=== PATIENT | female | born 1945 | race Caucasian/White ===

== ENCOUNTER 2017-03-10 01:34 | Inpatient (IN) | payer MEDICARE, OTHER ==
[~2017-03-10] VITALS: Ht 157.5 cm; Wt 101.3 kg
[2017-03-10] VITALS (43 sets, daily range): BP systolic 78–143; BP diastolic 55–80; PULSE 65–108; RESP 0–24; Ht 157.5 cm; Wt 101.3 kg
[2017-03-10] MEDS ORDERED: SOD CHLORIDE 0.9% 1,000 ML IV STA (01:39)
[2017-03-10] MEDS ORDERED: VECURONIUM 100 MG in DEXTROSE 5% 100 ML IV ONE (01:39)
[2017-03-10] MEDS ORDERED: SODIUM CHLORIDE 0.9% 500 ML BAG IV* STA (01:39)
[2017-03-10] MEDS ORDERED: PROPOFOL 100 ML IV STA (01:39)
[2017-03-10 01:48] LABS: ABNORMAL IP MESSAGE 1; BASOPHIL # 0.1 10^3/ul (0.0-0.1); BASOPHILS % 0.5 % (0.0-2.0); EOSINOPHILS # 0.1 10^3/ul (0.0-0.5); EOSINOPHILS % 1.1 % (0.0-7.0); HEMATOCRIT 38.6 % (37.0-47.0); LYMPHOCYTES # 3.4 10^3/ul (0.8-2.9); LYMPHOCYTES % 35.6 % (15.0-51.0); MEAN CORPUSCULAR HEMOGLOBIN 25.4 pg (29.0-33.0); MEAN CORPUSCULAR HGB CONC 28.5 g/dl (32.0-37.0); MEAN CORPUSCULAR VOLUME 89.1 fl (82.0-101.0); MEAN PLATELET VOLUME 11.5 fl (7.4-10.4); MONOCYTE # 0.6 10^3/ul (0.3-0.9); MONOCYTES % 6.2 % (0.0-11.0); NEUTROPHIL # 5.2 10^3/ul (1.6-7.5); NUCLEATED RED BLOOD CELLS% 0.4 /100WBC (0.0-0.0); PLATELET COUNT 303 10^3/UL (140-415); RED BLOOD COUNT 4.33 10^6/ul (4.20-5.40); RED CELL DISTRIBUTION WIDTH 16.6 % (11.5-14.5); WHITE BLOOD COUNT 9.6 10^3/ul (4.8-10.8)
[2017-03-10 01:55] LABS: POSITIVE DIFF @See below
[2017-03-10 01:59] LABS: INR 1.23; PROTIME 15.6 Sec (12.2-14.2); PT RATIO 1.2
[2017-03-10 02:00] LABS: PARTIAL THROMBOPLASTIN TIME 42.1 Sec (25.0-35.0)
[2017-03-10 02:03] LABS: ALBUMIN 3.7 g/dl (3.3-4.9); ALBUMIN/GLOBULIN RATIO 1.37; BILIRUBIN,INDIRECT 0.1 mg/dl (0-1.1); BILIRUBIN,TOTAL 0.1 mg/dl (0.2-1.3); CALCIUM 9.1 mg/dl (8.4-10.2); CREATININE 1.08 mg/dl (0.44-1.00); MAGNESIUM 2.1 mg/dl (1.7-2.5); PHOSPHORUS 8.7 mg/dl (2.5-4.9); TOTAL PROTEIN 6.4 g/dl (6.1-8.1)
[2017-03-10] MEDS ORDERED: LIDOCAINE 1% (MDV) 20 ML INJ ONE (02:04)
[2017-03-10] MEDS ORDERED: MIDAZOLAM 1 MG/ML 2 ML INJ ONE ×2 (02:07→03:12)
[2017-03-10] MEDS ORDERED: FENTAnyl 50 MCG/ML VIAL ONE (02:07)
--- NOTE | 2017-03-10 02:10 | ERD ---
ER Documentation Chief Complaint Chief Complaint unwitnessed CA followed by ROSC and STEMI EKG HPI 8-year-old female with unwitnessed cardiac arrest followed by Emblem in the field. EKG rate STEMI. EMS intubated in the field. Last known well time was 1255. Brought into the ER 130. Patient unable to relate any history. Family currently not at bedside. ROS All systems reviewed and are negative except as per history of present illness. Physical Exam Vitals Vital Signs Date Time Temp Pulse Resp B/P Pulse Ox O2 Delivery O2 Flow Rate FiO2 03/10/17 01:42 43 12 105/90 100 Physical Exam Const: [] Head: Atraumatic Eyes: Normal Conjunctiva ENT: Normal External Ears, Nose and Mouth. Neck: Full range of motion..~ No meningismus. Resp: Clear to auscultation bilaterally Cardio: Regular rate and rhythm, no murmurs Abd: Soft, non tender, non distended. Normal bowel sounds Skin: No petechiae or rashes Back: No midline or flank tenderness Ext: No cyanosis, or edema Neur: Awake and alert Psych: Normal Mood and Affect Result Diagram: 03/10/17 0136 Results 24 hrs Laboratory Tests Test 03/10/17 01:36 03/10/17 01:58 White Blood Count 9.610^3/ul Red Blood Count 4.3310^6/ul Hemoglobin 11.0g/dl Hematocrit 38.6% Mean Corpuscular Volume 89.1fl Mean Corpuscular Hemoglobin 25.4pg Mean Corpuscular Hemoglobin Concent 28.5g/dl Red Cell Distribution Width 16.6% Platelet Count 39325^3/UL Mean Platelet Volume 11.5fl Neutrophils % 54.0% Lymphocytes % 35.6% Monocytes % 6.2% Eosinophils % 1.1% Basophils % 0.5% Nucleated Red Blood Cells % 0.4/100WBC Neutrophils # 5.210^3/ul Lymphocytes # 3.410^3/ul Monocytes # 0.610^3/ul Eosinophils # 0.110^3/ul Basophils # 0.110^3/ul Nucleated Red Blood Cells # 0.010^3/ul Prothrombin Time 15.6Sec Prothrombin Time Ratio 1.2 INR International Normalized Ratio 1.23 Activated Partial Thromboplast Time 42.1Sec Bedside Glucose 275mg/dL Current Medications Medications (Trade) Dose Ordered Sig/Bailey Route PRN Reason Start Time Stop Time Status Last Admin Dose Admin Sodium Chloride (NS) 1,000 ml @ 1,000 mls/hr Q1H STAT IV 03/10/17 01:39 03/10/17 02:38 03/10/17 01:55 Sodium Chloride 500 ml 500 ml ONCE STAT IV* 03/10/17 01:39 03/10/17 01:43 DC 03/10/17 01:55 Propofol 100 ml @ 3 mls/hr ONCE STAT IV 03/10/17 01:39 03/11/17 10:58 Vecuronium [place]/Dextrose (Norcuron/D5W) 100 ml @ 6 mls/hr [id number] ONCE IV 03/10/17 01:39 03/10/17 18:18 Procedures/MDM Central Line Placement by me: Patient consented, sterilely draped, full prep, gown, glove, mask, time out performed. Anesthesia: 1% lidocaine locally Location: Right femoral Device: Multiple lumen Technique: Seldinger technique. Secured with suture. Results: Venous return from all ports with easy saline flush. No complications. Chest X-ray 1V Interpreted by me: Soft Tissue: No acute abnormalities Bones: No acute abnormalities Mediastinum/Cardiac Silhouette/Lungs: [No acute abnormalities] EKG: Rate/Rhythm: [Normal Sinus Rhythm] QRS, ST, T-waves: ST segment elevations V345 Impression: [No evidence of ischemia or arrhythmia] Medical decision-makin-year-old female ROSC and STEMI. Patient will be transferred to the [facility]. Dr. Diaz made aware for hospitalist. Critical Care: Time: 35 minutes Treatments/Evaluations: Close monitoring and treatment of unstable vital signs, cardiorespiratory, and neurologic status, while maintaining tight balance of fluid, respiratory, and cardiac interventions. Departure Diagnosis: Primary Impression: ST elevation myocardial infarction (STEMI) Involved coronary artery: unspecified coronary artery Qualified Code: I21.3 - ST elevation myocardial infarction (STEMI), unspecified artery Additional Impression: Cardiac arrest Condition: Critical RAMÓN DAWKINSKath Mar 10, 2017 02:10
[2017-03-10 02:15] LABS: TROPONIN-I 0.104 ng/ml (0.00-0.12)
--- NOTE | 2017-03-10 02:24 | CONS ---
Date/Time of Note Date/Time of Note DATE: 03/10/17 TIME: 02: Assessment/Plan Assessment/Plan Chief Complaint/Hosp Course Cardiac arrest: EKG is concerning for anterior [place] especially as pt reportedly had chest pain prior to arrest. ROSC was achieved in the field. Unclear how long pt was down. Cardiac cath for immediate evaluation Anterior STEMI: ST elevation V2-V4 in setting of cardiac arrest. 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 She was resuscitated and ROSC was achieved in the field. She was brought in by paramedics with concern for STEMI. The pt is unresponsive. Unclear if bystander CPR was initiated. In the ED there is concern for anterior ST elevation by EKG. unable to obtain Past Medical History per HPI Exam/Review of Systems Vital Signs Vitals Vital Signs Date Time Temp Pulse Resp B/P Pulse Ox O2 Delivery O2 Flow Rate FiO2 03/10/17 01:42 43 12 105/90 100 Exam Constitutional: No alert, No distress, No oriented Head: atraumatic, normocephalic ENMT: intubated Neck: No jvd Respiratory: diminished breath sounds, No clear to auscultation, No crackles/rales Cardiovascular: regular rate and rhythm, systolic murmur (2/6 [place]) Gastrointestinal: non-tender, soft Neurological: No nl mental status, No nl speech Results EKG in field: hyperacute TW V3-V5 EKG in ED: sinus, 1st degree AVB, borderline ST V2 and V4, 2 mm HILARIO in V3. No reciprocal ST changes elsewhere Result Diagram: 03/10/17 0136 Results 24 hrs Laboratory Tests Test 03/10/17 01:36 03/10/17 01:58 White Blood Count 9.6 Red Blood Count 4.33 Hemoglobin 11.0 L Hematocrit 38.6 Mean Corpuscular Volume 89.1 Mean Corpuscular Hemoglobin 25.4 L Mean Corpuscular Hemoglobin Concent 28.5 L Red Cell Distribution Width 16.6 H Platelet Count 303 Mean Platelet Volume 11.5 H Neutrophils % 54.0 Lymphocytes % 35.6 Monocytes % 6.2 Eosinophils % 1.1 Basophils % 0.5 Nucleated Red Blood Cells % 0.4 H Neutrophils # 5.2 Lymphocytes # 3.4 H Monocytes # 0.6 Eosinophils # 0.1 Basophils # 0.1 Nucleated Red Blood Cells # 0.0 Prothrombin Time 15.6 H Prothrombin Time Ratio 1.2 INR International Normalized Ratio 1.23 Activated Partial Thromboplast Time 42.1 H Bedside Glucose 275 H Medications Medications Current Medications Vecuronium [place]/Dextrose (Norcuron/D5W) 100 ml @ 6 mls/hr [id number] ONCE IV ; Start 03/10/17 at 01:39; Stop 03/10/17 at 18:18 ZACK ROSENTHAL Mar 10, 2017 02:24
--- NOTE | 2017-03-10 02:30 | RADRPT ---
PROCEDURE: XR Chest. CLINICAL INDICATION: Chest pain. TECHNIQUE: Single frontal chest x-ray. COMPARISON: None. FINDINGS: Half endotracheal tube tip is in the right mainstem bronchus. Heart is enlarged.. There is diffuse interstitial prominence compatible with CHF/pulmonary edema.. There is a right-sided pleural effusio n. There is no pneumothorax. The osseous structures are unremarkable. IMPRESSION: Endotracheal tube right mainstem bronchus. Cardiomegaly. Pulmonary edema. Right pleural effusion. Critical findings reported to Dr. Covarrubias on 03/10/2017 2:28:42 AM. RPTAT: HMVK .Willam Merritt MD, MD Date Time Electronically viewed and signed by .Willam Merritt MD, on 03/10/2017 02:30 .K/
[2017-03-10] MEDS ORDERED: CANGRELOR TETRASODIUM/ NS 250 50 MG ONE ×2 (02:39→02:40)
[2017-03-10] MEDS ORDERED: BIVALIRUDIN 250MG /NS 50 ML 50 ML IVPB ONE (02:39)
[2017-03-10] MEDS ORDERED: LORAZEPAM 2 MG INJ ONE (03:25)
[2017-03-10] MEDS ORDERED: LORAZEPAM 2 MG INJ IV ONE (03:30)
[2017-03-10] MEDS ORDERED: TICAGRELOR 90 MG TABLET PO ONE (03:30)
[2017-03-10] MEDS ORDERED: ASPIRIN 325 MG TAB PO ONE (03:30)
[2017-03-10] MEDS ORDERED: MIDAZOLAM (DRIP) 50 mg/50 mL 50 ML IV ONE (03:41)
--- NOTE | 2017-03-10 03:47 | HP ---
Date/Time of Note Date/Time of Note DATE: 03/10/17 TIME: 03:47 Assessment/Plan VTE Prophylaxis VTE Prophylaxis Intervention: SCD's Lines/Catheters IV [facility] Central Line Central line still needed: Yes Assessment/Plan Chief Complaint/Hosp Course This is a 71-year-old female being admitted to the ICU floor for: #1 ventilatory dependent respiratory failure: Secondary to cardiac arrest. Continue vent management as per pulmonary. Serial ABGs. #2 cardiac arrest: Secondary to anterior STEMI. ROSC achieved in the field. Please see ACLS report for full EMS details. Patient found to have anterior STEMI and taken to [facility] emergently. Seizure-like activity during catheterization patient started on Versed drip and taken to get a stat CT of the head. CT of the head did not show any acute findings. Patient initiated on hypothermia protocol. Since prognosis appears very guarded concern for possible anoxic injury. #3 anterior STEMI: EKG shows ST elevation V2-V4. s/p PCI of mid LAD. Establish NG access and give ticagrelor 180mg and ASA 325mg load after which can stop cangrelor drip. continue angiomax for 4 hours post PCI. ASA 81mg lifelong. ticagrelor 90mg BID at least one year. Cardiology on consult appreciate their recommendations. 2D echocardiogram in the a.m. #4 CAD: Patient is a history of prior PCI. Continue management as per #3. Appreciate further cardiology recommendations. #5 DM: Check hemoglobin A1c, insulin drip as per hypothermia protocol. #6 HTN: Continue to monitor will initiate medications as indicated. #7 DVT GI prophylaxis: SCDs, Protonix Further treatment strategy will be implemented as per the clinical course Greater than 50 minutes of critical care time was spent on the care management of this patient. Problems: HPI/ROS Admit Date/Time Admit Date/Time Hx of Present Illness cc: cardiac arrest This is a 71-year-old female brought in by ambulance status post cardiac arrest with ROSC. History was obtained from the patient's family at the bedside this patient was unable to provide history secondary to her clinical condition. Patient son states that the mother called him at approximately 12:55 AM stating that she did not feel well and had chest pain. The patient was told her to the hospital which took him about 5 minutes and when he got there he saw his mother was nonresponsive. He quickly called 911. Within approximately 5 minutes the EMS arrived and started CPR. Please see ACLS report for further details. It is unclear how long the patient was down however it appears to be at least between 7-10 minutes. Patient was brought to the emergency department where an EKG was concerning for STEMI. she was taken emergently to the [facility] she had cardiac stenting. Of note during the catheterization the patient was displaying myoclonic jerks. Patient was given Versed and Ativan however at her apparent seizure activity did not seize. Patient was started on Versed drip and taken for a stat CAT scan. A central line was also placed in the ED prior to the cardiac catheterization. Allergies: None Medications: See MAR ROS Subjective hx not possible: pt critical, pt critical status PMH/Family/Social Past Medical History NM status post 2 stents, diabetes mitis, hypertension, hyperlipidemia Past Surgical History Cardiac stents 2 Family History Significant Family History: hypertension Social History Alcohol Use: none Smoking Status: Never smoker Drug Use: none Exam/Review of Systems Vital Signs Vitals Vital Signs Date Time Temp Pulse Resp B/P Pulse Ox O2 Delivery O2 Flow Rate FiO2 03/10/17 02:15 82 22 165/88 98 Mechanical Ventilator Exam Exam General: Patient is obtunded currently intubated HEENT: Pinpoint pupils bilaterally, sluggish, ET tube in place connected to vent Neck: Supple Lungs: Clear to auscultation bilaterally no crackles rales or wheezing Heart: Normal S1-S2, Regular rhythm and rate. No overt murmur appreciated on auscultation Abdomen: Soft , nondistended , bowel sounds are present. No guarding no rebound tenderness , No masses or organomegaly. No costovertebral temporal angle mass Extremities: Normal to inspection, no edema no cyanosis Neurologic: Obtunded, intubated, unable to assess full neurological status secondary to clinical status Additional Comments PROCEDURE: XR Chest. CLINICAL INDICATION: Chest pain. TECHNIQUE: Single frontal chest x-ray. COMPARISON: None. FINDINGS: Half endotracheal tube tip is in the right mainstem bronchus. Heart is enlarged.. There is diffuse interstitial prominence compatible with CHF/ pulmonary edema.. There is a right-sided pleural effusion. There is no pneumothorax. The osseous structures are unremarkable. IMPRESSION: Endotracheal tube right mainstem bronchus. Cardiomegaly. Pulmonary edema. Right pleural effusion. Critical findings reported to Dr. Dawkins on 03/10/2017 2:28:42 AM. RPTAT: HMVK .Willam Merritt MD, MD Date Time Electronically viewed and signed by .Willam Merritt MD, MD on 03/10/2017 02:30 .K/ CC: RAMÓN DAWKINS EKG in field: hyperacute TW V3-V5 EKG in ED: sinus, 1st degree AVB, borderline ST V2 and V4, 2 mm HILARIO in V3. No reciprocal ST changes elsewhere Labs Result Diagram: 03/10/1713503/10/17135 Medications Medications Current Medications Vecuronium [place]/Dextrose (Norcuron/D5W) 100 ml @ 6 mls/hr [id number] ONCE IV ; Start 03/10/17 at 01:39; Stop 03/10/17 at 18:18 Lorazepam (Ativan) 4 mg ONCE ONCE IV ; Start 03/10/17 at 03:30; Stop at 03:31; Status UNV Miscellaneous Information (* Miscellaneous Pharmacy Order) HOLD all METFORMIN ... ONCE ONCE XX ; Start 03/10/17 at 03:30; Stop 03/10/17 at 03:31; Status UNV Ticagrelor (Brilinta) 180 mg ONCE ONCE PO ; Start 03/10/17 at 03:30; Stop at 03:31; Status UNV Ticagrelor 90 mg 90 mg BID PO ; Start 03/10/17 at 09:00; Status UNV Midazolam HCl (Versed) 50 ml @ 1 mls/hr TITRATE IV ; Start 03/10/17 at 03:30; Status UNV Aspirin (Aspirin) 325 mg ONCE ONCE PO ; Start 03/10/17 at 03:30; Stop at 03:31; Status UNV Aspirin 81 mg 81 mg DAILY PO ; Start 03/10/17 at 09:00; Status UNV Sodium Chloride (NS) 1,000 ml @ 60 mls/hr [id number] IV ; Start 03/10/17 at 03:39 ; Status UNV Acetaminophen (Tylenol Supp) 650 mg Q4H PRN NV PAIN LEVEL 1-3 OR FEVER; Start 03/10/17 at 04:00; Status UNV Pantoprazole (Protonix Iv) 40 mg DAILY@06 IV ; Start 03/10/17 at 06:00; Status UNV JESSICA DIAZ Mar 10, 2017 03:47
--- NOTE | 2017-03-10 03:50 | OPR ---
Date/Time of Note Date/Time of Note DATE: 03/10/17 TIME: 03:36 Operative Report Preoperative Diagnosis cardiac arrest, anterior STEMI Postoperative Diagnosis same s/p PCI of mid LAD Surgeon see signature line Corner Former none Anesthesia Type: moderate sedation Estimated Blood Loss: minimal Transfusion none Specimen none Grafts/Implants none Complications none Procedure Description Procedure Date:03/10/2017 Customer Services Manager/surgeon: Tang Martinez MD. Procedures Performed: 1)Left heart catheterization with selective left and right coronary angiography. 2)Balloon angioplasty and stenting of the mid LAD with a Synergy 2.25 x 16 stent. Pre-operative Diagnosis:STEMI, cardiac arrest Post-operative Diagnosis:same, s/p PCI of mid LAD Indications: Description of Procedure: The patient was brought to the cardiac catheterization lab. The procedure site was prepped and draped in usual manner. 5 mL lidocaine was injected into the right groin. Next using micropuncture access and the Seldinger technique, the 6 nepali sheath was inserted into the right femoral artery. Next using the JL3.5 guide and JR4, selective angiography of the left and right coronary arteries were obtained. The pigtail was then advanced into the ventricle and hemodynamics obtained. Left ventricle angiography was not obtained due to elevated LVEDP The decision was made to proceed with PCI of the LAD as this was the likely culprit for her STEMI and cardiac arrest. The pt did not have PO access so IV cangrelor as well as angiomax was given. Through the 6 nepali JL 3.5 guide, the BMW angioplasty wire was advanced past the lesion. Next the 2.0 X 12 balloon was used to dilate the lesion times 2 at a maximum of 8 barbara. Subsequently, the Synergy 2.25 x 16 stent was advanced to the lesion and deployed at 12 barbara. Next the stent was post dilated with the 2.25 X 8 noncompliant balloon times 2 at a maximum of 12 barbara. Final angiography revealed SACHI 3 flow, no edge dissection, and appropriate stent expansion. Next all equipment was removed. Femoral angiography revealed a high bifurcation so closure device was not done. The sheath is to be removed in the ICU. Findings: Anatomy/Hemodynamics: Left main: normal LAD: ostial 30%, mid ulcerated 99% lesion Diagonal:luminal irregularities Circumflex:mid stent patent Obtuse marginal 1: prox focal 70%. Other obtuse marginals: small vessels some with diffuse disease RCA: 20-30% plaquing PDA:luminal irregularities PLV: small vessel with diffuse 50% prox disease LV angiography:not done due to elevated LVEDP LV-Ao: no gradient LVEDP:27 mmHg Medications used: Versed 4mg (pt noted to have possible seizure like activity) Fentanyl 50mcg Angiomax cangrelor Equipment used: 6 nepali JL 3.5 guide BMW angioplasty wire 2 x 12 balloon Synergy 2.25 x 16 drug eluting stent 2.25 x 8 noncompliant balloon Estimated blood loss<10 mL. Specimen: none Grafts/implants: none Complications: none Assessment: Anterior STEMI/CAD: s/p PCI of ulcerated 99% mid LAD lesion Cardiac arrest: likely due to arrhythmia related to above Acute respiratory failure: on vent due to above Likely anoxic brain injury: per family, pt may have been pulseless for 10 mins prior to cheese cook arrival Seizures vs myoclonic jerks Plan: -admit to ICU -establish NG access and give ticagrelor 180mg and ASA 325mg load after which can stop cangrelor drip -continue angiomax for 4 hours post PCI -would start hypothermia (discussed with hospitalist) -management of seizures per primary -ASA 81mg lifelong -ticagrelor 90mg BID at least one year -prognosis and neurologic recovery remains guarded TANG MARTINEZ Mar 10, 2017 03:50
[2017-03-10 04:00] LABS: BASOPHIL # 0.1 10^3/ul (0.0-0.1); BASOPHILS % 0.3 % (0.0-2.0); EOSINOPHILS # 0.1 10^3/ul (0.0-0.5); EOSINOPHILS % 0.4 % (0.0-7.0); HEMATOCRIT 34.5 % (37.0-47.0); HEMOGLOBIN 10.1 g/dl (12.0-16.0); LYMPHOCYTES # 1.4 10^3/ul (0.8-2.9); LYMPHOCYTES % 6.8 % (15.0-51.0); MEAN CORPUSCULAR HEMOGLOBIN 25.6 pg (29.0-33.0); MEAN CORPUSCULAR HGB CONC 29.3 g/dl (32.0-37.0); MEAN CORPUSCULAR VOLUME 87.6 fl (82.0-101.0); MEAN PLATELET VOLUME 11.1 fl (7.4-10.4); MONOCYTE # 0.4 10^3/ul (0.3-0.9); MONOCYTES % 2.1 % (0.0-11.0); NEUTROPHIL # 17.7 10^3/ul (1.6-7.5); NUCLEATED RED BLOOD CELLS% 0.1 /100WBC (0.0-0.0); PLATELET COUNT 291 10^3/UL (140-415); RED BLOOD COUNT 3.94 10^6/ul (4.20-5.40); RED CELL DISTRIBUTION WIDTH 16.4 % (11.5-14.5); WHITE BLOOD COUNT 20.2 10^3/ul (4.8-10.8)
[2017-03-10] MEDS ORDERED: NORepinephrine 8MG/250 ML (PMX 250 ML ONE (04:00)
[2017-03-10] MEDS ORDERED: ACETAMINOPHEN 650 MG SUPP PR PRN ×2 (04:00→04:30)
[2017-03-10] MEDS ORDERED: ASPIRIN 325 MG TAB ONE (04:04)
[2017-03-10] MEDS ORDERED: TICAGRELOR 90 MG TABLET ONE (04:04)
[2017-03-10] MEDS: ACCU-CHEK XX SCH ×19 (04:30→23:30)
[2017-03-10] MEDS ORDERED: DEXTROSE 50% 50 ML SYRINGE IV PRN ×2 (04:30)
--- NOTE | 2017-03-10 04:30 | RADRPT ---
PROCEDURE: Noncontrast CT Head. CLINICAL INDICATION: Cardiac arrest TECHNIQUE: Noncontrast CT of the head was obtained. The administered radiation dose was CTDI vol = 45 mGy, DLP = 1414 mGy-cm. One or more of the following dose reduction techniques were used: automat ed exposure control, adjustment of the mA and/or kV according to patient size and/or use of iterativ e reconstruction technique. DICOM images are available. COMPARISON: No pertinent prior examinations were submitted for comparison. FINDINGS: The ventricles and cortical sulci are mild to moderately enlarged. There is mild to moderate decrea sed attenuation within the periventricular and subcortical white matter compatible with chronic micr ovascular changes. Some contrast is noted within the vascular structures, presumably due to recent cardiac catheteriza tion. There is no acute intracranial hemorrhage or extra-axial fluid collection. There is no mass ef fect. No midline shift is identified. There is no loss of oneill-white differentiation to suggest acut e infarction. The orbits are within normal limits. Some mild mucosal thickening is noted throughout the paranasal sinuses. No destructive osseous lesion is identified. IMPRESSION: No acute findings. Mild to moderate diffuse parenchymal volume loss and chronic microvascular strickland es. RPTAT: HIKT .Guillermo Alberto MD, MD Date Time Electronically viewed and signed by .Guillermo Alberto MD, on 03/10/2017 04:30 .T/
[2017-03-10 04:32] LABS: CK-MB 2.85 ng/ml (0.0-2.4)
[2017-03-10 04:42] LABS: TROPONIN-I 0.128 ng/ml (0.00-0.12)
[2017-03-10 05:12] LABS: AADO2 Arterial 579.1 mmHg (7.0-24.0); Allen Test ACCEPTAB; Arterial Base Excess -7.8 mmol/L (-3.0-3); Arterial COHb 0.3 % (0.0-3.0); Arterial Fraction of Oxyhgb 93.9 % (93.0-99.0); Arterial HCO3 21.9 mmol/L (22.0-26.0); Arterial MetHb 0.2 % (0.0-1.5); Arterial Total Hemglobin 10.4 g/dl (12.0-18.0); MODE VENT - AC
[2017-03-10] MEDS ORDERED: DEXTROSE 5%-0.9% NACL 1,000 ML IV SCH (05:30)
[2017-03-10] MEDS: MIDAZOLAM (DRIP) 50 mg/50 mL 50 ML IV SCH ×2 (05:41→07:10)
[2017-03-10] MEDS ORDERED: PANTOPRAZOLE 40 MG INJ IV SCH (06:00)
[2017-03-10] MEDS: ARTIFICIAL TEARS 15 ML OPH BOTH EYES SCH ×3 (06:01→17:09)
[2017-03-10] MEDS: INSULIN HUMAN REGULAR 100 UNIT in SOD CHLORIDE 0.9% 99 ML IV SCH (06:01)
[2017-03-10] MEDS: OCULAR LUBRICANT 3.5 GM OPH OINT BOTH EYES SCH ×3 (06:02→17:09)
[2017-03-10] MEDS: SOD CHLORIDE 0.9% 1,000 ML IV SCH ×2 (06:04→23:30)
[2017-03-10 07:00] LABS: ALBUMIN 3.2 g/dl (3.3-4.9); ALBUMIN/GLOBULIN RATIO 1.23; CALCIUM 7.8 mg/dl (8.4-10.2); CREATININE 1.11 mg/dl (0.44-1.00); MAGNESIUM 1.7 mg/dl (1.7-2.5); TOTAL PROTEIN 5.8 g/dl (6.1-8.1)
[2017-03-10] MEDS ORDERED: NORepinephrine 8MG/250 ML (PMX 250 ML IV SCH (07:00)
[2017-03-10] MEDS ORDERED: LEVETIRACETAM 1000 MG (PMX) 100 ML IVPB ONE (07:30)
[2017-03-10] MEDS: PROPOFOL 100 ML IV SCH ×3 (07:30→18:43)
[2017-03-10] MEDS: VECURONIUM 100 MG in DEXTROSE 5% 100 ML IV SCH (08:00)
[2017-03-10] MEDS: ASPIRIN 81 MG TAB PO SCH (08:52)
[2017-03-10] MEDS: TICAGRELOR 90 MG TABLET PO SCH ×2 (09:02→21:12)
[2017-03-10 09:18] LABS: ADD UMIC YES; UR ASCORBIC ACID 20 mg/dL (NEGATIVE); UR BILIRUBIN (Dip) NEGATIVE (NEGATIVE); UR BLOOD (Dip) 1+ mg/dL (NEGATIVE); UR CLARITY CLEAR (CLEAR); UR COLOR YELLOW (YELLOW); UR GLUCOSE (Dip) NEGATIVE (NEGATIVE); UR KETONES (Dip) NEGATIVE (NEGATIVE); UR LEUKOCYTE ESTERASE (Dip) NEGATIVE Leu/ul (NEGATIVE); UR MUCUS FEW /HPF (NONE SEEN); UR NITRITE (Dip) NEGATIVE (NEGATIVE); UR RBC 9 /HPF (0-5); UR SPECIFIC GRAVITY (Dip) 1.036 (1.003-1.030); UR TOTAL PROTEIN (Dip) NEGATIVE (NEGATIVE); UR UROBILINOGEN (Dip) NEGATIVE (NEGATIVE)
--- NOTE | 2017-03-10 09:35 | PN ---
Date/Time of Note Date/Time of Note DATE: 03/10/17 TIME: 09:27 Assessment/Plan VTE Prophylaxis VTE Prophylaxis Intervention: SCD's Lines/Catheters IV Catheter Type (from Nrsg): Central Line Central line still needed: Yes Urinary Cath still in place: Yes Reason Cath still needed: other (indicate) (criticallu ill) Assessment/Plan Assessment/Plan 71 yo F presented following cardiac arrest 2/2 STEMI. Pt taken to [facility] and underwent PCI. Pt currently undergoing hypothermia protocol. Paper chart reviewed. No EMS paperwork available. Pt appears to have been in SR at time of arrival to the ER, though might have been in PEA/asystole in the field? -continue hypothermia as per protocol #STEMI sp PCI: DAPT, BP meds, statin as per cardiology a1c 6.1 pt currently on insulin drip discussed with family we will not be able to assess for neurological recovery until rewarming has been completed critical care time: 30 minutes Subjective 24 Hr Interval Summary Free Text/Dictation Pt currently undergoing hypothermia protocol Exam/Review of Systems Vital Signs Vitals Vital Signs Date Time Temp Pulse Resp B/P Pulse Ox O2 Delivery O2 Flow Rate FiO2 03/10/17 08:00 76 03/10/17 07:55 24 100 100 03/10/17 07:30 93/62 03/10/17 07:00 Mechanical Ventilator 03/10/17 07:00 91.0 Intake and Output 03/09/17 03/09/17 03/10/17 15:00 23:00 07:00 Intake Total 1083 ml Output Total 460 ml Balance 623 ml Exam intubated and sedated no mrg lungs clear abd soft oviedo in place Results Result Diagram: 03/10/17 0345 03/10/17 0345 Results 24 hrs Laboratory Tests Test 03/10/17 01:36 03/10/17 01:58 03/10/17 03:45 03/10/17 04:08 White Blood Count 9.6 20.2 #H Red Blood Count 4.33 3.94 L Hemoglobin 11.0 L 10.1 L Hematocrit 38.6 34.5 L Mean Corpuscular Volume 89.1 87.6 Mean Corpuscular Hemoglobin 25.4 L 25.6 L Mean Corpuscular Hemoglobin Concent 28.5 L 29.3 L Red Cell Distribution Width 16.6 H 16.4 H Platelet Count 303 291 Mean Platelet Volume 11.5 H 11.1 H Neutrophils % 54.0 88.0 H Lymphocytes % 35.6 6.8 L Monocytes % 6.2 2.1 Eosinophils % 1.1 0.4 Basophils % 0.5 0.3 Nucleated Red Blood Cells % 0.4 H 0.1 H Neutrophils # 5.2 17.7 H Lymphocytes # 3.4 H 1.4 Monocytes # 0.6 0.4 Eosinophils # 0.1 0.1 Basophils # 0.1 0.1 Nucleated Red Blood Cells # 0.0 0.0 Prothrombin Time 15.6 H Prothrombin Time Ratio 1.2 INR International Normalized Ratio 1.23 Activated Partial Thromboplast Time 42.1 H Sodium Level 142 141 Potassium Level 5.0 5.0 Chloride Level 103 105 Carbon Dioxide Level 19 L 19 L Anion Gap 25 H 22 H Blood Urea Nitrogen 16 17 Creatinine 1.08 H 1.11 H Glucose Level 264 H 273 H Calcium Level 9.1 7.8 L Phosphorus Level 8.7 H Magnesium Level 2.1 1.7 Total Bilirubin 0.1 L 0.0 L Direct Bilirubin 0.00 0.00 Indirect Bilirubin 0.1 0.0 Aspartate Amino Transf (AST/SGOT) 34 60 H Alanine Aminotransferase (ALT/SGPT) 37 46 Alkaline Phosphatase 56 54 Troponin I 0.104 0.128 *H B-Type Natriuretic Peptide 3310 H Total Protein 6.4 5.8 L Albumin 3.7 3.2 L Globulin 2.70 2.60 Albumin/Globulin Ratio 1.37 1.23 Bedside Glucose 275 H Hemoglobin A1c 6.1 H Lactic Acid Level 4.1 *H Creatine Kinase 131 Creatine Kinase Index 2.2 Creatinine Kinase MB (Mass) 2.85 H Thyroid Stimulating Hormone (TSH) < 0.015 L Blood Gas Specimen Source Blood arterial Arterial Blood Date Drawn 03/10/2017 4:57:46 AM Arterial Blood pH (Temp corrected) 7.158 *L Arterial Blood pCO2 (Temp correct) 61.0 H Arterial Blood pO2 (Temp corrected) 79.2 L Arterial Blood HCO3 21.9 L Arterial Blood Base Excess -7.8 L Arterial Blood Oxygen Saturation 94.4 L Scott Test ACCEPTAB Arterial Blood Gas Puncture Site Right Radial Arterial Blood Carboxyhemoglobin 0.3 Arterial Blood Methemoglobin 0.2 Blood Gas A-a O2 Differential 579.1 H Oxyhemoglobin Percent 93.9 Total Hemoglobin 10.4 L Blood Gas Temperature 34.4 Blood Gas Respiration Rate 18.0 Blood Gas Actual Respiration Rate 18 Blood Gas Modality VENT - AC FiO2 100.0 Blood Gas Tidal Volume 500.0 Blood Gas Low PEEP Setting 5.0 Blood Gas Inspiratory Pressure 36.0 Blood Gas Critical Value Read Back JUSTICE ARECHIGA Blood Gas Notified Whom AA Blood Gas Notified Time 03/10/2017 5:10:59 AM Test 03/10/17 05:46 03/10/17 06:00 03/10/17 06:21 03/10/17 07:27 Bedside Glucose 229 H 243 H 190 Urine Color YELLOW Urine Clarity CLEAR Urine pH 5.0 Urine Specific [place] 1.036 H Urine Ketones NEGATIVE Urine Nitrite NEGATIVE Urine Bilirubin NEGATIVE Urine Urobilinogen NEGATIVE Urine Leukocyte Esterase NEGATIVE Urine Microscopic RBC 9 H Urine Microscopic WBC 8 H Urine Mucus FEW A Urine Hemoglobin 1+ H Urine Glucose NEGATIVE Urine Total Protein NEGATIVE Test 03/10/17 08:33 03/10/17 09:15 Bedside Glucose 159 142 Medications Medications Current Medications Ticagrelor 90 mg 90 mg BID PO Last administered on 03/10/17 09:02; Admin Dose 90 MG; Start 03/10/17 at 09:00 Midazolam HCl (Versed) 50 ml @ 1 mls/hr TITRATE IV Last administered on 07:10; Admin Dose 10 MLS/HR; Start 03/10/17 at 03:30 Aspirin 81 mg 81 mg DAILY PO Last administered on 03/10/17 08:52; Admin Dose 81 MG; Start 03/10/17 at 09:00 Sodium Chloride (NS) 1,000 ml @ 60 mls/hr [id number] IV Last administered on 06:04; Admin Dose 60 MLS/HR; Start 03/10/17 at 03:39 Acetaminophen (Tylenol Supp) 650 mg Q4H PRN [place] PAIN LEVEL 1-3 OR FEVER; Start 03/10/17 at 04:00 Pantoprazole (Protonix Iv) 40 mg DAILY@06 IV Last administered on 03/10/17 06 :28; Admin Dose 40 MG; Start 03/10/17 at 06:00 Acetaminophen (Tylenol Supp) 650 mg Q4H PRN [place] TEMP > 37C; Start 03/10/17 at 04:30 Acetaminophen (Tylenol Supp) 500 mg Q6H [place] ; Start 03/11/17 at 04:30 Eye Lubricant (Akwa Oint) 1 applic Q6 BOTH EYES Last administered on 06:02; Admin Dose 1 APPLIC; Start 03/10/17 at 06:00 Eye Lubricant (Artificial Tears Oph) 2 drop Q6 BOTH EYES Last administered on 03/10/17 06:01; Admin Dose 2 DROP; Start 03/10/17 at 06:00 Diagnostic Test (Pha) (Accu-Chek) 1 ea Q1H XX Last administered on 03/10/17 08:40; Admin Dose 1 EA; Start 03/10/17 at 04:30 Dextrose (D50w Syringe) 25 ml Q15M PRN IV Till BS 80 mg/dL or above x2; Start 03/10/17 at 04:30 Dextrose 50 ml 50 ml Q15M PRN IV Till BS 80 mg/dL or above x2; Start 03/10/17 at 04:30 Norepinephrine 250 ml @ 1.875 mls/ hr TITRATE IV Last administered on 06:59; Admin Dose 3.75 MLS/HR; Start 03/10/17 at 07:00 Vecuronium Bee 100 mg/ Dextrose 100 ml @ 5 mls/hr TITRATE IV ; Start at 07:30 Propofol (Diprivan) 100 ml @ 3 mls/hr Q12H IV ; Start 03/10/17 at 07:30 ARCELIA MCGRATH MD Mar 10, 2017 09:35
--- NOTE | 2017-03-10 10:05 | RADRPT ---
PROCEDURE: XR Chest. CLINICAL INDICATION: Short of breath TECHNIQUE: Single portable view of the chest was obtained COMPARISON: No priors for comparison FINDINGS: There is an ET tube with distal tip below thoracic inlet. NG tube is noted with distal tip coursing below the hemidiaphragms.. The cardiac silhouette and pulmonary lady prominent. There are diffuse bi lateral infiltrates , right greater left and bilateral pleural effusions. IMPRESSION: 1. ET tube and NG tube in satisfactory position. 2. Cardiomegaly and pulmonary vascular congestion. Diffuse bilateral infiltrates, right greater than left and pleural effusions. Cannot exclude pneumonia in the appropriate clinical setting. RPTAT: AAPP Physician Prem Date Time Electronically viewed and signed by Physician Prem on 03/10/2017 10:04 JL/
--- NOTE | 2017-03-10 10:07 | RADRPT ---
PROCEDURE: XR Abdomen. CLINICAL INDICATION: Check nasogastric tube position. TECHNIQUE: AP supine abdomen x-ray. COMPARISON: Chest x-ray done earlier the same day. FINDINGS: There is a nasogastric tube with the tip distally in the stomach. A Salazar catheter is present in the bladder. Contrast is present in the bladder. There are 2 right femoral catheters. The bowel gas pattern is normal with no evidence of obstruction. There are no abnormal calcifications overlying the urinary tracts. There are degenerative changes of the spine. IMPRESSION: 1. Nasogastric tube distally in the stomach. 2. Salazar catheter in the bladder. 3. Contrast in the bladder. 4. Two right femoral catheters. 5. Degenerative changes of the spine. RPTAT: QQ .Wilfred Christian MD, MD Date Time Electronically viewed and signed by .Wilfred Christian MD, on 03/10/2017 10:06 .R/
[2017-03-10 10:15] LABS: CHOL/HDL RATIO 2.4 RATIO
[2017-03-10 10:22] LABS: CK-MB 3.76 ng/ml (0.0-2.4)
[2017-03-10 10:36] LABS: AADO2 Arterial 621.9 mmHg (7.0-24.0); Arterial Base Excess -6.6 mmol/L (-3.0-3); Arterial COHb 0.3 % (0.0-3.0); Arterial Fraction of Oxyhgb 92.7 % (93.0-99.0); Arterial HCO3 20.4 mmol/L (22.0-26.0); Arterial MetHb 0.2 % (0.0-1.5); Arterial Total Hemglobin 10.5 g/dl (12.0-18.0); MODE VENT - AC
[2017-03-10 10:47] LABS: TROPONIN-I 0.16 ng/ml (0.00-0.12)
--- NOTE | 2017-03-10 11:06 | CONS ---
DATE OF ADMISSION: 03/10/2017 DATE OF CONSULTATION: REASON FOR CONSULTATION: Shortness of breath. Thank you, Dr. Diaz, for this consultation. HISTORY OF PRESENT ILLNESS: This is a 71-year-old lady who yesterday reported to her son that she w as feeling unwell with central chest pain and discomfort. Upon arrival of her son, she was unrespon nayana, 911 was called and CPR was commenced via ACLS protocol. It appears the patient was down for a t least 10 minutes. She had return of circulation, so she presented to the Emergency Room, taken to the geophysical laboratory director and had stent of LAD placed. Following this, she had initiation of hypothermia protoc ol and currently is in hypothermia cooling process. PAST MEDICAL HISTORY: History of myocardial infarction with stents x2, diabetes mellitus, hypertens ion, hyperlipidemia. SOCIAL HISTORY: She is a nonsmoker, no alcohol, no history of drug use. FAMILY HISTORY: Noncontributory. SYSTEMS REVIEW: A 12-point review of systems, unable to perform. PHYSICAL EXAMINATION: GENERAL: Elderly-appearing lady, appears comfortable at rest, intubated and sedated on mechanical v entilation. VITAL SIGNS: Temperature is 92, pulse is 78, blood pressure 108/63 currently on vecuronium and prop ofol, orally intubated. HEENT: Pupils are sluggish. CARDIAC: S1, S2, no added sounds or murmurs. CHEST: Diminished air entry bilaterally. ABDOMEN: Soft, nontender. No guarding or rebound. EXTREMITIES: No cyanosis, clubbing or edema. NEUROLOGIC: Unable to assess. LABORATORY DATA: White count 20.2, hemoglobin 10.1, platelets of 291. BUN 17, creatinine 1.11. Tr oponin 0.125. ABG: pH 7.15, pCO2 of 61, pO2 of 79, bicarbonate was 22. DIAGNOSTIC DATA: Chest x-ray was reviewed, shows extensive right-sided infiltrate, possible underly ing pleural effusion. CT brain showed no acute ischemic findings. IMPRESSION AND PLAN: 1. Acute myocardial infarction. 2. Cardiopulmonary arrest. 3. Possible aspiration pneumonia with hypoxemic respiratory failure. 4. Possible anoxic brain injury. 5. History of coronary artery disease with stent placements in the past. The patient will require: 1. Continue hypothermia protocol. 2. Antibiotics for possible aspiration pneumonia. 3. Insulin drip. 4. Cardiac recommendations with Brilinta and aspirin post-stent placement. 5. DVT and GI prophylaxis. I had an extensive discussion with family members at bedside, explained that the patient would requi re at least 48 to 72 hours off sedation to assess neurological status. Dictated By: MARTA REMY MD SV/IDANIA Conf#: [id number] DID#: [id number] CC: JESSICA DIAZ MD;*EndCC*
--- NOTE | 2017-03-10 12:28 | CONS ---
Date/Time of Note Date/Time of Note DATE: 03/10/17 TIME: 12:24 Assessment/Plan Assessment/Plan Chief Complaint/Hosp Course 71 yo female admitted with cardiac arrest s/p LAD stent, on hypothermia protocol suspected seizure activity. CTH no acute process. Recommendations: start Keppra 1500 mg BID Routine EEG after hypothermia completed MRI Brain to assess for hypoxic injury when stable Problems: Consultation Date/Type/Reason Admit Date/Time 03/10/17 Date of Consultation: Mar 10, 2017 Type of Consultation: Neurology Reason for Consultation cardiac arrest seizure Referring Provider: JESSICA DIAZ Hx of Present Illness 71 yo female DM, HTN, HLD CAD admitted with chest pain became unresponsive down for atleast 10 mins, received CPR with ROSC on admission to the ER underwent emergent cath and LAD stent was placed. Hypothermia protocol was initiated currently undergoing. Seizure activity was witnessed she had twitching of the right lip and tongue. Versed, Propofol initiated, 1 load of Keppra was given. She remains unresponsive, sedated. Subjective hx not possible: pt non-verbal, pt critical Social History Alcohol Use: none Smoking Status: Never smoker Drug Use: none Exam/Review of Systems Vital Signs Vitals Vital Signs Date Time Temp Pulse Resp B/P Pulse Ox O2 Delivery O2 Flow Rate FiO2 03/10/17 12:00 72 03/10/17 09:43 24 100 100 03/10/17 09:00 91.9 108/63 03/10/17 07:00 Mechanical Ventilator Intake and Output 03/09/17 03/09/17 03/10/17 15:00 23:00 07:00 Intake Total 1083 ml Output Total 460 ml Balance 623 ml Exam sedated unable to assess well CN: pin point absent corneals and gag Motor absent w/d twitching noted of right upper lip rhythmic intermittent Results Result Diagram: 03/10/17 0345 03/10/17 0345 Results 24 hrs Laboratory Tests Test 03/10/17 01:36 03/10/17 01:58 03/10/17 03:45 03/10/17 04:08 White Blood Count 9.6 20.2 #H Red Blood Count 4.33 3.94 L Hemoglobin 11.0 L 10.1 L Hematocrit 38.6 34.5 L Mean Corpuscular Volume 89.1 87.6 Mean Corpuscular Hemoglobin 25.4 L 25.6 L Mean Corpuscular Hemoglobin Concent 28.5 L 29.3 L Red Cell Distribution Width 16.6 H 16.4 H Platelet Count 303 291 Mean Platelet Volume 11.5 H 11.1 H Neutrophils % 54.0 88.0 H Lymphocytes % 35.6 6.8 L Monocytes % 6.2 2.1 Eosinophils % 1.1 0.4 Basophils % 0.5 0.3 Nucleated Red Blood Cells % 0.4 H 0.1 H Neutrophils # 5.2 17.7 H Lymphocytes # 3.4 H 1.4 Monocytes # 0.6 0.4 Eosinophils # 0.1 0.1 Basophils # 0.1 0.1 Nucleated Red Blood Cells # 0.0 0.0 Prothrombin Time 15.6 H Prothrombin Time Ratio 1.2 INR International Normalized Ratio 1.23 Activated Partial Thromboplast Time 42.1 H Sodium Level 142 141 Potassium Level 5.0 5.0 Chloride Level 103 105 Carbon Dioxide Level 19 L 19 L Anion Gap 25 H 22 H Blood Urea Nitrogen 16 17 Creatinine 1.08 H 1.11 H Glucose Level 264 H 273 H Calcium Level 9.1 7.8 L Phosphorus Level 8.7 H Magnesium Level 2.1 1.7 Total Bilirubin 0.1 L 0.0 L Direct Bilirubin 0.00 0.00 Indirect Bilirubin 0.1 0.0 Aspartate Amino Transf (AST/SGOT) 34 60 H Alanine Aminotransferase (ALT/SGPT) 37 46 Alkaline Phosphatase 56 54 Troponin I 0.104 0.128 *H B-Type Natriuretic Peptide 3310 H Total Protein 6.4 5.8 L Albumin 3.7 3.2 L Globulin 2.70 2.60 Albumin/Globulin Ratio 1.37 1.23 Bedside Glucose 275 H Hemoglobin A1c 6.1 H Lactic Acid Level 4.1 *H Creatine Kinase 131 Creatine Kinase Index 2.2 Creatinine Kinase MB (Mass) 2.85 H Thyroid Stimulating Hormone (TSH) < 0.015 L Free Thyroxine 2.39 Blood Gas Specimen Source Blood arterial Arterial Blood Date Drawn 03/10/2017 4:57:46 AM Arterial Blood pH (Temp corrected) 7.158 *L Arterial Blood pCO2 (Temp correct) 61.0 H Arterial Blood pO2 (Temp corrected) 79.2 L Arterial Blood HCO3 21.9 L Arterial Blood Base Excess -7.8 L Arterial Blood Oxygen Saturation 94.4 L Scott Test ACCEPTAB Arterial Blood Gas Puncture Site Right Radial Arterial Blood Carboxyhemoglobin 0.3 Arterial Blood Methemoglobin 0.2 Blood Gas A-a O2 Differential 579.1 H Oxyhemoglobin Percent 93.9 Total Hemoglobin 10.4 L Blood Gas Temperature 34.4 Blood Gas Respiration Rate 18.0 Blood Gas Actual Respiration Rate 18 Blood Gas Modality VENT - AC FiO2 100.0 Blood Gas Tidal Volume 500.0 Blood Gas Low PEEP Setting 5.0 Blood Gas Inspiratory Pressure 36.0 Blood Gas Critical Value Read Back JUSTICE ARECHIGA Blood Gas Notified Whom AA Blood Gas Notified Time 03/10/2017 5:10:59 AM Test 03/10/17 05:46 03/10/17 06:00 03/10/17 06:21 03/10/17 07:27 Bedside Glucose 229 H 243 H 190 Urine Color YELLOW Urine Clarity CLEAR Urine pH 5.0 Urine Specific [place] 1.036 H Urine Ketones NEGATIVE Urine Nitrite NEGATIVE Urine Bilirubin NEGATIVE Urine Urobilinogen NEGATIVE Urine Leukocyte Esterase NEGATIVE Urine Microscopic RBC 9 H Urine Microscopic WBC 8 H Urine Mucus FEW A Urine Hemoglobin 1+ H Urine Glucose NEGATIVE Urine Total Protein NEGATIVE Test 03/10/17 08:33 03/10/17 09:15 03/10/17 09:38 03/10/17 10:03 Bedside Glucose 159 142 129 Lactic Acid Level 2.6 *H Creatine Kinase 127 Creatine Kinase Index 3.0 Creatinine Kinase MB (Mass) 3.76 H Troponin I 0.160 *H Triglycerides Level 69 Cholesterol Level 63 L LDL Cholesterol, Calculated 23 HDL Cholesterol 26 L Cholesterol/HDL Ratio 2.4 Test 03/10/17 10:08 03/10/17 10:58 03/10/17 12:01 Blood Gas Specimen Source Blood arterial Arterial Blood Date Drawn 03/10/2017 10:25:19 AM Arterial Blood pH (Temp corrected) 7.304 L Arterial Blood pCO2 (Temp correct) 40.2 Arterial Blood pO2 (Temp corrected) 59.2 L Arterial Blood HCO3 20.4 L Arterial Blood Base Excess -6.6 L Arterial Blood Oxygen Saturation 93.2 L Scott Test N/A Arterial Blood Gas Puncture Site A-Line Arterial Blood Carboxyhemoglobin 0.3 Arterial Blood Methemoglobin 0.2 Blood Gas A-a O2 Differential 621.9 H Oxyhemoglobin Percent 92.7 L Total Hemoglobin 10.5 L Blood Gas Temperature 33.5 Blood Gas Respiration Rate 24.0 Blood Gas Actual Respiration Rate 24 Blood Gas Modality VENT - AC FiO2 100.0 Blood Gas Tidal Volume 500.0 Blood Gas Low PEEP Setting 5.0 Blood Gas Critical Value Read Back Aracelis LEONARDO RN Blood Gas Notified Whom LINDYD Blood Gas Notified Time 03/10/2017 10:36:22 AM Bedside Glucose 118 125 Medications Medications Current Medications Ticagrelor 90 mg 90 mg BID PO Last administered on 03/10/17 09:02; Admin Dose 90 MG; Start 03/10/17 at 09:00 Midazolam HCl (Versed) 50 ml @ 1 mls/hr TITRATE IV Last administered on 07:10; Admin Dose 10 MLS/HR; Start 03/10/17 at 03:30 Aspirin 81 mg 81 mg DAILY PO Last administered on 03/10/17 08:52; Admin Dose 81 MG; Start 03/10/17 at 09:00 Sodium Chloride (NS) 1,000 ml @ 60 mls/hr [id number] IV Last administered on 06:04; Admin Dose 60 MLS/HR; Start 03/10/17 at 03:39 Acetaminophen (Tylenol Supp) 650 mg Q4H PRN [place] PAIN LEVEL 1-3 OR FEVER; Start 03/10/17 at 04:00 Acetaminophen (Tylenol Supp) 650 mg Q4H PRN [place] TEMP > 37C; Start 03/10/17 at 04:30 Acetaminophen (Tylenol Supp) 500 mg Q6H [place] ; Start 03/11/17 at 04:30 Eye Lubricant (Akwa Oint) 1 applic Q6 BOTH EYES Last administered on 11:02; Admin Dose 1 APPLIC; Start 03/10/17 at 06:00 Eye Lubricant (Artificial Tears Oph) 2 drop Q6 BOTH EYES Last administered on 03/10/17 11:02; Admin Dose 2 DROP; Start 03/10/17 at 06:00 Diagnostic Test (Pha) (Accu-Chek) 1 ea Q1H XX Last administered on 03/10/17 11:59; Admin Dose 1 EA; Start 03/10/17 at 04:30 Dextrose (D50w Syringe) 25 ml Q15M PRN IV Till BS 80 mg/dL or above x2; Start 03/10/17 at 04:30 Dextrose 50 ml 50 ml Q15M PRN IV Till BS 80 mg/dL or above x2; Start 03/10/17 at 04:30 Norepinephrine 250 ml @ 1.875 mls/ hr TITRATE IV Last administered on 06:59; Admin Dose 3.75 MLS/HR; Start 03/10/17 at 07:00 Vecuronium [place] 100 mg/ Dextrose 100 ml @ 5 mls/hr TITRATE IV Last administered on 03/10/17 08:00; Admin Dose 6 MLS/HR; Start 03/10/17 at 07:30 Propofol (Diprivan) 100 ml @ 3 mls/hr Q12H IV ; Start 03/10/17 at 07:30 Famotidine (Pepcid) 20 mg DAILY PO ; Start 03/11/17 at 09:00 ELOINA NAGY MD Mar 10, 2017 12:28
[2017-03-10] MEDS ORDERED: MEPERIDINE 25 MG INJ IV PRN ×2 (12:30)
[2017-03-10] MEDS ORDERED: MEPERIDINE 25 MG INJ ONE (12:30)
[2017-03-10 13:15] LABS: ABNORMAL IP MESSAGE 1; BASOPHILS % 0.1 % (0.0-2.0); HEMATOCRIT 31.6 % (37.0-47.0); HEMOGLOBIN 9.4 g/dl (12.0-16.0); LYMPHOCYTES # 0.3 10^3/ul (0.8-2.9); LYMPHOCYTES % 2.1 % (15.0-51.0); MEAN CORPUSCULAR HEMOGLOBIN 25.3 pg (29.0-33.0); MEAN CORPUSCULAR HGB CONC 29.7 g/dl (32.0-37.0); MEAN CORPUSCULAR VOLUME 85.2 fl (82.0-101.0); MEAN PLATELET VOLUME 10.8 fl (7.4-10.4); MONOCYTE # 0.5 10^3/ul (0.3-0.9); MONOCYTES % 3.9 % (0.0-11.0); NEUTROPHIL # 12.2 10^3/ul (1.6-7.5); NEUTROPHILS % 93.4 % (39.0-77.0); PLATELET COUNT 188 10^3/UL (140-415); RED BLOOD COUNT 3.71 10^6/ul (4.20-5.40); RED CELL DISTRIBUTION WIDTH 16.7 % (11.5-14.5); WHITE BLOOD COUNT 13.1 10^3/ul (4.8-10.8)
[2017-03-10 13:25] LABS: POSITIVE DIFF @See below
[2017-03-10 13:35] LABS: CALCIUM 7.6 mg/dl (8.4-10.2); CREATININE 0.88 mg/dl (0.44-1.00); MAGNESIUM 1.7 mg/dl (1.7-2.5); PHOSPHORUS 4.2 mg/dl (2.5-4.9); POTASSIUM 3.5 mmol/L (3.5-5.1)
[2017-03-10 14:11] LABS: PARTIAL THROMBOPLASTIN TIME 37.1 Sec (25.0-35.0)
[2017-03-10 14:17] LABS: INR 1.36; PROTIME 16.8 Sec (12.2-14.2); PT RATIO 1.3
--- NOTE | 2017-03-10 14:36 | RADRPT ---
Echocardiogram Report Patient Name: MARC CRAMER Gender: Female Date: 1945 Study Date: 10-Mar-2017 Learning Design Specialist: Oh Cheema RDCS Location: [facility] Ref. Physician: JESSICA DIAZ Quality: Adequate Procedures: Transthoracic echocardiogram with complete 2D, M-Mode, and doppler examination. Indications: STEMI. 2D/M Mode Doppler Measurement Value Normal Ranges Measurement Value Normal Ranges LVIDd 2D 4.3 3.5 - 5.6 cm AV Peak Remy 1.8 m/sec LVIDs 2D 3.7 2.1 - 4.1 cm AV Peak PG 13.3 mmHg LVPWd 2D 0.8 0.6 - 1.1 cm LVOT Peak Remy 1.2 m/sec IVSd 2D 1.2 0.6 - 1.1 cm LVOT Peak PG 5.5 mmHg AoR Diam 2D 2.7 2.0 - 3.7 cm MV E Peak Remy 0.7 m/sec EDV 2D 83.2 cm3 MV A Peak Remy 0.4 m/sec ESV 2D 50.0 cm3 MV E/A 1.8 TV Diam 3.8 cm MV Decel Time 194 msec MV Decel [place] 3 MV E/A 1.8 TR Peak Remy 2.6 m/sec TR Peak PG 26.7 mmHg RVSP 35.0 mmHg Findings Left Ventricle: Normal left ventricular systolic function. Normal left ventricular cavity size. Mild concentric left ventricular hypertrophy. Ejection fraction is visually estimated at 60 %. Tissue Doppler/Mitral Doppler indices are consistent with impaired relaxation (Stage I diastolic dysfunction). Right Ventricle: Normal right ventricular size. Normal right ventricular systolic function. Left Atrium: There is moderate enlargement of left atrium. Right Atrium: The right atrium is normal in size. Mitral Valve: Mitral valve leaflets appear mildly thickened. Mild mitral annular calcification. Mild mitral valve regurgitation. Aortic Valve: Normal appearance of the aortic valve. No significant aortic stenosis or insufficiency. Tricuspid Valve: Normal appearance of the tricuspid valve. Estimated peak PA systolic pressure 38 mmHg. There is mild tricuspid regurgitation. Pulmonic Valve: Normal pulmonic valve appearance. Pericardium: Normal pericardium with no significant pericardial effusion. Aorta: Normal aortic root. IVC: Inferior vena cava without respiratory collapse, however, patient on ventilator. Conclusions Normal left ventricular systolic function. Normal left ventricular cavity size. Mild concentric left ventricular hypertrophy. Ejection fraction is visually estimated at 60 %. Tissue Doppler/Mitral Doppler indices are consistent with impaired relaxation (Stage I diastolic dysfunction). Mild mitral valve regurgitation. Estimated peak PA systolic pressure 38 mmHg. Inferior vena cava without respiratory collapse, however, patient on ventilator. Electronically Signed By: Tang Martinez 10-Mar-2017 14:35:42 -0800 Patient Name: MARC CRAMER Study Date: 10-Mar-2017 [id number]
--- NOTE | 2017-03-10 15:10 | CONS ---
Date/Time of Note Date/Time of Note DATE: 03/10/17 TIME: 15:05 Assessment/Plan Assessment/Plan Chief Complaint/Hosp Course Anterior STEMI/CAD: s/p PCI of ulcerated 99% mid LAD lesion. EF by echo is preserved Cardiac arrest: likely due to arrhythmia related to above but unclear rhythm when paramedics arrived. Also with significant pulm edema so respiratory arrest/ PEA also possible Acute diastolic heart failure: Significant pulm edema by CXR. LVEDP 27 by cath Acute respiratory failure: on vent due to above Likely anoxic brain injury: per family, pt may have been pulseless for 10 mins prior to medical photographer arrival. Unclear rhythm Seizures vs myoclonic jerks -continue ASA, ticagrelor -rewarming tomorrow am -d/c arterial sheath once rewarmed -lasix 40mg IV x 1 and reassess response -prognosis and neurologic recovery remains guarded Critical care time >40mins Problems: Consultation Date/Type/Reason Admit Date/Time Mar 10, 2017 at 03:25 Initial Consult Date 03/10/17 Type of Consultation: Cardiology Referring Provider: JESSICA DIAZ 24 HR Interval Summary Free Text/Dictation Now on hypothermia protocol. CT head was unremarkable but was likely having seizures. Required levophed this am but now off. Exam/Review of Systems Vital Signs Vitals Vital Signs Date Time Temp Pulse Resp B/P Pulse Ox O2 Delivery O2 Flow Rate FiO2 03/10/17 13:45 76 24 98 100 03/10/17 13:00 91.4 103/64 03/10/17 07:00 Mechanical Ventilator Intake and Output 03/09/17 03/09/17 03/10/17 15:00 23:00 07:00 Intake Total 1083 ml Output Total 460 ml Balance 623 ml Exam Constitutional: other (sedated, hypothermia) Head: atraumatic, normocephalic ENMT: intubated Neck: No jvd (unable to examine) Respiratory: diminished breath sounds, No clear to auscultation Cardiovascular: regular rate and rhythm, No edema, No systolic murmur Gastrointestinal: non-tender, soft Neurological: No nl mental status, No nl speech Skin: No rash or lesions Results Result Diagram: 03/10/17 1301 03/10/17 1301 Results 24 hrs Laboratory Tests Test 03/10/17 01:36 03/10/17 01:58 03/10/17 03:45 03/10/17 04:08 White Blood Count 9.6 20.2 #H Red Blood Count 4.33 3.94 L Hemoglobin 11.0 L 10.1 L Hematocrit 38.6 34.5 L Mean Corpuscular Volume 89.1 87.6 Mean Corpuscular Hemoglobin 25.4 L 25.6 L Mean Corpuscular Hemoglobin Concent 28.5 L 29.3 L Red Cell Distribution Width 16.6 H 16.4 H Platelet Count 303 291 Mean Platelet Volume 11.5 H 11.1 H Neutrophils % 54.0 88.0 H Lymphocytes % 35.6 6.8 L Monocytes % 6.2 2.1 Eosinophils % 1.1 0.4 Basophils % 0.5 0.3 Nucleated Red Blood Cells % 0.4 H 0.1 H Neutrophils # 5.2 17.7 H Lymphocytes # 3.4 H 1.4 Monocytes # 0.6 0.4 Eosinophils # 0.1 0.1 Basophils # 0.1 0.1 Nucleated Red Blood Cells # 0.0 0.0 Prothrombin Time 15.6 H Prothrombin Time Ratio 1.2 INR International Normalized Ratio 1.23 Activated Partial Thromboplast Time 42.1 H Sodium Level 142 141 Potassium Level 5.0 5.0 Chloride Level 103 105 Carbon Dioxide Level 19 L 19 L Anion Gap 25 H 22 H Blood Urea Nitrogen 16 17 Creatinine 1.08 H 1.11 H Glucose Level 264 H 273 H Calcium Level 9.1 7.8 L Phosphorus Level 8.7 H Magnesium Level 2.1 1.7 Total Bilirubin 0.1 L 0.0 L Direct Bilirubin 0.00 0.00 Indirect Bilirubin 0.1 0.0 Aspartate Amino Transf (AST/SGOT) 34 60 H Alanine Aminotransferase (ALT/SGPT) 37 46 Alkaline Phosphatase 56 54 Troponin I 0.104 0.128 *H B-Type Natriuretic Peptide 3310 H Total Protein 6.4 5.8 L Albumin 3.7 3.2 L Globulin 2.70 2.60 Albumin/Globulin Ratio 1.37 1.23 Bedside Glucose 275 H Hemoglobin A1c 6.1 H Lactic Acid Level 4.1 *H Creatine Kinase 131 Creatine Kinase Index 2.2 Creatinine Kinase MB (Mass) 2.85 H Thyroid Stimulating Hormone (TSH) < 0.015 L Free Thyroxine 2.39 Blood Gas Specimen Source Blood arterial Arterial Blood Date Drawn 03/10/2017 4:57:46 AM Arterial Blood pH (Temp corrected) 7.158 *L Arterial Blood pCO2 (Temp correct) 61.0 H Arterial Blood pO2 (Temp corrected) 79.2 L Arterial Blood HCO3 21.9 L Arterial Blood Base Excess -7.8 L Arterial Blood Oxygen Saturation 94.4 L Scott Test ACCEPTAB Arterial Blood Gas Puncture Site Right Radial Arterial Blood Carboxyhemoglobin 0.3 Arterial Blood Methemoglobin 0.2 Blood Gas A-a O2 Differential 579.1 H Oxyhemoglobin Percent 93.9 Total Hemoglobin 10.4 L Blood Gas Temperature 34.4 Blood Gas Respiration Rate 18.0 Blood Gas Actual Respiration Rate 18 Blood Gas Modality VENT - AC FiO2 100.0 Blood Gas Tidal Volume 500.0 Blood Gas Low PEEP Setting 5.0 Blood Gas Inspiratory Pressure 36.0 Blood Gas Critical Value Read Back JUSTICE RN Blood Gas Notified Whom AA Blood Gas Notified Time 03/10/2017 5:10:59 AM Test 03/10/17 05:46 03/10/17 06:00 03/10/17 06:21 03/10/17 07:27 Bedside Glucose 229 H 243 H 190 Urine Color YELLOW Urine Clarity CLEAR Urine pH 5.0 Urine Specific [place] 1.036 H Urine Ketones NEGATIVE Urine Nitrite NEGATIVE Urine Bilirubin NEGATIVE Urine Urobilinogen NEGATIVE Urine Leukocyte Esterase NEGATIVE Urine Microscopic RBC 9 H Urine Microscopic WBC 8 H Urine Mucus FEW A Urine Hemoglobin 1+ H Urine Glucose NEGATIVE Urine Total Protein NEGATIVE Test 03/10/17 08:33 03/10/17 09:15 03/10/17 09:38 03/10/17 10:03 Bedside Glucose 159 142 129 Lactic Acid Level 2.6 *H Creatine Kinase 127 Creatine Kinase Index 3.0 Creatinine Kinase MB (Mass) 3.76 H Troponin I 0.160 *H Triglycerides Level 69 Cholesterol Level 63 L LDL Cholesterol, Calculated 23 HDL Cholesterol 26 L Cholesterol/HDL Ratio 2.4 Test 03/10/17 10:08 03/10/17 10:58 03/10/17 12:01 03/10/17 13:01 Blood Gas Specimen Source Blood arterial Arterial Blood Date Drawn 03/10/2017 10:25:19 AM Arterial Blood pH (Temp corrected) 7.304 L Arterial Blood pCO2 (Temp correct) 40.2 Arterial Blood pO2 (Temp corrected) 59.2 L Arterial Blood HCO3 20.4 L Arterial Blood Base Excess -6.6 L Arterial Blood Oxygen Saturation 93.2 L Scott Test N/A Arterial Blood Gas Puncture Site A-Line Arterial Blood Carboxyhemoglobin 0.3 Arterial Blood Methemoglobin 0.2 Blood Gas A-a O2 Differential 621.9 H Oxyhemoglobin Percent 92.7 L Total Hemoglobin 10.5 L Blood Gas Temperature 33.5 Blood Gas Respiration Rate 24.0 Blood Gas Actual Respiration Rate 24 Blood Gas Modality VENT - AC FiO2 100.0 Blood Gas Tidal Volume 500.0 Blood Gas Low PEEP Setting 5.0 Blood Gas Critical Value Read Back Aracelis LEONARDO RN Blood Gas Notified Whom JLD Blood Gas Notified Time 03/10/2017 10:36:22 AM Bedside Glucose 118 125 White Blood Count 13.1 #H Red Blood Count 3.71 L Hemoglobin 9.4 L Hematocrit 31.6 L Mean Corpuscular Volume 85.2 Mean Corpuscular Hemoglobin 25.3 L Mean Corpuscular Hemoglobin Concent 29.7 L Red Cell Distribution Width 16.7 H Platelet Count 188 # Mean Platelet Volume 10.8 H Neutrophils % 93.4 H Lymphocytes % 2.1 L Monocytes % 3.9 Eosinophils % 0.0 Basophils % 0.1 Nucleated Red Blood Cells % 0.0 Neutrophils # 12.2 H Lymphocytes # 0.3 L Monocytes # 0.5 Eosinophils # 0.0 Basophils # 0.0 Nucleated Red Blood Cells # 0.0 Prothrombin Time 16.8 H Prothrombin Time Ratio 1.3 INR International Normalized Ratio 1.36 Activated Partial Thromboplast Time 37.1 H Fibrinogen 375.0 Sodium Level 144 Potassium Level 3.5 Chloride Level 110 Carbon Dioxide Level 22 Anion Gap 16 Blood Urea Nitrogen 22 H Creatinine 0.88 Glucose Level 140 # Calcium Level 7.6 L Phosphorus Level 4.2 # Magnesium Level 1.7 Amylase Level 92 Lipase 100 Test 03/10/17 13:21 03/10/17 14:04 Bedside Glucose 131 146 Medications Medications Current Medications Ticagrelor 90 mg 90 mg BID PO Last administered on 03/10/17 09:02; Admin Dose 90 MG; Start 03/10/17 at 09:00 Midazolam HCl (Versed) 50 ml @ 1 mls/hr TITRATE IV Last administered on 07:10; Admin Dose 10 MLS/HR; Start 03/10/17 at 03:30 Aspirin 81 mg 81 mg DAILY PO Last administered on 03/10/17 08:52; Admin Dose 81 MG; Start 03/10/17 at 09:00 Sodium Chloride (NS) 1,000 ml @ 60 mls/hr [id number] IV Last administered on 06:04; Admin Dose 60 MLS/HR; Start 03/10/17 at 03:39 Acetaminophen (Tylenol Supp) 650 mg Q4H PRN [place] PAIN LEVEL 1-3 OR FEVER; Start 03/10/17 at 04:00 Acetaminophen (Tylenol Supp) 650 mg Q4H PRN [place] TEMP > 37C; Start 03/10/17 at 04:30 Acetaminophen (Tylenol Supp) 500 mg Q6H [place] ; Start 03/11/17 at 04:30 Eye Lubricant (Akwa Oint) 1 applic Q6 BOTH EYES Last administered on 11:02; Admin Dose 1 APPLIC; Start 03/10/17 at 06:00 Eye Lubricant (Artificial Tears Oph) 2 drop Q6 BOTH EYES Last administered on 03/10/17 11:02; Admin Dose 2 DROP; Start 03/10/17 at 06:00 Diagnostic Test (Pha) (Accu-Chek) 1 ea Q1H XX Last administered on 03/10/17 14:20; Admin Dose 1 EA; Start 03/10/17 at 04:30 Dextrose (D50w Syringe) 25 ml Q15M PRN IV Till BS 80 mg/dL or above x2; Start 03/10/17 at 04:30 Dextrose 50 ml 50 ml Q15M PRN IV Till BS 80 mg/dL or above x2; Start 03/10/17 at 04:30 Norepinephrine 250 ml @ 1.875 mls/ hr TITRATE IV Last administered on 06:59; Admin Dose 3.75 MLS/HR; Start 03/10/17 at 07:00 Vecuronium [place] 100 mg/ Dextrose 100 ml @ 5 mls/hr TITRATE IV Last administered on 03/10/17 08:00; Admin Dose 6 MLS/HR; Start 03/10/17 at 07:30 Propofol (Diprivan) 100 ml @ 3 mls/hr Q12H IV Last administered on 11/14/17at 14:22; Admin Dose 6 MLS/HR; Start 03/10/17 at 07:30 Famotidine (Pepcid) 20 mg DAILY PO ; Start 03/11/17 at 09:00 Meperidine HCl (Demerol) 12.5 mg Q4H PRN IV POST OPERATIVE SHIVERING; Start at 12:30 Meperidine HCl 25 mg 25 mg Q4H PRN IV POST OPERATIVE SHIVERING Last administered on 03/10/17t 12:34; Admin Dose 25 MG; Start 03/10/17 at 12:30 Levetiracetam (Keppra 1,000mg/ 100ml (Pmx)) 100 ml @ 400 mls/hr Q12 IVPB ; Start 03/10/17 at 21:00 ZACK ROSENTHAL Mar 10, 2017 15:10
[2017-03-10 15:45] LABS: CK-MB 4.75 ng/ml (0.0-2.4)
[2017-03-10 15:46] LABS: TROPONIN-I 0.134 ng/ml (0.00-0.12)
[2017-03-10 16:18] LABS: AADO2 Arterial 600.3 mmHg (7.0-24.0); Arterial Base Excess -6.7 mmol/L (-3.0-3); Arterial COHb 0.3 % (0.0-3.0); Arterial Fraction of Oxyhgb 97.2 % (93.0-99.0); Arterial HCO3 18.2 mmol/L (22.0-26.0); Arterial MetHb 0.3 % (0.0-1.5); MODE VENT - AC
[2017-03-10] MEDS ORDERED: FUROSEMIDE 40 MG INJ ONE (17:25)
[2017-03-10] MEDS ORDERED: FUROSEMIDE 40 MG INJ IV ONE (17:30)
[2017-03-10 18:40] LABS: ABNORMAL IP MESSAGE 1; BASOPHILS % 0.1 % (0.0-2.0); HEMATOCRIT 31.6 % (37.0-47.0); HEMOGLOBIN 9.6 g/dl (12.0-16.0); LYMPHOCYTES # 0.3 10^3/ul (0.8-2.9); LYMPHOCYTES % 3.3 % (15.0-51.0); MEAN CORPUSCULAR HEMOGLOBIN 25.5 pg (29.0-33.0); MEAN CORPUSCULAR HGB CONC 30.4 g/dl (32.0-37.0); MEAN CORPUSCULAR VOLUME 83.8 fl (82.0-101.0); MEAN PLATELET VOLUME 10.8 fl (7.4-10.4); MONOCYTE # 0.5 10^3/ul (0.3-0.9); MONOCYTES % 5.1 % (0.0-11.0); NEUTROPHIL # 8.5 10^3/ul (1.6-7.5); NEUTROPHILS % 91.1 % (39.0-77.0); PLATELET COUNT 186 10^3/UL (140-415); RED BLOOD COUNT 3.77 10^6/ul (4.20-5.40); RED CELL DISTRIBUTION WIDTH 16.3 % (11.5-14.5); WHITE BLOOD COUNT 9.3 10^3/ul (4.8-10.8)
[2017-03-10 18:44] LABS: POSITIVE DIFF @See below
[2017-03-10 18:55] LABS: PT RATIO 1.2
[2017-03-10 18:58] LABS: CALCIUM 7.8 mg/dl (8.4-10.2); CREATININE 0.84 mg/dl (0.44-1.00); MAGNESIUM 1.6 mg/dl (1.7-2.5); POTASSIUM 3.2 mmol/L (3.5-5.1)
[2017-03-10 20:15] LABS: INR 1.23; PROTIME 15.6 Sec (12.2-14.2)
[2017-03-10] MEDS ORDERED: MAGNESIUM SULFATE 2 GM/50 ML 50 ML IVPB ONE (20:30)
[2017-03-10] MEDS: POTASSIUM CHLORIDE 250 ML IVPB SCH (20:54)
[2017-03-10] MEDS: LEVETIRACETAM 1000 MG (PMX) 100 ML IVPB SCH (20:59)
--- NOTE | 2017-03-10 21:49 | RADRPT ---
Vent Rate: 66 bpm RR Interval: 0 msec TX Interval: 212 msec QRS Duration: 122 msec QT Interval: 546 msec QTC Interval: 572 msec P-R-T [place]: 75 - 25 - 62 degrees Sinus rhythm with 1st degree AV block Nonspecific intraventricular conduction delay Borderline ECG Electronically Signed By: Willam Henderson [id number]
--- NOTE | 2017-03-10 21:50 | RADRPT ---
Vent Rate: 71 bpm RR Interval: 0 msec AR Interval: 196 msec QRS Duration: 108 msec QT Interval: 512 msec QTC Interval: 556 msec P-R-T [place]: 37 - 53 - 63 degrees Normal sinus rhythm Nonspecific T wave abnormality Prolonged QT Abnormal ECG Electronically Signed By: Willam Henderson [id number]
[2017-03-11] VITALS (43 sets, daily range): BP systolic 98–161; BP diastolic 54–84; PULSE 77–115; RESP 24–25
[2017-03-11] MEDS: POTASSIUM CHLORIDE 250 ML IVPB SCH (00:30)
[2017-03-11] MEDS: ACCU-CHEK XX SCH ×24 (00:30→23:25)
[2017-03-11] MEDS: ARTIFICIAL TEARS 15 ML OPH BOTH EYES SCH ×4 (00:37→17:30)
[2017-03-11] MEDS: OCULAR LUBRICANT 3.5 GM OPH OINT BOTH EYES SCH ×4 (00:37→17:30)
[2017-03-11 00:50] LABS: ABNORMAL IP MESSAGE 1; HEMATOCRIT 30.8 % (37.0-47.0); HEMOGLOBIN 9.5 g/dl (12.0-16.0); LYMPHOCYTES # 0.4 10^3/ul (0.8-2.9); LYMPHOCYTES % 4.8 % (15.0-51.0); MEAN CORPUSCULAR HEMOGLOBIN 25.1 pg (29.0-33.0); MEAN CORPUSCULAR HGB CONC 30.8 g/dl (32.0-37.0); MEAN CORPUSCULAR VOLUME 81.5 fl (82.0-101.0); MEAN PLATELET VOLUME 10.4 fl (7.4-10.4); MONOCYTE # 0.4 10^3/ul (0.3-0.9); MONOCYTES % 5.3 % (0.0-11.0); NEUTROPHIL # 6.9 10^3/ul (1.6-7.5); NEUTROPHILS % 89.5 % (39.0-77.0); PLATELET COUNT 175 10^3/UL (140-415); RED BLOOD COUNT 3.78 10^6/ul (4.20-5.40); RED CELL DISTRIBUTION WIDTH 16.3 % (11.5-14.5); WHITE BLOOD COUNT 7.7 10^3/ul (4.8-10.8)
[2017-03-11 00:52] LABS: POSITIVE DIFF @See below
[2017-03-11 01:07] LABS: INR 1.2; PROTIME 15.3 Sec (12.2-14.2); PT RATIO 1.2
[2017-03-11 01:08] LABS: PARTIAL THROMBOPLASTIN TIME 35.3 Sec (25.0-35.0)
[2017-03-11 01:11] LABS: CALCIUM 7.9 mg/dl (8.4-10.2); CREATININE 0.74 mg/dl (0.44-1.00); MAGNESIUM 1.8 mg/dl (1.7-2.5); POTASSIUM 3.2 mmol/L (3.5-5.1)
[2017-03-11] MEDS: ACETAMINOPHEN 650 MG SUPP PR SCH ×4 (04:30→22:30)
[2017-03-11] MEDS: VECURONIUM 100 MG in DEXTROSE 5% 100 ML IV SCH ×3 (05:00)
[2017-03-11] MEDS: INSULIN HUMAN REGULAR 100 UNIT in SOD CHLORIDE 0.9% 99 ML IV SCH ×2 (05:04→08:00)
[2017-03-11 05:16] LABS: ABNORMAL IP MESSAGE 1; BASOPHILS % 0.2 % (0.0-2.0); EOSINOPHILS % 0.2 % (0.0-7.0); HEMATOCRIT 29.9 % (37.0-47.0); HEMOGLOBIN 9.4 g/dl (12.0-16.0); LYMPHOCYTES # 0.3 10^3/ul (0.8-2.9); LYMPHOCYTES % 4.9 % (15.0-51.0); MEAN CORPUSCULAR HEMOGLOBIN 25.5 pg (29.0-33.0); MEAN CORPUSCULAR HGB CONC 31.4 g/dl (32.0-37.0); MEAN CORPUSCULAR VOLUME 81.3 fl (82.0-101.0); MEAN PLATELET VOLUME 11.6 fl (7.4-10.4); MONOCYTE # 0.3 10^3/ul (0.3-0.9); MONOCYTES % 3.9 % (0.0-11.0); NEUTROPHIL # 5.7 10^3/ul (1.6-7.5); NEUTROPHILS % 90.5 % (39.0-77.0); PLATELET COUNT 172 10^3/UL (140-415); RED BLOOD COUNT 3.68 10^6/ul (4.20-5.40); RED CELL DISTRIBUTION WIDTH 16.3 % (11.5-14.5); WHITE BLOOD COUNT 6.3 10^3/ul (4.8-10.8)
[2017-03-11 05:25] LABS: POSITIVE DIFF @See below
[2017-03-11 05:44] LABS: ALBUMIN 2.8 g/dl (3.3-4.9); BILIRUBIN,INDIRECT 0.1 mg/dl (0-1.1); BILIRUBIN,TOTAL 0.1 mg/dl (0.2-1.3); CALCIUM 8.1 mg/dl (8.4-10.2); CREATININE 0.71 mg/dl (0.44-1.00); MAGNESIUM 1.7 mg/dl (1.7-2.5); TOTAL PROTEIN 5.6 g/dl (6.1-8.1)
[2017-03-11 05:47] LABS: POTASSIUM 2.9 mmol/L (3.5-5.1)
[2017-03-11 05:50] LABS: INR 1.2; PROTIME 15.3 Sec (12.2-14.2); PT RATIO 1.2
[2017-03-11 05:51] LABS: PARTIAL THROMBOPLASTIN TIME 36.7 Sec (25.0-35.0)
[2017-03-11] MEDS: ACETAMINOPHEN 650MG/20.3ML CUP NGT SCH (06:00)
[2017-03-11] MEDS: MIDAZOLAM (DRIP) 50 mg/50 mL 50 ML IV SCH (07:22)
[2017-03-11] MEDS: PROPOFOL 100 ML IV SCH ×3 (07:22→23:04)
[2017-03-11 07:23] LABS: CALCIUM 7.9 mg/dl (8.4-10.2); PHOSPHORUS 4.3 mg/dl (2.5-4.9)
[2017-03-11 08:07] LABS: AADO2 Arterial 546.1 mmHg (7.0-24.0); Arterial Base Excess -3.8 mmol/L (-3.0-3); Arterial COHb 0.3 % (0.0-3.0); Arterial Fraction of Oxyhgb 96.3 % (93.0-99.0); Arterial HCO3 19.8 mmol/L (22.0-26.0); Arterial MetHb 0.3 % (0.0-1.5); Arterial Total Hemglobin 10.3 g/dl (12.0-18.0); MODE VENT - AC
[2017-03-11 08:42] LABS: CREATININE 0.77 mg/dl (0.44-1.00); POTASSIUM 3.3 mmol/L (3.5-5.1)
--- NOTE | 2017-03-11 08:43 | RADRPT ---
PROCEDURE: XR Chest. CLINICAL INDICATION: Shortness of breath. TECHNIQUE: Single frontal view. COMPARISON: 03/10/2017. FINDINGS: The endotracheal tube and nasogastric tube remain in satisfactory position. There is bilateral pulmo nary air space disease with right worse than left. The appearance is slightly improved on the right. The heart is enlarged. There are small bilateral pleural effusions. There is no pneumothorax. IMPRESSION: 1. Slightly improved appearance of the right lung. 2. No other change from the 03/10/2017 chest radiograph. RPTAT: QQ .Wilfred Christian MD, MD Date Time Electronically viewed and signed by .Wilfred Christian MD, MD on 03/11/2017 08:43 .R/
[2017-03-11] MEDS ORDERED: MAGNESIUM SULFATE 3 GM in DEXTROSE 5% 100 ML IVPB SCH (09:00)
[2017-03-11] MEDS ORDERED: POTASSIUM CHLORIDE 50 ML IVPB SCH (09:00)
[2017-03-11] MEDS ORDERED: AMIODARONE 150MG/D5W BOLUS 100 ML IV ONE (09:00)
[2017-03-11] MEDS ORDERED: POTASSIUM CHLORIDE 20 MEQ POWDER FOR ORAL SOLN NGT ONE (09:00)
--- NOTE | 2017-03-11 09:27 | CONS ---
Date/Time of Note Date/Time of Note DATE: 03/11/17 TIME: 09:22 Assessment/Plan Assessment/Plan Chief Complaint/Hosp Course Paroxysmal afib: new onset. Though rates are tolerable, will try rhythm control as likely will start becoming tachycardic with rewarming. BP marginal so no rate control yet. Anterior STEMI/CAD: s/p PCI of ulcerated 99% mid LAD lesion. EF by echo is preserved Cardiac arrest: likely due to arrhythmia related to above but unclear rhythm when paramedics arrived. Also with significant pulm edema so respiratory arrest/ PEA also possible Acute diastolic heart failure: Significant pulm edema by CXR. LVEDP 27 by cath. Improving with diuresis Acute respiratory failure: on vent due to above Likely anoxic brain injury: per family, pt may have been pulseless for 10 mins prior to plastering supervisor arrival. Unclear rhythm Seizures vs myoclonic jerks -amio bolus and drip -if BP improves, start coreg -continue ASA, ticagrelor -d/c arterial sheath once rewarmed -lasix 20mg IV BID -replete lytes -prognosis and neurologic recovery remains guarded Critical care time >40mins Problems: Consultation Date/Type/Reason Admit Date/Time Mar 10, 2017 at 03:25 Initial Consult Date 03/10/17 Type of Consultation: Cardiology Referring Provider: JESSICA DIAZ 24 HR Interval Summary Free Text/Dictation Diuresed well last night. Now rewarming stage but converted to afib (rates ~110s ). Remains sedated and paralyzed Exam/Review of Systems Vital Signs Vitals Vital Signs Date Time Temp Pulse Resp B/P Pulse Ox O2 Delivery O2 Flow Rate FiO2 03/11/17 09:00 93.5 106 24 120/82 100 03/11/17 07:36 90 03/10/17 07:00 Mechanical Ventilator Intake and Output 03/10/17 03/10/17 03/11/17 15:00 23:00 07:00 Intake Total 734.546 ml 857.0 ml 722.5 ml Output Total 357 ml 2932 ml 687 ml Balance 377.546 ml -2075.0 ml 35.5 ml Exam Constitutional: other (sedated), No alert ENMT: intubated Neck: No jvd (difficult to examine ) Respiratory: crackles/rales, diminished breath sounds, No clear to auscultation Cardiovascular: No edema, No regular rate and rhythm (IRIR), No systolic murmur Gastrointestinal: bowel sounds, soft, No distended Musculoskeletal: nl extremities to inspection Neurological: No nl mental status, No nl speech Skin: No rash or lesions Results Result Diagram: 03/11/17 0400 03/11/17 0754 Results 24 hrs Laboratory Tests Test 03/10/17 09:38 03/10/17 10:03 03/10/17 10:08 03/10/17 10:58 Lactic Acid Level 2.6 *H Creatine Kinase 127 Creatine Kinase Index 3.0 Creatinine Kinase MB (Mass) 3.76 H Troponin I 0.160 *H Triglycerides Level 69 Cholesterol Level 63 L LDL Cholesterol, Calculated 23 HDL Cholesterol 26 L Cholesterol/HDL Ratio 2.4 Bedside Glucose 129 118 Blood Gas Specimen Source Blood arterial Arterial Blood Date Drawn 03/10/2017 10:25:19 AM Arterial Blood pH (Temp corrected) 7.304 L Arterial Blood pCO2 (Temp correct) 40.2 Arterial Blood pO2 (Temp corrected) 59.2 L Arterial Blood HCO3 20.4 L Arterial Blood Base Excess -6.6 L Arterial Blood Oxygen Saturation 93.2 L Scott Test N/A Arterial Blood Gas Puncture Site A-Line Arterial Blood Carboxyhemoglobin 0.3 Arterial Blood Methemoglobin 0.2 Blood Gas A-a O2 Differential 621.9 H Oxyhemoglobin Percent 92.7 L Total Hemoglobin 10.5 L Blood Gas Temperature 33.5 Blood Gas Respiration Rate 24.0 Blood Gas Actual Respiration Rate 24 Blood Gas Modality VENT - AC FiO2 100.0 Blood Gas Tidal Volume 500.0 Blood Gas Low PEEP Setting 5.0 Blood Gas Critical Value Read Back T MALISSA ARECHIGA Blood Gas Notified Whom LINDYD Blood Gas Notified Time 03/10/2017 10:36:22 AM Test 03/10/17 12:01 03/10/17 13:01 03/10/17 13:21 03/10/17 14:04 Bedside Glucose 125 131 146 White Blood Count 13.1 #H Red Blood Count 3.71 L Hemoglobin 9.4 L Hematocrit 31.6 L Mean Corpuscular Volume 85.2 Mean Corpuscular Hemoglobin 25.3 L Mean Corpuscular Hemoglobin Concent 29.7 L Red Cell Distribution Width 16.7 H Platelet Count 188 # Mean Platelet Volume 10.8 H Neutrophils % 93.4 H Lymphocytes % 2.1 L Monocytes % 3.9 Eosinophils % 0.0 Basophils % 0.1 Nucleated Red Blood Cells % 0.0 Neutrophils # 12.2 H Lymphocytes # 0.3 L Monocytes # 0.5 Eosinophils # 0.0 Basophils # 0.0 Nucleated Red Blood Cells # 0.0 Prothrombin Time 16.8 H Prothrombin Time Ratio 1.3 INR International Normalized Ratio 1.36 Activated Partial Thromboplast Time 37.1 H Fibrinogen 375.0 Sodium Level 144 Potassium Level 3.5 Chloride Level 110 Carbon Dioxide Level 22 Anion Gap 16 Blood Urea Nitrogen 22 H Creatinine 0.88 Glucose Level 140 # Calcium Level 7.6 L Phosphorus Level 4.2 # Magnesium Level 1.7 Amylase Level 92 Lipase 100 Test 03/10/17 14:54 03/10/17 14:55 03/10/17 15:47 03/10/17 16:08 Bedside Glucose 123 115 Creatine Kinase 114 Creatine Kinase Index 4.2 Creatinine Kinase MB (Mass) 4.75 H Troponin I 0.134 *H Blood Gas Specimen Source Blood arterial Arterial Blood Date Drawn 03/10/2017 4:04:15 PM Arterial Blood pH (Temp corrected) 7.408 Arterial Blood pCO2 (Temp correct) 28.1 L Arterial Blood pO2 (Temp corrected) 94.4 Arterial Blood HCO3 18.2 L Arterial Blood Base Excess -6.7 L Arterial Blood Oxygen Saturation 97.8 Scott Test N/A Arterial Blood Gas Puncture Site A-Line Arterial Blood Carboxyhemoglobin 0.3 Arterial Blood Methemoglobin 0.3 Blood Gas A-a O2 Differential 600.3 H Oxyhemoglobin Percent 97.2 Total Hemoglobin 10.0 L Blood Gas Temperature 32.8 Blood Gas Respiration Rate 24.0 Blood Gas Actual Respiration Rate 24 Blood Gas Modality VENT - AC FiO2 100.0 Blood Gas Tidal Volume 500.0 Blood Gas Low PEEP Setting 8.0 Blood Gas Notified Whom LS Blood Gas Notified Time 03/10/2017 4:18:01 PM Test 03/10/17 16:44 03/10/17 17:44 03/10/17 17:49 03/10/17 18:45 Bedside Glucose 125 133 100 White Blood Count 9.3 # Red Blood Count 3.77 L Hemoglobin 9.6 L Hematocrit 31.6 L Mean Corpuscular Volume 83.8 Mean Corpuscular Hemoglobin 25.5 L Mean Corpuscular Hemoglobin Concent 30.4 L Red Cell Distribution Width 16.3 H Platelet Count 186 Mean Platelet Volume 10.8 H Neutrophils % 91.1 H Lymphocytes % 3.3 L Monocytes % 5.1 Eosinophils % 0.0 Basophils % 0.1 Nucleated Red Blood Cells % 0.0 Neutrophils # 8.5 H Lymphocytes # 0.3 L Monocytes # 0.5 Eosinophils # 0.0 Basophils # 0.0 Nucleated Red Blood Cells # 0.0 Sodium Level 144 Potassium Level 3.2 L Chloride Level 109 Carbon Dioxide Level 23 Anion Gap 15 Blood Urea Nitrogen 22 H Creatinine 0.84 Glucose Level 114 Calcium Level 7.8 L Phosphorus Level 4.0 Magnesium Level 1.6 L Amylase Level 72 Lipase 63 Test 03/10/17 19:47 03/10/17 20:02 03/10/17 21:03 03/10/17 21:10 Prothrombin Time 15.6 H Prothrombin Time Ratio 1.2 INR International Normalized Ratio 1.23 Activated Partial Thromboplast Time 36.0 H Fibrinogen 378.0 Bedside Glucose 141 126 Troponin I 0.148 *H Test 03/10/17 22:02 03/10/17 22:59 03/10/17 23:58 03/11/17 00:34 Bedside Glucose 138 149 130 White Blood Count 7.7 Red Blood Count 3.78 L Hemoglobin 9.5 L Hematocrit 30.8 L Mean Corpuscular Volume 81.5 L Mean Corpuscular Hemoglobin 25.1 L Mean Corpuscular Hemoglobin Concent 30.8 L Red Cell Distribution Width 16.3 H Platelet Count 175 Mean Platelet Volume 10.4 Neutrophils % 89.5 H Lymphocytes % 4.8 L Monocytes % 5.3 Eosinophils % 0.0 Basophils % 0.0 Nucleated Red Blood Cells % 0.0 Neutrophils # 6.9 Lymphocytes # 0.4 L Monocytes # 0.4 Eosinophils # 0.0 Basophils # 0.0 Nucleated Red Blood Cells # 0.0 Prothrombin Time 15.3 H Prothrombin Time Ratio 1.2 INR International Normalized Ratio 1.20 Activated Partial Thromboplast Time 35.3 H Fibrinogen 457.0 # Sodium Level 142 Potassium Level 3.2 L Chloride Level 111 H Carbon Dioxide Level 22 Anion Gap 12 Blood Urea Nitrogen 21 H Creatinine 0.74 Glucose Level 137 Calcium Level 7.9 L Phosphorus Level 4.0 Magnesium Level 1.8 Amylase Level 47 Lipase 35 Test 03/11/17 00:58 03/11/17 01:55 03/11/17 03:08 03/11/17 03:58 Bedside Glucose 147 144 161 155 Test 03/11/17 04:00 03/11/17 04:57 03/11/17 06:03 03/11/17 07:00 White Blood Count 6.3 Red Blood Count 3.68 L Hemoglobin 9.4 L Hematocrit 29.9 L Mean Corpuscular Volume 81.3 L Mean Corpuscular Hemoglobin 25.5 L Mean Corpuscular Hemoglobin Concent 31.4 L Red Cell Distribution Width 16.3 H Platelet Count 172 Mean Platelet Volume 11.6 H Neutrophils % 90.5 H Lymphocytes % 4.9 L Monocytes % 3.9 Eosinophils % 0.2 Basophils % 0.2 Nucleated Red Blood Cells % 0.0 Neutrophils # 5.7 Lymphocytes # 0.3 L Monocytes # 0.3 Eosinophils # 0.0 Basophils # 0.0 Nucleated Red Blood Cells # 0.0 Prothrombin Time 15.3 H Prothrombin Time Ratio 1.2 INR International Normalized Ratio 1.20 Activated Partial Thromboplast Time 36.7 H Fibrinogen 487.0 #H Sodium Level 144 Potassium Level 2.9 *L Chloride Level 112 H Carbon Dioxide Level 22 Anion Gap 13 Blood Urea Nitrogen 20 Creatinine 0.71 Glucose Level 138 Calcium Level 7.9 L Phosphorus Level 4.3 Magnesium Level 1.7 Total Bilirubin 0.1 L Direct Bilirubin 0.00 Indirect Bilirubin 0.1 Aspartate Amino Transf (AST/SGOT) 52 H Alanine Aminotransferase (ALT/SGPT) 50 Alkaline Phosphatase 38 L Troponin I 0.133 *H Total Protein 5.6 L Albumin 2.8 L Globulin 2.80 Albumin/Globulin Ratio 1.00 Amylase Level 52 Lipase 30 Bedside Glucose 144 151 139 Blood Gas Specimen Source Blood arterial Arterial Blood Date Drawn 03/11/2017 7:20:40 AM Arterial Blood pH (Temp corrected) 7.478 H Arterial Blood pCO2 (Temp correct) 26.4 L Arterial Blood pO2 (Temp corrected) 76.5 L Arterial Blood HCO3 19.8 L Arterial Blood Base Excess -3.8 L Arterial Blood Oxygen Saturation 96.9 Scott Test N/A Arterial Blood Gas Puncture Site A-Line Arterial Blood Carboxyhemoglobin 0.3 Arterial Blood Methemoglobin 0.3 Blood Gas A-a O2 Differential 546.1 H Oxyhemoglobin Percent 96.3 Total Hemoglobin 10.3 L Blood Gas Temperature 33.3 Blood Gas Respiration Rate 24.0 Blood Gas Actual Respiration Rate 24 Blood Gas Modality VENT - AC FiO2 90.0 Blood Gas Tidal Volume 500.0 Blood Gas Low PEEP Setting 8.0 Blood Gas Notified Whom JLD Blood Gas Notified Time 03/11/2017 8:07:17 AM Test 03/11/17 07:54 03/11/17 07:59 03/11/17 09:05 Sodium Level 145 H Potassium Level 3.3 L Chloride Level 110 Carbon Dioxide Level 21 Anion Gap 17 H Blood Urea Nitrogen 21 H Creatinine 0.77 Glucose Level 139 Calcium Level 8.0 L Bedside Glucose 142 135 Medications Medications Current Medications Ticagrelor 90 mg 90 mg BID PO Last administered on 03/10/17 21:12; Admin Dose 90 MG; Start 03/10/17 at 09:00 Midazolam HCl (Versed) 50 ml @ 1 mls/hr TITRATE IV Last administered on 07:22; Admin Dose 1 MLS/HR; Start 03/10/17 at 03:30 Aspirin (Aspirin) 81 mg DAILY PO Last administered on 03/10/17 08:52; Admin Dose 81 MG; Start 03/10/17 at 09:00 Acetaminophen (Tylenol Supp) 650 mg Q4H PRN [place] PAIN LEVEL 1-3 OR FEVER; Start 03/10/17 at 04:00 Acetaminophen (Tylenol Supp) 650 mg Q4H PRN [place] TEMP > 37C; Start 03/10/17 at 04:30 Acetaminophen (Tylenol Supp) 500 mg Q6H [place] ; Start 03/11/17 at 04:30 Eye Lubricant (Akwa Oint) 1 applic Q6 BOTH EYES Last administered on 05:45; Admin Dose 1 APPLIC; Start 03/10/17 at 06:00 Eye Lubricant (Artificial Tears Oph) 2 drop Q6 BOTH EYES Last administered on 03/11/17 05:44; Admin Dose 2 DROP; Start 03/10/17 at 06:00 Diagnostic Test (Pha) (Accu-Chek) 1 ea Q1H XX Last administered on 03/11/17 09:00; Admin Dose 1 EA; Start 03/10/17 at 04:30 Dextrose (D50w Syringe) 25 ml Q15M PRN IV Till BS 80 mg/dL or above x2; Start 03/10/17 at 04:30 Dextrose 50 ml 50 ml Q15M PRN IV Till BS 80 mg/dL or above x2; Start 03/10/17 at 04:30 Norepinephrine 250 ml @ 1.875 mls/ hr TITRATE IV Last administered on 06:59; Admin Dose 3.75 MLS/HR; Start 03/10/17 at 07:00 Vecuronium [place] 100 mg/ Dextrose 100 ml @ 5 mls/hr TITRATE IV Last administered on 03/11/17 05:00; Admin Dose 2 MLS/HR; Start 03/10/17 at 07:30 Propofol (Diprivan) 100 ml @ 3 mls/hr Q12H IV Last administered on 03/11/17 07:22; Admin Dose 6 MLS/HR; Start 03/10/17 at 07:30 Famotidine (Pepcid) 20 mg DAILY PO ; Start 03/11/17 at 09:00 Meperidine HCl (Demerol) 12.5 mg Q4H PRN IV POST OPERATIVE SHIVERING; Start at 12:30 Meperidine HCl 25 mg 25 mg Q4H PRN IV POST OPERATIVE SHIVERING Last administered on 03/10/17 12:34; Admin Dose 25 MG; Start 03/10/17 at 12:30 Levetiracetam (Keppra 1,000mg/ 100ml (Pmx)) 100 ml @ 400 mls/hr Q12 IVPB Last administered on 03/10/17 20:59; Admin Dose 400 MLS/HR; Start 03/10/17 at 21: 00 Acetaminophen 500 mg 500 mg DAILY NGT ; Start 03/11/17 at 06:00 Amiodarone HCl/ Dextrose (Cordarone Iv/ D5W) 500 ml @ 0 mls/hr Q0M IV ; Start 03/11/17 at 10:00; Stop 03/12/17 at 09:59 ZACK ROSENTHAL Mar 11, 2017 09:27
[2017-03-11] MEDS: LEVETIRACETAM 1000 MG (PMX) 100 ML IVPB SCH ×2 (09:53→20:56)
[2017-03-11] MEDS: FAMOTIDINE 20 MG TAB PO SCH (09:53)
[2017-03-11] MEDS: TICAGRELOR 90 MG TABLET PO SCH ×2 (09:54→21:00)
[2017-03-11] MEDS: FUROSEMIDE 20 MG INJ IV SCH ×2 (09:54→17:30)
[2017-03-11] MEDS: ASPIRIN 81 MG TAB PO SCH (09:54)
[2017-03-11] MEDS ORDERED: AMIODARONE 900 MG in DEXTROSE 5% 482 ML IV SCH (10:00)
--- NOTE | 2017-03-11 10:47 | CONS ---
Date/Time of Note Date/Time of Note DATE: 03/11/17 TIME: 10:45 Consult Date/Type/Reason Admit Date/Time Mar 10, 2017 at 03:25 Initial Consult Date 03/10/17 Type of Consultation: Pulmonary Ordering Provider: JESSICA DIAZ Subjective Patient remains intubated sedated currently in the rewarming phase of hypothermia protocol. Atrial fibrillation noted. Started on amiodarone. Objective Vital Signs Date Time Temp Pulse Resp B/P Pulse Ox O2 Delivery O2 Flow Rate FiO2 03/11/17 10:00 93.8 109 24 136/82 100 03/11/17 09:35 90 03/10/17 07:00 Mechanical Ventilator Intake and Output 03/10/17 03/10/17 03/11/17 14:59 22:59 06:59 Intake Total 743.546 ml 831.5 ml 758.5 ml Output Total 334 ml 2823 ml 880 ml Balance 409.546 ml -1991.5 ml -121.5 ml Exam PHYSICAL EXAMINATION: GENERAL: Elderly-appearing lady, appears comfortable at rest, intubated and sedated on mechanical ventilation. VITAL SIGNS: HEENT: Pupils are sluggish. CARDIAC: S1, S2, no added sounds or murmurs. CHEST: Diminished air entry bilaterally. ABDOMEN: Soft, nontender. No guarding or rebound. EXTREMITIES: No cyanosis, clubbing or edema. NEUROLOGIC: Unable to assess. Results/Medications Result Diagram: 03/11/17 0400 03/11/17 0754 Results 24 hrs Laboratory Tests Test 03/10/17 10:58 03/10/17 12:01 03/10/17 13:01 03/10/17 13:21 Bedside Glucose 118 125 131 White Blood Count 13.1 #H Red Blood Count 3.71 L Hemoglobin 9.4 L Hematocrit 31.6 L Mean Corpuscular Volume 85.2 Mean Corpuscular Hemoglobin 25.3 L Mean Corpuscular Hemoglobin Concent 29.7 L Red Cell Distribution Width 16.7 H Platelet Count 188 # Mean Platelet Volume 10.8 H Neutrophils % 93.4 H Lymphocytes % 2.1 L Monocytes % 3.9 Eosinophils % 0.0 Basophils % 0.1 Nucleated Red Blood Cells % 0.0 Neutrophils # 12.2 H Lymphocytes # 0.3 L Monocytes # 0.5 Eosinophils # 0.0 Basophils # 0.0 Nucleated Red Blood Cells # 0.0 Prothrombin Time 16.8 H Prothrombin Time Ratio 1.3 INR International Normalized Ratio 1.36 Activated Partial Thromboplast Time 37.1 H Fibrinogen 375.0 Sodium Level 144 Potassium Level 3.5 Chloride Level 110 Carbon Dioxide Level 22 Anion Gap 16 Blood Urea Nitrogen 22 H Creatinine 0.88 Glucose Level 140 # Calcium Level 7.6 L Phosphorus Level 4.2 # Magnesium Level 1.7 Amylase Level 92 Lipase 100 Test 03/10/17 14:04 03/10/17 14:54 03/10/17 14:55 03/10/17 15:47 Bedside Glucose 146 123 115 Creatine Kinase 114 Creatine Kinase Index 4.2 Creatinine Kinase MB (Mass) 4.75 H Troponin I 0.134 *H Test 03/10/17 16:08 03/10/17 16:44 03/10/17 17:44 03/10/17 17:49 Blood Gas Specimen Source Blood arterial Arterial Blood Date Drawn 03/10/2017 4:04:15 PM Arterial Blood pH (Temp corrected) 7.408 Arterial Blood pCO2 (Temp correct) 28.1 L Arterial Blood pO2 (Temp corrected) 94.4 Arterial Blood HCO3 18.2 L Arterial Blood Base Excess -6.7 L Arterial Blood Oxygen Saturation 97.8 Scott Test N/A Arterial Blood Gas Puncture Site A-Line Arterial Blood Carboxyhemoglobin 0.3 Arterial Blood Methemoglobin 0.3 Blood Gas A-a O2 Differential 600.3 H Oxyhemoglobin Percent 97.2 Total Hemoglobin 10.0 L Blood Gas Temperature 32.8 Blood Gas Respiration Rate 24.0 Blood Gas Actual Respiration Rate 24 Blood Gas Modality VENT - AC FiO2 100.0 Blood Gas Tidal Volume 500.0 Blood Gas Low PEEP Setting 8.0 Blood Gas Notified Whom LS Blood Gas Notified Time 03/10/2017 4:18:01 PM Bedside Glucose 125 133 White Blood Count 9.3 # Red Blood Count 3.77 L Hemoglobin 9.6 L Hematocrit 31.6 L Mean Corpuscular Volume 83.8 Mean Corpuscular Hemoglobin 25.5 L Mean Corpuscular Hemoglobin Concent 30.4 L Red Cell Distribution Width 16.3 H Platelet Count 186 Mean Platelet Volume 10.8 H Neutrophils % 91.1 H Lymphocytes % 3.3 L Monocytes % 5.1 Eosinophils % 0.0 Basophils % 0.1 Nucleated Red Blood Cells % 0.0 Neutrophils # 8.5 H Lymphocytes # 0.3 L Monocytes # 0.5 Eosinophils # 0.0 Basophils # 0.0 Nucleated Red Blood Cells # 0.0 Sodium Level 144 Potassium Level 3.2 L Chloride Level 109 Carbon Dioxide Level 23 Anion Gap 15 Blood Urea Nitrogen 22 H Creatinine 0.84 Glucose Level 114 Calcium Level 7.8 L Phosphorus Level 4.0 Magnesium Level 1.6 L Amylase Level 72 Lipase 63 Test 03/10/17 18:45 03/10/17 19:47 03/10/17 20:02 03/10/17 21:03 Bedside Glucose 100 141 126 Prothrombin Time 15.6 H Prothrombin Time Ratio 1.2 INR International Normalized Ratio 1.23 Activated Partial Thromboplast Time 36.0 H Fibrinogen 378.0 Test 03/10/17 21:10 03/10/17 22:02 03/10/17 22:59 03/10/17 23:58 Troponin I 0.148 *H Bedside Glucose 138 149 130 Test 03/11/17 00:34 03/11/17 00:58 03/11/17 01:55 03/11/17 03:08 White Blood Count 7.7 Red Blood Count 3.78 L Hemoglobin 9.5 L Hematocrit 30.8 L Mean Corpuscular Volume 81.5 L Mean Corpuscular Hemoglobin 25.1 L Mean Corpuscular Hemoglobin Concent 30.8 L Red Cell Distribution Width 16.3 H Platelet Count 175 Mean Platelet Volume 10.4 Neutrophils % 89.5 H Lymphocytes % 4.8 L Monocytes % 5.3 Eosinophils % 0.0 Basophils % 0.0 Nucleated Red Blood Cells % 0.0 Neutrophils # 6.9 Lymphocytes # 0.4 L Monocytes # 0.4 Eosinophils # 0.0 Basophils # 0.0 Nucleated Red Blood Cells # 0.0 Prothrombin Time 15.3 H Prothrombin Time Ratio 1.2 INR International Normalized Ratio 1.20 Activated Partial Thromboplast Time 35.3 H Fibrinogen 457.0 # Sodium Level 142 Potassium Level 3.2 L Chloride Level 111 H Carbon Dioxide Level 22 Anion Gap 12 Blood Urea Nitrogen 21 H Creatinine 0.74 Glucose Level 137 Calcium Level 7.9 L Phosphorus Level 4.0 Magnesium Level 1.8 Amylase Level 47 Lipase 35 Bedside Glucose 147 144 161 Test 03/11/17 03:58 03/11/17 04:00 03/11/17 04:57 03/11/17 06:03 Bedside Glucose 155 144 151 White Blood Count 6.3 Red Blood Count 3.68 L Hemoglobin 9.4 L Hematocrit 29.9 L Mean Corpuscular Volume 81.3 L Mean Corpuscular Hemoglobin 25.5 L Mean Corpuscular Hemoglobin Concent 31.4 L Red Cell Distribution Width 16.3 H Platelet Count 172 Mean Platelet Volume 11.6 H Neutrophils % 90.5 H Lymphocytes % 4.9 L Monocytes % 3.9 Eosinophils % 0.2 Basophils % 0.2 Nucleated Red Blood Cells % 0.0 Neutrophils # 5.7 Lymphocytes # 0.3 L Monocytes # 0.3 Eosinophils # 0.0 Basophils # 0.0 Nucleated Red Blood Cells # 0.0 Prothrombin Time 15.3 H Prothrombin Time Ratio 1.2 INR International Normalized Ratio 1.20 Activated Partial Thromboplast Time 36.7 H Fibrinogen 487.0 #H Sodium Level 144 Potassium Level 2.9 *L Chloride Level 112 H Carbon Dioxide Level 22 Anion Gap 13 Blood Urea Nitrogen 20 Creatinine 0.71 Glucose Level 138 Calcium Level 7.9 L Phosphorus Level 4.3 Magnesium Level 1.7 Total Bilirubin 0.1 L Direct Bilirubin 0.00 Indirect Bilirubin 0.1 Aspartate Amino Transf (AST/SGOT) 52 H Alanine Aminotransferase (ALT/SGPT) 50 Alkaline Phosphatase 38 L Troponin I 0.133 *H Total Protein 5.6 L Albumin 2.8 L Globulin 2.80 Albumin/Globulin Ratio 1.00 Amylase Level 52 Lipase 30 Test 03/11/17 07:00 03/11/17 07:54 03/11/17 07:59 03/11/17 09:05 Blood Gas Specimen Source Blood arterial Arterial Blood Date Drawn 03/11/2017 7:20:40 AM Arterial Blood pH (Temp corrected) 7.478 H Arterial Blood pCO2 (Temp correct) 26.4 L Arterial Blood pO2 (Temp corrected) 76.5 L Arterial Blood HCO3 19.8 L Arterial Blood Base Excess -3.8 L Arterial Blood Oxygen Saturation 96.9 Scott Test N/A Arterial Blood Gas Puncture Site A-Line Arterial Blood Carboxyhemoglobin 0.3 Arterial Blood Methemoglobin 0.3 Blood Gas A-a O2 Differential 546.1 H Oxyhemoglobin Percent 96.3 Total Hemoglobin 10.3 L Blood Gas Temperature 33.3 Blood Gas Respiration Rate 24.0 Blood Gas Actual Respiration Rate 24 Blood Gas Modality VENT - AC FiO2 90.0 Blood Gas Tidal Volume 500.0 Blood Gas Low PEEP Setting 8.0 Blood Gas Notified Whom JLD Blood Gas Notified Time 03/11/2017 8:07:17 AM Bedside Glucose 139 142 135 Sodium Level 145 H Potassium Level 3.3 L Chloride Level 110 Carbon Dioxide Level 21 Anion Gap 17 H Blood Urea Nitrogen 21 H Creatinine 0.77 Glucose Level 139 Calcium Level 8.0 L Test 03/11/17 09:57 Bedside Glucose 128 Medications Current Medications Ticagrelor 90 mg 90 mg BID PO Last administered on 03/11/17 09:54; Admin Dose 90 MG; Start 03/10/17 at 09:00 Midazolam HCl (Versed) 50 ml @ 1 mls/hr TITRATE IV Last administered on 07:22; Admin Dose 1 MLS/HR; Start 03/10/17 at 03:30 Aspirin (Aspirin) 81 mg DAILY PO Last administered on 03/11/17 09:54; Admin Dose 81 MG; Start 03/10/17 at 09:00 Acetaminophen (Tylenol Supp) 650 mg Q4H PRN MD PAIN LEVEL 1-3 OR FEVER; Start 03/10/17 at 04:00 Acetaminophen (Tylenol Supp) 650 mg Q4H PRN MD TEMP > 37C; Start 03/10/17 at 04:30 Acetaminophen (Tylenol Supp) 500 mg Q6H MD ; Start 03/11/17 at 04:30 Eye Lubricant (Akwa Oint) 1 applic Q6 BOTH EYES Last administered on 05:45; Admin Dose 1 APPLIC; Start 03/10/17 at 06:00 Eye Lubricant (Artificial Tears Oph) 2 drop Q6 BOTH EYES Last administered on 03/11/17 05:44; Admin Dose 2 DROP; Start 03/10/17 at 06:00 Diagnostic Test (Pha) (Accu-Chek) 1 ea Q1H XX Last administered on 03/11/17 09:42; Admin Dose 1 EA; Start 03/10/17 at 04:30 Dextrose (D50w Syringe) 25 ml Q15M PRN IV Till BS 80 mg/dL or above x2; Start 03/10/17 at 04:30 Dextrose 50 ml 50 ml Q15M PRN IV Till BS 80 mg/dL or above x2; Start 03/10/17 at 04:30 Norepinephrine 250 ml @ 1.875 mls/ hr TITRATE IV Last administered on 06:59; Admin Dose 3.75 MLS/HR; Start 03/10/17 at 07:00 Vecuronium [place] 100 mg/ Dextrose 100 ml @ 5 mls/hr TITRATE IV Last administered on 03/11/17 05:00; Admin Dose 2 MLS/HR; Start 03/10/17 at 07:30 Propofol (Diprivan) 100 ml @ 3 mls/hr Q12H IV Last administered on 03/11/17 07:22; Admin Dose 6 MLS/HR; Start 03/10/17 at 07:30 Famotidine (Pepcid) 20 mg DAILY PO Last administered on 03/11/17 09:53; Admin Dose 20 MG; Start 03/11/17 at 09:00 Meperidine HCl (Demerol) 12.5 mg Q4H PRN IV POST OPERATIVE SHIVERING; Start at 12:30 Meperidine HCl 25 mg 25 mg Q4H PRN IV POST OPERATIVE SHIVERING Last administered on 03/10/17 12:34; Admin Dose 25 MG; Start 03/10/17 at 12:30 Levetiracetam (Keppra 1,000mg/ 100ml (Pmx)) 100 ml @ 400 mls/hr Q12 IVPB Last administered on 03/11/17 09:53; Admin Dose 400 MLS/HR; Start 03/10/17 at 21: 00 Acetaminophen 500 mg 500 mg DAILY NGT ; Start 03/11/17 at 06:00 Amiodarone HCl/ Dextrose (Cordarone Iv/ D5W) 500 ml @ 0 mls/hr Q0M IV ; Start 03/11/17 at 10:00; Stop 03/12/17 at 09:59 Assessment/Plan Chief Complaint/Hosp Course IMPRESSION 1. Acute myocardial infarction. Status post LAD stent placement. Atrial fibrillation with rapid ventricular rate 2. Cardiopulmonary arrest. 3. Possible aspiration pneumonia with hypoxemic respiratory failure. 4. Possible anoxic brain injury. 5. History of coronary artery disease with stent placements in the past. Plan 1. Continue hypothermia protocol. Currently in rewarming phase. 2. Antibiotics for possible aspiration pneumonia. 3. Insulin drip. 4. Cardiac recommendations with Brilinta and aspirin post-stent placement. Continue rate control with amiodarone 5. DVT and GI prophylaxis. 6. Monitor for 48-72 hours for neurological response. Critical care time 40 minutes. Problems: MARTA REMY MD, [facility] Mar 11, 2017 10:47
[2017-03-11 11:04] LABS: ABNORMAL IP MESSAGE 1; BASOPHILS % 0.1 % (0.0-2.0); HEMATOCRIT 29.5 % (37.0-47.0); HEMOGLOBIN 9.4 g/dl (12.0-16.0); LYMPHOCYTES # 0.4 10^3/ul (0.8-2.9); MEAN CORPUSCULAR HEMOGLOBIN 25.8 pg (29.0-33.0); MEAN CORPUSCULAR HGB CONC 31.9 g/dl (32.0-37.0); MONOCYTE # 0.4 10^3/ul (0.3-0.9); MONOCYTES % 4.4 % (0.0-11.0); NEUTROPHIL # 7.2 10^3/ul (1.6-7.5); NEUTROPHILS % 90.1 % (39.0-77.0); PLATELET COUNT 184 10^3/UL (140-415); RED BLOOD COUNT 3.64 10^6/ul (4.20-5.40); RED CELL DISTRIBUTION WIDTH 16.6 % (11.5-14.5)
[2017-03-11 11:05] LABS: POSITIVE DIFF @See below
[2017-03-11 11:27] LABS: INR 1.19; PROTIME 15.2 Sec (12.2-14.2); PT RATIO 1.2
[2017-03-11 11:28] LABS: MAGNESIUM 1.7 mg/dl (1.7-2.5); PHOSPHORUS 4.3 mg/dl (2.5-4.9)
[2017-03-11 11:29] LABS: AMYLASE < 30 U/L (11-123)
--- NOTE | 2017-03-11 11:31 | CONS ---
Date/Time of Note Date/Time of Note DATE: 03/11/17 TIME: 11:28 Consult Date/Type/Reason Admit Date/Time Mar 10, 2017 at 03:25 Initial Consult Date 03/10/17 Type of Consultation: Neurology Reason for Consultation cardiac arrest hypoxic injury eval Ordering Provider: JESSICA DIAZ Subjective lip twitching resolved on propofol 10 mcg, versed 1 mcg Objective Vital Signs Date Time Temp Pulse Resp B/P Pulse Ox O2 Delivery O2 Flow Rate FiO2 03/11/17 11:22 103 24 100 90 03/11/17 11:00 93.6 125/80 03/10/17 07:00 Mechanical Ventilator Intake and Output 03/10/17 03/10/17 03/11/17 14:59 22:59 06:59 Intake Total 743.546 ml 831.5 ml 758.5 ml Output Total 334 ml 2823 ml 880 ml Balance 409.546 ml -1991.5 ml -121.5 ml Exam limited due to sedation unresponsive to verbal stimulation pupils constricted corneals and gag absent absent w/d to extremities Results/Medications Result Diagram: 03/11/17 1040 03/11/17 0754 Results 24 hrs Laboratory Tests Test 03/10/17 12:01 03/10/17 13:01 03/10/17 13:21 03/10/17 14:04 Bedside Glucose 125 131 146 White Blood Count 13.1 #H Red Blood Count 3.71 L Hemoglobin 9.4 L Hematocrit 31.6 L Mean Corpuscular Volume 85.2 Mean Corpuscular Hemoglobin 25.3 L Mean Corpuscular Hemoglobin Concent 29.7 L Red Cell Distribution Width 16.7 H Platelet Count 188 # Mean Platelet Volume 10.8 H Neutrophils % 93.4 H Lymphocytes % 2.1 L Monocytes % 3.9 Eosinophils % 0.0 Basophils % 0.1 Nucleated Red Blood Cells % 0.0 Neutrophils # 12.2 H Lymphocytes # 0.3 L Monocytes # 0.5 Eosinophils # 0.0 Basophils # 0.0 Nucleated Red Blood Cells # 0.0 Prothrombin Time 16.8 H Prothrombin Time Ratio 1.3 INR International Normalized Ratio 1.36 Activated Partial Thromboplast Time 37.1 H Fibrinogen 375.0 Sodium Level 144 Potassium Level 3.5 Chloride Level 110 Carbon Dioxide Level 22 Anion Gap 16 Blood Urea Nitrogen 22 H Creatinine 0.88 Glucose Level 140 # Calcium Level 7.6 L Phosphorus Level 4.2 # Magnesium Level 1.7 Amylase Level 92 Lipase 100 Test 03/10/17 14:54 03/10/17 14:55 03/10/17 15:47 03/10/17 16:08 Bedside Glucose 123 115 Creatine Kinase 114 Creatine Kinase Index 4.2 Creatinine Kinase MB (Mass) 4.75 H Troponin I 0.134 *H Blood Gas Specimen Source Blood arterial Arterial Blood Date Drawn 03/10/2017 4:04:15 PM Arterial Blood pH (Temp corrected) 7.408 Arterial Blood pCO2 (Temp correct) 28.1 L Arterial Blood pO2 (Temp corrected) 94.4 Arterial Blood HCO3 18.2 L Arterial Blood Base Excess -6.7 L Arterial Blood Oxygen Saturation 97.8 Scott Test N/A Arterial Blood Gas Puncture Site A-Line Arterial Blood Carboxyhemoglobin 0.3 Arterial Blood Methemoglobin 0.3 Blood Gas A-a O2 Differential 600.3 H Oxyhemoglobin Percent 97.2 Total Hemoglobin 10.0 L Blood Gas Temperature 32.8 Blood Gas Respiration Rate 24.0 Blood Gas Actual Respiration Rate 24 Blood Gas Modality VENT - AC FiO2 100.0 Blood Gas Tidal Volume 500.0 Blood Gas Low PEEP Setting 8.0 Blood Gas Notified Whom LS Blood Gas Notified Time 03/10/2017 4:18:01 PM Test 03/10/17 16:44 03/10/17 17:44 03/10/17 17:49 03/10/17 18:45 Bedside Glucose 125 133 100 White Blood Count 9.3 # Red Blood Count 3.77 L Hemoglobin 9.6 L Hematocrit 31.6 L Mean Corpuscular Volume 83.8 Mean Corpuscular Hemoglobin 25.5 L Mean Corpuscular Hemoglobin Concent 30.4 L Red Cell Distribution Width 16.3 H Platelet Count 186 Mean Platelet Volume 10.8 H Neutrophils % 91.1 H Lymphocytes % 3.3 L Monocytes % 5.1 Eosinophils % 0.0 Basophils % 0.1 Nucleated Red Blood Cells % 0.0 Neutrophils # 8.5 H Lymphocytes # 0.3 L Monocytes # 0.5 Eosinophils # 0.0 Basophils # 0.0 Nucleated Red Blood Cells # 0.0 Sodium Level 144 Potassium Level 3.2 L Chloride Level 109 Carbon Dioxide Level 23 Anion Gap 15 Blood Urea Nitrogen 22 H Creatinine 0.84 Glucose Level 114 Calcium Level 7.8 L Phosphorus Level 4.0 Magnesium Level 1.6 L Amylase Level 72 Lipase 63 Test 03/10/17 19:47 03/10/17 20:02 03/10/17 21:03 03/10/17 21:10 Prothrombin Time 15.6 H Prothrombin Time Ratio 1.2 INR International Normalized Ratio 1.23 Activated Partial Thromboplast Time 36.0 H Fibrinogen 378.0 Bedside Glucose 141 126 Troponin I 0.148 *H Test 03/10/17 22:02 03/10/17 22:59 03/10/17 23:58 03/11/17 00:34 Bedside Glucose 138 149 130 White Blood Count 7.7 Red Blood Count 3.78 L Hemoglobin 9.5 L Hematocrit 30.8 L Mean Corpuscular Volume 81.5 L Mean Corpuscular Hemoglobin 25.1 L Mean Corpuscular Hemoglobin Concent 30.8 L Red Cell Distribution Width 16.3 H Platelet Count 175 Mean Platelet Volume 10.4 Neutrophils % 89.5 H Lymphocytes % 4.8 L Monocytes % 5.3 Eosinophils % 0.0 Basophils % 0.0 Nucleated Red Blood Cells % 0.0 Neutrophils # 6.9 Lymphocytes # 0.4 L Monocytes # 0.4 Eosinophils # 0.0 Basophils # 0.0 Nucleated Red Blood Cells # 0.0 Prothrombin Time 15.3 H Prothrombin Time Ratio 1.2 INR International Normalized Ratio 1.20 Activated Partial Thromboplast Time 35.3 H Fibrinogen 457.0 # Sodium Level 142 Potassium Level 3.2 L Chloride Level 111 H Carbon Dioxide Level 22 Anion Gap 12 Blood Urea Nitrogen 21 H Creatinine 0.74 Glucose Level 137 Calcium Level 7.9 L Phosphorus Level 4.0 Magnesium Level 1.8 Amylase Level 47 Lipase 35 Test 03/11/17 00:58 03/11/17 01:55 03/11/17 03:08 03/11/17 03:58 Bedside Glucose 147 144 161 155 Test 03/11/17 04:00 03/11/17 04:57 03/11/17 06:03 03/11/17 07:00 White Blood Count 6.3 Red Blood Count 3.68 L Hemoglobin 9.4 L Hematocrit 29.9 L Mean Corpuscular Volume 81.3 L Mean Corpuscular Hemoglobin 25.5 L Mean Corpuscular Hemoglobin Concent 31.4 L Red Cell Distribution Width 16.3 H Platelet Count 172 Mean Platelet Volume 11.6 H Neutrophils % 90.5 H Lymphocytes % 4.9 L Monocytes % 3.9 Eosinophils % 0.2 Basophils % 0.2 Nucleated Red Blood Cells % 0.0 Neutrophils # 5.7 Lymphocytes # 0.3 L Monocytes # 0.3 Eosinophils # 0.0 Basophils # 0.0 Nucleated Red Blood Cells # 0.0 Prothrombin Time 15.3 H Prothrombin Time Ratio 1.2 INR International Normalized Ratio 1.20 Activated Partial Thromboplast Time 36.7 H Fibrinogen 487.0 #H Sodium Level 144 Potassium Level 2.9 *L Chloride Level 112 H Carbon Dioxide Level 22 Anion Gap 13 Blood Urea Nitrogen 20 Creatinine 0.71 Glucose Level 138 Calcium Level 7.9 L Phosphorus Level 4.3 Magnesium Level 1.7 Total Bilirubin 0.1 L Direct Bilirubin 0.00 Indirect Bilirubin 0.1 Aspartate Amino Transf (AST/SGOT) 52 H Alanine Aminotransferase (ALT/SGPT) 50 Alkaline Phosphatase 38 L Troponin I 0.133 *H Total Protein 5.6 L Albumin 2.8 L Globulin 2.80 Albumin/Globulin Ratio 1.00 Amylase Level 52 Lipase 30 Bedside Glucose 144 151 139 Blood Gas Specimen Source Blood arterial Arterial Blood Date Drawn 03/11/2017 7:20:40 AM Arterial Blood pH (Temp corrected) 7.478 H Arterial Blood pCO2 (Temp correct) 26.4 L Arterial Blood pO2 (Temp corrected) 76.5 L Arterial Blood HCO3 19.8 L Arterial Blood Base Excess -3.8 L Arterial Blood Oxygen Saturation 96.9 Scott Test N/A Arterial Blood Gas Puncture Site A-Line Arterial Blood Carboxyhemoglobin 0.3 Arterial Blood Methemoglobin 0.3 Blood Gas A-a O2 Differential 546.1 H Oxyhemoglobin Percent 96.3 Total Hemoglobin 10.3 L Blood Gas Temperature 33.3 Blood Gas Respiration Rate 24.0 Blood Gas Actual Respiration Rate 24 Blood Gas Modality VENT - AC FiO2 90.0 Blood Gas Tidal Volume 500.0 Blood Gas Low PEEP Setting 8.0 Blood Gas Notified Whom JLD Blood Gas Notified Time 03/11/2017 8:07:17 AM Test 03/11/17 07:54 03/11/17 07:59 03/11/17 09:05 03/11/17 09:57 Sodium Level 145 H Potassium Level 3.3 L Chloride Level 110 Carbon Dioxide Level 21 Anion Gap 17 H Blood Urea Nitrogen 21 H Creatinine 0.77 Glucose Level 139 Calcium Level 8.0 L Bedside Glucose 142 135 128 Test 03/11/17 10:40 03/11/17 10:49 White Blood Count 8.0 # Red Blood Count 3.64 L Hemoglobin 9.4 L Hematocrit 29.5 L Mean Corpuscular Volume 81.0 L Mean Corpuscular Hemoglobin 25.8 L Mean Corpuscular Hemoglobin Concent 31.9 L Red Cell Distribution Width 16.6 H Platelet Count 184 Mean Platelet Volume 11.0 H Neutrophils % 90.1 H Lymphocytes % 5.0 L Monocytes % 4.4 Eosinophils % 0.0 Basophils % 0.1 Nucleated Red Blood Cells % 0.0 Neutrophils # 7.2 Lymphocytes # 0.4 L Monocytes # 0.4 Eosinophils # 0.0 Basophils # 0.0 Nucleated Red Blood Cells # 0.0 Prothrombin Time 15.2 H Prothrombin Time Ratio 1.2 INR International Normalized Ratio 1.19 Activated Partial Thromboplast Time 35.0 Fibrinogen Pending Bedside Glucose 126 Medications Current Medications Ticagrelor 90 mg 90 mg BID PO Last administered on 03/11/17 09:54; Admin Dose 90 MG; Start 03/10/17 at 09:00 Midazolam HCl (Versed) 50 ml @ 1 mls/hr TITRATE IV Last administered on 07:22; Admin Dose 1 MLS/HR; Start 03/10/17 at 03:30 Aspirin (Aspirin) 81 mg DAILY PO Last administered on 03/11/17 09:54; Admin Dose 81 MG; Start 03/10/17 at 09:00 Acetaminophen (Tylenol Supp) [address] PAIN LEVEL 1-3 OR FEVER; Start 03/10/17 at 04:00 Acetaminophen (Tylenol Supp) [address] TEMP > 37C; Start 03/10/17 at 04:30 Acetaminophen (Tylenol Supp) [address] ; Start 03/11/17 at 04:30 Eye Lubricant (Akwa Oint) 1 applic Q6 BOTH EYES Last administered on 05:45; Admin Dose 1 APPLIC; Start 03/10/17 at 06:00 Eye Lubricant (Artificial Tears Oph) 2 drop Q6 BOTH EYES Last administered on 03/11/17 05:44; Admin Dose 2 DROP; Start 03/10/17 at 06:00 Diagnostic Test (Pha) (Accu-Chek) 1 ea Q1H XX Last administered on 03/11/17 11:09; Admin Dose 1 EA; Start 03/10/17 at 04:30 Dextrose (D50w Syringe) 25 ml Q15M PRN IV Till BS 80 mg/dL or above x2; Start 03/10/17 at 04:30 Dextrose 50 ml 50 ml Q15M PRN IV Till BS 80 mg/dL or above x2; Start 03/10/17 at 04:30 Norepinephrine 250 ml @ 1.875 mls/ hr TITRATE IV Last administered on 06:59; Admin Dose 3.75 MLS/HR; Start 03/10/17 at 07:00 Vecuronium [place] 100 mg/ Dextrose 100 ml @ 5 mls/hr TITRATE IV Last administered on 03/11/17 05:00; Admin Dose 2 MLS/HR; Start 03/10/17 at 07:30 Propofol (Diprivan) 100 ml @ 3 mls/hr Q12H IV Last administered on 03/11/17 07:22; Admin Dose 6 MLS/HR; Start 03/10/17 at 07:30 Famotidine (Pepcid) 20 mg DAILY PO Last administered on 03/11/17 09:53; Admin Dose 20 MG; Start 03/11/17 at 09:00 Meperidine HCl (Demerol) 12.5 mg Q4H PRN IV POST OPERATIVE SHIVERING; Start at 12:30 Meperidine HCl 25 mg 25 mg Q4H PRN IV POST OPERATIVE SHIVERING Last administered on 03/10/17 12:34; Admin Dose 25 MG; Start 03/10/17 at 12:30 Levetiracetam (Keppra 1,000mg/ 100ml (Pmx)) 100 ml @ 400 mls/hr Q12 IVPB Last administered on 03/11/17 09:53; Admin Dose 400 MLS/HR; Start 03/10/17 at 21: 00 Acetaminophen 500 mg 500 mg DAILY NGT ; Start 03/11/17 at 06:00 Amiodarone HCl/ Dextrose (Cordarone Iv/ D5W) 500 ml @ 0 mls/hr Q0M IV Last administered on 11/15/17at 11:10; Admin Dose 33.33 MLS/HR; Start 03/11/17 at 10 :00; Stop 03/12/17 at 09:59 Assessment/Plan Chief Complaint/Hosp Course 71 yo female admitted with cardiac arrest s/p LAD stent, on hypothermia protocol suspected seizure activity. CTH no acute process. Recommendations: continue on Keppra 1500 mg BID Routine EEG after rewarming completed taper sedation when possible MRI Brain to assess for hypoxic injury when stable prognosis guarded , discussed recommendations w son and grandson at bedside Problems: ELOINA NAGY MD Mar 11, 2017 11:31
--- NOTE | 2017-03-11 13:37 | PN ---
Date/Time of Note Date/Time of Note DATE: 03/11/17 TIME: 13:34 Assessment/Plan VTE Prophylaxis VTE Prophylaxis Intervention: SCD's Lines/Catheters IV Catheter Type (from Nrs): Central Line Central line still needed: Yes Urinary Cath still in place: Yes Reason Cath still needed: other (indicate) (critically ill) Assessment/Plan Assessment/Plan 71 yo F presented following cardiac arrest 2/2 STEMI. 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 Pt being rewarmed following hypothermia protocol. Concern for jerking movement, seizures v myoclonus. -cont rewarming -neuro on consult for jerking-->MRI and EEG pending. AED on board #STEMI sp PCI: DAPT, BP meds, statin as per cardiology -pt started on amio drip for AFib #preDM: a1c 6.1 pt currently on insulin drip #subclinical hyperthyroid: can be addressed in outpatient setting #FEN: NPO. If not awake by tomorrow, will discuss NG and TFs with cardiology team critical care time: 30 minutes Subjective 24 Hr Interval Summary Free Text/Dictation Pt being rewarmed this AM Exam/Review of Systems Vital Signs Vitals Vital Signs Date Time Temp Pulse Resp B/P Pulse Ox O2 Delivery O2 Flow Rate FiO2 03/11/17 13:01 92 24 100 90 03/11/17 13:00 94.3 115/69 03/10/17 07:00 Mechanical Ventilator Intake and Output 03/10/17 03/10/17 03/11/17 14:59 22:59 06:59 Intake Total 743.546 ml 831.5 ml 758.5 ml Output Total 334 ml 2823 ml 880 ml Balance 409.546 ml -1991.5 ml -121.5 ml Exam intubated, sedated no mrg lungs clear abd soft no rashes Results Result Diagram: 03/11/17 1040 03/11/17 0754 Results 24 hrs Laboratory Tests Test 03/10/17 14:04 03/10/17 14:54 03/10/17 14:55 03/10/17 15:47 Bedside Glucose 146 123 115 Creatine Kinase 114 Creatine Kinase Index 4.2 Creatinine Kinase MB (Mass) 4.75 H Troponin I 0.134 *H Test 03/10/17 16:08 03/10/17 16:44 03/10/17 17:44 03/10/17 17:49 Blood Gas Specimen Source Blood arterial Arterial Blood Date Drawn 03/10/2017 4:04:15 PM Arterial Blood pH (Temp corrected) 7.408 Arterial Blood pCO2 (Temp correct) 28.1 L Arterial Blood pO2 (Temp corrected) 94.4 Arterial Blood HCO3 18.2 L Arterial Blood Base Excess -6.7 L Arterial Blood Oxygen Saturation 97.8 Scott Test N/A Arterial Blood Gas Puncture Site A-Line Arterial Blood Carboxyhemoglobin 0.3 Arterial Blood Methemoglobin 0.3 Blood Gas A-a O2 Differential 600.3 H Oxyhemoglobin Percent 97.2 Total Hemoglobin 10.0 L Blood Gas Temperature 32.8 Blood Gas Respiration Rate 24.0 Blood Gas Actual Respiration Rate 24 Blood Gas Modality VENT - AC FiO2 100.0 Blood Gas Tidal Volume 500.0 Blood Gas Low PEEP Setting 8.0 Blood Gas Notified Whom LS Blood Gas Notified Time 03/10/2017 4:18:01 PM Bedside Glucose 125 133 White Blood Count 9.3 # Red Blood Count 3.77 L Hemoglobin 9.6 L Hematocrit 31.6 L Mean Corpuscular Volume 83.8 Mean Corpuscular Hemoglobin 25.5 L Mean Corpuscular Hemoglobin Concent 30.4 L Red Cell Distribution Width 16.3 H Platelet Count 186 Mean Platelet Volume 10.8 H Neutrophils % 91.1 H Lymphocytes % 3.3 L Monocytes % 5.1 Eosinophils % 0.0 Basophils % 0.1 Nucleated Red Blood Cells % 0.0 Neutrophils # 8.5 H Lymphocytes # 0.3 L Monocytes # 0.5 Eosinophils # 0.0 Basophils # 0.0 Nucleated Red Blood Cells # 0.0 Sodium Level 144 Potassium Level 3.2 L Chloride Level 109 Carbon Dioxide Level 23 Anion Gap 15 Blood Urea Nitrogen 22 H Creatinine 0.84 Glucose Level 114 Calcium Level 7.8 L Phosphorus Level 4.0 Magnesium Level 1.6 L Amylase Level 72 Lipase 63 Test 03/10/17 18:45 03/10/17 19:47 03/10/17 20:02 03/10/17 21:03 Bedside Glucose 100 141 126 Prothrombin Time 15.6 H Prothrombin Time Ratio 1.2 INR International Normalized Ratio 1.23 Activated Partial Thromboplast Time 36.0 H Fibrinogen 378.0 Test 03/10/17 21:10 03/10/17 22:02 03/10/17 22:59 03/10/17 23:58 Troponin I 0.148 *H Bedside Glucose 138 149 130 Test 03/11/17 00:34 03/11/17 00:58 03/11/17 01:55 03/11/17 03:08 White Blood Count 7.7 Red Blood Count 3.78 L Hemoglobin 9.5 L Hematocrit 30.8 L Mean Corpuscular Volume 81.5 L Mean Corpuscular Hemoglobin 25.1 L Mean Corpuscular Hemoglobin Concent 30.8 L Red Cell Distribution Width 16.3 H Platelet Count 175 Mean Platelet Volume 10.4 Neutrophils % 89.5 H Lymphocytes % 4.8 L Monocytes % 5.3 Eosinophils % 0.0 Basophils % 0.0 Nucleated Red Blood Cells % 0.0 Neutrophils # 6.9 Lymphocytes # 0.4 L Monocytes # 0.4 Eosinophils # 0.0 Basophils # 0.0 Nucleated Red Blood Cells # 0.0 Prothrombin Time 15.3 H Prothrombin Time Ratio 1.2 INR International Normalized Ratio 1.20 Activated Partial Thromboplast Time 35.3 H Fibrinogen 457.0 # Sodium Level 142 Potassium Level 3.2 L Chloride Level 111 H Carbon Dioxide Level 22 Anion Gap 12 Blood Urea Nitrogen 21 H Creatinine 0.74 Glucose Level 137 Calcium Level 7.9 L Phosphorus Level 4.0 Magnesium Level 1.8 Amylase Level 47 Lipase 35 Bedside Glucose 147 144 161 Test 03/11/17 03:58 03/11/17 04:00 03/11/17 04:57 03/11/17 06:03 Bedside Glucose 155 144 151 White Blood Count 6.3 Red Blood Count 3.68 L Hemoglobin 9.4 L Hematocrit 29.9 L Mean Corpuscular Volume 81.3 L Mean Corpuscular Hemoglobin 25.5 L Mean Corpuscular Hemoglobin Concent 31.4 L Red Cell Distribution Width 16.3 H Platelet Count 172 Mean Platelet Volume 11.6 H Neutrophils % 90.5 H Lymphocytes % 4.9 L Monocytes % 3.9 Eosinophils % 0.2 Basophils % 0.2 Nucleated Red Blood Cells % 0.0 Neutrophils # 5.7 Lymphocytes # 0.3 L Monocytes # 0.3 Eosinophils # 0.0 Basophils # 0.0 Nucleated Red Blood Cells # 0.0 Prothrombin Time 15.3 H Prothrombin Time Ratio 1.2 INR International Normalized Ratio 1.20 Activated Partial Thromboplast Time 36.7 H Fibrinogen 487.0 #H Sodium Level 144 Potassium Level 2.9 *L Chloride Level 112 H Carbon Dioxide Level 22 Anion Gap 13 Blood Urea Nitrogen 20 Creatinine 0.71 Glucose Level 138 Calcium Level 7.9 L Phosphorus Level 4.3 Magnesium Level 1.7 Total Bilirubin 0.1 L Direct Bilirubin 0.00 Indirect Bilirubin 0.1 Aspartate Amino Transf (AST/SGOT) 52 H Alanine Aminotransferase (ALT/SGPT) 50 Alkaline Phosphatase 38 L Troponin I 0.133 *H Total Protein 5.6 L Albumin 2.8 L Globulin 2.80 Albumin/Globulin Ratio 1.00 Amylase Level 52 Lipase 30 Test 03/11/17 07:00 03/11/17 07:54 03/11/17 07:59 03/11/17 09:05 Blood Gas Specimen Source Blood arterial Arterial Blood Date Drawn 03/11/2017 7:20:40 AM Arterial Blood pH (Temp corrected) 7.478 H Arterial Blood pCO2 (Temp correct) 26.4 L Arterial Blood pO2 (Temp corrected) 76.5 L Arterial Blood HCO3 19.8 L Arterial Blood Base Excess -3.8 L Arterial Blood Oxygen Saturation 96.9 Scott Test N/A Arterial Blood Gas Puncture Site A-Line Arterial Blood Carboxyhemoglobin 0.3 Arterial Blood Methemoglobin 0.3 Blood Gas A-a O2 Differential 546.1 H Oxyhemoglobin Percent 96.3 Total Hemoglobin 10.3 L Blood Gas Temperature 33.3 Blood Gas Respiration Rate 24.0 Blood Gas Actual Respiration Rate 24 Blood Gas Modality VENT - AC FiO2 90.0 Blood Gas Tidal Volume 500.0 Blood Gas Low PEEP Setting 8.0 Blood Gas Notified Whom JLD Blood Gas Notified Time 03/11/2017 8:07:17 AM Bedside Glucose 139 142 135 Sodium Level 145 H Potassium Level 3.3 L Chloride Level 110 Carbon Dioxide Level 21 Anion Gap 17 H Blood Urea Nitrogen 21 H Creatinine 0.77 Glucose Level 139 Calcium Level 8.0 L Test 03/11/17 09:57 03/11/17 10:40 03/11/17 10:49 03/11/17 12:08 Bedside Glucose 128 126 134 White Blood Count 8.0 # Red Blood Count 3.64 L Hemoglobin 9.4 L Hematocrit 29.5 L Mean Corpuscular Volume 81.0 L Mean Corpuscular Hemoglobin 25.8 L Mean Corpuscular Hemoglobin Concent 31.9 L Red Cell Distribution Width 16.6 H Platelet Count 184 Mean Platelet Volume 11.0 H Neutrophils % 90.1 H Lymphocytes % 5.0 L Monocytes % 4.4 Eosinophils % 0.0 Basophils % 0.1 Nucleated Red Blood Cells % 0.0 Neutrophils # 7.2 Lymphocytes # 0.4 L Monocytes # 0.4 Eosinophils # 0.0 Basophils # 0.0 Nucleated Red Blood Cells # 0.0 Prothrombin Time 15.2 H Prothrombin Time Ratio 1.2 INR International Normalized Ratio 1.19 Activated Partial Thromboplast Time 35.0 Fibrinogen 522.0 #H Calcium Level 8.0 L Phosphorus Level 4.3 Magnesium Level 1.7 Troponin I 0.116 Amylase Level < 30 Lipase 32 Test 03/11/17 13:07 Bedside Glucose 157 Medications Medications Current Medications Ticagrelor 90 mg 90 mg BID PO Last administered on 03/11/17 09:54; Admin Dose 90 MG; Start 03/10/17 at 09:00 Midazolam HCl (Versed) 50 ml @ 1 mls/hr TITRATE IV Last administered on 07:22; Admin Dose 1 MLS/HR; Start 03/10/17 at 03:30 Aspirin (Aspirin) 81 mg DAILY PO Last administered on 03/11/17 09:54; Admin Dose 81 MG; Start 03/10/17 at 09:00 Acetaminophen (Tylenol Supp) 650 mg Q4H PRN [place] PAIN LEVEL 1-3 OR FEVER; Start 03/10/17 at 04:00 Acetaminophen (Tylenol Supp) 650 mg Q4H PRN [place] TEMP > 37C; Start 03/10/17 at 04:30 Acetaminophen (Tylenol Supp) 500 mg Q6H [place] ; Start 03/11/17 at 04:30 Eye Lubricant (Akwa Oint) 1 applic Q6 BOTH EYES Last administered on 11:39; Admin Dose 1 APPLIC; Start 03/10/17 at 06:00 Eye Lubricant (Artificial Tears Oph) 2 drop Q6 BOTH EYES Last administered on 03/11/17 11:39; Admin Dose 2 DROP; Start 03/10/17 at 06:00 Diagnostic Test (Pha) (Accu-Chek) 1 ea Q1H XX Last administered on 03/11/17 13:19; Admin Dose 1 EA; Start 03/10/17 at 04:30 Dextrose (D50w Syringe) 25 ml Q15M PRN IV Till BS 80 mg/dL or above x2; Start 03/10/17 at 04:30 Dextrose 50 ml 50 ml Q15M PRN IV Till BS 80 mg/dL or above x2; Start 03/10/17 at 04:30 Norepinephrine 250 ml @ 1.875 mls/ hr TITRATE IV Last administered on 06:59; Admin Dose 3.75 MLS/HR; Start 03/10/17 at 07:00 Vecuronium [place] 100 mg/ Dextrose 100 ml @ 5 mls/hr TITRATE IV Last administered on 03/11/17 05:00; Admin Dose 2 MLS/HR; Start 03/10/17 at 07:30 Propofol (Diprivan) 100 ml @ 3 mls/hr Q12H IV Last administered on 03/11/17 07:22; Admin Dose 6 MLS/HR; Start 03/10/17 at 07:30 Famotidine (Pepcid) 20 mg DAILY PO Last administered on 03/11/17 09:53; Admin Dose 20 MG; Start 03/11/17 at 09:00 Meperidine HCl (Demerol) 12.5 mg Q4H PRN IV POST OPERATIVE SHIVERING; Start at 12:30 Meperidine HCl 25 mg 25 mg Q4H PRN IV POST OPERATIVE SHIVERING Last administered on 03/10/17 12:34; Admin Dose 25 MG; Start 03/10/17 at 12:30 Levetiracetam (Keppra 1,000mg/ 100ml (Pmx)) 100 ml @ 400 mls/hr Q12 IVPB Last administered on 03/11/17 09:53; Admin Dose 400 MLS/HR; Start 03/10/17 at 21: 00 Acetaminophen 500 mg 500 mg DAILY NGT ; Start 03/11/17 at 06:00 Amiodarone HCl/ Dextrose (Cordarone Iv/ D5W) 500 ml @ 0 mls/hr Q0M IV Last administered on 03/11/17 11:10; Admin Dose 33.33 MLS/HR; Start 03/11/17 at 10 :00; Stop 03/12/17 at 09:59 ARCELIA MCGRATH MD Mar 11, 2017 13:37
[2017-03-11 14:01] LABS: AADO2 Arterial 503.7 mmHg (7.0-24.0); Allen Test ACCEPTAB; Arterial Base Excess -3.4 mmol/L (-3.0-3); Arterial COHb 0.3 % (0.0-3.0); Arterial Fraction of Oxyhgb 97.9 % (93.0-99.0); Arterial HCO3 19.7 mmol/L (22.0-26.0); Arterial MetHb 0 % (0.0-1.5); Arterial Total Hemglobin 10.3 g/dl (12.0-18.0); MODE VENT - AC
[2017-03-11 16:39] LABS: ABNORMAL IP MESSAGE 1; BASOPHILS % 0.1 % (0.0-2.0); EOSINOPHILS % 0.1 % (0.0-7.0); HEMATOCRIT 29.4 % (37.0-47.0); HEMOGLOBIN 9.3 g/dl (12.0-16.0); LYMPHOCYTES # 0.5 10^3/ul (0.8-2.9); LYMPHOCYTES % 5.1 % (15.0-51.0); MEAN CORPUSCULAR HEMOGLOBIN 25.6 pg (29.0-33.0); MEAN CORPUSCULAR HGB CONC 31.6 g/dl (32.0-37.0); MEAN PLATELET VOLUME 10.6 fl (7.4-10.4); MONOCYTE # 0.4 10^3/ul (0.3-0.9); MONOCYTES % 4.4 % (0.0-11.0); NEUTROPHIL # 8.2 10^3/ul (1.6-7.5); PLATELET COUNT 221 10^3/UL (140-415); RED BLOOD COUNT 3.63 10^6/ul (4.20-5.40); RED CELL DISTRIBUTION WIDTH 16.7 % (11.5-14.5); WHITE BLOOD COUNT 9.1 10^3/ul (4.8-10.8)
[2017-03-11 16:45] LABS: POSITIVE DIFF @See below
[2017-03-11 16:56] LABS: INR 1.19; PROTIME 15.2 Sec (12.2-14.2); PT RATIO 1.2
[2017-03-11 16:57] LABS: PARTIAL THROMBOPLASTIN TIME 35.2 Sec (25.0-35.0)
[2017-03-11 17:00] LABS: CALCIUM 8.1 mg/dl (8.4-10.2); CREATININE 0.9 mg/dl (0.44-1.00); MAGNESIUM 2.2 mg/dl (1.7-2.5); PHOSPHORUS 4.5 mg/dl (2.5-4.9); POTASSIUM 3.5 mmol/L (3.5-5.1)
[2017-03-12] VITALS (56 sets, daily range): BP systolic 117–165; BP diastolic 61–124; PULSE 80–141; RESP 13–35
[2017-03-12] MEDS ORDERED: LORAZEPAM 2 MG INJ IV ONE
[2017-03-12] MEDS: OCULAR LUBRICANT 3.5 GM OPH OINT BOTH EYES SCH ×4 (00:21→18:12)
[2017-03-12] MEDS: ARTIFICIAL TEARS 15 ML OPH BOTH EYES SCH ×4 (00:21→18:11)
[2017-03-12] MEDS: INSULIN ASPART [NOVOLOG] 3 ML PEN SC SCH ×6 (01:14→21:30)
[2017-03-12] MEDS ORDERED: ACCU-CHEK XX SCH ×2 (02:00)
[2017-03-12] MEDS ORDERED: ALBUMIN HUMAN 25% 100 ML IV ONE ×2 (03:00)
[2017-03-12] MEDS: ACETAMINOPHEN 650 MG SUPP PR SCH ×3 (04:30→16:30)
[2017-03-12] MEDS: PROPOFOL 100 ML IV SCH (04:49)
[2017-03-12 05:17] LABS: BASOPHILS % 0.1 % (0.0-2.0); EOSINOPHILS % 0.2 % (0.0-7.0); HEMATOCRIT 25.4 % (37.0-47.0); HEMOGLOBIN 7.9 g/dl (12.0-16.0); LYMPHOCYTES # 0.7 10^3/ul (0.8-2.9); LYMPHOCYTES % 7.2 % (15.0-51.0); MEAN CORPUSCULAR HEMOGLOBIN 25.5 pg (29.0-33.0); MEAN CORPUSCULAR HGB CONC 31.1 g/dl (32.0-37.0); MEAN CORPUSCULAR VOLUME 81.9 fl (82.0-101.0); MEAN PLATELET VOLUME 11.9 fl (7.4-10.4); MONOCYTE # 0.5 10^3/ul (0.3-0.9); MONOCYTES % 5.2 % (0.0-11.0); NEUTROPHIL # 8.1 10^3/ul (1.6-7.5); NEUTROPHILS % 86.9 % (39.0-77.0); PLATELET COUNT 207 10^3/UL (140-415); RED CELL DISTRIBUTION WIDTH 17.3 % (11.5-14.5); WHITE BLOOD COUNT 9.4 10^3/ul (4.8-10.8)
[2017-03-12] MEDS: FUROSEMIDE 20 MG INJ IV SCH (05:34)
[2017-03-12 05:39] LABS: ALBUMIN 3.1 g/dl (3.3-4.9); ALBUMIN/GLOBULIN RATIO 1.1; BILIRUBIN,INDIRECT 0.1 mg/dl (0-1.1); BILIRUBIN,TOTAL 0.1 mg/dl (0.2-1.3); CALCIUM 8.6 mg/dl (8.4-10.2); CREATININE 1.23 mg/dl (0.44-1.00); MAGNESIUM 2.4 mg/dl (1.7-2.5); POTASSIUM 3.7 mmol/L (3.5-5.1); TOTAL PROTEIN 5.9 g/dl (6.1-8.1)
[2017-03-12 08:14] LABS: AADO2 Arterial 357.3 mmHg (7.0-24.0); Allen Test ACCEPTAB; Arterial Base Excess -4.7 mmol/L (-3.0-3); Arterial COHb 0.2 % (0.0-3.0); Arterial Fraction of Oxyhgb 97.2 % (93.0-99.0); Arterial HCO3 19.1 mmol/L (22.0-26.0); Arterial MetHb 0.1 % (0.0-1.5); Arterial Total Hemglobin 8.7 g/dl (12.0-18.0); MODE VENT - AC
--- NOTE | 2017-03-12 08:28 | RADRPT ---
PROCEDURE: XR Chest. TECHNIQUE: Single frontal radiograph. CLINICAL INDICATION: Pneumonia. COMPARISON: 03/11/2017. FINDINGS: Stable endotracheal tube terminates approximately 2.8 cm from wilfredo. Nasogastric tube remains in pl ankit. Right greater than left pleural effusions in the background of vascular congestion/edema and cardiom egaly. There are aortic calcifications. IMPRESSION: Stable lines and tubes. Unchanged right greater than left bilateral pleural effusions in the background of vascular congesti on/edema and cardiomegaly. RPTAT: EE .Dominik Durán MD, MD Date Time Electronically viewed and signed by .Dominik Durán MD, MD on 03/12/2017 08:34 .C/
[2017-03-12] MEDS: FAMOTIDINE 20 MG TAB PO SCH (08:45)
[2017-03-12] MEDS: ASPIRIN 81 MG TAB PO SCH (08:45)
[2017-03-12] MEDS: TICAGRELOR 90 MG TABLET PO SCH ×2 (08:48→21:29)
[2017-03-12] MEDS: LEVETIRACETAM 1000 MG (PMX) 100 ML IVPB SCH ×2 (08:50→21:01)
[2017-03-12] MEDS: ACETAMINOPHEN 650MG/20.3ML CUP NGT SCH (08:51)
[2017-03-12] MEDS ORDERED: AMIODARONE 150MG/D5W BOLUS 100 ML ONE (09:57)
[2017-03-12] MEDS ORDERED: FENTANYL 1000 MCG/100 ML IV ONE (09:57)
[2017-03-12] MEDS ORDERED: FENTAnyl (DRIP) 1000 mcg/100mL 100 ML IV SCH (10:00)
[2017-03-12] MEDS ORDERED: AMIODARONE 150MG/D5W BOLUS 100 ML IV ONE (11:00)
[2017-03-12] MEDS ORDERED: AMIODARONE 900 MG in DEXTROSE 5% 482 ML IV SCH (11:00)
--- NOTE | 2017-03-12 11:00 | CONS ---
Date/Time of Note Date/Time of Note DATE: 03/12/17 TIME: 10:56 Assessment/Plan Assessment/Plan Chief Complaint/Hosp Course Paroxysmal afib: new onset. In and out of afib. Rates ~110s when in afib. If meaningful recovery, will consider anticoagulation. Anterior STEMI/CAD: s/p PCI of ulcerated 99% mid LAD lesion. EF by echo is preserved Cardiac arrest: likely due to arrhythmia related to above but unclear rhythm when paramedics arrived. Also with significant pulm edema so respiratory arrest/ PEA also possible Acute diastolic heart failure: Significant pulm edema by CXR. LVEDP 27 by cath. Improving with diuresis Acute respiratory failure: on vent due to above Likely anoxic brain injury: per family, pt may have been pulseless for 10 mins prior to gospel worker arrival. Unclear rhythm Seizures vs myoclonic jerks -rebolus amio and continue 0.5mg/min for now. When maintaining sinus, switch to PO -start coreg 6.25mg BID -continue ASA, ticagrelor, lipitor -change to lasix 20mg IV daily for now -prognosis and neurologic recovery remains guarded. Will assess daily Problems: Consultation Date/Type/Reason Admit Date/Time Mar 10, 2017 at 03:25 Initial Consult Date 03/10/17 Type of Consultation: Cardiology Referring Provider: JESSICA DIAZ 24 HR Interval Summary Free Text/Dictation In and out of afib. BP better. Cr slightly worse. Rewarming complete and now off sedation. Still unresponsive. Exam/Review of Systems Vital Signs Vitals Vital Signs Date Time Temp Pulse Resp B/P Pulse Ox O2 Delivery O2 Flow Rate FiO2 03/12/17 09:30 98 50 03/12/17 08:58 106 28 03/12/17 06:30 137/69 Mechanical Ventilator 03/12/17 04:00 98.1 Intake and Output 03/11/17 03/11/17 03/12/17 15:00 23:00 07:00 Intake Total 620.320 ml 514.62 ml 313.62 ml Output Total 623 ml 259 ml 185 ml Balance -2.680 ml 255.62 ml 128.62 ml Exam Constitutional: No alert, No distress, No oriented Head: atraumatic, normocephalic ENMT: intubated Neck: No jvd (difficult to assess ) Respiratory: diminished breath sounds, No clear to auscultation, No crackles/rales Cardiovascular: No edema, No regular rate and rhythm (IRIR), No systolic murmur Gastrointestinal: non-tender, soft Musculoskeletal: nl extremities to inspection Neurological: No nl mental status, No nl speech Results Result Diagram: 03/12/17 0444 03/12/17 0444 Results 24 hrs Laboratory Tests Test 03/11/17 12:08 03/11/17 13:07 03/11/17 14:00 03/11/17 14:09 Bedside Glucose 134 157 159 Blood Gas Specimen Source Blood arterial Arterial Blood Date Drawn 03/11/2017 1:50:00 PM Arterial Blood pH (Temp corrected) 7.482 H Arterial Blood pCO2 (Temp correct) 26.5 L Arterial Blood pO2 (Temp corrected) 115.6 H Arterial Blood HCO3 19.7 L Arterial Blood Base Excess -3.4 L Arterial Blood Oxygen Saturation 98.2 H Scott Test ACCEPTAB Arterial Blood Gas Puncture Site A-Line Arterial Blood Carboxyhemoglobin 0.3 Arterial Blood Methemoglobin 0 Blood Gas A-a O2 Differential 503.7 H Oxyhemoglobin Percent 97.9 Total Hemoglobin 10.3 L Blood Gas Temperature 34.9 Blood Gas Respiration Rate 24.0 Blood Gas Actual Respiration Rate 24 Blood Gas Modality VENT - AC FiO2 90.0 Blood Gas Tidal Volume 500.0 Blood Gas Low PEEP Setting 8.0 Blood Gas Notified Whom JLD Blood Gas Notified Time 03/11/2017 1:57:00 PM Test 03/11/17 15:08 03/11/17 16:29 03/11/17 16:34 03/11/17 17:28 Bedside Glucose 146 137 140 White Blood Count 9.1 Red Blood Count 3.63 L Hemoglobin 9.3 L Hematocrit 29.4 L Mean Corpuscular Volume 81.0 L Mean Corpuscular Hemoglobin 25.6 L Mean Corpuscular Hemoglobin Concent 31.6 L Red Cell Distribution Width 16.7 H Platelet Count 221 # Mean Platelet Volume 10.6 H Neutrophils % 90.0 H Lymphocytes % 5.1 L Monocytes % 4.4 Eosinophils % 0.1 Basophils % 0.1 Nucleated Red Blood Cells % 0.0 Neutrophils # 8.2 H Lymphocytes # 0.5 L Monocytes # 0.4 Eosinophils # 0.0 Basophils # 0.0 Nucleated Red Blood Cells # 0.0 Prothrombin Time 15.2 H Prothrombin Time Ratio 1.2 INR International Normalized Ratio 1.19 Activated Partial Thromboplast Time 35.2 H Sodium Level 144 Potassium Level 3.5 Chloride Level 110 Carbon Dioxide Level 21 Anion Gap 17 H Blood Urea Nitrogen 21 H Creatinine 0.90 Glucose Level 130 Calcium Level 8.1 L Phosphorus Level 4.5 Magnesium Level 2.2 Test 03/11/17 18:06 03/11/17 18:56 03/11/17 20:29 03/11/17 21:12 Bedside Glucose 134 132 125 132 Test 03/11/17 23:13 03/12/17 01:08 03/12/17 04:44 03/12/17 04:49 Bedside Glucose 106 151 143 White Blood Count 9.4 Red Blood Count 3.10 L Hemoglobin 7.9 L Hematocrit 25.4 L Mean Corpuscular Volume 81.9 L Mean Corpuscular Hemoglobin 25.5 L Mean Corpuscular Hemoglobin Concent 31.1 L Red Cell Distribution Width 17.3 H Platelet Count 207 Mean Platelet Volume 11.9 H Neutrophils % 86.9 H Lymphocytes % 7.2 L Monocytes % 5.2 Eosinophils % 0.2 Basophils % 0.1 Nucleated Red Blood Cells % 0.0 Neutrophils # 8.1 H Lymphocytes # 0.7 L Monocytes # 0.5 Eosinophils # 0.0 Basophils # 0.0 Nucleated Red Blood Cells # 0.0 Sodium Level 147 H Potassium Level 3.7 Chloride Level 112 H Carbon Dioxide Level 22 Anion Gap 17 H Blood Urea Nitrogen 26 H Creatinine 1.23 H Glucose Level 144 Calcium Level 8.6 Magnesium Level 2.4 Total Bilirubin 0.1 L Direct Bilirubin 0.00 Indirect Bilirubin 0.1 Aspartate Amino Transf (AST/SGOT) 53 H Alanine Aminotransferase (ALT/SGPT) 38 Alkaline Phosphatase 41 L Total Protein 5.9 L Albumin 3.1 L Globulin 2.80 Albumin/Globulin Ratio 1.10 Test 03/12/17 07:00 03/12/17 09:01 Blood Gas Specimen Source Blood arterial Arterial Blood Date Drawn 03/12/2017 7:20:47 AM Arterial Blood pH (Temp corrected) 7.418 Arterial Blood pCO2 (Temp correct) 30.3 L Arterial Blood pO2 (Temp corrected) 109.2 H Arterial Blood HCO3 19.1 L Arterial Blood Base Excess -4.7 L Arterial Blood Oxygen Saturation 97.5 Scott Test ACCEPTAB Arterial Blood Gas Puncture Site Right Radial Arterial Blood Carboxyhemoglobin 0.2 Arterial Blood Methemoglobin 0.1 Blood Gas A-a O2 Differential 357.3 H Oxyhemoglobin Percent 97.2 Total Hemoglobin 8.7 L Blood Gas Temperature 37.0 Blood Gas Respiration Rate 24.0 Blood Gas Actual Respiration Rate 24 Blood Gas Modality VENT - AC FiO2 70.0 Blood Gas Tidal Volume 500.0 Blood Gas Low PEEP Setting 8.0 Blood Gas Notified Whom JLD Blood Gas Notified Time 03/12/2017 8:14:30 AM Bedside Glucose 131 Medications Medications Current Medications Ticagrelor 90 mg 90 mg BID PO Last administered on 03/12/17 08:48; Admin Dose 90 MG; Start 03/10/17 at 09:00 Midazolam HCl (Versed) 50 ml @ 1 mls/hr TITRATE IV Last administered on 07:22; Admin Dose 1 MLS/HR; Start 03/10/17 at 03:30 Aspirin (Aspirin) 81 mg DAILY PO Last administered on 03/12/17 08:45; Admin Dose 81 MG; Start 03/10/17 at 09:00 Acetaminophen (Tylenol Supp) 650 mg Q4H PRN [place] PAIN LEVEL 1-3 OR FEVER; Start 03/10/17 at 04:00 Acetaminophen (Tylenol Supp) 650 mg Q4H PRN [place] TEMP > 37C; Start 03/10/17 at 04:30 Acetaminophen (Tylenol Supp) 500 mg Q6H [place] Last administered on 03/11/17 17: 30; Admin Dose 500 MG; Start 03/11/17 at 04:30 Eye Lubricant (Akwa Oint) 1 applic Q6 BOTH EYES Last administered on 05:34; Admin Dose 1 APPLIC; Start 03/10/17 at 06:00 Eye Lubricant 2 drop 2 drop Q6 BOTH EYES Last administered on 03/12/17 05:34 ; Admin Dose 2 DROP; Start 03/10/17 at 06:00 Norepinephrine 250 ml @ 1.875 mls/ hr TITRATE IV Last administered on 06:59; Admin Dose 3.75 MLS/HR; Start 03/10/17 at 07:00 Vecuronium [place] 100 mg/ Dextrose 100 ml @ 5 mls/hr TITRATE IV Last administered on 03/11/17 05:00; Admin Dose 2 MLS/HR; Start 03/10/17 at 07:30 Propofol (Diprivan) 100 ml @ 3 mls/hr Q12H IV Last administered on 03/12/17 04:49; Admin Dose 12 MLS/HR; Start 03/10/17 at 07:30 Famotidine (Pepcid) 20 mg DAILY PO Last administered on 03/12/17 08:45; Admin Dose 20 MG; Start 03/11/17 at 09:00 Meperidine HCl (Demerol) 12.5 mg Q4H PRN IV POST OPERATIVE SHIVERING; Start at 12:30 Meperidine HCl 25 mg 25 mg Q4H PRN IV POST OPERATIVE SHIVERING Last administered on 03/10/17 12:34; Admin Dose 25 MG; Start 03/10/17 at 12:30 Levetiracetam (Keppra 1,000mg/ 100ml (Pmx)) 100 ml @ 400 mls/hr Q12 IVPB Last administered on 03/12/17 08:50; Admin Dose 400 MLS/HR; Start 03/10/17 at 21: 00 Acetaminophen (Tylenol Liquid) 500 mg DAILY NGT ; Start 03/11/17 at 06:00 Insulin Aspart NOVOLOG *MILD* ALGORI... Q4 SC Last administered on 03/12/17 04:55; Admin Dose 1 UNIT; Start 03/12/17 at 01:00 Fentanyl (Sublimaze) 100 ml @ 2.5 mls/hr TITRATE IV ; Start 03/12/17 at 10:30 ZACK ROSENTHAL Mar 12, 2017 11:00
--- NOTE | 2017-03-12 11:09 | CONS ---
Date/Time of Note Date/Time of Note DATE: 03/12/17 TIME: 11:05 Consult Date/Type/Reason Admit Date/Time Mar 10, 2017 at 03:25 Initial Consult Date 03/10/17 Type of Consultation: Pulmonary Ordering Provider: JESSICA DIAZ Subjective Patient remains on mechanical ventilation. Appears agitated but not opening eyes or following commands. Continues low-dose sedation. Objective Vital Signs Date Time Temp Pulse Resp B/P Pulse Ox O2 Delivery O2 Flow Rate FiO2 03/12/17 10:49 114 28 100 50 03/12/17 06:30 137/69 Mechanical Ventilator 03/12/17 04:00 98.1 Intake and Output 03/11/17 03/11/17 03/12/17 15:00 23:00 07:00 Intake Total 620.320 ml 514.62 ml 313.62 ml Output Total 623 ml 259 ml 185 ml Balance -2.680 ml 255.62 ml 128.62 ml Exam PHYSICAL EXAMINATION: GENERAL: Elderly-appearing lady, appears comfortable at rest, intubated and sedated on mechanical ventilation. VITAL SIGNS: HEENT: Pupils are sluggish. CARDIAC: S1, S2, no added sounds or murmurs. CHEST: Diminished air entry bilaterally. ABDOMEN: Soft, nontender. No guarding or rebound. EXTREMITIES: No cyanosis, clubbing or edema. NEUROLOGIC: Unable to assess. Results/Medications Result Diagram: 03/12/17 0444 03/12/17 0444 Results 24 hrs Laboratory Tests Test 03/11/17 12:08 03/11/17 13:07 03/11/17 14:00 03/11/17 14:09 Bedside Glucose 134 157 159 Blood Gas Specimen Source Blood arterial Arterial Blood Date Drawn 03/11/2017 1:50:00 PM Arterial Blood pH (Temp corrected) 7.482 H Arterial Blood pCO2 (Temp correct) 26.5 L Arterial Blood pO2 (Temp corrected) 115.6 H Arterial Blood HCO3 19.7 L Arterial Blood Base Excess -3.4 L Arterial Blood Oxygen Saturation 98.2 H Scott Test ACCEPTAB Arterial Blood Gas Puncture Site A-Line Arterial Blood Carboxyhemoglobin 0.3 Arterial Blood Methemoglobin 0 Blood Gas A-a O2 Differential 503.7 H Oxyhemoglobin Percent 97.9 Total Hemoglobin 10.3 L Blood Gas Temperature 34.9 Blood Gas Respiration Rate 24.0 Blood Gas Actual Respiration Rate 24 Blood Gas Modality VENT - AC FiO2 90.0 Blood Gas Tidal Volume 500.0 Blood Gas Low PEEP Setting 8.0 Blood Gas Notified Whom JLD Blood Gas Notified Time 03/11/2017 1:57:00 PM Test 03/11/17 15:08 03/11/17 16:29 03/11/17 16:34 03/11/17 17:28 Bedside Glucose 146 137 140 White Blood Count 9.1 Red Blood Count 3.63 L Hemoglobin 9.3 L Hematocrit 29.4 L Mean Corpuscular Volume 81.0 L Mean Corpuscular Hemoglobin 25.6 L Mean Corpuscular Hemoglobin Concent 31.6 L Red Cell Distribution Width 16.7 H Platelet Count 221 # Mean Platelet Volume 10.6 H Neutrophils % 90.0 H Lymphocytes % 5.1 L Monocytes % 4.4 Eosinophils % 0.1 Basophils % 0.1 Nucleated Red Blood Cells % 0.0 Neutrophils # 8.2 H Lymphocytes # 0.5 L Monocytes # 0.4 Eosinophils # 0.0 Basophils # 0.0 Nucleated Red Blood Cells # 0.0 Prothrombin Time 15.2 H Prothrombin Time Ratio 1.2 INR International Normalized Ratio 1.19 Activated Partial Thromboplast Time 35.2 H Sodium Level 144 Potassium Level 3.5 Chloride Level 110 Carbon Dioxide Level 21 Anion Gap 17 H Blood Urea Nitrogen 21 H Creatinine 0.90 Glucose Level 130 Calcium Level 8.1 L Phosphorus Level 4.5 Magnesium Level 2.2 Test 03/11/17 18:06 03/11/17 18:56 03/11/17 20:29 03/11/17 21:12 Bedside Glucose 134 132 125 132 Test 03/11/17 23:13 03/12/17 01:08 03/12/17 04:44 03/12/17 04:49 Bedside Glucose 106 151 143 White Blood Count 9.4 Red Blood Count 3.10 L Hemoglobin 7.9 L Hematocrit 25.4 L Mean Corpuscular Volume 81.9 L Mean Corpuscular Hemoglobin 25.5 L Mean Corpuscular Hemoglobin Concent 31.1 L Red Cell Distribution Width 17.3 H Platelet Count 207 Mean Platelet Volume 11.9 H Neutrophils % 86.9 H Lymphocytes % 7.2 L Monocytes % 5.2 Eosinophils % 0.2 Basophils % 0.1 Nucleated Red Blood Cells % 0.0 Neutrophils # 8.1 H Lymphocytes # 0.7 L Monocytes # 0.5 Eosinophils # 0.0 Basophils # 0.0 Nucleated Red Blood Cells # 0.0 Sodium Level 147 H Potassium Level 3.7 Chloride Level 112 H Carbon Dioxide Level 22 Anion Gap 17 H Blood Urea Nitrogen 26 H Creatinine 1.23 H Glucose Level 144 Calcium Level 8.6 Magnesium Level 2.4 Total Bilirubin 0.1 L Direct Bilirubin 0.00 Indirect Bilirubin 0.1 Aspartate Amino Transf (AST/SGOT) 53 H Alanine Aminotransferase (ALT/SGPT) 38 Alkaline Phosphatase 41 L Total Protein 5.9 L Albumin 3.1 L Globulin 2.80 Albumin/Globulin Ratio 1.10 Test 03/12/17 07:00 03/12/17 09:01 Blood Gas Specimen Source Blood arterial Arterial Blood Date Drawn 03/12/2017 7:20:47 AM Arterial Blood pH (Temp corrected) 7.418 Arterial Blood pCO2 (Temp correct) 30.3 L Arterial Blood pO2 (Temp corrected) 109.2 H Arterial Blood HCO3 19.1 L Arterial Blood Base Excess -4.7 L Arterial Blood Oxygen Saturation 97.5 Scott Test ACCEPTAB Arterial Blood Gas Puncture Site Right Radial Arterial Blood Carboxyhemoglobin 0.2 Arterial Blood Methemoglobin 0.1 Blood Gas A-a O2 Differential 357.3 H Oxyhemoglobin Percent 97.2 Total Hemoglobin 8.7 L Blood Gas Temperature 37.0 Blood Gas Respiration Rate 24.0 Blood Gas Actual Respiration Rate 24 Blood Gas Modality VENT - AC FiO2 70.0 Blood Gas Tidal Volume 500.0 Blood Gas Low PEEP Setting 8.0 Blood Gas Notified Whom JLD Blood Gas Notified Time 03/12/2017 8:14:30 AM Bedside Glucose 131 Medications Current Medications Ticagrelor 90 mg 90 mg BID PO Last administered on 03/12/17 08:48; Admin Dose 90 MG; Start 03/10/17 at 09:00 Midazolam HCl (Versed) 50 ml @ 1 mls/hr TITRATE IV Last administered on 07:22; Admin Dose 1 MLS/HR; Start 03/10/17 at 03:30 Aspirin (Aspirin) 81 mg DAILY PO Last administered on 03/12/17 08:45; Admin Dose 81 MG; Start 03/10/17 at 09:00 Acetaminophen (Tylenol Supp) 650 mg Q4H PRN [place] PAIN LEVEL 1-3 OR FEVER; Start 03/10/17 at 04:00 Acetaminophen (Tylenol Supp) 650 mg Q4H PRN [place] TEMP > 37C; Start 03/10/17 at 04:30 Acetaminophen (Tylenol Supp) 500 mg Q6H [place] Last administered on 03/11/17 17: 30; Admin Dose 500 MG; Start 03/11/17 at 04:30 Eye Lubricant (Akwa Oint) 1 applic Q6 BOTH EYES Last administered on 05:34; Admin Dose 1 APPLIC; Start 03/10/17 at 06:00 Eye Lubricant 2 drop 2 drop Q6 BOTH EYES Last administered on 03/12/17 05:34 ; Admin Dose 2 DROP; Start 03/10/17 at 06:00 Norepinephrine 250 ml @ 1.875 mls/ hr TITRATE IV Last administered on 06:59; Admin Dose 3.75 MLS/HR; Start 03/10/17 at 07:00 Vecuronium [place] 100 mg/ Dextrose 100 ml @ 5 mls/hr TITRATE IV Last administered on 03/11/17 05:00; Admin Dose 2 MLS/HR; Start 03/10/17 at 07:30 Propofol (Diprivan) 100 ml @ 3 mls/hr Q12H IV Last administered on 03/12/17 04:49; Admin Dose 12 MLS/HR; Start 03/10/17 at 07:30 Famotidine (Pepcid) 20 mg DAILY PO Last administered on 03/12/17 08:45; Admin Dose 20 MG; Start 03/11/17 at 09:00 Meperidine HCl (Demerol) 12.5 mg Q4H PRN IV POST OPERATIVE SHIVERING; Start at 12:30 Meperidine HCl 25 mg 25 mg Q4H PRN IV POST OPERATIVE SHIVERING Last administered on 03/10/17 12:34; Admin Dose 25 MG; Start 03/10/17 at 12:30 Levetiracetam (Keppra 1,000mg/ 100ml (Pmx)) 100 ml @ 400 mls/hr Q12 IVPB Last administered on 03/12/17 08:50; Admin Dose 400 MLS/HR; Start 03/10/17 at 21: 00 Acetaminophen (Tylenol Liquid) 500 mg DAILY NGT ; Start 03/11/17 at 06:00 Insulin Aspart NOVOLOG *MILD* ALGORI... Q4 SC Last administered on 03/12/17t 04:55; Admin Dose 1 UNIT; Start 03/12/17 at 01:00 Fentanyl (Sublimaze) 100 ml @ 2.5 mls/hr TITRATE IV ; Start 03/12/17 at 10:30 Furosemide 20 mg 20 mg DAILY@06 IV ; Start 03/13/17 at 06:00 Amiodarone HCl (Cordarone 150mg/ D5W Bolus) 100 ml @ 600 mls/hr ONCE ONCE IV ; Start 03/12/17 at 11:00; Stop 03/12/17 at 11:09 Carvedilol 6.25 mg 6.25 mg BID NGT ; Start 03/12/17 at 11:00 Amiodarone HCl/ Dextrose (Cordarone Iv/ D5W) 500 ml @ 0 mls/hr Q0M IV ; Start 03/12/17 at 11:00 Atorvastatin Calcium (Lipitor) 40 mg DAILY@21 PO ; Start 03/12/17 at 21:00 Assessment/Plan Chief Complaint/Hosp Course IMPRESSION 1. Acute myocardial infarction. Status post LAD stent placement. Atrial fibrillation with rapid ventricular rate 2. Cardiopulmonary arrest. 3. Possible aspiration pneumonia with hypoxemic respiratory failure. 4. Possible anoxic brain injury. MRI scheduled for today. 5. History of coronary artery disease with stent placements in the past. Plan 1. Status post hypothermia protocol. 2. Antibiotics for possible aspiration pneumonia. 3. Insulin drip. 4. Cardiac recommendations with Brilinta and aspirin post-stent placement. Continue rate control with amiodarone 5. DVT and GI prophylaxis. 6. Monitor for 48-72 hours for neurological response. MRI scheduled for today. Critical care time 40 minutes. Problems: MARTA REMY [facility], [facility] Mar 12, 2017 11:08
--- NOTE | 2017-03-12 11:41 | PN ---
Date/Time of Note Date/Time of Note DATE: 03/12/17 TIME: 11:37 Assessment/Plan VTE Prophylaxis VTE Prophylaxis Intervention: SCD's Lines/Catheters IV Catheter Type (from Nrsg): Central Line Central line still needed: Yes Urinary Cath still in place: Yes Reason Cath still needed: other (indicate) (critically ill) Assessment/Plan Assessment/Plan 71 yo F presented following cardiac arrest 2/2 STEMI. [facility] and underwent PCI. Pt being rewarmed following hypothermia protocol. Concern for jerking movement, seizures v myoclonus. #anoxic brain injury? -neuro on consult. MRI and EEG pending. AED on board -vent weaning as per pulm #STEMI sp PCI: DAPT, BP meds, statin as per cardiology -amio as per cardiology #preDM: a1c 6.1, insulin drip changed to SubQ #subclinical hyperthyroid: can be addressed in outpatient setting #FEN: NG/TFs ordered-->TFs and FWF should correct her hypernatremia critical care time: 30 minutes Subjective 24 Hr Interval Summary Free Text/Dictation still on sedation, does not appear to be responding to pain Exam/Review of Systems Vital Signs Vitals Vital Signs Date Time Temp Pulse Resp B/P Pulse Ox O2 Delivery O2 Flow Rate FiO2 03/12/17 10:49 114 28 100 50 03/12/17 06:30 137/69 Mechanical Ventilator 03/12/17 04:00 98.1 Intake and Output 03/11/17 03/11/17 03/12/17 14:59 22:59 06:59 Intake Total 637.490 ml 523.79 ml 349.78 ml Output Total 651 ml 264 ml 206 ml Balance -13.510 ml 259.79 ml 143.78 ml Exam nad, intubated and sedated no mrg lungs clear abd soft no rashes Results Result Diagram: 03/12/17 0444 03/12/17 0444 Results 24 hrs Laboratory Tests Test 03/11/17 12:08 03/11/17 13:07 03/11/17 14:00 03/11/17 14:09 Bedside Glucose 134 157 159 Blood Gas Specimen Source Blood arterial Arterial Blood Date Drawn 03/11/2017 1:50:00 PM Arterial Blood pH (Temp corrected) 7.482 H Arterial Blood pCO2 (Temp correct) 26.5 L Arterial Blood pO2 (Temp corrected) 115.6 H Arterial Blood HCO3 19.7 L Arterial Blood Base Excess -3.4 L Arterial Blood Oxygen Saturation 98.2 H Scott Test ACCEPTAB Arterial Blood Gas Puncture Site A-Line Arterial Blood Carboxyhemoglobin 0.3 Arterial Blood Methemoglobin 0 Blood Gas A-a O2 Differential 503.7 H Oxyhemoglobin Percent 97.9 Total Hemoglobin 10.3 L Blood Gas Temperature 34.9 Blood Gas Respiration Rate 24.0 Blood Gas Actual Respiration Rate 24 Blood Gas Modality VENT - AC FiO2 90.0 Blood Gas Tidal Volume 500.0 Blood Gas Low PEEP Setting 8.0 Blood Gas Notified Whom JLD Blood Gas Notified Time 03/11/2017 1:57:00 PM Test 03/11/17 15:08 03/11/17 16:29 03/11/17 16:34 03/11/17 17:28 Bedside Glucose 146 137 140 White Blood Count 9.1 Red Blood Count 3.63 L Hemoglobin 9.3 L Hematocrit 29.4 L Mean Corpuscular Volume 81.0 L Mean Corpuscular Hemoglobin 25.6 L Mean Corpuscular Hemoglobin Concent 31.6 L Red Cell Distribution Width 16.7 H Platelet Count 221 # Mean Platelet Volume 10.6 H Neutrophils % 90.0 H Lymphocytes % 5.1 L Monocytes % 4.4 Eosinophils % 0.1 Basophils % 0.1 Nucleated Red Blood Cells % 0.0 Neutrophils # 8.2 H Lymphocytes # 0.5 L Monocytes # 0.4 Eosinophils # 0.0 Basophils # 0.0 Nucleated Red Blood Cells # 0.0 Prothrombin Time 15.2 H Prothrombin Time Ratio 1.2 INR International Normalized Ratio 1.19 Activated Partial Thromboplast Time 35.2 H Sodium Level 144 Potassium Level 3.5 Chloride Level 110 Carbon Dioxide Level 21 Anion Gap 17 H Blood Urea Nitrogen 21 H Creatinine 0.90 Glucose Level 130 Calcium Level 8.1 L Phosphorus Level 4.5 Magnesium Level 2.2 Test 03/11/17 18:06 03/11/17 18:56 03/11/17 20:29 03/11/17 21:12 Bedside Glucose 134 132 125 132 Test 03/11/17 23:13 03/12/17 01:08 03/12/17 04:44 03/12/17 04:49 Bedside Glucose 106 151 143 White Blood Count 9.4 Red Blood Count 3.10 L Hemoglobin 7.9 L Hematocrit 25.4 L Mean Corpuscular Volume 81.9 L Mean Corpuscular Hemoglobin 25.5 L Mean Corpuscular Hemoglobin Concent 31.1 L Red Cell Distribution Width 17.3 H Platelet Count 207 Mean Platelet Volume 11.9 H Neutrophils % 86.9 H Lymphocytes % 7.2 L Monocytes % 5.2 Eosinophils % 0.2 Basophils % 0.1 Nucleated Red Blood Cells % 0.0 Neutrophils # 8.1 H Lymphocytes # 0.7 L Monocytes # 0.5 Eosinophils # 0.0 Basophils # 0.0 Nucleated Red Blood Cells # 0.0 Sodium Level 147 H Potassium Level 3.7 Chloride Level 112 H Carbon Dioxide Level 22 Anion Gap 17 H Blood Urea Nitrogen 26 H Creatinine 1.23 H Glucose Level 144 Calcium Level 8.6 Magnesium Level 2.4 Total Bilirubin 0.1 L Direct Bilirubin 0.00 Indirect Bilirubin 0.1 Aspartate Amino Transf (AST/SGOT) 53 H Alanine Aminotransferase (ALT/SGPT) 38 Alkaline Phosphatase 41 L Total Protein 5.9 L Albumin 3.1 L Globulin 2.80 Albumin/Globulin Ratio 1.10 Test 03/12/17 07:00 03/12/17 09:01 Blood Gas Specimen Source Blood arterial Arterial Blood Date Drawn 03/12/2017 7:20:47 AM Arterial Blood pH (Temp corrected) 7.418 Arterial Blood pCO2 (Temp correct) 30.3 L Arterial Blood pO2 (Temp corrected) 109.2 H Arterial Blood HCO3 19.1 L Arterial Blood Base Excess -4.7 L Arterial Blood Oxygen Saturation 97.5 Scott Test ACCEPTAB Arterial Blood Gas Puncture Site Right Radial Arterial Blood Carboxyhemoglobin 0.2 Arterial Blood Methemoglobin 0.1 Blood Gas A-a O2 Differential 357.3 H Oxyhemoglobin Percent 97.2 Total Hemoglobin 8.7 L Blood Gas Temperature 37.0 Blood Gas Respiration Rate 24.0 Blood Gas Actual Respiration Rate 24 Blood Gas Modality VENT - AC FiO2 70.0 Blood Gas Tidal Volume 500.0 Blood Gas Low PEEP Setting 8.0 Blood Gas Notified Whom JLD Blood Gas Notified Time 03/12/2017 8:14:30 AM Bedside Glucose 131 Medications Medications Current Medications Ticagrelor 90 mg 90 mg BID PO Last administered on 03/12/17t 08:48; Admin Dose 90 MG; Start 03/10/17 at 09:00 Midazolam HCl (Versed) 50 ml @ 1 mls/hr TITRATE IV Last administered on 07:22; Admin Dose 1 MLS/HR; Start 03/10/17 at 03:30 Aspirin (Aspirin) 81 mg DAILY PO Last administered on 03/12/17 08:45; Admin Dose 81 MG; Start 03/10/17 at 09:00 Acetaminophen (Tylenol Supp) 650 mg Q4H PRN [place] PAIN LEVEL 1-3 OR FEVER; Start 03/10/17 at 04:00 Acetaminophen (Tylenol Supp) 650 mg Q4H PRN [place] TEMP > 37C; Start 03/10/17 at 04:30 Acetaminophen (Tylenol Supp) 500 mg Q6H [place] Last administered on 03/11/17 17: 30; Admin Dose 500 MG; Start 03/11/17 at 04:30 Eye Lubricant (Akwa Oint) 1 applic Q6 BOTH EYES Last administered on 05:34; Admin Dose 1 APPLIC; Start 03/10/17 at 06:00 Eye Lubricant 2 drop 2 drop Q6 BOTH EYES Last administered on 03/12/17 05:34 ; Admin Dose 2 DROP; Start 03/10/17 at 06:00 Norepinephrine 250 ml @ 1.875 mls/ hr TITRATE IV Last administered on 06:59; Admin Dose 3.75 MLS/HR; Start 03/10/17 at 07:00 Vecuronium [place] 100 mg/ Dextrose 100 ml @ 5 mls/hr TITRATE IV Last administered on 03/11/17 05:00; Admin Dose 2 MLS/HR; Start 03/10/17 at 07:30 Propofol (Diprivan) 100 ml @ 3 mls/hr Q12H IV Last administered on 03/12/17 04:49; Admin Dose 12 MLS/HR; Start 03/10/17 at 07:30 Famotidine (Pepcid) 20 mg DAILY PO Last administered on 03/12/17 08:45; Admin Dose 20 MG; Start 03/11/17 at 09:00 Meperidine HCl (Demerol) 12.5 mg Q4H PRN IV POST OPERATIVE SHIVERING; Start at 12:30 Meperidine HCl 25 mg 25 mg Q4H PRN IV POST OPERATIVE SHIVERING Last administered on 03/10/17 12:34; Admin Dose 25 MG; Start 03/10/17 at 12:30 Levetiracetam (Keppra 1,000mg/ 100ml (Pmx)) 100 ml @ 400 mls/hr Q12 IVPB Last administered on 03/12/17 08:50; Admin Dose 400 MLS/HR; Start 03/10/17 at 21: 00 Acetaminophen (Tylenol Liquid) 500 mg DAILY NGT ; Start 03/11/17 at 06:00 Insulin Aspart NOVOLOG *MILD* ALGORI... Q4 SC Last administered on 03/12/17 04:55; Admin Dose 1 UNIT; Start 03/12/17 at 01:00 Fentanyl (Sublimaze) 100 ml @ 2.5 mls/hr TITRATE IV ; Start 03/12/17 at 10:30 Furosemide (Lasix) 20 mg DAILY@06 IV ; Start 03/13/17 at 06:00 Carvedilol 6.25 mg 6.25 mg BID NGT ; Start 03/12/17 at 11:00 Amiodarone HCl/ Dextrose (Cordarone Iv/ D5W) 500 ml @ 0 mls/hr Q0M IV ; Start 03/12/17 at 11:00 Atorvastatin Calcium (Lipitor) 40 mg DAILY@21 PO ; Start 03/12/17 at 21:00 ARCELIA MCGRATH MD Mar 12, 2017 11:41
--- NOTE | 2017-03-12 12:02 | CONS ---
Date/Time of Note Date/Time of Note DATE: 03/12/17 TIME: 12:01 Consult Date/Type/Reason Admit Date/Time Mar 10, 2017 at 03:25 Initial Consult Date 03/10/17 Type of Consultation: Neurology Reason for Consultation hypoxic injury Ordering Provider: JESSICA DIAZ Subjective on low dose sedation no improvement no seizures Objective Vital Signs Date Time Temp Pulse Resp B/P Pulse Ox O2 Delivery O2 Flow Rate FiO2 03/12/17 10:49 114 28 100 50 03/12/17 06:30 137/69 Mechanical Ventilator 03/12/17 04:00 98.1 Intake and Output 03/11/17 03/11/17 03/12/17 15:00 23:00 07:00 Intake Total 620.320 ml 514.62 ml 313.62 ml Output Total 623 ml 259 ml 185 ml Balance -2.680 ml 255.62 ml 128.62 ml Exam sedation held unresponsive to verbal stimuli CN: sluggish pupils slight corneal in right eye weak gag Motor absent w/d in extremities Results/Medications Result Diagram: 03/12/17 0444 03/12/17 0444 Results 24 hrs Laboratory Tests Test 03/11/17 12:08 03/11/17 13:07 03/11/17 14:00 03/11/17 14:09 Bedside Glucose 134 157 159 Blood Gas Specimen Source Blood arterial Arterial Blood Date Drawn 03/11/2017 1:50:00 PM Arterial Blood pH (Temp corrected) 7.482 H Arterial Blood pCO2 (Temp correct) 26.5 L Arterial Blood pO2 (Temp corrected) 115.6 H Arterial Blood HCO3 19.7 L Arterial Blood Base Excess -3.4 L Arterial Blood Oxygen Saturation 98.2 H Scott Test ACCEPTAB Arterial Blood Gas Puncture Site A-Line Arterial Blood Carboxyhemoglobin 0.3 Arterial Blood Methemoglobin 0 Blood Gas A-a O2 Differential 503.7 H Oxyhemoglobin Percent 97.9 Total Hemoglobin 10.3 L Blood Gas Temperature 34.9 Blood Gas Respiration Rate 24.0 Blood Gas Actual Respiration Rate 24 Blood Gas Modality VENT - AC FiO2 90.0 Blood Gas Tidal Volume 500.0 Blood Gas Low PEEP Setting 8.0 Blood Gas Notified Whom JLD Blood Gas Notified Time 03/11/2017 1:57:00 PM Test 03/11/17 15:08 03/11/17 16:29 03/11/17 16:34 03/11/17 17:28 Bedside Glucose 146 137 140 White Blood Count 9.1 Red Blood Count 3.63 L Hemoglobin 9.3 L Hematocrit 29.4 L Mean Corpuscular Volume 81.0 L Mean Corpuscular Hemoglobin 25.6 L Mean Corpuscular Hemoglobin Concent 31.6 L Red Cell Distribution Width 16.7 H Platelet Count 221 # Mean Platelet Volume 10.6 H Neutrophils % 90.0 H Lymphocytes % 5.1 L Monocytes % 4.4 Eosinophils % 0.1 Basophils % 0.1 Nucleated Red Blood Cells % 0.0 Neutrophils # 8.2 H Lymphocytes # 0.5 L Monocytes # 0.4 Eosinophils # 0.0 Basophils # 0.0 Nucleated Red Blood Cells # 0.0 Prothrombin Time 15.2 H Prothrombin Time Ratio 1.2 INR International Normalized Ratio 1.19 Activated Partial Thromboplast Time 35.2 H Sodium Level 144 Potassium Level 3.5 Chloride Level 110 Carbon Dioxide Level 21 Anion Gap 17 H Blood Urea Nitrogen 21 H Creatinine 0.90 Glucose Level 130 Calcium Level 8.1 L Phosphorus Level 4.5 Magnesium Level 2.2 Test 03/11/17 18:06 03/11/17 18:56 03/11/17 20:29 03/11/17 21:12 Bedside Glucose 134 132 125 132 Test 03/11/17 23:13 03/12/17 01:08 03/12/17 04:44 03/12/17 04:49 Bedside Glucose 106 151 143 White Blood Count 9.4 Red Blood Count 3.10 L Hemoglobin 7.9 L Hematocrit 25.4 L Mean Corpuscular Volume 81.9 L Mean Corpuscular Hemoglobin 25.5 L Mean Corpuscular Hemoglobin Concent 31.1 L Red Cell Distribution Width 17.3 H Platelet Count 207 Mean Platelet Volume 11.9 H Neutrophils % 86.9 H Lymphocytes % 7.2 L Monocytes % 5.2 Eosinophils % 0.2 Basophils % 0.1 Nucleated Red Blood Cells % 0.0 Neutrophils # 8.1 H Lymphocytes # 0.7 L Monocytes # 0.5 Eosinophils # 0.0 Basophils # 0.0 Nucleated Red Blood Cells # 0.0 Sodium Level 147 H Potassium Level 3.7 Chloride Level 112 H Carbon Dioxide Level 22 Anion Gap 17 H Blood Urea Nitrogen 26 H Creatinine 1.23 H Glucose Level 144 Calcium Level 8.6 Magnesium Level 2.4 Total Bilirubin 0.1 L Direct Bilirubin 0.00 Indirect Bilirubin 0.1 Aspartate Amino Transf (AST/SGOT) 53 H Alanine Aminotransferase (ALT/SGPT) 38 Alkaline Phosphatase 41 L Total Protein 5.9 L Albumin 3.1 L Globulin 2.80 Albumin/Globulin Ratio 1.10 Test 03/12/17 07:00 03/12/17 09:01 Blood Gas Specimen Source Blood arterial Arterial Blood Date Drawn 03/12/2017 7:20:47 AM Arterial Blood pH (Temp corrected) 7.418 Arterial Blood pCO2 (Temp correct) 30.3 L Arterial Blood pO2 (Temp corrected) 109.2 H Arterial Blood HCO3 19.1 L Arterial Blood Base Excess -4.7 L Arterial Blood Oxygen Saturation 97.5 Scott Test ACCEPTAB Arterial Blood Gas Puncture Site Right Radial Arterial Blood Carboxyhemoglobin 0.2 Arterial Blood Methemoglobin 0.1 Blood Gas A-a O2 Differential 357.3 H Oxyhemoglobin Percent 97.2 Total Hemoglobin 8.7 L Blood Gas Temperature 37.0 Blood Gas Respiration Rate 24.0 Blood Gas Actual Respiration Rate 24 Blood Gas Modality VENT - AC FiO2 70.0 Blood Gas Tidal Volume 500.0 Blood Gas Low PEEP Setting 8.0 Blood Gas Notified Whom JLD Blood Gas Notified Time 03/12/2017 8:14:30 AM Bedside Glucose 131 Medications Current Medications Ticagrelor 90 mg 90 mg BID PO Last administered on 03/12/17 08:48; Admin Dose 90 MG; Start 03/10/17 at 09:00 Midazolam HCl (Versed) 50 ml @ 1 mls/hr TITRATE IV Last administered on 07:22; Admin Dose 1 MLS/HR; Start 03/10/17 at 03:30 Aspirin (Aspirin) 81 mg DAILY PO Last administered on 03/12/17 08:45; Admin Dose 81 MG; Start 03/10/17 at 09:00 Acetaminophen (Tylenol Supp) 650 mg Q4H PRN [place] PAIN LEVEL 1-3 OR FEVER; Start 03/10/17 at 04:00 Acetaminophen (Tylenol Supp) 650 mg Q4H PRN PA TEMP > 37C; Start 03/10/17 at 04:30 Acetaminophen (Tylenol Supp) 500 mg Q6H PA Last administered on 03/11/17 17: 30; Admin Dose 500 MG; Start 03/11/17 at 04:30 Eye Lubricant (Akwa Oint) 1 applic Q6 BOTH EYES Last administered on 05:34; Admin Dose 1 APPLIC; Start 03/10/17 at 06:00 Eye Lubricant 2 drop 2 drop Q6 BOTH EYES Last administered on 03/12/17 05:34 ; Admin Dose 2 DROP; Start 03/10/17 at 06:00 Norepinephrine 250 ml @ 1.875 mls/ hr TITRATE IV Last administered on 06:59; Admin Dose 3.75 MLS/HR; Start 03/10/17 at 07:00 Vecuronium [place] 100 mg/ Dextrose 100 ml @ 5 mls/hr TITRATE IV Last administered on 03/11/17 05:00; Admin Dose 2 MLS/HR; Start 03/10/17 at 07:30 Propofol (Diprivan) 100 ml @ 3 mls/hr Q12H IV Last administered on 03/12/17 04:49; Admin Dose 12 MLS/HR; Start 03/10/17 at 07:30 Famotidine (Pepcid) 20 mg DAILY PO Last administered on 03/12/17 08:45; Admin Dose 20 MG; Start 03/11/17 at 09:00 Meperidine HCl (Demerol) 12.5 mg Q4H PRN IV POST OPERATIVE SHIVERING; Start at 12:30 Meperidine HCl 25 mg 25 mg Q4H PRN IV POST OPERATIVE SHIVERING Last administered on 03/10/17 12:34; Admin Dose 25 MG; Start 03/10/17 at 12:30 Levetiracetam (Keppra 1,000mg/ 100ml (Pmx)) 100 ml @ 400 mls/hr Q12 IVPB Last administered on 03/12/17 08:50; Admin Dose 400 MLS/HR; Start 03/10/17 at 21: 00 Acetaminophen (Tylenol Liquid) 500 mg DAILY NGT ; Start 03/11/17 at 06:00 Insulin Aspart NOVOLOG *MILD* ALGORI... Q4 SC Last administered on 03/12/17 04:55; Admin Dose 1 UNIT; Start 03/12/17 at 01:00 Fentanyl (Sublimaze) 100 ml @ 2.5 mls/hr TITRATE IV ; Start 03/12/17 at 10:30 Furosemide (Lasix) 20 mg DAILY@06 IV ; Start 03/13/17 at 06:00 Carvedilol 6.25 mg 6.25 mg BID NGT Last administered on 03/12/17t 11:49; Admin Dose 6.25 MG; Start 03/12/17 at 11:00 Amiodarone HCl/ Dextrose (Cordarone Iv/ D5W) 500 ml @ 0 mls/hr Q0M IV ; Start 03/12/17 at 11:00 Atorvastatin Calcium (Lipitor) 40 mg DAILY@21 PO ; Start 03/12/17 at 21:00 Assessment/Plan Chief Complaint/Hosp Course 71 yo female admitted with cardiac arrest s/p LAD stent, on hypothermia protocol suspected seizure activity. CTH no acute process. Recommendations: continue on Keppra 1500 mg BID Routine EEG today taper sedation when possible MRI Brain to assess for hypoxic injury when stable Problems: ELOINA NAGY MD Mar 12, 2017 12:02
[2017-03-12] MEDS: AMIODARONE 900 MG in DEXTROSE 5% 482 ML IV SCH (13:34)
[2017-03-12] MEDS ORDERED: DEXTROSE 50% 50 ML SYRINGE IV PRN ×2 (19:00)
[2017-03-12] MEDS ORDERED: GLUCOSE GEL 15 GRAM TUBE BUCCAL PRN (19:00)
[2017-03-12] MEDS ORDERED: GLUCAGON 1 MG INJ IM PRN (19:00)
[2017-03-12] MEDS ORDERED: GLUCOSE GEL 15 GRAM TUBE PO PRN ×2 (19:00)
[2017-03-12] MEDS ORDERED: ATORVASTATIN 80 MG TAB PO SCH (21:00)
[2017-03-12] MEDS: FENTAnyl (DRIP) 1000 mcg/100mL 100 ML IV SCH (21:02)
[2017-03-12] MEDS: ATORVASTATIN 40 MG TAB PO SCH (21:02)
[2017-03-12] MEDS: MIDAZOLAM (DRIP) 50 mg/50 mL 50 ML IV SCH (21:48)
[2017-03-12 22:56] LABS: HEMATOCRIT 24.5 % (37.0-47.0); HEMOGLOBIN 7.6 g/dl (12.0-16.0)
[2017-03-13] VITALS (60 sets, daily range): BP systolic 95–156; BP diastolic 53–92; PULSE 78–118; RESP 21–29
[2017-03-13] MEDS: OCULAR LUBRICANT 3.5 GM OPH OINT BOTH EYES SCH ×4 (00:53→17:00)
[2017-03-13] MEDS: ACETAMINOPHEN 650MG/20.3ML CUP NGT PRN ×5 (00:53→20:43)
[2017-03-13] MEDS: ARTIFICIAL TEARS 15 ML OPH BOTH EYES SCH ×4 (00:53→17:00)
[2017-03-13] MEDS: INSULIN ASPART [NOVOLOG] 3 ML PEN SC SCH ×6 (01:10→20:54)
[2017-03-13] MEDS ORDERED: VANCOMYCIN IV PER PHARMACY XX SCH (04:00)
[2017-03-13] MEDS: FUROSEMIDE 20 MG INJ IV SCH (05:38)
[2017-03-13] MEDS: PIPER-TAZO 3.375 GM IV (PMX) 50 ML IVPB SCH ×3 (05:39→22:17)
[2017-03-13 06:50] LABS: BASOPHILS % 0.2 % (0.0-2.0); EOSINOPHILS % 0.2 % (0.0-7.0); HEMATOCRIT 24.1 % (37.0-47.0); HEMOGLOBIN 7.5 g/dl (12.0-16.0); LYMPHOCYTES % 11.9 % (15.0-51.0); MEAN CORPUSCULAR HEMOGLOBIN 25.6 pg (29.0-33.0); MEAN CORPUSCULAR HGB CONC 31.1 g/dl (32.0-37.0); MEAN CORPUSCULAR VOLUME 82.3 fl (82.0-101.0); MEAN PLATELET VOLUME 12.1 fl (7.4-10.4); MONOCYTE # 0.6 10^3/ul (0.3-0.9); MONOCYTES % 6.9 % (0.0-11.0); NEUTROPHIL # 6.8 10^3/ul (1.6-7.5); NEUTROPHILS % 80.3 % (39.0-77.0); PLATELET COUNT 219 10^3/UL (140-415); RED BLOOD COUNT 2.93 10^6/ul (4.20-5.40); RED CELL DISTRIBUTION WIDTH 17.9 % (11.5-14.5); WHITE BLOOD COUNT 8.4 10^3/ul (4.8-10.8)
[2017-03-13] MEDS ORDERED: VANCOMYCIN 1.5 GM in SOD CHLORIDE 0.9% 250 ML IVPB ONE (07:00)
[2017-03-13 07:12] LABS: ALBUMIN 3.3 g/dl (3.3-4.9); ALBUMIN/GLOBULIN RATIO 1.22; BILIRUBIN,INDIRECT 0.1 mg/dl (0-1.1); BILIRUBIN,TOTAL 0.1 mg/dl (0.2-1.3); CALCIUM 8.8 mg/dl (8.4-10.2); CREATININE 1.49 mg/dl (0.44-1.00); MAGNESIUM 2.4 mg/dl (1.7-2.5); POTASSIUM 3.6 mmol/L (3.5-5.1)
[2017-03-13] MEDS: PROPOFOL 100 ML IV SCH ×2 (07:30→18:36)
[2017-03-13 07:51] LABS: AADO2 Arterial 228.2 mmHg (7.0-24.0); Allen Test ACCEPTAB; Arterial Base Excess -0.1 mmol/L (-3.0-3); Arterial COHb 0.4 % (0.0-3.0); Arterial Fraction of Oxyhgb 96.2 % (93.0-99.0); Arterial HCO3 23.1 mmol/L (22.0-26.0); Arterial MetHb 0.2 % (0.0-1.5); Arterial Total Hemglobin 7.7 g/dl (12.0-18.0); MODE VENT - AC
[2017-03-13] MEDS: ASPIRIN 81 MG TAB PO SCH (08:23)
[2017-03-13] MEDS: LEVETIRACETAM 1000 MG (PMX) 100 ML IVPB SCH ×2 (08:23→20:43)
[2017-03-13] MEDS: ACETAMINOPHEN 650MG/20.3ML CUP NGT SCH (08:23)
[2017-03-13] MEDS: TICAGRELOR 90 MG TABLET PO SCH ×2 (08:24→20:53)
[2017-03-13] MEDS: FAMOTIDINE 20 MG TAB PO SCH (08:24)
--- NOTE | 2017-03-13 08:28 | RADRPT ---
PROCEDURE: XR Chest. CLINICAL INDICATION: Follow-up pneumonia. Shortness of breath. TECHNIQUE: Single frontal view of the chest. COMPARISON: 03/12/2017 and additional priors FINDINGS: Support lines and tubes: Endotracheal tube tip well positioned over the mid tracheal shadow. Enteri c tube tip passes below the diaphragm and below the field of view. Cardiac/vascular structures: Normal cardiomediastinal silhouette. Aortic calcifications. Pulmonary: Improved aeration with residual perihilar and basilar airspace opacities. Small bilateral pleural effusions. No evidence of pneumothorax. Osseous structures: Normal Soft tissues: Normal IMPRESSION: 1. Stable position of tubes. 2. Improved aeration with residual bilateral airspace opacities representing pulmonary edema or infe ction. 3. Small bilateral pleural effusions. RPTAT:AAJJ Physician Dulce Maria Date Time Electronically viewed and signed by Physician Dulce Maria on 03/13/2017 08:28 /
[2017-03-13] MEDS ORDERED: INSULIN GLARGINE [LANtus] 3 ML PEN SC ONE (09:00)
--- NOTE | 2017-03-13 09:35 | CONS ---
Date/Time of Note Date/Time of Note DATE: 03/13/17 TIME: 09:32 Assessment/Plan Assessment/Plan Chief Complaint/Hosp Course Paroxysmal afib: new onset. In and out of afib. Rates ~110s when in afib. If meaningful recovery, will consider anticoagulation though now anemic Anterior STEMI/CAD: s/p PCI of ulcerated 99% mid LAD lesion. EF by echo is preserved Cardiac arrest: likely due to arrhythmia related to above but unclear rhythm when paramedics arrived. Also with significant pulm edema so respiratory arrest/ PEA also possible Acute diastolic heart failure: Significant pulm edema by CXR. LVEDP 27 by cath. Improving with diuresis Acute respiratory failure: on vent due to above Acute renal failure: Cr worse, unclear etiology. Doubt from diuresis as remains overloaded. Anemia: no active bleeding Fevers: ?central Likely anoxic brain injury: per family, pt may have been pulseless for 10 mins prior to cost analyst arrival. Unclear rhythm Seizures vs myoclonic jerks -continue 0.5mg/min for now. When maintaining sinus, switch to PO -increase to coreg 12.5mg BID as BP tolerates -continue ASA, ticagrelor, lipitor -lasix 20mg IV daily to keep even to slightly negative -prognosis and neurologic recovery remains guarded. Will assess daily Problems: Consultation Date/Type/Reason Admit Date/Time Mar 10, 2017 at 03:25 Initial Consult Date 03/10/17 Type of Consultation: Cardiology Referring Provider: JESSICA DIAZ 24 HR Interval Summary Free Text/Dictation Febrile to 102 overnight consistently. Was not able to tolerate MRI yesterday. Cr worse again. CXR with pulm edema. Still not waking up but back on sedation. In and out of afib, now back in controlled afib. Exam/Review of Systems Vital Signs Vitals Vital Signs Date Time Temp Pulse Resp B/P Pulse Ox O2 Delivery O2 Flow Rate FiO2 03/13/17 07:05 106 24 100 50 03/13/17 06:30 126/74 03/13/17 06:00 Mechanical Ventilator 03/13/17 04:00 101.5 Intake and Output 03/12/17 03/12/17 03/13/17 15:00 23:00 07:00 Intake Total 262.94 ml 412.28 ml 538.12 ml Output Total 800 ml 577 ml 333 ml Balance -537.06 ml -164.72 ml 205.12 ml Exam Constitutional: No alert, No distress Head: atraumatic, normocephalic ENMT: intubated Neck: jvd (9cm) Respiratory: diminished breath sounds, No clear to auscultation Cardiovascular: No edema, No regular rate and rhythm (IRI), No systolic murmur Gastrointestinal: soft, No distended Neurological: No nl mental status, No nl speech Skin: No rash or lesions Results Result Diagram: 03/13/17 0500 03/13/17 0500 Results 24 hrs Laboratory Tests Test 03/12/17 18:11 03/12/17 21:28 03/12/17 22:34 03/13/17 00:54 Bedside Glucose 149 186 182 Hemoglobin 7.6 L Hematocrit 24.5 L Test 03/13/17 05:00 03/13/17 05:15 03/13/17 07:00 03/13/17 08:28 White Blood Count 8.4 Red Blood Count 2.93 L Hemoglobin 7.5 L Hematocrit 24.1 L Mean Corpuscular Volume 82.3 Mean Corpuscular Hemoglobin 25.6 L Mean Corpuscular Hemoglobin Concent 31.1 L Red Cell Distribution Width 17.9 H Platelet Count 219 Mean Platelet Volume 12.1 H Neutrophils % 80.3 H Lymphocytes % 11.9 L Monocytes % 6.9 Eosinophils % 0.2 Basophils % 0.2 Nucleated Red Blood Cells % 0.0 Neutrophils # 6.8 Lymphocytes # 1.0 Monocytes # 0.6 Eosinophils # 0.0 Basophils # 0.0 Nucleated Red Blood Cells # 0.0 Sodium Level 147 H Potassium Level 3.6 Chloride Level 110 Carbon Dioxide Level 24 Anion Gap 17 H Blood Urea Nitrogen 37 #H Creatinine 1.49 H Glucose Level 163 Calcium Level 8.8 Magnesium Level 2.4 Total Bilirubin 0.1 L Direct Bilirubin 0.00 Indirect Bilirubin 0.1 Aspartate Amino Transf (AST/SGOT) 54 H Alanine Aminotransferase (ALT/SGPT) 32 Alkaline Phosphatase 44 Total Protein 6.0 L Albumin 3.3 Globulin 2.70 Albumin/Globulin Ratio 1.22 Bedside Glucose 176 189 Blood Gas Specimen Source Blood arterial Arterial Blood Date Drawn 03/13/2017 7:30:59 AM Arterial Blood pH (Temp corrected) 7.485 H Arterial Blood pCO2 (Temp correct) 31.4 L Arterial Blood pO2 (Temp corrected) 93.0 Arterial Blood HCO3 23.1 Arterial Blood Base Excess -0.1 Arterial Blood Oxygen Saturation 96.8 Scott Test ACCEPTAB Arterial Blood Gas Puncture Site Right Radial Arterial Blood Carboxyhemoglobin 0.4 Arterial Blood Methemoglobin 0.2 Blood Gas A-a O2 Differential 228.2 H Oxyhemoglobin Percent 96.2 Total Hemoglobin 7.7 L Blood Gas Temperature 37.0 Blood Gas Respiration Rate 24.0 Blood Gas Actual Respiration Rate 25 Blood Gas Modality VENT - AC FiO2 50.0 Blood Gas Tidal Volume 500.0 Blood Gas Low PEEP Setting 5.0 Blood Gas Notified Whom JLD Blood Gas Notified Time 03/13/2017 7:51:32 AM Medications Medications Current Medications Ticagrelor 90 mg 90 mg BID PO Last administered on 03/13/17 08:24; Admin Dose 90 MG; Start 03/10/17 at 09:00 Midazolam HCl (Versed) 50 ml @ 1 mls/hr TITRATE IV Last administered on 21:48; Admin Dose 2 MLS/HR; Start 03/10/17 at 03:30 Aspirin (Aspirin) 81 mg DAILY PO Last administered on 03/13/17 08:23; Admin Dose 81 MG; Start 03/10/17 at 09:00 Acetaminophen (Tylenol Supp) 650 mg Q4H PRN [place] PAIN LEVEL 1-3 OR FEVER Last administered on 03/12/17 21:15; Admin Dose 650 MG; Start 03/10/17 at 04:00 Eye Lubricant (Akwa Oint) 1 applic Q6 BOTH EYES Last administered on 05:38; Admin Dose 1 APPLIC; Start 03/10/17 at 06:00 Eye Lubricant 2 drop 2 drop Q6 BOTH EYES Last administered on 03/13/17 05:38 ; Admin Dose 2 DROP; Start 03/10/17 at 06:00 Norepinephrine 250 ml @ 1.875 mls/ hr TITRATE IV Last administered on 06:59; Admin Dose 3.75 MLS/HR; Start 03/10/17 at 07:00 Vecuronium [place] 100 mg/ Dextrose 100 ml @ 5 mls/hr TITRATE IV Last administered on 03/11/17 05:00; Admin Dose 2 MLS/HR; Start 03/10/17 at 07:30 Propofol (Diprivan) 100 ml @ 3 mls/hr Q12H IV Last administered on 03/12/17 04:49; Admin Dose 12 MLS/HR; Start 03/10/17 at 07:30 Famotidine (Pepcid) 20 mg DAILY PO Last administered on 03/13/17 08:24; Admin Dose 20 MG; Start 03/11/17 at 09:00 Meperidine HCl (Demerol) 12.5 mg Q4H PRN IV POST OPERATIVE SHIVERING; Start at 12:30 Meperidine HCl 25 mg 25 mg Q4H PRN IV POST OPERATIVE SHIVERING Last administered on 03/10/17 12:34; Admin Dose 25 MG; Start 03/10/17 at 12:30 Levetiracetam (Keppra 1,000mg/ 100ml (Pmx)) 100 ml @ 400 mls/hr Q12 IVPB Last administered on 03/13/17 08:23; Admin Dose 400 MLS/HR; Start 03/10/17 at 21: 00 Acetaminophen (Tylenol Liquid) 500 mg DAILY NGT Last administered on 08:23; Admin Dose 500 MG; Start 03/11/17 at 06:00 Insulin Aspart NOVOLOG *MILD* ALGORI... Q4 SC Last administered on 03/13/17 08:30; Admin Dose 2 UNIT; Start 03/12/17 at 01:00 Fentanyl (Sublimaze) 100 ml @ 2.5 mls/hr TITRATE IV Last administered on 03/12 21:02; Admin Dose 2.5 MLS/HR; Start 03/12/17 at 10:30 Furosemide 20 mg 20 mg DAILY@06 IV Last administered on 03/13/17 05:38; Admin Dose 20 MG; Start 03/13/17 at 06:00 Amiodarone HCl/ Dextrose (Cordarone Iv/ D5W) 500 ml @ 0 mls/hr Q0M IV Last administered on 03/12/17 13:34; Admin Dose 0 MLS/HR; Start 03/12/17 at 11:00 Atorvastatin Calcium (Lipitor) 40 mg DAILY@21 PO Last administered on 11/16/ 17at 21:02; Admin Dose 40 MG; Start 03/12/17 at 21:00 Miscellaneous Information 1 ea NOTE XX ; Start 03/12/17 at 19:00 Glucose (Glutose) 15 gm Q15M PRN PO DECREASED GLUCOSE; Start 03/12/17 at 19:00 Glucose (Glutose) 22.5 gm Q15M PRN PO DECREASED GLUCOSE; Start 03/12/17 at 19: 00 Dextrose (D50w Syringe) 25 ml Q15M PRN IV DECREASED GLUCOSE; Start 03/12/17 at 19:00 Dextrose (D50w Syringe) 50 ml Q15M PRN IV DECREASED GLUCOSE; Start 03/12/17 at 19:00 Glucagon (Glucagen) 1 mg Q15M PRN IM DECREASED GLUCOSE; Start 03/12/17 at 19: 00 Glucose (Glutose) 15 gm Q15M PRN BUCCAL DECREASED GLUCOSE; Start 03/12/17 at 19:00 Acetaminophen 650 mg 650 mg Q4H PRN NGT PAIN AND OR ELEVATED TEMP Last administered on 03/13/17 05:57; Admin Dose 650 MG; Start 03/12/17 at 22:00 Piperacillin Sod/ Tazobactam Sod 50 ml @ 100 mls/hr Q8 IVPB Last administered on 03/13/17 05:39; Admin Dose 100 MLS/HR; Start 03/13/17 at 06:00 Vancomycin HCl 1.5 gm/Sodium Chloride 250 ml @ 83.333 mls/ hr ONCE ONCE IVPB Last administered on 03/13/17 06:28; Admin Dose 83.333 MLS/HR; Start at 07:00; Stop 03/13/17 at 09:59 Vancomycin HCl/ Sodium Chloride (Vancocin/NS) 250 ml @ 83.333 mls/ hr Q36H IVPB ; Start 03/14/17 at 07:00 Insulin Glargine (Lantus) 15 unit DAILY@08 SC ; Start 03/14/17 at 08:00 Carvedilol (Coreg) 12.5 mg BID NGT ; Start 03/13/17 at 21:00 ZACK ROSENTHAL Mar 13, 2017 09:35
--- NOTE | 2017-03-13 09:45 | CONS ---
Date/Time of Note Date/Time of Note DATE: 03/13/17 TIME: 09:43 Consult Date/Type/Reason Admit Date/Time Mar 10, 2017 at 03:25 Initial Consult Date 03/10/17 Type of Consultation: Pulmonary Ordering Provider: JESSICA DIAZ Subjective Patient remains somnolent off sedation. Continues mechanical ventilation. Moderate secretions. Currently in atrial fibrillation with rate control. Febrile this morning. Not following commands. Objective Vital Signs Date Time Temp Pulse Resp B/P Pulse Ox O2 Delivery O2 Flow Rate FiO2 03/13/17 09:30 103 25 100/62 100 Mechanical Ventilator 03/13/17 08:00 102.2 03/13/17 07:05 50 Intake and Output 03/12/17 03/12/17 03/13/17 14:59 22:59 06:59 Intake Total 272.94 ml 387.78 ml 579.28 ml Output Total 800 ml 547 ml 363 ml Balance -527.06 ml -159.22 ml 216.28 ml Exam PHYSICAL EXAMINATION: GENERAL: Elderly-appearing lady, appears comfortable at rest, intubated and sedated on mechanical ventilation. VITAL SIGNS: HEENT: Pupils are sluggish. CARDIAC: S1, S2, no added sounds or murmurs. CHEST: Diminished air entry bilaterally. ABDOMEN: Soft, nontender. No guarding or rebound. EXTREMITIES: No cyanosis, clubbing or edema. NEUROLOGIC: Unable to assess. Results/Medications Result Diagram: 03/13/17 0500 03/13/17 0500 Results 24 hrs Laboratory Tests Test 03/12/17 18:11 03/12/17 21:28 03/12/17 22:34 03/13/17 00:54 Bedside Glucose 149 186 182 Hemoglobin 7.6 L Hematocrit 24.5 L Test 03/13/17 05:00 03/13/17 05:15 03/13/17 07:00 03/13/17 08:28 White Blood Count 8.4 Red Blood Count 2.93 L Hemoglobin 7.5 L Hematocrit 24.1 L Mean Corpuscular Volume 82.3 Mean Corpuscular Hemoglobin 25.6 L Mean Corpuscular Hemoglobin Concent 31.1 L Red Cell Distribution Width 17.9 H Platelet Count 219 Mean Platelet Volume 12.1 H Neutrophils % 80.3 H Lymphocytes % 11.9 L Monocytes % 6.9 Eosinophils % 0.2 Basophils % 0.2 Nucleated Red Blood Cells % 0.0 Neutrophils # 6.8 Lymphocytes # 1.0 Monocytes # 0.6 Eosinophils # 0.0 Basophils # 0.0 Nucleated Red Blood Cells # 0.0 Sodium Level 147 H Potassium Level 3.6 Chloride Level 110 Carbon Dioxide Level 24 Anion Gap 17 H Blood Urea Nitrogen 37 #H Creatinine 1.49 H Glucose Level 163 Calcium Level 8.8 Magnesium Level 2.4 Total Bilirubin 0.1 L Direct Bilirubin 0.00 Indirect Bilirubin 0.1 Aspartate Amino Transf (AST/SGOT) 54 H Alanine Aminotransferase (ALT/SGPT) 32 Alkaline Phosphatase 44 Total Protein 6.0 L Albumin 3.3 Globulin 2.70 Albumin/Globulin Ratio 1.22 Bedside Glucose 176 189 Blood Gas Specimen Source Blood arterial Arterial Blood Date Drawn 03/13/2017 7:30:59 AM Arterial Blood pH (Temp corrected) 7.485 H Arterial Blood pCO2 (Temp correct) 31.4 L Arterial Blood pO2 (Temp corrected) 93.0 Arterial Blood HCO3 23.1 Arterial Blood Base Excess -0.1 Arterial Blood Oxygen Saturation 96.8 Scott Test ACCEPTAB Arterial Blood Gas Puncture Site Right Radial Arterial Blood Carboxyhemoglobin 0.4 Arterial Blood Methemoglobin 0.2 Blood Gas A-a O2 Differential 228.2 H Oxyhemoglobin Percent 96.2 Total Hemoglobin 7.7 L Blood Gas Temperature 37.0 Blood Gas Respiration Rate 24.0 Blood Gas Actual Respiration Rate 25 Blood Gas Modality VENT - AC FiO2 50.0 Blood Gas Tidal Volume 500.0 Blood Gas Low PEEP Setting 5.0 Blood Gas Notified Whom JLD Blood Gas Notified Time 03/13/2017 7:51:32 AM Medications Current Medications Ticagrelor 90 mg 90 mg BID PO Last administered on 03/13/17 08:24; Admin Dose 90 MG; Start 03/10/17 at 09:00 Midazolam HCl (Versed) 50 ml @ 1 mls/hr TITRATE IV Last administered on 21:48; Admin Dose 2 MLS/HR; Start 03/10/17 at 03:30 Aspirin (Aspirin) 81 mg DAILY PO Last administered on 03/13/17 08:23; Admin Dose 81 MG; Start 03/10/17 at 09:00 Acetaminophen (Tylenol Supp) 650 mg Q4H PRN [place] PAIN LEVEL 1-3 OR FEVER Last administered on 03/12/17 21:15; Admin Dose 650 MG; Start 03/10/17 at 04:00 Eye Lubricant (Akwa Oint) 1 applic Q6 BOTH EYES Last administered on 05:38; Admin Dose 1 APPLIC; Start 03/10/17 at 06:00 Eye Lubricant 2 drop 2 drop Q6 BOTH EYES Last administered on 03/13/17 05:38 ; Admin Dose 2 DROP; Start 03/10/17 at 06:00 Norepinephrine 250 ml @ 1.875 mls/ hr TITRATE IV Last administered on 06:59; Admin Dose 3.75 MLS/HR; Start 03/10/17 at 07:00 Vecuronium [place] 100 mg/ Dextrose 100 ml @ 5 mls/hr TITRATE IV Last administered on 03/11/17 05:00; Admin Dose 2 MLS/HR; Start 03/10/17 at 07:30 Propofol (Diprivan) 100 ml @ 3 mls/hr Q12H IV Last administered on 03/12/17 04:49; Admin Dose 12 MLS/HR; Start 03/10/17 at 07:30 Famotidine (Pepcid) 20 mg DAILY PO Last administered on 03/13/17 08:24; Admin Dose 20 MG; Start 03/11/17 at 09:00 Meperidine HCl (Demerol) 12.5 mg Q4H PRN IV POST OPERATIVE SHIVERING; Start at 12:30 Meperidine HCl 25 mg 25 mg Q4H PRN IV POST OPERATIVE SHIVERING Last administered on 03/10/17 12:34; Admin Dose 25 MG; Start 03/10/17 at 12:30 Levetiracetam (Keppra 1,000mg/ 100ml (Pmx)) 100 ml @ 400 mls/hr Q12 IVPB Last administered on 03/13/17 08:23; Admin Dose 400 MLS/HR; Start 03/10/17 at 21: 00 Acetaminophen (Tylenol Liquid) 500 mg DAILY NGT Last administered on 08:23; Admin Dose 500 MG; Start 03/11/17 at 06:00 Insulin Aspart NOVOLOG *MILD* ALGORI... Q4 SC Last administered on 03/13/17 08:30; Admin Dose 2 UNIT; Start 03/12/17 at 01:00 Fentanyl (Sublimaze) 100 ml @ 2.5 mls/hr TITRATE IV Last administered on 03/12 21:02; Admin Dose 2.5 MLS/HR; Start 03/12/17 at 10:30 Furosemide 20 mg 20 mg DAILY@06 IV Last administered on 03/13/17 05:38; Admin Dose 20 MG; Start 03/13/17 at 06:00 Amiodarone HCl/ Dextrose (Cordarone Iv/ D5W) 500 ml @ 0 mls/hr Q0M IV Last administered on 03/12/17 13:34; Admin Dose 0 MLS/HR; Start 03/12/17 at 11:00 Atorvastatin Calcium (Lipitor) 40 mg DAILY@21 PO Last administered on 21:02; Admin Dose 40 MG; Start 03/12/17 at 21:00 Miscellaneous Information 1 ea NOTE XX ; Start 03/12/17 at 19:00 Glucose (Glutose) 15 gm Q15M PRN PO DECREASED GLUCOSE; Start 03/12/17 at 19:00 Glucose (Glutose) 22.5 gm Q15M PRN PO DECREASED GLUCOSE; Start 03/12/17 at 19: 00 Dextrose (D50w Syringe) 25 ml Q15M PRN IV DECREASED GLUCOSE; Start 03/12/17 at 19:00 Dextrose (D50w Syringe) 50 ml Q15M PRN IV DECREASED GLUCOSE; Start 03/12/17 at 19:00 Glucagon (Glucagen) 1 mg Q15M PRN IM DECREASED GLUCOSE; Start 03/12/17 at 19: 00 Glucose (Glutose) 15 gm Q15M PRN BUCCAL DECREASED GLUCOSE; Start 03/12/17 at 19:00 Acetaminophen 650 mg 650 mg Q4H PRN N[place] PAIN AND OR ELEVATED TEMP Last administered on 03/13/17 05:57; Admin Dose 650 MG; Start 03/12/17 at 22:00 Piperacillin Sod/ Tazobactam Sod 50 ml @ 100 mls/hr Q8 IVPB Last administered on 03/13/17 05:39; Admin Dose 100 MLS/HR; Start 03/13/17 at 06:00 Vancomycin HCl 1.5 gm/Sodium Chloride 250 ml @ 83.333 mls/ hr ONCE ONCE IVPB Last administered on 03/13/17t 06:28; Admin Dose 83.333 MLS/HR; Start at 07:00; Stop 03/13/17 at 09:59 Vancomycin HCl/ Sodium Chloride (Vancocin/NS) 250 ml @ 83.333 mls/ hr Q36H IVPB ; Start 03/14/17 at 07:00 Insulin Glargine (Lantus) 15 unit DAILY@08 SC ; Start 03/14/17 at 08:00 Carvedilol (Coreg) 12.5 mg BID NGT ; Start 03/13/17 at 21:00 Assessment/Plan Chief Complaint/Hosp Course IMPRESSION 1. Acute myocardial infarction. Status post LAD stent placement. Atrial fibrillation with rapid ventricular rate, now rate controlled. 2. Cardiopulmonary arrest. 3. Possible aspiration pneumonia with hypoxemic respiratory failure. 4. Possible anoxic brain injury. MRI pending. EEG results pending. 5. History of coronary artery disease with stent placements in the past. Plan 1. Status post hypothermia protocol. 2. Antibiotics for possible aspiration pneumonia. 3. Insulin drip. 4. Cardiac recommendations with Brilinta and aspirin post-stent placement. Continue rate control with amiodarone 5. DVT and GI prophylaxis. 6. Extremely poor prognosis. No significant neurological improvement in the past 48 hours. Critical care time 40 minutes. Problems: MARTA REMY MD, [facility] Mar 13, 2017 09:45
--- NOTE | 2017-03-13 11:33 | CONS ---
Date/Time of Note Date/Time of Note DATE: 03/13/17 TIME: 11:31 Consult Date/Type/Reason Admit Date/Time Mar 10, 2017 at 03:25 Initial Consult Date 03/10/17 Type of Consultation: Neurology Reason for Consultation hypoxic injury Ordering Provider: JESSICA DIAZ Subjective febrile in afib no improvement in neurologic status Objective Vital Signs Date Time Temp Pulse Resp B/P Pulse Ox O2 Delivery O2 Flow Rate FiO2 03/13/17 10:30 87 25 95/53 100 Mechanical Ventilator 03/13/17 09:00 50 03/13/17 08:00 102.2 Intake and Output 03/12/17 03/12/17 03/13/17 15:00 23:00 07:00 Intake Total 262.94 ml 412.28 ml 599.28 ml Output Total 800 ml 577 ml 478 ml Balance -537.06 ml -164.72 ml 121.28 ml Exam sedation held unresponsive to verbal stimuli CN: sluggish pupils slight corneal in right eye weak gag Motor absent w/d in extremities Results/Medications Result Diagram: 03/13/17 0500 03/13/17 0500 Results 24 hrs Laboratory Tests Test 03/12/17 18:11 03/12/17 21:28 03/12/17 22:34 03/13/17 00:54 Bedside Glucose 149 186 182 Hemoglobin 7.6 L Hematocrit 24.5 L Test 03/13/17 05:00 03/13/17 05:15 03/13/17 07:00 03/13/17 08:28 White Blood Count 8.4 Red Blood Count 2.93 L Hemoglobin 7.5 L Hematocrit 24.1 L Mean Corpuscular Volume 82.3 Mean Corpuscular Hemoglobin 25.6 L Mean Corpuscular Hemoglobin Concent 31.1 L Red Cell Distribution Width 17.9 H Platelet Count 219 Mean Platelet Volume 12.1 H Neutrophils % 80.3 H Lymphocytes % 11.9 L Monocytes % 6.9 Eosinophils % 0.2 Basophils % 0.2 Nucleated Red Blood Cells % 0.0 Neutrophils # 6.8 Lymphocytes # 1.0 Monocytes # 0.6 Eosinophils # 0.0 Basophils # 0.0 Nucleated Red Blood Cells # 0.0 Sodium Level 147 H Potassium Level 3.6 Chloride Level 110 Carbon Dioxide Level 24 Anion Gap 17 H Blood Urea Nitrogen 37 #H Creatinine 1.49 H Glucose Level 163 Calcium Level 8.8 Magnesium Level 2.4 Total Bilirubin 0.1 L Direct Bilirubin 0.00 Indirect Bilirubin 0.1 Aspartate Amino Transf (AST/SGOT) 54 H Alanine Aminotransferase (ALT/SGPT) 32 Alkaline Phosphatase 44 Total Protein 6.0 L Albumin 3.3 Globulin 2.70 Albumin/Globulin Ratio 1.22 Bedside Glucose 176 189 Blood Gas Specimen Source Blood arterial Arterial Blood Date Drawn 03/13/2017 7:30:59 AM Arterial Blood pH (Temp corrected) 7.485 H Arterial Blood pCO2 (Temp correct) 31.4 L Arterial Blood pO2 (Temp corrected) 93.0 Arterial Blood HCO3 23.1 Arterial Blood Base Excess -0.1 Arterial Blood Oxygen Saturation 96.8 Scott Test ACCEPTAB Arterial Blood Gas Puncture Site Right Radial Arterial Blood Carboxyhemoglobin 0.4 Arterial Blood Methemoglobin 0.2 Blood Gas A-a O2 Differential 228.2 H Oxyhemoglobin Percent 96.2 Total Hemoglobin 7.7 L Blood Gas Temperature 37.0 Blood Gas Respiration Rate 24.0 Blood Gas Actual Respiration Rate 25 Blood Gas Modality VENT - AC FiO2 50.0 Blood Gas Tidal Volume 500.0 Blood Gas Low PEEP Setting 5.0 Blood Gas Notified Whom JLD Blood Gas Notified Time 03/13/2017 7:51:32 AM Medications Current Medications Ticagrelor 90 mg 90 mg BID PO Last administered on 03/13/17 08:24; Admin Dose 90 MG; Start 03/10/17 at 09:00 Midazolam HCl (Versed) 50 ml @ 1 mls/hr TITRATE IV Last administered on 21:48; Admin Dose 2 MLS/HR; Start 03/10/17 at 03:30 Aspirin (Aspirin) 81 mg DAILY PO Last administered on 03/13/17 08:23; Admin Dose 81 MG; Start 03/10/17 at 09:00 Acetaminophen (Tylenol Supp) 650 mg Q4H PRN [place] PAIN LEVEL 1-3 OR FEVER Last administered on 03/12/17 21:15; Admin Dose 650 MG; Start 03/10/17 at 04:00 Eye Lubricant (Akwa Oint) 1 applic Q6 BOTH EYES Last administered on 05:38; Admin Dose 1 APPLIC; Start 03/10/17 at 06:00 Eye Lubricant 2 drop 2 drop Q6 BOTH EYES Last administered on 03/13/17 05:38 ; Admin Dose 2 DROP; Start 03/10/17 at 06:00 Norepinephrine 250 ml @ 1.875 mls/ hr TITRATE IV Last administered on 06:59; Admin Dose 3.75 MLS/HR; Start 03/10/17 at 07:00 Propofol (Diprivan) 100 ml @ 3 mls/hr Q12H IV Last administered on 03/12/17 04:49; Admin Dose 12 MLS/HR; Start 03/10/17 at 07:30 Famotidine (Pepcid) 20 mg DAILY PO Last administered on 03/13/17 08:24; Admin Dose 20 MG; Start 03/11/17 at 09:00 Meperidine HCl (Demerol) 12.5 mg Q4H PRN IV POST OPERATIVE SHIVERING; Start at 12:30 Meperidine HCl 25 mg 25 mg Q4H PRN IV POST OPERATIVE SHIVERING Last administered on 03/10/17 12:34; Admin Dose 25 MG; Start 03/10/17 at 12:30 Levetiracetam (Keppra 1,000mg/ 100ml (Pmx)) 100 ml @ 400 mls/hr Q12 IVPB Last administered on 03/13/17 08:23; Admin Dose 400 MLS/HR; Start 03/10/17 at 21: 00 Acetaminophen (Tylenol Liquid) 500 mg DAILY NGT Last administered on 08:23; Admin Dose 500 MG; Start 03/11/17 at 06:00 Insulin Aspart NOVOLOG *MILD* ALGORI... Q4 SC Last administered on 03/13/17 08:30; Admin Dose 2 UNIT; Start 03/12/17 at 01:00 Fentanyl (Sublimaze) 100 ml @ 2.5 mls/hr TITRATE IV Last administered on 03/12 21:02; Admin Dose 2.5 MLS/HR; Start 03/12/17 at 10:30 Furosemide 20 mg 20 mg DAILY@06 IV Last administered on 03/13/17 05:38; Admin Dose 20 MG; Start 03/13/17 at 06:00 Amiodarone HCl/ Dextrose (Cordarone Iv/ D5W) 500 ml @ 0 mls/hr Q0M IV Last administered on 03/12/17 13:34; Admin Dose 0 MLS/HR; Start 03/12/17 at 11:00 Atorvastatin Calcium (Lipitor) 40 mg DAILY@21 PO Last administered on 21:02; Admin Dose 40 MG; Start 03/12/17 at 21:00 Miscellaneous Information 1 ea NOTE XX ; Start 03/12/17 at 19:00 Glucose (Glutose) 15 gm Q15M PRN PO DECREASED GLUCOSE; Start 03/12/17 at 19:00 Glucose (Glutose) 22.5 gm Q15M PRN PO DECREASED GLUCOSE; Start 03/12/17 at 19: 00 Dextrose (D50w Syringe) 25 ml Q15M PRN IV DECREASED GLUCOSE; Start 03/12/17 at 19:00 Dextrose (D50w Syringe) 50 ml Q15M PRN IV DECREASED GLUCOSE; Start 03/12/17 at 19:00 Glucagon (Glucagen) 1 mg Q15M PRN IM DECREASED GLUCOSE; Start 03/12/17 at 19: 00 Glucose (Glutose) 15 gm Q15M PRN BUCCAL DECREASED GLUCOSE; Start 03/12/17 at 19:00 Acetaminophen 650 mg 650 mg Q4H PRN NGT PAIN AND OR ELEVATED TEMP Last administered on 03/13/17 05:57; Admin Dose 650 MG; Start 03/12/17 at 22:00 Piperacillin Sod/ Tazobactam Sod 50 ml @ 100 mls/hr Q8 IVPB Last administered on 03/13/17 05:39; Admin Dose 100 MLS/HR; Start 03/13/17 at 06:00 Vancomycin HCl/ Sodium Chloride (Vancocin/NS) 250 ml @ 83.333 mls/ hr Q36H IVPB ; Start 03/14/17 at 07:00 Insulin Glargine (Lantus) 15 unit DAILY@08 SC ; Start 03/14/17 at 08:00 Carvedilol (Coreg) 12.5 mg BID NGT ; Start 03/13/17 at 21:00 Assessment/Plan Chief Complaint/Hosp Course 71 yo female admitted with cardiac arrest s/p LAD stent, on hypothermia protocol suspected seizure activity. CTH no acute process. Recommendations: continue on Keppra 1500 mg BID EEG to be reviewed taper sedation when possible MRI Brain to assess for hypoxic injury when stable Problems: ELOINA NAGY MD Mar 13, 2017 11:33
--- NOTE | 2017-03-13 12:10 | PN ---
Date/Time of Note Date/Time of Note DATE: 03/13/17 TIME: 12:06 Assessment/Plan VTE Prophylaxis VTE Prophylaxis Intervention: SCD's Lines/Catheters IV Catheter Type (from Nrsg): Central Line Central line still needed: Yes Urinary Cath still in place: Yes Reason Cath still needed: other (indicate) (critically ill) Assessment/Plan Assessment/Plan 71 yo F presented following cardiac arrest 2/2 STEMI for which pt underwent PCI. Pt is sp hypothermia protocol without a great deal of demonstration of significant neurological recovery. Now with likely central fevers. #anoxic brain injury -neuro on consult. MRI and EEG pending. AED on board -vent weaning as per pulm #STEMI sp PCI: DAPT, BP meds, statin as per cardiology -amio as per cardiology #preDM: a1c 6.1, insulin drip changed to SubQ #subclinical hyperthyroid: can be addressed in outpatient setting #FEN: NG/TFs ordered-->TFs just started today. If Na still high tomorrow, will inc FW critical care time: 30 minutes Subjective 24 Hr Interval Summary Free Text/Dictation Febrile this morning, suspect central fevers Exam/Review of Systems Vital Signs Vitals Vital Signs Date Time Temp Pulse Resp B/P Pulse Ox O2 Delivery O2 Flow Rate FiO2 03/13/17 11:30 99 24 97/54 100 Mechanical Ventilator 03/13/17 11:15 50 03/13/17 08:00 102.2 Intake and Output 03/12/17 03/12/17 03/13/17 15:00 23:00 07:00 Intake Total 262.94 ml 412.28 ml 599.28 ml Output Total 800 ml 577 ml 478 ml Balance -537.06 ml -164.72 ml 121.28 ml Exam under cooling blanket no mrg lungs clear abd soft no rashes WBCs nl Results Result Diagram: 03/13/17 0500 03/13/17 0500 Results 24 hrs Laboratory Tests Test 03/12/17 18:11 03/12/17 21:28 03/12/17 22:34 03/13/17 00:54 Bedside Glucose 149 186 182 Hemoglobin 7.6 L Hematocrit 24.5 L Test 03/13/17 05:00 03/13/17 05:15 03/13/17 07:00 03/13/17 08:28 White Blood Count 8.4 Red Blood Count 2.93 L Hemoglobin 7.5 L Hematocrit 24.1 L Mean Corpuscular Volume 82.3 Mean Corpuscular Hemoglobin 25.6 L Mean Corpuscular Hemoglobin Concent 31.1 L Red Cell Distribution Width 17.9 H Platelet Count 219 Mean Platelet Volume 12.1 H Neutrophils % 80.3 H Lymphocytes % 11.9 L Monocytes % 6.9 Eosinophils % 0.2 Basophils % 0.2 Nucleated Red Blood Cells % 0.0 Neutrophils # 6.8 Lymphocytes # 1.0 Monocytes # 0.6 Eosinophils # 0.0 Basophils # 0.0 Nucleated Red Blood Cells # 0.0 Sodium Level 147 H Potassium Level 3.6 Chloride Level 110 Carbon Dioxide Level 24 Anion Gap 17 H Blood Urea Nitrogen 37 #H Creatinine 1.49 H Glucose Level 163 Calcium Level 8.8 Magnesium Level 2.4 Total Bilirubin 0.1 L Direct Bilirubin 0.00 Indirect Bilirubin 0.1 Aspartate Amino Transf (AST/SGOT) 54 H Alanine Aminotransferase (ALT/SGPT) 32 Alkaline Phosphatase 44 Total Protein 6.0 L Albumin 3.3 Globulin 2.70 Albumin/Globulin Ratio 1.22 Bedside Glucose 176 189 Blood Gas Specimen Source Blood arterial Arterial Blood Date Drawn 03/13/2017 7:30:59 AM Arterial Blood pH (Temp corrected) 7.485 H Arterial Blood pCO2 (Temp correct) 31.4 L Arterial Blood pO2 (Temp corrected) 93.0 Arterial Blood HCO3 23.1 Arterial Blood Base Excess -0.1 Arterial Blood Oxygen Saturation 96.8 Scott Test ACCEPTAB Arterial Blood Gas Puncture Site Right Radial Arterial Blood Carboxyhemoglobin 0.4 Arterial Blood Methemoglobin 0.2 Blood Gas A-a O2 Differential 228.2 H Oxyhemoglobin Percent 96.2 Total Hemoglobin 7.7 L Blood Gas Temperature 37.0 Blood Gas Respiration Rate 24.0 Blood Gas Actual Respiration Rate 25 Blood Gas Modality VENT - AC FiO2 50.0 Blood Gas Tidal Volume 500.0 Blood Gas Low PEEP Setting 5.0 Blood Gas Notified Whom JLD Blood Gas Notified Time 03/13/2017 7:51:32 AM Medications Medications Current Medications Ticagrelor 90 mg 90 mg BID PO Last administered on 03/13/17 08:24; Admin Dose 90 MG; Start 03/10/17 at 09:00 Midazolam HCl (Versed) 50 ml @ 1 mls/hr TITRATE IV Last administered on 21:48; Admin Dose 2 MLS/HR; Start 03/10/17 at 03:30 Aspirin (Aspirin) 81 mg DAILY PO Last administered on 03/13/17 08:23; Admin Dose 81 MG; Start 03/10/17 at 09:00 Acetaminophen (Tylenol Supp) 650 mg Q4H PRN [place] PAIN LEVEL 1-3 OR FEVER Last administered on 03/12/17 21:15; Admin Dose 650 MG; Start 03/10/17 at 04:00 Eye Lubricant (Akwa Oint) 1 applic Q6 BOTH EYES Last administered on 12:04; Admin Dose 1 APPLIC; Start 03/10/17 at 06:00 Eye Lubricant 2 drop 2 drop Q6 BOTH EYES Last administered on 03/13/17 12:04 ; Admin Dose 2 DROP; Start 03/10/17 at 06:00 Norepinephrine 250 ml @ 1.875 mls/ hr TITRATE IV Last administered on 06:59; Admin Dose 3.75 MLS/HR; Start 03/10/17 at 07:00 Propofol (Diprivan) 100 ml @ 3 mls/hr Q12H IV Last administered on 03/12/17 04:49; Admin Dose 12 MLS/HR; Start 03/10/17 at 07:30 Famotidine (Pepcid) 20 mg DAILY PO Last administered on 03/13/17 08:24; Admin Dose 20 MG; Start 03/11/17 at 09:00 Meperidine HCl (Demerol) 12.5 mg Q4H PRN IV POST OPERATIVE SHIVERING; Start at 12:30 Meperidine HCl 25 mg 25 mg Q4H PRN IV POST OPERATIVE SHIVERING Last administered on 03/10/17 12:34; Admin Dose 25 MG; Start 03/10/17 at 12:30 Levetiracetam (Keppra 1,000mg/ 100ml (Pmx)) 100 ml @ 400 mls/hr Q12 IVPB Last administered on 03/13/17 08:23; Admin Dose 400 MLS/HR; Start 03/10/17 at 21: 00 Acetaminophen (Tylenol Liquid) 500 mg DAILY NGT Last administered on 11/17/ 17at 08:23; Admin Dose 500 MG; Start 03/11/17 at 06:00 Insulin Aspart NOVOLOG *MILD* ALGORI... Q4 SC Last administered on 03/13/17 08:30; Admin Dose 2 UNIT; Start 03/12/17 at 01:00 Fentanyl (Sublimaze) 100 ml @ 2.5 mls/hr TITRATE IV Last administered on 03/12 21:02; Admin Dose 2.5 MLS/HR; Start 03/12/17 at 10:30 Furosemide 20 mg 20 mg DAILY@06 IV Last administered on 03/13/17 05:38; Admin Dose 20 MG; Start 03/13/17 at 06:00 Amiodarone HCl/ Dextrose (Cordarone Iv/ D5W) 500 ml @ 0 mls/hr Q0M IV Last administered on 03/12/17 13:34; Admin Dose 0 MLS/HR; Start 03/12/17 at 11:00 Atorvastatin Calcium (Lipitor) 40 mg DAILY@21 PO Last administered on 21:02; Admin Dose 40 MG; Start 03/12/17 at 21:00 Miscellaneous Information 1 ea NOTE XX ; Start 03/12/17 at 19:00 Glucose (Glutose) 15 gm Q15M PRN PO DECREASED GLUCOSE; Start 03/12/17 at 19:00 Glucose (Glutose) 22.5 gm Q15M PRN PO DECREASED GLUCOSE; Start 03/12/17 at 19: 00 Dextrose (D50w Syringe) 25 ml Q15M PRN IV DECREASED GLUCOSE; Start 03/12/17 at 19:00 Dextrose (D50w Syringe) 50 ml Q15M PRN IV DECREASED GLUCOSE; Start 03/12/17 at 19:00 Glucagon (Glucagen) 1 mg Q15M PRN IM DECREASED GLUCOSE; Start 03/12/17 at 19: 00 Glucose (Glutose) 15 gm Q15M PRN BUCCAL DECREASED GLUCOSE; Start 03/12/17 at 19:00 Acetaminophen 650 mg 650 mg Q4H PRN NGT PAIN AND OR ELEVATED TEMP Last administered on 03/13/17 12:05; Admin Dose 650 MG; Start 03/12/17 at 22:00 Piperacillin Sod/ Tazobactam Sod 50 ml @ 100 mls/hr Q8 IVPB Last administered on 11/17/17at 05:39; Admin Dose 100 MLS/HR; Start 03/13/17 at 06:00 Vancomycin HCl/ Sodium Chloride (Vancocin/NS) 250 ml @ 83.333 mls/ hr Q36H IVPB ; Start 03/14/17 at 07:00 Insulin Glargine (Lantus) 15 unit DAILY@08 SC ; Start 03/14/17 at 08:00 Carvedilol (Coreg) 12.5 mg BID NGT ; Start 03/13/17 at 21:00 ARCELIA MCGRATH MD Mar 13, 2017 12:10
--- NOTE | 2017-03-13 13:14 | RADRPT ---
Vent Rate: 106 bpm RR Interval: 0 msec [place] Interval: 0 msec QRS Duration: 110 msec QT Interval: 378 msec QTC Interval: 502 msec P-R-T [place]: 0 - 48 - 0 degrees Atrial fibrillation with rapid ventricular response Nonspecific ST and T wave abnormality , probably digitalis effect Abnormal ECG Electronically Signed By: Ra Ordaz [id number]
--- NOTE | 2017-03-13 13:14 | RADRPT ---
Vent Rate: 102 bpm RR Interval: 0 msec DC Interval: 0 msec QRS Duration: 124 msec QT Interval: 382 msec QTC Interval: 497 msec P-R-T [place]: 0 - 47 - 0 degrees Atrial fibrillation with rapid ventricular response Nonspecific intraventricular conduction delay ST amp; T wave abnormality, consider anterolateral ischemia or digitalis effect Abnormal ECG Electronically Signed By: Ra Ordaz [id number]
[2017-03-13] MEDS: ATORVASTATIN 40 MG TAB PO SCH (20:43)
[2017-03-13] MEDS: AMIODARONE 900 MG in DEXTROSE 5% 482 ML IV SCH (22:05)
[2017-03-13] MEDS: MIDAZOLAM (DRIP) 50 mg/50 mL 50 ML IV SCH (23:39)
[2017-03-14] VITALS (54 sets, daily range): BP systolic 83–166; BP diastolic 58–102; PULSE 89–124; RESP 13–31
[2017-03-14] MEDS: ARTIFICIAL TEARS 15 ML OPH BOTH EYES SCH ×5 (00:46→23:41)
[2017-03-14] MEDS: OCULAR LUBRICANT 3.5 GM OPH OINT BOTH EYES SCH ×5 (00:47→23:41)
[2017-03-14] MEDS: INSULIN ASPART [NOVOLOG] 3 ML PEN SC SCH ×6 (00:53→20:21)
[2017-03-14] MEDS: ACETAMINOPHEN 650MG/20.3ML CUP NGT PRN ×2 (00:54→18:19)
[2017-03-14] MEDS: FUROSEMIDE 20 MG INJ IV SCH (05:13)
[2017-03-14] MEDS: PIPER-TAZO 3.375 GM IV (PMX) 50 ML IVPB SCH ×3 (05:14→23:40)
[2017-03-14 05:33] LABS: BASOPHILS % 0.1 % (0.0-2.0); EOSINOPHILS # 0.1 10^3/ul (0.0-0.5); EOSINOPHILS % 1.4 % (0.0-7.0); HEMOGLOBIN 7.6 g/dl (12.0-16.0); LYMPHOCYTES % 14.8 % (15.0-51.0); MEAN CORPUSCULAR HEMOGLOBIN 25.3 pg (29.0-33.0); MEAN CORPUSCULAR HGB CONC 30.4 g/dl (32.0-37.0); MEAN CORPUSCULAR VOLUME 83.3 fl (82.0-101.0); MEAN PLATELET VOLUME 11.4 fl (7.4-10.4); MONOCYTE # 0.6 10^3/ul (0.3-0.9); MONOCYTES % 8.1 % (0.0-11.0); NEUTROPHIL # 5.3 10^3/ul (1.6-7.5); NEUTROPHILS % 75.2 % (39.0-77.0); PLATELET COUNT 212 10^3/UL (140-415); RED CELL DISTRIBUTION WIDTH 17.4 % (11.5-14.5)
[2017-03-14] MEDS: FENTAnyl (DRIP) 1000 mcg/100mL 100 ML IV SCH (06:23)
[2017-03-14 06:28] LABS: ALBUMIN 3.2 g/dl (3.3-4.9); ALBUMIN/GLOBULIN RATIO 1.14; BILIRUBIN,INDIRECT 0.1 mg/dl (0-1.1); BILIRUBIN,TOTAL 0.1 mg/dl (0.2-1.3); CALCIUM 8.9 mg/dl (8.4-10.2); CREATININE 1.29 mg/dl (0.44-1.00); MAGNESIUM 2.4 mg/dl (1.7-2.5); POTASSIUM 3.5 mmol/L (3.5-5.1)
[2017-03-14] MEDS ORDERED: VANCOMYCIN 1.25 GM in SOD CHLORIDE 0.9% 250 ML IVPB SCH (07:00)
[2017-03-14] MEDS: PROPOFOL 100 ML IV SCH ×2 (07:30→19:30)
[2017-03-14] MEDS ORDERED: INSULIN GLARGINE [LANtus] 3 ML PEN SC SCH (08:00)
[2017-03-14] MEDS: ASPIRIN 81 MG TAB PO SCH (08:29)
[2017-03-14] MEDS: ACETAMINOPHEN 650MG/20.3ML CUP NGT SCH (08:29)
[2017-03-14] MEDS: LEVETIRACETAM 1000 MG (PMX) 100 ML IVPB SCH ×2 (08:30→20:02)
[2017-03-14] MEDS: FAMOTIDINE 20 MG TAB PO SCH (08:30)
[2017-03-14] MEDS: TICAGRELOR 90 MG TABLET PO SCH ×2 (08:35→20:05)
[2017-03-14 08:55] LABS: AADO2 Arterial 211.3 mmHg (7.0-24.0); Allen Test ACCEPTAB; Arterial Base Excess 0.1 mmol/L (-3.0-3); Arterial COHb 0.1 % (0.0-3.0); Arterial Fraction of Oxyhgb 96.8 % (93.0-99.0); Arterial HCO3 23.2 mmol/L (22.0-26.0); Arterial MetHb 0.3 % (0.0-1.5); Arterial Total Hemglobin 8.9 g/dl (12.0-18.0); MODE VENT - AC
--- NOTE | 2017-03-14 09:00 | RADRPT ---
PROCEDURE: XR Chest. CLINICAL INDICATION: pna chf TECHNIQUE: Single portable view of the chest was obtained COMPARISON: DR MALONE 03/13/2017 FINDINGS: Endotracheal and nasogastric tubes is satisfactory in position. There is stable moderately severe ca rdiomegaly. Improved bilateral perihilar parenchymal opacities represent decrease pulmonary edema or pneumonia. There is persistent silhouetting of the left hemidiaphragm with retrocardiac opacificati on representing pleural effusion with atelectasis or consolidation. IMPRESSION: 1. Interval decreased pulmonary edema or pneumonia. 2. Persistent dense opacification of the left base with silhouetting of the left hemidiaphragm. Fin dings represent pleural effusion with atelectasis or consolidation. 3. Stable moderate cardiomegaly. RPTAT: HRSR Physician Jackelyn Date Time Electronically viewed and signed by Dusty Moralez Physician on 03/14/2017 09:00 RR/
--- NOTE | 2017-03-14 10:22 | CONS ---
Date/Time of Note Date/Time of Note DATE: 03/14/17 TIME: 10:16 Assessment/Plan Assessment/Plan Additional Assessment/Plan Chest x-ray was reviewed from today which is showing mild pulmonary vascular congestion with cardiomegaly. Endotracheal tube is at an adequate level. Ventilator setting; AC of 24, tidal volume 500, PEEP of 5, 50% FiO2. ABG also was reviewed. Patient is currently on cooling blanket. Patient on fentanyl drip 25 mics per hour, Versed 2 mg/h, amiodarone 0.5 mg/min. Assessment and recommendations; 1. Patient admitted with cardiac arrest status post hypothermia protocol. Still exhibiting poor mental status. 2. Post anoxic seizure activity. 3. Renal insufficiency with slightly improved serum creatinine. 4. Anemia. 5. Fever likely central in etiology. 6. Atrial fibrillation. 7. Congestive heart failure. 8. Difficult to rule out some element of aspiration pneumonia. Continue current supportive care. Ventilator settings have been adjusted. FiO2 has been decreased to 40% and assist control rate decreased to 18. Prognosis appears poor. 35 minutes of critical care time was spent evaluating the patient. Consultation Date/Type/Reason Admit Date/Time Mar 10, 2017 at 03:25 Initial Consult Date 03/10/17 Type of Consultation: Pulmonary/critical care Referring Provider: JESSICA DIAZ 24 HR Interval Summary Free Text/Dictation Patient's condition remains critical. Remains in atrial fibrillation. Patient however has remained hemodynamically stable and not requiring any pressor support. Patient has been unable to be off sedation. General exam; elderly male, orally intubated, sedated, currently in no distress. Exam/Review of Systems Vital Signs Vitals Vital Signs Date Time Temp Pulse Resp B/P Pulse Ox O2 Delivery O2 Flow Rate FiO2 03/14/17 09:30 95 24 83/58 99 03/14/17 09:00 Mechanical Ventilator 03/14/17 08:00 50 03/14/17 08:00 99.8 Intake and Output 03/13/17 03/13/17 03/14/17 15:00 23:00 07:00 Intake Total 689.28 ml 589.28 ml 578.12 ml Output Total 433 ml 646 ml 558 ml Balance 256.28 ml -56.72 ml 20.12 ml Exam HEENT exam; supple neck, positive JVD. No lymphadenopathy. Midline trachea. No thyromegaly. Orally intubated. Patient does have a disconjugate gaze. Pupils are midsize. Nasogastric tube in place. Chest exam; diminished breath sounds bilaterally. S1-S2 audible, irregular rhythm. No murmurs. Abdomen exam; soft, nondistended. No organomegaly. Bowel sounds are sluggish. Extremity exam; no peripheral edema. BEATER DUMPER exam; patient is sedated. Results Result Diagram: 03/14/17 0430 03/14/17 0430 Results 24 hrs Laboratory Tests Test 03/13/17 13:32 03/13/17 16:56 03/13/17 20:52 03/14/17 00:48 Bedside Glucose 196 176 170 189 Test 03/14/17 04:30 03/14/17 05:15 03/14/17 07:00 03/14/17 08:25 White Blood Count 7.0 Red Blood Count 3.00 L Hemoglobin 7.6 L Hematocrit 25.0 L Mean Corpuscular Volume 83.3 Mean Corpuscular Hemoglobin 25.3 L Mean Corpuscular Hemoglobin Concent 30.4 L Red Cell Distribution Width 17.4 H Platelet Count 212 Mean Platelet Volume 11.4 H Neutrophils % 75.2 Lymphocytes % 14.8 L Monocytes % 8.1 Eosinophils % 1.4 Basophils % 0.1 Nucleated Red Blood Cells % 0.0 Neutrophils # 5.3 Lymphocytes # 1.0 Monocytes # 0.6 Eosinophils # 0.1 Basophils # 0.0 Nucleated Red Blood Cells # 0.0 Sodium Level 151 H Potassium Level 3.5 Chloride Level 113 H Carbon Dioxide Level 24 Anion Gap 18 H Blood Urea Nitrogen 45 H Creatinine 1.29 H Glucose Level 149 Calcium Level 8.9 Magnesium Level 2.4 Total Bilirubin 0.1 L Direct Bilirubin 0.00 Indirect Bilirubin 0.1 Aspartate Amino Transf (AST/SGOT) 55 H Alanine Aminotransferase (ALT/SGPT) 32 Alkaline Phosphatase 42 Total Protein 6.0 L Albumin 3.2 L Globulin 2.80 Albumin/Globulin Ratio 1.14 Bedside Glucose 150 210 Blood Gas Specimen Source Blood arterial Arterial Blood Date Drawn 03/14/2017 8:25:00 AM Arterial Blood pH (Temp corrected) 7.467 H Arterial Blood pCO2 (Temp correct) 33.1 L Arterial Blood pO2 (Temp corrected) 106.6 H Arterial Blood HCO3 23.2 Arterial Blood Base Excess 0.1 Arterial Blood Oxygen Saturation 97.2 Scott Test ACCEPTAB Arterial Blood Gas Puncture Site Right Radial Arterial Blood Carboxyhemoglobin 0.1 Arterial Blood Methemoglobin 0.3 Blood Gas A-a O2 Differential 211.3 H Oxyhemoglobin Percent 96.8 Total Hemoglobin 8.9 L Blood Gas Temperature 38.0 Blood Gas Respiration Rate 24.0 Blood Gas Actual Respiration Rate 24 Blood Gas Modality VENT - AC FiO2 50.0 Blood Gas Tidal Volume 500.0 Blood Gas Low PEEP Setting 5.0 Blood Gas Notified Whom DT Blood Gas Notified Time 03/14/2017 8:53:00 AM Medications Medications Current Medications Ticagrelor 90 mg 90 mg BID PO Last administered on 03/14/17 08:35; Admin Dose 90 MG; Start 03/10/17 at 09:00 Midazolam HCl (Versed) 50 ml @ 1 mls/hr TITRATE IV Last administered on 23:39; Admin Dose 2 MLS/HR; Start 03/10/17 at 03:30 Aspirin (Aspirin) 81 mg DAILY PO Last administered on 03/14/17 08:29; Admin Dose 81 MG; Start 03/10/17 at 09:00 Acetaminophen (Tylenol Supp) 650 mg Q4H PRN [place] PAIN LEVEL 1-3 OR FEVER Last administered on 03/12/17 21:15; Admin Dose 650 MG; Start 03/10/17 at 04:00 Eye Lubricant (Akwa Oint) 1 applic Q6 BOTH EYES Last administered on 05:13; Admin Dose 1 APPLIC; Start 03/10/17 at 06:00 Eye Lubricant 2 drop 2 drop Q6 BOTH EYES Last administered on 03/14/17 05:13 ; Admin Dose 2 DROP; Start 03/10/17 at 06:00 Norepinephrine 250 ml @ 1.875 mls/ hr TITRATE IV Last administered on 06:59; Admin Dose 3.75 MLS/HR; Start 03/10/17 at 07:00 Propofol (Diprivan) 100 ml @ 3 mls/hr Q12H IV Last administered on 03/12/17 04:49; Admin Dose 12 MLS/HR; Start 03/10/17 at 07:30 Famotidine (Pepcid) 20 mg DAILY PO Last administered on 03/14/17 08:30; Admin Dose 20 MG; Start 03/11/17 at 09:00 Meperidine HCl (Demerol) 12.5 mg Q4H PRN IV POST OPERATIVE SHIVERING; Start at 12:30 Meperidine HCl 25 mg 25 mg Q4H PRN IV POST OPERATIVE SHIVERING Last administered on 03/10/17 12:34; Admin Dose 25 MG; Start 03/10/17 at 12:30 Levetiracetam (Keppra 1,000mg/ 100ml (Pmx)) 100 ml @ 400 mls/hr Q12 IVPB Last administered on 03/14/17 08:30; Admin Dose 400 MLS/HR; Start 03/10/17 at 21: 00 Acetaminophen (Tylenol Liquid) 500 mg DAILY NGT Last administered on 08:29; Admin Dose 500 MG; Start 03/11/17 at 06:00 Insulin Aspart NOVOLOG *MILD* ALGORI... Q4 SC Last administered on 03/14/17 08:34; Admin Dose 2 UNIT; Start 03/12/17 at 01:00 Fentanyl (Sublimaze) 100 ml @ 2.5 mls/hr TITRATE IV Last administered on 03/14 06:23; Admin Dose 2.5 MLS/HR; Start 03/12/17 at 10:30 Furosemide 20 mg 20 mg DAILY@06 IV Last administered on 03/14/17 05:13; Admin Dose 20 MG; Start 03/13/17 at 06:00 Amiodarone HCl/ Dextrose (Cordarone Iv/ D5W) 500 ml @ 0 mls/hr Q0M IV Last administered on 03/13/17 22:05; Admin Dose 16.66 MLS/HR; Start 03/12/17 at 11 :00 Atorvastatin Calcium (Lipitor) 40 mg DAILY@21 PO Last administered on 20:43; Admin Dose 40 MG; Start 03/12/17 at 21:00 Miscellaneous Information 1 ea NOTE XX ; Start 03/12/17 at 19:00 Glucose (Glutose) 15 gm Q15M PRN PO DECREASED GLUCOSE; Start 03/12/17 at 19:00 Glucose (Glutose) 22.5 gm Q15M PRN PO DECREASED GLUCOSE; Start 03/12/17 at 19: 00 Dextrose (D50w Syringe) 25 ml Q15M PRN IV DECREASED GLUCOSE; Start 03/12/17 at 19:00 Dextrose (D50w Syringe) 50 ml Q15M PRN IV DECREASED GLUCOSE; Start 03/12/17 at 19:00 Glucagon (Glucagen) 1 mg Q15M PRN IM DECREASED GLUCOSE; Start 03/12/17 at 19: 00 Glucose (Glutose) 15 gm Q15M PRN BUCCAL DECREASED GLUCOSE; Start 03/12/17 at 19:00 Acetaminophen 650 mg 650 mg Q4H PRN NGT PAIN AND OR ELEVATED TEMP Last administered on 03/14/17 00:54; Admin Dose 650 MG; Start 03/12/17 at 22:00 Piperacillin Sod/ Tazobactam Sod 50 ml @ 100 mls/hr Q8 IVPB Last administered on 03/14/17 05:14; Admin Dose 100 MLS/HR; Start 03/13/17 at 06:00 Vancomycin HCl/ Sodium Chloride (Vancocin/NS) 250 ml @ 83.333 mls/ hr Q36H IVPB Last administered on 03/14/17 06:23; Admin Dose 83.333 MLS/HR; Start at 07:00 Insulin Glargine (Lantus) 15 unit DAILY@08 SC Last administered on 03/14/17 08:34; Admin Dose 15 UNIT; Start 03/14/17 at 08:00 Carvedilol (Coreg) 12.5 mg BID NGT Last administered on 03/14/17 08:30; Admin Dose 12.5 MG; Start 03/13/17 at 21:00 RAMY TORRES Mar 14, 2017 10:22
--- NOTE | 2017-03-14 12:24 | CONS ---
Date/Time of Note Date/Time of Note DATE: 03/14/17 TIME: 12:21 Assessment/Plan Assessment/Plan Chief Complaint/Hosp Course Paroxysmal afib: new onset. In and out of afib. Rates ~110s when in afib. If meaningful recovery, will consider anticoagulation though now anemic Anterior STEMI/CAD: s/p PCI of ulcerated 99% mid LAD lesion. EF by echo is preserved Cardiac arrest: likely due to arrhythmia related to above but unclear rhythm when paramedics arrived. Also with significant pulm edema so respiratory arrest/ PEA also possible Acute diastolic heart failure: Significant pulm edema by CXR. LVEDP 27 by cath. Improving with diuresis Acute respiratory failure: on vent due to above Acute renal failure: Cr stabilizing Anemia: no active bleeding Fevers: ?central. 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 Unclear rhythm Seizures vs myoclonic jerks -continue 0.5mg/min for now. d/c tomorrow if remains in afib -coreg 12.5mg BID -continue ASA, ticagrelor, lipitor -lasix 20mg IV daily to keep even to slightly negative -prognosis and neurologic recovery remains guarded. Will assess daily Problems: Consultation Date/Type/Reason Admit Date/Time Mar 10, 2017 at 03:25 Initial Consult Date 03/10/17 Type of Consultation: Cardiology Referring Provider: JESSICA DIAZ 24 HR Interval Summary Free Text/Dictation Finally afebrile. MRI held due to fevers. Still in afib. FiO2 improving. Cr slightly better. Now off sedation Exam/Review of Systems Vital Signs Vitals Vital Signs Date Time Temp Pulse Resp B/P Pulse Ox O2 Delivery O2 Flow Rate FiO2 03/14/17 12:00 100 03/14/17 10:00 40 03/14/17 09:30 24 83/58 99 03/14/17 09:00 Mechanical Ventilator 03/14/17 08:00 99.8 Intake and Output 03/13/17 03/13/17 03/14/17 15:00 23:00 07:00 Intake Total 689.28 ml 589.28 ml 682.58 ml Output Total 433 ml 646 ml 558 ml Balance 256.28 ml -56.72 ml 124.58 ml Exam Constitutional: No alert Head: atraumatic, normocephalic ENMT: intubated Neck: No jvd Respiratory: diminished breath sounds, No clear to auscultation Cardiovascular: No edema, No regular rate and rhythm (IRIR), No systolic murmur Gastrointestinal: soft, No distended Neurological: No nl mental status, No nl speech Results Result Diagram: 03/14/17 0430 03/14/17 0430 Results 24 hrs Laboratory Tests Test 03/13/17 13:32 03/13/17 16:56 03/13/17 20:52 03/14/17 00:48 Bedside Glucose 196 176 170 189 Test 03/14/17 04:30 03/14/17 05:15 03/14/17 07:00 03/14/17 08:25 White Blood Count 7.0 Red Blood Count 3.00 L Hemoglobin 7.6 L Hematocrit 25.0 L Mean Corpuscular Volume 83.3 Mean Corpuscular Hemoglobin 25.3 L Mean Corpuscular Hemoglobin Concent 30.4 L Red Cell Distribution Width 17.4 H Platelet Count 212 Mean Platelet Volume 11.4 H Neutrophils % 75.2 Lymphocytes % 14.8 L Monocytes % 8.1 Eosinophils % 1.4 Basophils % 0.1 Nucleated Red Blood Cells % 0.0 Neutrophils # 5.3 Lymphocytes # 1.0 Monocytes # 0.6 Eosinophils # 0.1 Basophils # 0.0 Nucleated Red Blood Cells # 0.0 Sodium Level 151 H Potassium Level 3.5 Chloride Level 113 H Carbon Dioxide Level 24 Anion Gap 18 H Blood Urea Nitrogen 45 H Creatinine 1.29 H Glucose Level 149 Calcium Level 8.9 Magnesium Level 2.4 Total Bilirubin 0.1 L Direct Bilirubin 0.00 Indirect Bilirubin 0.1 Aspartate Amino Transf (AST/SGOT) 55 H Alanine Aminotransferase (ALT/SGPT) 32 Alkaline Phosphatase 42 Total Protein 6.0 L Albumin 3.2 L Globulin 2.80 Albumin/Globulin Ratio 1.14 Bedside Glucose 150 210 Blood Gas Specimen Source Blood arterial Arterial Blood Date Drawn 03/14/2017 8:25:00 AM Arterial Blood pH (Temp corrected) 7.467 H Arterial Blood pCO2 (Temp correct) 33.1 L Arterial Blood pO2 (Temp corrected) 106.6 H Arterial Blood HCO3 23.2 Arterial Blood Base Excess 0.1 Arterial Blood Oxygen Saturation 97.2 Scott Test ACCEPTAB Arterial Blood Gas Puncture Site Right Radial Arterial Blood Carboxyhemoglobin 0.1 Arterial Blood Methemoglobin 0.3 Blood Gas A-a O2 Differential 211.3 H Oxyhemoglobin Percent 96.8 Total Hemoglobin 8.9 L Blood Gas Temperature 38.0 Blood Gas Respiration Rate 24.0 Blood Gas Actual Respiration Rate 24 Blood Gas Modality VENT - AC FiO2 50.0 Blood Gas Tidal Volume 500.0 Blood Gas Low PEEP Setting 5.0 Blood Gas Notified Whom DT Blood Gas Notified Time 03/14/2017 8:53:00 AM Medications Medications Current Medications Ticagrelor 90 mg 90 mg BID PO Last administered on 03/14/17 08:35; Admin Dose 90 MG; Start 03/10/17 at 09:00 Midazolam HCl (Versed) 50 ml @ 1 mls/hr TITRATE IV Last administered on 23:39; Admin Dose 2 MLS/HR; Start 03/10/17 at 03:30 Aspirin (Aspirin) 81 mg DAILY PO Last administered on 03/14/17 08:29; Admin Dose 81 MG; Start 03/10/17 at 09:00 Acetaminophen (Tylenol Supp) 650 mg Q4H PRN [place] PAIN LEVEL 1-3 OR FEVER Last administered on 03/12/17 21:15; Admin Dose 650 MG; Start 03/10/17 at 04:00 Eye Lubricant (Akwa Oint) 1 applic Q6 BOTH EYES Last administered on 05:13; Admin Dose 1 APPLIC; Start 03/10/17 at 06:00 Eye Lubricant 2 drop 2 drop Q6 BOTH EYES Last administered on 03/14/17 05:13 ; Admin Dose 2 DROP; Start 03/10/17 at 06:00 Norepinephrine 250 ml @ 1.875 mls/ hr TITRATE IV Last administered on 06:59; Admin Dose 3.75 MLS/HR; Start 03/10/17 at 07:00 Propofol (Diprivan) 100 ml @ 3 mls/hr Q12H IV Last administered on 03/12/17 04:49; Admin Dose 12 MLS/HR; Start 03/10/17 at 07:30 Famotidine (Pepcid) 20 mg DAILY PO Last administered on 03/14/17 08:30; Admin Dose 20 MG; Start 03/11/17 at 09:00 Meperidine HCl (Demerol) 12.5 mg Q4H PRN IV POST OPERATIVE SHIVERING; Start at 12:30 Meperidine HCl 25 mg 25 mg Q4H PRN IV POST OPERATIVE SHIVERING Last administered on 03/10/17 12:34; Admin Dose 25 MG; Start 03/10/17 at 12:30 Levetiracetam (Keppra 1,000mg/ 100ml (Pmx)) 100 ml @ 400 mls/hr Q12 IVPB Last administered on 03/14/17 08:30; Admin Dose 400 MLS/HR; Start 03/10/17 at 21: 00 Acetaminophen (Tylenol Liquid) 500 mg DAILY NGT Last administered on 08:29; Admin Dose 500 MG; Start 03/11/17 at 06:00 Insulin Aspart NOVOLOG *MILD* ALGORI... Q4 SC Last administered on 03/14/17 08:34; Admin Dose 2 UNIT; Start 03/12/17 at 01:00 Fentanyl (Sublimaze) 100 ml @ 2.5 mls/hr TITRATE IV Last administered on 03/14 06:23; Admin Dose 2.5 MLS/HR; Start 03/12/17 at 10:30 Furosemide 20 mg 20 mg DAILY@06 IV Last administered on 03/14/17 05:13; Admin Dose 20 MG; Start 03/13/17 at 06:00 Amiodarone HCl/ Dextrose (Cordarone Iv/ D5W) 500 ml @ 0 mls/hr Q0M IV Last administered on 03/13/17 22:05; Admin Dose 16.66 MLS/HR; Start 03/12/17 at 11 :00 Atorvastatin Calcium (Lipitor) 40 mg DAILY@21 PO Last administered on 20:43; Admin Dose 40 MG; Start 03/12/17 at 21:00 Miscellaneous Information 1 ea NOTE XX ; Start 03/12/17 at 19:00 Glucose (Glutose) 15 gm Q15M PRN PO DECREASED GLUCOSE; Start 03/12/17 at 19:00 Glucose (Glutose) 22.5 gm Q15M PRN PO DECREASED GLUCOSE; Start 03/12/17 at 19: 00 Dextrose (D50w Syringe) 25 ml Q15M PRN IV DECREASED GLUCOSE; Start 03/12/17 at 19:00 Dextrose (D50w Syringe) 50 ml Q15M PRN IV DECREASED GLUCOSE; Start 03/12/17 at 19:00 Glucagon (Glucagen) 1 mg Q15M PRN IM DECREASED GLUCOSE; Start 03/12/17 at 19: 00 Glucose (Glutose) 15 gm Q15M PRN BUCCAL DECREASED GLUCOSE; Start 03/12/17 at 19:00 Acetaminophen 650 mg 650 mg Q4H PRN NGT PAIN AND OR ELEVATED TEMP Last administered on 03/14/17 00:54; Admin Dose 650 MG; Start 03/12/17 at 22:00 Piperacillin Sod/ Tazobactam Sod 50 ml @ 100 mls/hr Q8 IVPB Last administered on 03/14/17 05:14; Admin Dose 100 MLS/HR; Start 03/13/17 at 06:00 Vancomycin HCl/ Sodium Chloride (Vancocin/NS) 250 ml @ 83.333 mls/ hr Q36H IVPB Last administered on 03/14/17 06:23; Admin Dose 83.333 MLS/HR; Start at 07:00 Insulin Glargine (Lantus) 15 unit DAILY@08 SC Last administered on 03/14/17 08:34; Admin Dose 15 UNIT; Start 03/14/17 at 08:00 Carvedilol (Coreg) 12.5 mg BID NGT Last administered on 03/14/17 08:30; Admin Dose 12.5 MG; Start 03/13/17 at 21:00 Potassium Chloride (Potassium Chloride Pwd/Soln) 40 meq ONCE ONCE NGT ; Start 03/14/17 at 12:30; Stop 03/14/17 at 12:31 ZACK ROSENTHAL Mar 14, 2017 12:24
[2017-03-14] MEDS ORDERED: POTASSIUM CHLORIDE 20 MEQ POWDER FOR ORAL SOLN NGT ONE (12:30)
[2017-03-14] MEDS ORDERED: FENTAnyl (DRIP) 1000 mcg/100mL 100 ML IV SCH (14:00)
--- NOTE | 2017-03-14 14:45 | CONS ---
Date/Time of Note Date/Time of Note DATE: 03/14/17 TIME: 14:43 Consult Date/Type/Reason Admit Date/Time Mar 10, 2017 at 03:25 Initial Consult Date 03/10/17 Type of Consultation: Neurology Reason for Consultation hypoxic ischemic encephalopathy Ordering Provider: JESSICA DIAZ Subjective no seizures no improvement Objective Vital Signs Date Time Temp Pulse Resp B/P Pulse Ox O2 Delivery O2 Flow Rate FiO2 03/14/17 13:00 109 19 107/73 100 Mechanical Ventilator 03/14/17 12:00 97.9 03/14/17 10:00 40 Intake and Output 03/13/17 03/13/17 03/14/17 14:59 22:59 06:59 Intake Total 689.28 ml 539.28 ml 689.28 ml Output Total 509 ml 647 ml 626 ml Balance 180.28 ml -107.72 ml 63.28 ml Exam sedation held unresponsive to verbal stimuli CN: sluggish pupils slight corneal in right eye weak gag Motor absent w/d in extremities Results/Medications Result Diagram: 03/14/17 0430 03/14/17 0430 Results 24 hrs Laboratory Tests Test 03/13/17 16:56 03/13/17 20:52 03/14/17 00:48 03/14/17 04:30 Bedside Glucose 176 170 189 White Blood Count 7.0 Red Blood Count 3.00 L Hemoglobin 7.6 L Hematocrit 25.0 L Mean Corpuscular Volume 83.3 Mean Corpuscular Hemoglobin 25.3 L Mean Corpuscular Hemoglobin Concent 30.4 L Red Cell Distribution Width 17.4 H Platelet Count 212 Mean Platelet Volume 11.4 H Neutrophils % 75.2 Lymphocytes % 14.8 L Monocytes % 8.1 Eosinophils % 1.4 Basophils % 0.1 Nucleated Red Blood Cells % 0.0 Neutrophils # 5.3 Lymphocytes # 1.0 Monocytes # 0.6 Eosinophils # 0.1 Basophils # 0.0 Nucleated Red Blood Cells # 0.0 Sodium Level 151 H Potassium Level 3.5 Chloride Level 113 H Carbon Dioxide Level 24 Anion Gap 18 H Blood Urea Nitrogen 45 H Creatinine 1.29 H Glucose Level 149 Calcium Level 8.9 Magnesium Level 2.4 Total Bilirubin 0.1 L Direct Bilirubin 0.00 Indirect Bilirubin 0.1 Aspartate Amino Transf (AST/SGOT) 55 H Alanine Aminotransferase (ALT/SGPT) 32 Alkaline Phosphatase 42 Total Protein 6.0 L Albumin 3.2 L Globulin 2.80 Albumin/Globulin Ratio 1.14 Test 03/14/17 05:15 03/14/17 07:00 03/14/17 08:25 03/14/17 12:57 Bedside Glucose 150 210 225 H Blood Gas Specimen Source Blood arterial Arterial Blood Date Drawn 03/14/2017 8:25:00 AM Arterial Blood pH (Temp corrected) 7.467 H Arterial Blood pCO2 (Temp correct) 33.1 L Arterial Blood pO2 (Temp corrected) 106.6 H Arterial Blood HCO3 23.2 Arterial Blood Base Excess 0.1 Arterial Blood Oxygen Saturation 97.2 Scott Test ACCEPTAB Arterial Blood Gas Puncture Site Right Radial Arterial Blood Carboxyhemoglobin 0.1 Arterial Blood Methemoglobin 0.3 Blood Gas A-a O2 Differential 211.3 H Oxyhemoglobin Percent 96.8 Total Hemoglobin 8.9 L Blood Gas Temperature 38.0 Blood Gas Respiration Rate 24.0 Blood Gas Actual Respiration Rate 24 Blood Gas Modality VENT - AC FiO2 50.0 Blood Gas Tidal Volume 500.0 Blood Gas Low PEEP Setting 5.0 Blood Gas Notified Whom DT Blood Gas Notified Time 03/14/2017 8:53:00 AM Medications Current Medications Ticagrelor 90 mg 90 mg BID PO Last administered on 03/14/17 08:35; Admin Dose 90 MG; Start 03/10/17 at 09:00 Midazolam HCl (Versed) 50 ml @ 1 mls/hr TITRATE IV Last administered on 23:39; Admin Dose 2 MLS/HR; Start 03/10/17 at 03:30 Aspirin (Aspirin) 81 mg DAILY PO Last administered on 03/14/17 08:29; Admin Dose 81 MG; Start 03/10/17 at 09:00 Acetaminophen (Tylenol Supp) 650 mg Q4H PRN [place] PAIN LEVEL 1-3 OR FEVER Last administered on 03/12/17 21:15; Admin Dose 650 MG; Start 03/10/17 at 04:00 Eye Lubricant (Akwa Oint) 1 applic Q6 BOTH EYES Last administered on 12:53; Admin Dose 1 APPLIC; Start 03/10/17 at 06:00 Eye Lubricant 2 drop 2 drop Q6 BOTH EYES Last administered on 03/14/17 12:53 ; Admin Dose 2 DROP; Start 03/10/17 at 06:00 Norepinephrine (Levophed) 250 ml @ 1.875 mls/ hr TITRATE IV Last administered on 03/10/17 06:59; Admin Dose 3.75 MLS/HR; Start 03/10/17 at 07:00 Famotidine (Pepcid) 20 mg DAILY PO Last administered on 03/14/17 08:30; Admin Dose 20 MG; Start 03/11/17 at 09:00 Meperidine HCl (Demerol) 12.5 mg Q4H PRN IV POST OPERATIVE SHIVERING; Start at 12:30 Meperidine HCl 25 mg 25 mg Q4H PRN IV POST OPERATIVE SHIVERING Last administered on 03/10/17 12:34; Admin Dose 25 MG; Start 03/10/17 at 12:30 Levetiracetam (Keppra 1,000mg/ 100ml (Pmx)) 100 ml @ 400 mls/hr Q12 IVPB Last administered on 03/14/17 08:30; Admin Dose 400 MLS/HR; Start 03/10/17 at 21: 00 Acetaminophen (Tylenol Liquid) 500 mg DAILY NGT Last administered on 08:29; Admin Dose 500 MG; Start 03/11/17 at 06:00 Insulin Aspart (Novolog Insulin Pen) NOVOLOG *MILD* ALGORI... Q4 SC Last administered on 03/14/17 13:05; Admin Dose 3 UNIT; Start 03/12/17 at 01:00 Furosemide 20 mg 20 mg DAILY@06 IV Last administered on 03/14/17 05:13; Admin Dose 20 MG; Start 03/13/17 at 06:00 Amiodarone HCl/ Dextrose (Cordarone Iv/ D5W) 500 ml @ 0 mls/hr Q0M IV Last administered on 03/13/17 22:05; Admin Dose 16.66 MLS/HR; Start 03/12/17 at 11 :00 Atorvastatin Calcium (Lipitor) 40 mg DAILY@21 PO Last administered on 20:43; Admin Dose 40 MG; Start 03/12/17 at 21:00 Miscellaneous Information 1 ea NOTE XX ; Start 03/12/17 at 19:00 Glucose (Glutose) 15 gm Q15M PRN PO DECREASED GLUCOSE; Start 03/12/17 at 19:00 Glucose (Glutose) 22.5 gm Q15M PRN PO DECREASED GLUCOSE; Start 03/12/17 at 19: 00 Dextrose (D50w Syringe) 25 ml Q15M PRN IV DECREASED GLUCOSE; Start 03/12/17 at 19:00 Dextrose (D50w Syringe) 50 ml Q15M PRN IV DECREASED GLUCOSE; Start 03/12/17 at 19:00 Glucagon (Glucagen) 1 mg Q15M PRN IM DECREASED GLUCOSE; Start 03/12/17 at 19: 00 Glucose (Glutose) 15 gm Q15M PRN BUCCAL DECREASED GLUCOSE; Start 03/12/17 at 19:00 Acetaminophen 650 mg 650 mg Q4H PRN NGT PAIN AND OR ELEVATED TEMP Last administered on 03/14/17 00:54; Admin Dose 650 MG; Start 03/12/17 at 22:00 Piperacillin Sod/ Tazobactam Sod 50 ml @ 100 mls/hr Q8 IVPB Last administered on 03/14/17 14:23; Admin Dose 100 MLS/HR; Start 03/13/17 at 06:00 Vancomycin HCl/ Sodium Chloride (Vancocin/NS) 250 ml @ 83.333 mls/ hr Q36H IVPB Last administered on 03/14/17 06:23; Admin Dose 83.333 MLS/HR; Start at 07:00 Carvedilol 12.5 mg 12.5 mg BID NGT Last administered on 03/14/17 08:30; Admin Dose 12.5 MG; Start 03/13/17 at 21:00 Fentanyl (Sublimaze) 100 ml @ 2.5 mls/hr TITRATE IV ; Start 03/14/17 at 14:00 Insulin Glargine 18 unit 18 unit DAILY@08 SC ; Start 03/15/17 at 08:00 Propofol (Diprivan) 100 ml @ 3 mls/hr Q12H IV ; Start 03/14/17 at 19:30 Assessment/Plan Chief Complaint/Hosp Course 71 yo female admitted with cardiac arrest s/p LAD stent, on hypothermia protocol suspected seizure activity. CTH no acute process. Recommendations: continue on Keppra 1500 mg BID no further seizures taper sedation when possible MRI Brain to assess for hypoxic injury when stable prognosis guarded d/w family at bedside Problems: ELOINA NAGY MD Mar 14, 2017 14:45
--- NOTE | 2017-03-14 15:27 | PN ---
Date/Time of Note Date/Time of Note DATE: 03/14/17 TIME: 15:17 Assessment/Plan VTE Prophylaxis VTE Prophylaxis Intervention: SCD's Lines/Catheters IV Catheter Type (from Nrs): Central Line Central line still needed: Yes Urinary Cath still in place: Yes Reason Cath still needed: other (indicate) (critically ill) Assessment/Plan Assessment/Plan 71 yo F presented following cardiac arrest 2/2 STEMI for which pt underwent PCI. Pt is sp hypothermia protocol without a great deal of demonstration of significant neurological recovery. Now with likely central fevers, temperatures improving #fevers: central v UTI stop vanc as no MRSA isolated 03.12 urine culture noted. 03.13 blood culture consistent with contaminant #anoxic brain injury -neuro on consult. MRI pending. AED on board -vent weaning as per pulm #STEMI sp PCI: DAPT, BP meds, statin as per cardiology -amio as per cardiology #preDM: a1c 6.1, insulin drip changed to SubQ #subclinical hyperthyroid: can be addressed in outpatient setting #LUIS FELIPE, hypernatremia: pt with 3.6L FW deficit, suspect 2/2 insensible losses Increase FW volume #FEN: NG/TFs ordered-->TFs just started today. critical care time: 30 minutes Subjective 24 Hr Interval Summary Free Text/Dictation still not following commands Exam/Review of Systems Vital Signs Vitals Vital Signs Date Time Temp Pulse Resp B/P Pulse Ox O2 Delivery O2 Flow Rate FiO2 03/14/17 13:10 109 19 100 40 03/14/17 13:00 107/73 Mechanical Ventilator 03/14/17 12:00 97.9 Intake and Output 03/13/17 03/13/17 03/14/17 14:59 22:59 06:59 Intake Total 689.28 ml 539.28 ml 689.28 ml Output Total 509 ml 647 ml 626 ml Balance 180.28 ml -107.72 ml 63.28 ml Exam nad intubated no mrg lungs clear abd soft no rashes Results Result Diagram: 03/14/17 0430 03/14/17 0430 Results 24 hrs Laboratory Tests Test 03/13/17 16:56 03/13/17 20:52 03/14/17 00:48 03/14/17 04:30 Bedside Glucose 176 170 189 White Blood Count 7.0 Red Blood Count 3.00 L Hemoglobin 7.6 L Hematocrit 25.0 L Mean Corpuscular Volume 83.3 Mean Corpuscular Hemoglobin 25.3 L Mean Corpuscular Hemoglobin Concent 30.4 L Red Cell Distribution Width 17.4 H Platelet Count 212 Mean Platelet Volume 11.4 H Neutrophils % 75.2 Lymphocytes % 14.8 L Monocytes % 8.1 Eosinophils % 1.4 Basophils % 0.1 Nucleated Red Blood Cells % 0.0 Neutrophils # 5.3 Lymphocytes # 1.0 Monocytes # 0.6 Eosinophils # 0.1 Basophils # 0.0 Nucleated Red Blood Cells # 0.0 Sodium Level 151 H Potassium Level 3.5 Chloride Level 113 H Carbon Dioxide Level 24 Anion Gap 18 H Blood Urea Nitrogen 45 H Creatinine 1.29 H Glucose Level 149 Calcium Level 8.9 Magnesium Level 2.4 Total Bilirubin 0.1 L Direct Bilirubin 0.00 Indirect Bilirubin 0.1 Aspartate Amino Transf (AST/SGOT) 55 H Alanine Aminotransferase (ALT/SGPT) 32 Alkaline Phosphatase 42 Total Protein 6.0 L Albumin 3.2 L Globulin 2.80 Albumin/Globulin Ratio 1.14 Test 03/14/17 05:15 03/14/17 07:00 03/14/17 08:25 03/14/17 12:57 Bedside Glucose 150 210 225 H Blood Gas Specimen Source Blood arterial Arterial Blood Date Drawn 03/14/2017 8:25:00 AM Arterial Blood pH (Temp corrected) 7.467 H Arterial Blood pCO2 (Temp correct) 33.1 L Arterial Blood pO2 (Temp corrected) 106.6 H Arterial Blood HCO3 23.2 Arterial Blood Base Excess 0.1 Arterial Blood Oxygen Saturation 97.2 Scott Test ACCEPTAB Arterial Blood Gas Puncture Site Right Radial Arterial Blood Carboxyhemoglobin 0.1 Arterial Blood Methemoglobin 0.3 Blood Gas A-a O2 Differential 211.3 H Oxyhemoglobin Percent 96.8 Total Hemoglobin 8.9 L Blood Gas Temperature 38.0 Blood Gas Respiration Rate 24.0 Blood Gas Actual Respiration Rate 24 Blood Gas Modality VENT - AC FiO2 50.0 Blood Gas Tidal Volume 500.0 Blood Gas Low PEEP Setting 5.0 Blood Gas Notified Whom DT Blood Gas Notified Time 03/14/2017 8:53:00 AM Medications Medications Current Medications Ticagrelor 90 mg 90 mg BID PO Last administered on 03/14/17t 08:35; Admin Dose 90 MG; Start 03/10/17 at 09:00 Midazolam HCl (Versed) 50 ml @ 1 mls/hr TITRATE IV Last administered on 23:39; Admin Dose 2 MLS/HR; Start 03/10/17 at 03:30 Aspirin (Aspirin) 81 mg DAILY PO Last administered on 03/14/17 08:29; Admin Dose 81 MG; Start 03/10/17 at 09:00 Acetaminophen (Tylenol Supp) 650 mg Q4H PRN [place] PAIN LEVEL 1-3 OR FEVER Last administered on 03/12/17 21:15; Admin Dose 650 MG; Start 03/10/17 at 04:00 Eye Lubricant (Akwa Oint) 1 applic Q6 BOTH EYES Last administered on 12:53; Admin Dose 1 APPLIC; Start 03/10/17 at 06:00 Eye Lubricant 2 drop 2 drop Q6 BOTH EYES Last administered on 03/14/17 12:53 ; Admin Dose 2 DROP; Start 03/10/17 at 06:00 Norepinephrine (Levophed) 250 ml @ 1.875 mls/ hr TITRATE IV Last administered on 03/10/17 06:59; Admin Dose 3.75 MLS/HR; Start 03/10/17 at 07:00 Famotidine (Pepcid) 20 mg DAILY PO Last administered on 03/14/17 08:30; Admin Dose 20 MG; Start 03/11/17 at 09:00 Meperidine HCl (Demerol) 12.5 mg Q4H PRN IV POST OPERATIVE SHIVERING; Start at 12:30 Meperidine HCl 25 mg 25 mg Q4H PRN IV POST OPERATIVE SHIVERING Last administered on 03/10/17 12:34; Admin Dose 25 MG; Start 03/10/17 at 12:30 Levetiracetam (Keppra 1,000mg/ 100ml (Pmx)) 100 ml @ 400 mls/hr Q12 IVPB Last administered on 03/14/17 08:30; Admin Dose 400 MLS/HR; Start 03/10/17 at 21: 00 Acetaminophen (Tylenol Liquid) 500 mg DAILY NGT Last administered on 08:29; Admin Dose 500 MG; Start 03/11/17 at 06:00 Insulin Aspart (Novolog Insulin Pen) NOVOLOG *MILD* ALGORI... Q4 SC Last administered on 03/14/17 13:05; Admin Dose 3 UNIT; Start 03/12/17 at 01:00 Furosemide 20 mg 20 mg DAILY@06 IV Last administered on 03/14/17 05:13; Admin Dose 20 MG; Start 03/13/17 at 06:00 Amiodarone HCl/ Dextrose (Cordarone Iv/ D5W) 500 ml @ 0 mls/hr Q0M IV Last administered on 03/13/17 22:05; Admin Dose 16.66 MLS/HR; Start 03/12/17 at 11 :00 Atorvastatin Calcium (Lipitor) 40 mg DAILY@21 PO Last administered on 20:43; Admin Dose 40 MG; Start 03/12/17 at 21:00 Miscellaneous Information 1 ea NOTE XX ; Start 03/12/17 at 19:00 Glucose (Glutose) 15 gm Q15M PRN PO DECREASED GLUCOSE; Start 03/12/17 at 19:00 Glucose (Glutose) 22.5 gm Q15M PRN PO DECREASED GLUCOSE; Start 03/12/17 at 19: 00 Dextrose (D50w Syringe) 25 ml Q15M PRN IV DECREASED GLUCOSE; Start 03/12/17 at 19:00 Dextrose (D50w Syringe) 50 ml Q15M PRN IV DECREASED GLUCOSE; Start 03/12/17 at 19:00 Glucagon (Glucagen) 1 mg Q15M PRN IM DECREASED GLUCOSE; Start 03/12/17 at 19: 00 Glucose (Glutose) 15 gm Q15M PRN BUCCAL DECREASED GLUCOSE; Start 03/12/17 at 19:00 Acetaminophen 650 mg 650 mg Q4H PRN NGT PAIN AND OR ELEVATED TEMP Last administered on 03/14/17 00:54; Admin Dose 650 MG; Start 03/12/17 at 22:00 Piperacillin Sod/ Tazobactam Sod 50 ml @ 100 mls/hr Q8 IVPB Last administered on 03/14/17 14:23; Admin Dose 100 MLS/HR; Start 03/13/17 at 06:00 Vancomycin HCl/ Sodium Chloride (Vancocin/NS) 250 ml @ 83.333 mls/ hr Q36H IVPB Last administered on 03/14/17 06:23; Admin Dose 83.333 MLS/HR; Start at 07:00 Carvedilol 12.5 mg 12.5 mg BID NGT Last administered on 03/14/17 08:30; Admin Dose 12.5 MG; Start 03/13/17 at 21:00 Fentanyl (Sublimaze) 100 ml @ 2.5 mls/hr TITRATE IV ; Start 03/14/17 at 14:00 Insulin Glargine 18 unit 18 unit DAILY@08 SC ; Start 03/15/17 at 08:00 Propofol (Diprivan) 100 ml @ 3 mls/hr Q12H IV ; Start 03/14/17 at 19:30 ARCELIA MCGRATH MD Mar 14, 2017 15:27
[2017-03-14] MEDS: ATORVASTATIN 40 MG TAB PO SCH (20:03)
[2017-03-15] VITALS (33 sets, daily range): BP systolic 101–138; BP diastolic 51–91; PULSE 56–122; RESP 18–27
[2017-03-15] MEDS: AMIODARONE 900 MG in DEXTROSE 5% 482 ML IV SCH (01:27)
[2017-03-15] MEDS: INSULIN ASPART [NOVOLOG] 3 ML PEN SC SCH ×6 (01:35→20:45)
[2017-03-15] MEDS: FUROSEMIDE 20 MG INJ IV SCH (05:10)
[2017-03-15] MEDS: OCULAR LUBRICANT 3.5 GM OPH OINT BOTH EYES SCH ×3 (05:10→18:00)
[2017-03-15] MEDS: ARTIFICIAL TEARS 15 ML OPH BOTH EYES SCH ×3 (05:10→18:00)
[2017-03-15] MEDS: PIPER-TAZO 3.375 GM IV (PMX) 50 ML IVPB SCH ×3 (05:11→22:00)
[2017-03-15] MEDS: ACETAMINOPHEN 650MG/20.3ML CUP NGT PRN ×2 (06:10→17:43)
[2017-03-15 06:50] LABS: BASOPHILS % 0.3 % (0.0-2.0); EOSINOPHILS # 0.2 10^3/ul (0.0-0.5); EOSINOPHILS % 3.3 % (0.0-7.0); HEMATOCRIT 27.2 % (37.0-47.0); HEMOGLOBIN 8.1 g/dl (12.0-16.0); LYMPHOCYTES % 16.7 % (15.0-51.0); MEAN CORPUSCULAR HEMOGLOBIN 24.7 pg (29.0-33.0); MEAN CORPUSCULAR HGB CONC 29.8 g/dl (32.0-37.0); MEAN CORPUSCULAR VOLUME 82.9 fl (82.0-101.0); MEAN PLATELET VOLUME 11.8 fl (7.4-10.4); MONOCYTE # 0.6 10^3/ul (0.3-0.9); MONOCYTES % 9.9 % (0.0-11.0); NEUTROPHIL # 4.1 10^3/ul (1.6-7.5); NEUTROPHILS % 68.6 % (39.0-77.0); PLATELET COUNT 231 10^3/UL (140-415); RED BLOOD COUNT 3.28 10^6/ul (4.20-5.40); RED CELL DISTRIBUTION WIDTH 17.4 % (11.5-14.5)
[2017-03-15] MEDS: MIDAZOLAM (DRIP) 50 mg/50 mL 50 ML IV SCH (07:13)
[2017-03-15 07:18] LABS: CALCIUM 9.6 mg/dl (8.4-10.2); CREATININE 1.1 mg/dl (0.44-1.00); MAGNESIUM 2.1 mg/dl (1.7-2.5)
[2017-03-15] MEDS: PROPOFOL 100 ML IV SCH ×2 (07:30→12:11)
[2017-03-15] MEDS: LEVETIRACETAM 1000 MG (PMX) 100 ML IVPB SCH ×2 (08:14→20:38)
[2017-03-15] MEDS: FAMOTIDINE 20 MG TAB PO SCH (08:14)
[2017-03-15] MEDS: ASPIRIN 81 MG TAB PO SCH (08:14)
[2017-03-15] MEDS: TICAGRELOR 90 MG TABLET PO SCH ×2 (08:15→20:37)
[2017-03-15] MEDS: INSULIN GLARGINE [LANtus] 3 ML PEN SC SCH (08:16)
--- NOTE | 2017-03-15 08:41 | CONS ---
Date/Time of Note Date/Time of Note DATE: 03/15/17 TIME: 08:34 Assessment/Plan Assessment/Plan Chief Complaint/Hosp Course Paroxysmal afib: new onset. In and out of afib. Rates ~110s when in afib. If meaningful recovery, will consider anticoagulation though now anemic Anterior STEMI/CAD: s/p PCI of ulcerated 99% mid LAD lesion. EF by echo is preserved Cardiac arrest: likely due to arrhythmia related to above but unclear rhythm when paramedics arrived. Also with significant pulm edema so respiratory arrest/ PEA also possible Acute diastolic heart failure: Significant pulm edema by CXR. LVEDP 27 by cath. Improving with diuresis Acute respiratory failure: on vent due to above Acute renal failure: Cr improving Anemia: no active bleeding Fevers: ?central vs infectious. Urine + E coli Likely anoxic brain injury: per family, pt may have been pulseless for 10 mins prior to medical transcription arrival. Unclear rhythm Seizures vs myoclonic jerks -d/c amio drip -coreg 12.5mg BID -continue ASA, ticagrelor, lipitor -lasix 20mg IV daily to keep even to slightly negative -prognosis and neurologic recovery remains guarded Problems: Consultation Date/Type/Reason Admit Date/Time Mar 10, 2017 at 03:25 Initial Consult Date 03/10/17 Type of Consultation: Cardiology Referring Provider: JESSICA DIAZ 24 HR Interval Summary Free Text/Dictation Still with fevers. Having myoclonic jerks/seizure-like activity so back on versed. No neurologic improvement. MRI held again due to fevers Exam/Review of Systems Vital Signs Vitals Vital Signs Date Time Temp Pulse Resp B/P Pulse Ox O2 Delivery O2 Flow Rate FiO2 03/15/17 06:00 100.1 101 20 133/76 98 Mechanical Ventilator 03/15/17 05:01 30 Intake and Output 03/14/17 03/14/17 03/15/17 15:00 23:00 07:00 Intake Total 925.18 ml 819.28 ml 970.30 ml Output Total 1145 ml 484 ml 634 ml Balance -219.82 ml 335.28 ml 336.30 ml Exam Constitutional: No alert Head: atraumatic, normocephalic ENMT: intubated Neck: No jvd Respiratory: diminished breath sounds, No clear to auscultation Cardiovascular: No edema, No regular rate and rhythm (IRIR), No systolic murmur Gastrointestinal: non-tender, soft Musculoskeletal: nl extremities to inspection Neurological: No nl mental status, No nl speech Results Result Diagram: 03/15/17 0500 03/15/17 0500 Results 24 hrs Laboratory Tests Test 03/14/17 12:57 03/14/17 17:25 03/14/17 20:19 03/15/17 01:32 Bedside Glucose 225 H 202 231 H 219 Test 03/15/17 04:57 03/15/17 05:00 03/15/17 08:12 Bedside Glucose 214 238 H White Blood Count 6.0 Red Blood Count 3.28 L Hemoglobin 8.1 L Hematocrit 27.2 L Mean Corpuscular Volume 82.9 Mean Corpuscular Hemoglobin 24.7 L Mean Corpuscular Hemoglobin Concent 29.8 L Red Cell Distribution Width 17.4 H Platelet Count 231 Mean Platelet Volume 11.8 H Neutrophils % 68.6 Lymphocytes % 16.7 Monocytes % 9.9 Eosinophils % 3.3 Basophils % 0.3 Nucleated Red Blood Cells % 0.0 Neutrophils # 4.1 Lymphocytes # 1.0 Monocytes # 0.6 Eosinophils # 0.2 Basophils # 0.0 Nucleated Red Blood Cells # 0.0 Sodium Level 150 H Potassium Level 4.0 Chloride Level 113 H Carbon Dioxide Level 26 Anion Gap 15 Blood Urea Nitrogen 45 H Creatinine 1.10 H Glucose Level 196 Calcium Level 9.6 Magnesium Level 2.1 Medications Medications Current Medications Ticagrelor 90 mg 90 mg BID PO Last administered on 03/15/17 08:15; Admin Dose 90 MG; Start 03/10/17 at 09:00 Midazolam HCl (Versed) 50 ml @ 1 mls/hr TITRATE IV Last administered on 07:13; Admin Dose 2 MLS/HR; Start 03/10/17 at 03:30 Aspirin (Aspirin) 81 mg DAILY PO Last administered on 03/15/17 08:14; Admin Dose 81 MG; Start 03/10/17 at 09:00 Acetaminophen (Tylenol Supp) 650 mg Q4H PRN [place] PAIN LEVEL 1-3 OR FEVER Last administered on 03/12/17 21:15; Admin Dose 650 MG; Start 03/10/17 at 04:00 Eye Lubricant (Akwa Oint) 1 applic Q6 BOTH EYES Last administered on 05:10; Admin Dose 1 APPLIC; Start 03/10/17 at 06:00 Eye Lubricant 2 drop 2 drop Q6 BOTH EYES Last administered on 03/15/17 05:10 ; Admin Dose 2 DROP; Start 03/10/17 at 06:00 Norepinephrine (Levophed) 250 ml @ 1.875 mls/ hr TITRATE IV Last administered on 03/10/17 06:59; Admin Dose 3.75 MLS/HR; Start 03/10/17 at 07:00 Famotidine (Pepcid) 20 mg DAILY PO Last administered on 03/15/17 08:14; Admin Dose 20 MG; Start 03/11/17 at 09:00 Meperidine HCl (Demerol) 12.5 mg Q4H PRN IV POST OPERATIVE SHIVERING; Start at 12:30 Meperidine HCl 25 mg 25 mg Q4H PRN IV POST OPERATIVE SHIVERING Last administered on 03/10/17 12:34; Admin Dose 25 MG; Start 03/10/17 at 12:30 Levetiracetam (Keppra 1,000mg/ 100ml (Pmx)) 100 ml @ 400 mls/hr Q12 IVPB Last administered on 03/15/17 08:14; Admin Dose 400 MLS/HR; Start 03/10/17 at 21: 00 Acetaminophen (Tylenol Liquid) 500 mg DAILY NGT Last administered on 08:29; Admin Dose 500 MG; Start 03/11/17 at 06:00 Insulin Aspart (Novolog Insulin Pen) NOVOLOG *MILD* ALGORI... Q4 SC Last administered on 03/15/17 08:17; Admin Dose 3 UNIT; Start 03/12/17 at 01:00 Furosemide 20 mg 20 mg DAILY@06 IV Last administered on 03/15/17 05:10; Admin Dose 20 MG; Start 03/13/17 at 06:00 Amiodarone HCl/ Dextrose (Cordarone Iv/ D5W) 500 ml @ 0 mls/hr Q0M IV Last administered on 03/15/17 01:27; Admin Dose 16.66 MLS/HR; Start 03/12/17 at 11 :00 Atorvastatin Calcium (Lipitor) 40 mg DAILY@21 PO Last administered on 20:03; Admin Dose 40 MG; Start 03/12/17 at 21:00 Miscellaneous Information 1 ea NOTE XX ; Start 03/12/17 at 19:00 Glucose (Glutose) 15 gm Q15M PRN PO DECREASED GLUCOSE; Start 03/12/17 at 19:00 Glucose (Glutose) 22.5 gm Q15M PRN PO DECREASED GLUCOSE; Start 03/12/17 at 19: 00 Dextrose (D50w Syringe) 25 ml Q15M PRN IV DECREASED GLUCOSE; Start 03/12/17 at 19:00 Dextrose (D50w Syringe) 50 ml Q15M PRN IV DECREASED GLUCOSE; Start 03/12/17 at 19:00 Glucagon (Glucagen) 1 mg Q15M PRN IM DECREASED GLUCOSE; Start 03/12/17 at 19: 00 Glucose (Glutose) 15 gm Q15M PRN BUCCAL DECREASED GLUCOSE; Start 03/12/17 at 19:00 Acetaminophen 650 mg 650 mg Q4H PRN NGT PAIN AND OR ELEVATED TEMP Last administered on 03/15/17 06:10; Admin Dose 650 MG; Start 03/12/17 at 22:00 Piperacillin Sod/ Tazobactam Sod (Zosyn 3.375gm/ 50 ml (Pmx)) 50 ml @ 100 mls/ hr Q8 IVPB Last administered on 03/15/17 05:11; Admin Dose 100 MLS/HR; Start 03/13/17 at 06:00 Carvedilol 12.5 mg 12.5 mg BID NGT Last administered on 03/15/17 08:15; Admin Dose 12.5 MG; Start 03/13/17 at 21:00 Fentanyl (Sublimaze) 100 ml @ 2.5 mls/hr TITRATE IV ; Start 03/14/17 at 14:00 Insulin Glargine 18 unit 18 unit DAILY@08 SC Last administered on 03/15/17 08 :16; Admin Dose 18 UNIT; Start 03/15/17 at 08:00 Propofol (Diprivan) 100 ml @ 3 mls/hr Q12H IV ; Start 03/14/17 at 19:30 ZACK ROSENTHAL Mar 15, 2017 08:41
[2017-03-15 09:58] LABS: AADO2 Arterial 92.4 mmHg (7.0-24.0); Allen Test ACCEPTAB; Arterial Base Excess 0.6 mmol/L (-3.0-3); Arterial COHb 0.2 % (0.0-3.0); Arterial Fraction of Oxyhgb 95.1 % (93.0-99.0); Arterial HCO3 24.1 mmol/L (22.0-26.0); Arterial MetHb 0 % (0.0-1.5); MODE VENT - AC
[2017-03-15] MEDS: ACETAMINOPHEN 650MG/20.3ML CUP NGT SCH (10:42)
--- NOTE | 2017-03-15 11:36 | CONS ---
Date/Time of Note Date/Time of Note DATE: 03/15/17 TIME: 11:33 Assessment/Plan Assessment/Plan Additional Assessment/Plan Ventilator setting; AC of 15, tidal volume 500, PEEP of 5, 30% FiO2. Patient currently on Versed at 5 mg/h. Assessment and recommendations; 1. Patient admitted with cardiac arrest status post hypothermia protocol still exhibiting very poor mental status requiring continuous IV sedation with Versed. 2. Postanoxic seizure activity. Currently well controlled. 3. 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 4. Anemia. Add desmopressin subcutaneously every 12 hours at least for 2 doses. Monitor serum sodium level. Obtain follow-up chest x-ray. Prognosis is very guarded and will depend entirely upon adequate mental status recovery. Consultation Date/Type/Reason Admit Date/Time Mar 10, 2017 at 03:25 Initial Consult Date 03/10/17 Type of Consultation: Pulmonary/critical care Referring Provider: JESSICA DIAZ 24 HR Interval Summary Free Text/Dictation Patient's condition remains critical. Patient requiring continuous intravenous Versed drip because of focal seizures involving the right foot whenever Versed dose is decreased. Patient however has remained hemodynamically stable. General exam; elderly male, orally intubated, sedated, currently in no distress. No overt seizure activity noted. Exam/Review of Systems Vital Signs Vitals Vital Signs Date Time Temp Pulse Resp B/P Pulse Ox O2 Delivery O2 Flow Rate FiO2 03/15/17 09:00 112 21 116/71 99 Mechanical Ventilator 03/15/17 08:00 30 03/15/17 08:00 100.0 Intake and Output 03/14/17 03/14/17 03/15/17 14:59 22:59 06:59 Intake Total 960.98 ml 869.28 ml 1028.96 ml Output Total 1555 ml 465 ml 691 ml Balance -594.02 ml 404.28 ml 337.96 ml Exam HEENT exam; supple neck, no JVD. No lymphadenopathy. Midline trachea. No thyromegaly. Pupils are small bilaterally. Patient has fair dentition. Orally intubated. There is a slight disconjugate gaze. Chest exam; diminished but clear breath sounds. S1-S2 audible, no murmurs. Irregular rhythm. Abdomen exam; soft, nondistended. No organomegaly. Bowel sounds audible. Extremity exam; no edema. CLINICAL PSYCHIATRIST exam; patient is sedated. Results Result Diagram: 03/15/17 0500 03/15/17 0500 Results 24 hrs Laboratory Tests Test 03/14/17 12:57 03/14/17 17:25 03/14/17 20:19 03/15/17 01:32 Bedside Glucose 225 H 202 231 H 219 Test 03/15/17 04:57 03/15/17 05:00 03/15/17 07:29 03/15/17 08:12 Bedside Glucose 214 238 H White Blood Count 6.0 Red Blood Count 3.28 L Hemoglobin 8.1 L Hematocrit 27.2 L Mean Corpuscular Volume 82.9 Mean Corpuscular Hemoglobin 24.7 L Mean Corpuscular Hemoglobin Concent 29.8 L Red Cell Distribution Width 17.4 H Platelet Count 231 Mean Platelet Volume 11.8 H Neutrophils % 68.6 Lymphocytes % 16.7 Monocytes % 9.9 Eosinophils % 3.3 Basophils % 0.3 Nucleated Red Blood Cells % 0.0 Neutrophils # 4.1 Lymphocytes # 1.0 Monocytes # 0.6 Eosinophils # 0.2 Basophils # 0.0 Nucleated Red Blood Cells # 0.0 Sodium Level 150 H Potassium Level 4.0 Chloride Level 113 H Carbon Dioxide Level 26 Anion Gap 15 Blood Urea Nitrogen 45 H Creatinine 1.10 H Glucose Level 196 Calcium Level 9.6 Magnesium Level 2.1 Blood Gas Specimen Source Blood arterial Arterial Blood Date Drawn 03/15/2017 8:15:19 AM Arterial Blood pH (Temp corrected) 7.466 H Arterial Blood pCO2 (Temp correct) 34.2 L Arterial Blood pO2 (Temp corrected) 81.3 Arterial Blood HCO3 24.1 Arterial Blood Base Excess 0.6 Arterial Blood Oxygen Saturation 95.3 Scott Test ACCEPTAB Arterial Blood Gas Puncture Site Right Radial Arterial Blood Carboxyhemoglobin 0.2 Arterial Blood Methemoglobin 0 Blood Gas A-a O2 Differential 92.4 H Oxyhemoglobin Percent 95.1 Total Hemoglobin 9.0 L Blood Gas Temperature 37.0 Blood Gas Respiration Rate 18.0 Blood Gas Actual Respiration Rate 21 Blood Gas Modality VENT - AC FiO2 30.0 Blood Gas Tidal Volume 500.0 Blood Gas Low PEEP Setting 5.0 Blood Gas Notified Whom DT Blood Gas Notified Time 03/15/2017 8:37:54 AM Medications Medications Current Medications Ticagrelor 90 mg 90 mg BID PO Last administered on 03/15/17 08:15; Admin Dose 90 MG; Start 03/10/17 at 09:00 Midazolam HCl (Versed) 50 ml @ 1 mls/hr TITRATE IV Last administered on 07:13; Admin Dose 2 MLS/HR; Start 03/10/17 at 03:30 Aspirin (Aspirin) 81 mg DAILY PO Last administered on 03/15/17 08:14; Admin Dose 81 MG; Start 03/10/17 at 09:00 Acetaminophen (Tylenol Supp) 650 mg Q4H PRN [place] PAIN LEVEL 1-3 OR FEVER Last administered on 03/12/17 21:15; Admin Dose 650 MG; Start 03/10/17 at 04:00 Eye Lubricant (Akwa Oint) 1 applic Q6 BOTH EYES Last administered on 05:10; Admin Dose 1 APPLIC; Start 03/10/17 at 06:00 Eye Lubricant 2 drop 2 drop Q6 BOTH EYES Last administered on 03/15/17 05:10 ; Admin Dose 2 DROP; Start 03/10/17 at 06:00 Norepinephrine (Levophed) 250 ml @ 1.875 mls/ hr TITRATE IV Last administered on 03/10/17 06:59; Admin Dose 3.75 MLS/HR; Start 03/10/17 at 07:00 Famotidine (Pepcid) 20 mg DAILY PO Last administered on 03/15/17 08:14; Admin Dose 20 MG; Start 03/11/17 at 09:00 Meperidine HCl (Demerol) 12.5 mg Q4H PRN IV POST OPERATIVE SHIVERING; Start at 12:30 Meperidine HCl 25 mg 25 mg Q4H PRN IV POST OPERATIVE SHIVERING Last administered on 03/10/17 12:34; Admin Dose 25 MG; Start 03/10/17 at 12:30 Levetiracetam (Keppra 1,000mg/ 100ml (Pmx)) 100 ml @ 400 mls/hr Q12 IVPB Last administered on 03/15/17 08:14; Admin Dose 400 MLS/HR; Start 03/10/17 at 21: 00 Acetaminophen (Tylenol Liquid) 500 mg DAILY NGT Last administered on 10:42; Admin Dose 500 MG; Start 03/11/17 at 06:00 Insulin Aspart (Novolog Insulin Pen) NOVOLOG *MILD* ALGORI... Q4 SC Last administered on 03/15/17 08:17; Admin Dose 3 UNIT; Start 03/12/17 at 01:00 Furosemide (Lasix) 20 mg DAILY@06 IV Last administered on 03/15/17 05:10; Admin Dose 20 MG; Start 03/13/17 at 06:00 Atorvastatin Calcium (Lipitor) 40 mg DAILY@21 PO Last administered on 20:03; Admin Dose 40 MG; Start 03/12/17 at 21:00 Miscellaneous Information 1 ea NOTE XX ; Start 03/12/17 at 19:00 Glucose (Glutose) 15 gm Q15M PRN PO DECREASED GLUCOSE; Start 03/12/17 at 19:00 Glucose (Glutose) 22.5 gm Q15M PRN PO DECREASED GLUCOSE; Start 03/12/17 at 19: 00 Dextrose (D50w Syringe) 25 ml Q15M PRN IV DECREASED GLUCOSE; Start 03/12/17 at 19:00 Dextrose (D50w Syringe) 50 ml Q15M PRN IV DECREASED GLUCOSE; Start 03/12/17 at 19:00 Glucagon (Glucagen) 1 mg Q15M PRN IM DECREASED GLUCOSE; Start 03/12/17 at 19: 00 Glucose (Glutose) 15 gm Q15M PRN BUCCAL DECREASED GLUCOSE; Start 03/12/17 at 19:00 Acetaminophen 650 mg 650 mg Q4H PRN NGT PAIN AND OR ELEVATED TEMP Last administered on 03/15/17 06:10; Admin Dose 650 MG; Start 03/12/17 at 22:00 Piperacillin Sod/ Tazobactam Sod (Zosyn 3.375gm/ 50 ml (Pmx)) 50 ml @ 100 mls/ hr Q8 IVPB Last administered on 03/15/17 05:11; Admin Dose 100 MLS/HR; Start 03/13/17 at 06:00 Carvedilol 12.5 mg 12.5 mg BID NGT Last administered on 03/15/17 08:15; Admin Dose 12.5 MG; Start 03/13/17 at 21:00 Fentanyl (Sublimaze) 100 ml @ 2.5 mls/hr TITRATE IV ; Start 03/14/17 at 14:00 Insulin Glargine 18 unit 18 unit DAILY@08 SC Last administered on 03/15/17t 08 :16; Admin Dose 18 UNIT; Start 03/15/17 at 08:00 Propofol (Diprivan) 100 ml @ 3 mls/hr Q12H IV ; Start 03/14/17 at 19:30 RAMY TORRES Mar 15, 2017 11:36
[2017-03-15] MEDS: DESMOPRESSIN 4 MCG INJ SC SCH ×2 (12:00→21:16)
[2017-03-15] MEDS ORDERED: FOSPHENYTOIN (PE) 1,000 MG in SOD CHLORIDE 0.9% 80 ML IVPB ONE (13:00)
--- NOTE | 2017-03-15 13:18 | CONS ---
Date/Time of Note Date/Time of Note DATE: 03/15/17 TIME: 13:15 Consult Date/Type/Reason Admit Date/Time Mar 10, 2017 at 03:25 Initial Consult Date 03/10/17 Type of Consultation: Neurology Reason for Consultation hypoxic injury Ordering Provider: JESSICA DIAZ Subjective seizure activity noted right leg twitching followed by left leg twitching versed and propofol increased Objective Vital Signs Date Time Temp Pulse Resp B/P Pulse Ox O2 Delivery O2 Flow Rate FiO2 03/15/17 12:00 64 03/15/17 09:00 21 116/71 99 Mechanical Ventilator 03/15/17 08:00 30 03/15/17 08:00 100.0 Intake and Output 03/14/17 03/14/17 03/15/17 15:00 23:00 07:00 Intake Total 925.18 ml 819.28 ml 970.30 ml Output Total 1145 ml 484 ml 634 ml Balance -219.82 ml 335.28 ml 336.30 ml Exam on sedation, unresponsive to stimuli absent cranial nerve and brainstem responses on sedation Results/Medications Result Diagram: 03/15/17 0500 03/15/17 0500 Results 24 hrs Laboratory Tests Test 03/14/17 17:25 03/14/17 20:19 03/15/17 01:32 03/15/17 04:57 Bedside Glucose 202 231 H 219 214 Test 03/15/17 05:00 03/15/17 07:29 03/15/17 08:12 White Blood Count 6.0 Red Blood Count 3.28 L Hemoglobin 8.1 L Hematocrit 27.2 L Mean Corpuscular Volume 82.9 Mean Corpuscular Hemoglobin 24.7 L Mean Corpuscular Hemoglobin Concent 29.8 L Red Cell Distribution Width 17.4 H Platelet Count 231 Mean Platelet Volume 11.8 H Neutrophils % 68.6 Lymphocytes % 16.7 Monocytes % 9.9 Eosinophils % 3.3 Basophils % 0.3 Nucleated Red Blood Cells % 0.0 Neutrophils # 4.1 Lymphocytes # 1.0 Monocytes # 0.6 Eosinophils # 0.2 Basophils # 0.0 Nucleated Red Blood Cells # 0.0 Sodium Level 150 H Potassium Level 4.0 Chloride Level 113 H Carbon Dioxide Level 26 Anion Gap 15 Blood Urea Nitrogen 45 H Creatinine 1.10 H Glucose Level 196 Calcium Level 9.6 Magnesium Level 2.1 Blood Gas Specimen Source Blood arterial Arterial Blood Date Drawn 03/15/2017 8:15:19 AM Arterial Blood pH (Temp corrected) 7.466 H Arterial Blood pCO2 (Temp correct) 34.2 L Arterial Blood pO2 (Temp corrected) 81.3 Arterial Blood HCO3 24.1 Arterial Blood Base Excess 0.6 Arterial Blood Oxygen Saturation 95.3 Scott Test ACCEPTAB Arterial Blood Gas Puncture Site Right Radial Arterial Blood Carboxyhemoglobin 0.2 Arterial Blood Methemoglobin 0 Blood Gas A-a O2 Differential 92.4 H Oxyhemoglobin Percent 95.1 Total Hemoglobin 9.0 L Blood Gas Temperature 37.0 Blood Gas Respiration Rate 18.0 Blood Gas Actual Respiration Rate 21 Blood Gas Modality VENT - AC FiO2 30.0 Blood Gas Tidal Volume 500.0 Blood Gas Low PEEP Setting 5.0 Blood Gas Notified Whom DT Blood Gas Notified Time 03/15/2017 8:37:54 AM Bedside Glucose 238 H Medications Current Medications Ticagrelor 90 mg 90 mg BID PO Last administered on 03/15/17 08:15; Admin Dose 90 MG; Start 03/10/17 at 09:00 Midazolam HCl (Versed) 50 ml @ 1 mls/hr TITRATE IV Last administered on 07:13; Admin Dose 2 MLS/HR; Start 03/10/17 at 03:30 Aspirin (Aspirin) 81 mg DAILY PO Last administered on 03/15/17 08:14; Admin Dose 81 MG; Start 03/10/17 at 09:00 Acetaminophen (Tylenol Supp) 650 mg Q4H PRN RI PAIN LEVEL 1-3 OR FEVER Last administered on 03/12/17 21:15; Admin Dose 650 MG; Start 03/10/17 at 04:00 Eye Lubricant (Akwa Oint) 1 applic Q6 BOTH EYES Last administered on 12:04; Admin Dose 1 APPLIC; Start 03/10/17 at 06:00 Eye Lubricant 2 drop 2 drop Q6 BOTH EYES Last administered on 03/15/17 12:04 ; Admin Dose 2 DROP; Start 03/10/17 at 06:00 Norepinephrine (Levophed) 250 ml @ 1.875 mls/ hr TITRATE IV Last administered on 03/10/17 06:59; Admin Dose 3.75 MLS/HR; Start 03/10/17 at 07:00 Famotidine (Pepcid) 20 mg DAILY PO Last administered on 03/15/17 08:14; Admin Dose 20 MG; Start 03/11/17 at 09:00 Meperidine HCl (Demerol) 12.5 mg Q4H PRN IV POST OPERATIVE SHIVERING; Start at 12:30 Meperidine HCl 25 mg 25 mg Q4H PRN IV POST OPERATIVE SHIVERING Last administered on 03/10/17 12:34; Admin Dose 25 MG; Start 03/10/17 at 12:30 Levetiracetam (Keppra 1,000mg/ 100ml (Pmx)) 100 ml @ 400 mls/hr Q12 IVPB Last administered on 03/15/17 08:14; Admin Dose 400 MLS/HR; Start 03/10/17 at 21: 00 Acetaminophen (Tylenol Liquid) 500 mg DAILY NGT Last administered on 10:42; Admin Dose 500 MG; Start 03/11/17 at 06:00 Insulin Aspart (Novolog Insulin Pen) NOVOLOG *MILD* ALGORI... Q4 SC Last administered on 03/15/17 08:17; Admin Dose 3 UNIT; Start 03/12/17 at 01:00 Furosemide (Lasix) 20 mg DAILY@06 IV Last administered on 03/15/17 05:10; Admin Dose 20 MG; Start 03/13/17 at 06:00 Atorvastatin Calcium (Lipitor) 40 mg DAILY@21 PO Last administered on 20:03; Admin Dose 40 MG; Start 03/12/17 at 21:00 Miscellaneous Information 1 ea NOTE XX ; Start 03/12/17 at 19:00 Glucose (Glutose) 15 gm Q15M PRN PO DECREASED GLUCOSE; Start 03/12/17 at 19:00 Glucose (Glutose) 22.5 gm Q15M PRN PO DECREASED GLUCOSE; Start 03/12/17 at 19: 00 Dextrose (D50w Syringe) 25 ml Q15M PRN IV DECREASED GLUCOSE; Start 03/12/17 at 19:00 Dextrose (D50w Syringe) 50 ml Q15M PRN IV DECREASED GLUCOSE; Start 03/12/17 at 19:00 Glucagon (Glucagen) 1 mg Q15M PRN IM DECREASED GLUCOSE; Start 03/12/17 at 19: 00 Glucose (Glutose) 15 gm Q15M PRN BUCCAL DECREASED GLUCOSE; Start 03/12/17 at 19:00 Acetaminophen 650 mg 650 mg Q4H PRN NGT PAIN AND OR ELEVATED TEMP Last administered on 03/15/17 06:10; Admin Dose 650 MG; Start 03/12/17 at 22:00 Piperacillin Sod/ Tazobactam Sod (Zosyn 3.375gm/ 50 ml (Pmx)) 50 ml @ 100 mls/ hr Q8 IVPB Last administered on 03/15/17 05:11; Admin Dose 100 MLS/HR; Start 03/13/17 at 06:00 Carvedilol 12.5 mg 12.5 mg BID NGT Last administered on 03/15/17 08:15; Admin Dose 12.5 MG; Start 03/13/17 at 21:00 Fentanyl (Sublimaze) 100 ml @ 2.5 mls/hr TITRATE IV ; Start 03/14/17 at 14:00 Insulin Glargine 18 unit 18 unit DAILY@08 SC Last administered on 03/15/17 08 :16; Admin Dose 18 UNIT; Start 03/15/17 at 08:00 Propofol (Diprivan) 100 ml @ 3 mls/hr Q12H IV Last administered on 03/15/17 12:11; Admin Dose 3 MLS/HR; Start 03/14/17 at 19:30 Desmopressin Acetate 2 mcg 2 mcg BID SC ; Start 03/15/17 at 12:00 Fosphenytoin Sodium/Sodium Chloride (Cerebyx/NS) 100 ml @ 200 mls/hr ONCE ONCE IVPB ; Start 03/15/17 at 13:00; Stop 03/15/17 at 13:29 Phenytoin (Dilantin) 100 mg TID PO ; Start 03/15/17 at 21:00; Status UNV Assessment/Plan Chief Complaint/Hosp Course 71 yo female admitted with cardiac arrest s/p LAD stent, on hypothermia protocol suspected seizure activity. CTH no acute process. 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
--- NOTE | 2017-03-15 15:14 | PN ---
Date/Time of Note Date/Time of Note DATE: 03/15/17 TIME: 15:00 Assessment/Plan VTE Prophylaxis VTE Prophylaxis Intervention: SCD's Lines/Catheters IV Catheter Type (from Nrs): Central Line Central line still needed: No Urinary Cath still in place: Yes Reason Cath still needed: other (indicate) (critically ill) Assessment/Plan Assessment/Plan 71 yo F presented following cardiac arrest 2/2 STEMI for which pt underwent PCI. sp hypothermia protocol without a great deal of demonstration of significant neurological recovery. #fevers: central v UTI v ?PNA 03.12 urine culture noted. 03.13 blood culture consistent with contaminant.respiratory culture with corynybactereum. unclear if this represents colonization v true infection. will cover regardless. Ancef started 03.15, anticipate ?7 day course? for VAP. This will cover pt's urinary pathogen as well #anoxic brain injury -neuro on consult. MRI pending. AED on board-->uptitrated today by neuro given concern for seizures -vent weaning as per pulm #STEMI sp PCI: DAPT, BP meds, statin as per cardiology -amio as per cardiology #preDM: a1c 6.1, insulin drip changed to SubQ #subclinical hyperthyroid: can be addressed in outpatient setting #LUIS FELIPE, hypernatremia: pt with 3.6L FW deficit, suspect 2/2 insensible losses Increase FW volume again #FEN: TFs GOALS OF CARE/DISPO: brief family meeting held today pt's patient's spokesperson (grandson) and 3 of her children. Reviewed that at this time pt is not showing significant evidence of neurologic recovery 2/2 the time her brain was deprived of oxygen when she had her heart attack. dw family that heart is working well and beating on its own, but she does not have a gag reflex, doesn' t respond to pain and isn't breathing much over the vent. Pt not brain , but there is virtually no likelihood of MEANINGFUL neurologic recovery. Dw family that no one needs to make any decisions right now, but this is a good time to start thinking about what patient would want patient would want if she continues to not be able to breathe on her own (trach v compassionate extubation ). Family requesting MRI be done and read before decisions are made, which is reasonable. Ensured family that we will respect their wishes and facilitate care regarding their decision. Will also place palliative consult critical care time: 45 minutes Subjective 24 Hr Interval Summary Free Text/Dictation had some jerking movements this AM Exam/Review of Systems Vital Signs Vitals Vital Signs Date Time Temp Pulse Resp B/P Pulse Ox O2 Delivery O2 Flow Rate FiO2 03/15/17 12:00 64 03/15/17 09:00 21 116/71 99 Mechanical Ventilator 03/15/17 08:00 30 03/15/17 08:00 100.0 Intake and Output 03/14/17 03/14/17 03/15/17 15:00 23:00 07:00 Intake Total 925.18 ml 819.28 ml 970.30 ml Output Total 1145 ml 484 ml 634 ml Balance -219.82 ml 335.28 ml 336.30 ml Exam not responding to pain on minimal sedation mechanical breath sounds no mrg abd soft no rashes Results Result Diagram: 03/15/17 0500 03/15/17 0500 Results 24 hrs Laboratory Tests Test 03/14/17 17:25 03/14/17 20:19 03/15/17 01:32 03/15/17 04:57 Bedside Glucose 202 231 H 219 214 Test 03/15/17 05:00 03/15/17 07:29 03/15/17 08:12 03/15/17 14:42 White Blood Count 6.0 Red Blood Count 3.28 L Hemoglobin 8.1 L Hematocrit 27.2 L Mean Corpuscular Volume 82.9 Mean Corpuscular Hemoglobin 24.7 L Mean Corpuscular Hemoglobin Concent 29.8 L Red Cell Distribution Width 17.4 H Platelet Count 231 Mean Platelet Volume 11.8 H Neutrophils % 68.6 Lymphocytes % 16.7 Monocytes % 9.9 Eosinophils % 3.3 Basophils % 0.3 Nucleated Red Blood Cells % 0.0 Neutrophils # 4.1 Lymphocytes # 1.0 Monocytes # 0.6 Eosinophils # 0.2 Basophils # 0.0 Nucleated Red Blood Cells # 0.0 Sodium Level 150 H Potassium Level 4.0 Chloride Level 113 H Carbon Dioxide Level 26 Anion Gap 15 Blood Urea Nitrogen 45 H Creatinine 1.10 H Glucose Level 196 Calcium Level 9.6 Magnesium Level 2.1 Blood Gas Specimen Source Blood arterial Arterial Blood Date Drawn 03/15/2017 8:15:19 AM Arterial Blood pH (Temp corrected) 7.466 H Arterial Blood pCO2 (Temp correct) 34.2 L Arterial Blood pO2 (Temp corrected) 81.3 Arterial Blood HCO3 24.1 Arterial Blood Base Excess 0.6 Arterial Blood Oxygen Saturation 95.3 Scott Test ACCEPTAB Arterial Blood Gas Puncture Site Right Radial Arterial Blood Carboxyhemoglobin 0.2 Arterial Blood Methemoglobin 0 Blood Gas A-a O2 Differential 92.4 H Oxyhemoglobin Percent 95.1 Total Hemoglobin 9.0 L Blood Gas Temperature 37.0 Blood Gas Respiration Rate 18.0 Blood Gas Actual Respiration Rate 21 Blood Gas Modality VENT - AC FiO2 30.0 Blood Gas Tidal Volume 500.0 Blood Gas Low PEEP Setting 5.0 Blood Gas Notified Whom DT Blood Gas Notified Time 03/15/2017 8:37:54 AM Bedside Glucose 238 H 157 Medications Medications Current Medications Ticagrelor 90 mg 90 mg BID PO Last administered on 03/15/17 08:15; Admin Dose 90 MG; Start 03/10/17 at 09:00 Midazolam HCl (Versed) 50 ml @ 1 mls/hr TITRATE IV Last administered on 07:13; Admin Dose 2 MLS/HR; Start 03/10/17 at 03:30 Aspirin (Aspirin) 81 mg DAILY PO Last administered on 03/15/17 08:14; Admin Dose 81 MG; Start 03/10/17 at 09:00 Acetaminophen (Tylenol Supp) 650 mg Q4H PRN [place] PAIN LEVEL 1-3 OR FEVER Last administered on 03/12/17 21:15; Admin Dose 650 MG; Start 03/10/17 at 04:00 Eye Lubricant (Akwa Oint) 1 applic Q6 BOTH EYES Last administered on 12:04; Admin Dose 1 APPLIC; Start 03/10/17 at 06:00 Eye Lubricant 2 drop 2 drop Q6 BOTH EYES Last administered on 03/15/17 12:04 ; Admin Dose 2 DROP; Start 03/10/17 at 06:00 Norepinephrine (Levophed) 250 ml @ 1.875 mls/ hr TITRATE IV Last administered on 03/10/17 06:59; Admin Dose 3.75 MLS/HR; Start 03/10/17 at 07:00 Famotidine (Pepcid) 20 mg DAILY PO Last administered on 03/15/17 08:14; Admin Dose 20 MG; Start 03/11/17 at 09:00 Meperidine HCl (Demerol) 12.5 mg Q4H PRN IV POST OPERATIVE SHIVERING; Start at 12:30 Meperidine HCl 25 mg 25 mg Q4H PRN IV POST OPERATIVE SHIVERING Last administered on 03/10/17 12:34; Admin Dose 25 MG; Start 03/10/17 at 12:30 Levetiracetam (Keppra 1,000mg/ 100ml (Pmx)) 100 ml @ 400 mls/hr Q12 IVPB Last administered on 03/15/17 08:14; Admin Dose 400 MLS/HR; Start 03/10/17 at 21: 00 Acetaminophen (Tylenol Liquid) 500 mg DAILY NGT Last administered on 10:42; Admin Dose 500 MG; Start 03/11/17 at 06:00 Insulin Aspart (Novolog Insulin Pen) NOVOLOG *MILD* ALGORI... Q4 SC Last administered on 03/15/17 14:47; Admin Dose 1 UNIT; Start 03/12/17 at 01:00 Furosemide (Lasix) 20 mg DAILY@06 IV Last administered on 03/15/17 05:10; Admin Dose 20 MG; Start 03/13/17 at 06:00 Atorvastatin Calcium (Lipitor) 40 mg DAILY@21 PO Last administered on 20:03; Admin Dose 40 MG; Start 03/12/17 at 21:00 Miscellaneous Information 1 ea NOTE XX ; Start 03/12/17 at 19:00 Glucose (Glutose) 15 gm Q15M PRN PO DECREASED GLUCOSE; Start 03/12/17 at 19:00 Glucose (Glutose) 22.5 gm Q15M PRN PO DECREASED GLUCOSE; Start 03/12/17 at 19: 00 Dextrose (D50w Syringe) 25 ml Q15M PRN IV DECREASED GLUCOSE; Start 03/12/17 at 19:00 Dextrose (D50w Syringe) 50 ml Q15M PRN IV DECREASED GLUCOSE; Start 03/12/17 at 19:00 Glucagon (Glucagen) 1 mg Q15M PRN IM DECREASED GLUCOSE; Start 03/12/17 at 19: 00 Glucose (Glutose) 15 gm Q15M PRN BUCCAL DECREASED GLUCOSE; Start 03/12/17 at 19:00 Acetaminophen 650 mg 650 mg Q4H PRN NGT PAIN AND OR ELEVATED TEMP Last administered on 03/15/17 06:10; Admin Dose 650 MG; Start 03/12/17 at 22:00 Piperacillin Sod/ Tazobactam Sod (Zosyn 3.375gm/ 50 ml (Pmx)) 50 ml @ 100 mls/ hr Q8 IVPB Last administered on 03/15/17 14:36; Admin Dose 100 MLS/HR; Start 03/13/17 at 06:00 Carvedilol 12.5 mg 12.5 mg BID NGT Last administered on 03/15/17 08:15; Admin Dose 12.5 MG; Start 03/13/17 at 21:00 Fentanyl (Sublimaze) 100 ml @ 2.5 mls/hr TITRATE IV ; Start 03/14/17 at 14:00 Insulin Glargine 18 unit 18 unit DAILY@08 SC Last administered on 03/15/17 08 :16; Admin Dose 18 UNIT; Start 03/15/17 at 08:00 Propofol (Diprivan) 100 ml @ 3 mls/hr Q12H IV Last administered on 03/15/17 12:11; Admin Dose 3 MLS/HR; Start 03/14/17 at 19:30 Desmopressin Acetate (Ddavp) 2 mcg BID SC ; Start 03/15/17 at 12:00 Phenytoin (Dilantin) 100 mg TID PO ; Start 03/15/17 at 21:00 ARCELIA MCGRATH MD Mar 15, 2017 15:12
--- NOTE | 2017-03-15 19:23 | RADRPT ---
PROCEDURE: MR Brain without contrast. CLINICAL INDICATION: Altered level of consciousness TECHNIQUE: MRI brain without contrast was performed on a high field MRI system. Sequences include sagittal T1, axial T1, FLAIR, T2, diffusion and coronal GRE weighted. No contrast material was ut ilized.. DICOM images are available. COMPARISON: CT brain 03/10/2017 . FINDINGS: There is age appropriate central and peripheral atrophy. There is no midline shift. There is a mil d degree of supratentorial periventricular and subcortical white matter hyperintensities on FLAIR an d T2-weighted images. There is abnormal minimally hyperintense signal within the bilateral thalami, caudates and basal ganglia on diffusion weighted images with corresponding abnormal signal intensity on FLAIR and T2-weighted images. There is inhomogeneous abnormal signal intensity of the correspond ing ADC map. Appearance is suggestive of Chandra injury. There is no intracranial hemorrhage or abnor mal extra-axial fluid collection. Flow voids are noted in the major intracranial arteries. There i s normal signal intensity in the major dural venous sinuses. Foramen magnum is unremarkable. There is diffuse paranasal sinus mucosal thickening.. IMPRESSION: 1. Abnormal bilateral some neck. signal intensity within the thalami, basal ganglia and caudates co nsistent early infarcts/edema with the history of an anoxic injury. No mass effect. 2. No intracranial hemorrhage. 3. Nonspecific white matter changes most commonly seen with small vessel disease. 3. Diffuse paranasal sinus disease. Critical findings reported to ICU nurse Sharon on 03/15/2017 7:21:06 PM. RPTAT: HMVK .Willam Merritt MD, MD Date Time Electronically viewed and signed by .Willam Merritt MD, MD on 03/15/2017 19:22 .K/
[2017-03-15] MEDS: PHENYTOIN 100 MG CAP PO SCH (20:37)
[2017-03-15] MEDS: ATORVASTATIN 40 MG TAB PO SCH (20:37)
[2017-03-15] MEDS: CEFAZOLIN 1 GM/50 ML (PMX) 50 ML IVPB SCH (22:00)
[2017-03-16] VITALS (34 sets, daily range): BP systolic 93–167; BP diastolic 47–92; PULSE 56–74; RESP 16–28
[2017-03-16] MEDS: ARTIFICIAL TEARS 15 ML OPH BOTH EYES SCH ×4 (00:58→18:03)
[2017-03-16] MEDS: OCULAR LUBRICANT 3.5 GM OPH OINT BOTH EYES SCH ×4 (00:59→18:00)
[2017-03-16] MEDS: INSULIN ASPART [NOVOLOG] 3 ML PEN SC SCH ×6 (01:15→21:37)
[2017-03-16 05:02] LABS: BASOPHILS % 0.4 % (0.0-2.0); EOSINOPHILS # 0.2 10^3/ul (0.0-0.5); EOSINOPHILS % 3.5 % (0.0-7.0); HEMATOCRIT 26.5 % (37.0-47.0); HEMOGLOBIN 7.9 g/dl (12.0-16.0); LYMPHOCYTES # 1.1 10^3/ul (0.8-2.9); LYMPHOCYTES % 16.5 % (15.0-51.0); MEAN CORPUSCULAR HEMOGLOBIN 25.2 pg (29.0-33.0); MEAN CORPUSCULAR HGB CONC 29.8 g/dl (32.0-37.0); MEAN CORPUSCULAR VOLUME 84.4 fl (82.0-101.0); MEAN PLATELET VOLUME 11.8 fl (7.4-10.4); MONOCYTE # 0.7 10^3/ul (0.3-0.9); MONOCYTES % 9.6 % (0.0-11.0); NEUTROPHIL # 4.8 10^3/ul (1.6-7.5); NUCLEATED RED BLOOD CELLS% 0.3 /100WBC (0.0-0.0); PLATELET COUNT 240 10^3/UL (140-415); RED BLOOD COUNT 3.14 10^6/ul (4.20-5.40); RED CELL DISTRIBUTION WIDTH 17.6 % (11.5-14.5); WHITE BLOOD COUNT 6.9 10^3/ul (4.8-10.8)
[2017-03-16 05:31] LABS: CALCIUM 9.3 mg/dl (8.4-10.2); CREATININE 1.48 mg/dl (0.44-1.00); MAGNESIUM 2.2 mg/dl (1.7-2.5); POTASSIUM 3.9 mmol/L (3.5-5.1)
[2017-03-16] MEDS: CEFAZOLIN 1 GM/50 ML (PMX) 50 ML IVPB SCH ×3 (05:59→21:38)
[2017-03-16] MEDS: FUROSEMIDE 20 MG INJ IV SCH (06:00)
[2017-03-16] MEDS: PIPER-TAZO 3.375 GM IV (PMX) 50 ML IVPB SCH (06:00)
--- NOTE | 2017-03-16 08:01 | SP ---
DATE OF PROCEDURE: 03/12/2017 HISTORY: The patient is a 71-year-old male admitted following cardiac arrest status post stent plac ement and hypothermia. EEG is to rule out seizure activity. CURRENT MEDICATIONS: 1. Keppra. 2. Demerol. 3. Fentanyl. 4. Propofol. PROCEDURE: Utilizing a 16-channel EEG machine, cap scalp electrodes were applied in accordance with International 10-20 system. [id number] and [id number] montages were displayed. Electrical i mpedances were measured and reported. DESCRIPTION: During the resting state, posterior dominant rhythm of about 6 to 7 Hz were seen bihem ispherically. Photic stimulation had no response. Hyperventilation was not performed. There was n o focal lateralizing or epileptiform discharge identified. INTERPRETATION: This is an abnormal EEG due to presence of generalized bihemispheric background slo wing without any epileptiform activity. It is consistent with encephalopathy. Please correlate the se findings with the patient's clinical picture. Dictated By: SIMA MAJOR/IDANIA Conf#: [id number] DID#: [id number] CC: JESSICA DIAZ MD;*EndCC*
--- NOTE | 2017-03-16 08:08 | RADRPT ---
PROCEDURE: XR Chest. CLINICAL INDICATION: CHF TECHNIQUE: Single frontal view of the chest was obtained. COMPARISON: 03/14/2017. FINDINGS: Endotracheal tube and enteric tube appear stable in position. The cardiomediastinal silhouette demonstrates enlargement of the cardiac silhouette. No significant change in pulmonary edema with small to moderate layering bilateral pleural effusions . No definite pneumothorax. No acute osseous abnormality. IMPRESSION: Cardiomegaly with no significant change in pulmonary edema small to moderate layering bilateral pleu ral effusions. RPTAT: GG Jas More Physician Date Time Electronically viewed and signed by Jas More Physician on 03/16/2017 08:08 PH/
[2017-03-16] MEDS: PROPOFOL 100 ML IV SCH ×2 (08:24→19:30)
[2017-03-16] MEDS: FAMOTIDINE 20 MG TAB PO SCH (08:26)
[2017-03-16] MEDS: ACETAMINOPHEN 650MG/20.3ML CUP NGT SCH (08:26)
[2017-03-16] MEDS: PHENYTOIN 100 MG CAP PO SCH ×3 (08:26→21:26)
[2017-03-16] MEDS: ASPIRIN 81 MG TAB PO SCH (08:26)
[2017-03-16] MEDS: TICAGRELOR 90 MG TABLET PO SCH ×2 (08:28→21:36)
[2017-03-16] MEDS: LEVETIRACETAM 1000 MG (PMX) 100 ML IVPB SCH ×2 (08:37→21:27)
[2017-03-16] MEDS: INSULIN GLARGINE [LANtus] 3 ML PEN SC SCH (08:48)
--- NOTE | 2017-03-16 08:49 | CONS ---
Date/Time of Note Date/Time of Note DATE: 03/16/17 TIME: 08:48 Consult Date/Type/Reason Admit Date/Time Mar 10, 2017 at 03:25 Initial Consult Date 03/10/17 Type of Consultation: Pulmonary Ordering Provider: JESSICA DIAZ Subjective Patient remains somnolent on mechanical ventilation. Eyes open but not following commands. No hemodynamic support. Remains febrile. Objective Vital Signs Date Time Temp Pulse Resp B/P Pulse Ox O2 Delivery O2 Flow Rate FiO2 03/16/17 07:02 65 19 100 30 03/16/17 06:00 109/56 Mechanical Ventilator 03/16/17 04:00 99.7 Intake and Output 03/15/17 03/15/17 03/16/17 15:00 23:00 07:00 Intake Total 793.66 ml 1036.4 ml 1389.6 ml Output Total 710 ml 522 ml 335 ml Balance 83.66 ml 514.4 ml 1054.6 ml Exam PHYSICAL EXAMINATION: GENERAL: Elderly-appearing lady, appears comfortable at rest, intubated and sedated on mechanical ventilation. VITAL SIGNS: HEENT: Pupils are sluggish. CARDIAC: S1, S2, no added sounds or murmurs. CHEST: Diminished air entry bilaterally. ABDOMEN: Soft, nontender. No guarding or rebound. EXTREMITIES: No cyanosis, clubbing or edema. NEUROLOGIC: Unable to assess. Results/Medications Result Diagram: 03/16/17 0430 03/16/17 0430 Results 24 hrs Chest x-ray Left effusion. Laboratory Tests Test 03/15/17 14:42 03/15/17 17:17 03/15/17 20:40 03/16/17 01:04 Bedside Glucose 157 174 185 214 Test 03/16/17 04:22 03/16/17 04:30 Bedside Glucose 207 White Blood Count 6.9 Red Blood Count 3.14 L Hemoglobin 7.9 L Hematocrit 26.5 L Mean Corpuscular Volume 84.4 Mean Corpuscular Hemoglobin 25.2 L Mean Corpuscular Hemoglobin Concent 29.8 L Red Cell Distribution Width 17.6 H Platelet Count 240 Mean Platelet Volume 11.8 H Neutrophils % 69.0 Lymphocytes % 16.5 Monocytes % 9.6 Eosinophils % 3.5 Basophils % 0.4 Nucleated Red Blood Cells % 0.3 H Neutrophils # 4.8 Lymphocytes # 1.1 Monocytes # 0.7 Eosinophils # 0.2 Basophils # 0.0 Nucleated Red Blood Cells # 0.0 Sodium Level 152 H Potassium Level 3.9 Chloride Level 110 Carbon Dioxide Level 25 Anion Gap 21 H Blood Urea Nitrogen 51 H Creatinine 1.48 H Glucose Level 201 Calcium Level 9.3 Magnesium Level 2.2 Medications Current Medications Ticagrelor 90 mg 90 mg BID PO Last administered on 03/16/17 08:28; Admin Dose 90 MG; Start 03/10/17 at 09:00 Midazolam HCl (Versed) 50 ml @ 1 mls/hr TITRATE IV Last administered on 07:13; Admin Dose 2 MLS/HR; Start 03/10/17 at 03:30 Aspirin (Aspirin) 81 mg DAILY PO Last administered on 03/16/17 08:26; Admin Dose 81 MG; Start 03/10/17 at 09:00 Acetaminophen (Tylenol Supp) 650 mg Q4H PRN [place] PAIN LEVEL 1-3 OR FEVER Last administered on 03/12/17 21:15; Admin Dose 650 MG; Start 03/10/17 at 04:00 Eye Lubricant (Akwa Oint) 1 applic Q6 BOTH EYES Last administered on 05:57; Admin Dose 1 APPLIC; Start 03/10/17 at 06:00 Eye Lubricant 2 drop 2 drop Q6 BOTH EYES Last administered on 03/16/17 05:57 ; Admin Dose 2 DROP; Start 03/10/17 at 06:00 Norepinephrine (Levophed) 250 ml @ 1.875 mls/ hr TITRATE IV Last administered on 03/10/17 06:59; Admin Dose 3.75 MLS/HR; Start 03/10/17 at 07:00 Famotidine (Pepcid) 20 mg DAILY PO Last administered on 03/16/17 08:26; Admin Dose 20 MG; Start 03/11/17 at 09:00 Meperidine HCl (Demerol) 12.5 mg Q4H PRN IV POST OPERATIVE SHIVERING; Start at 12:30 Meperidine HCl 25 mg 25 mg Q4H PRN IV POST OPERATIVE SHIVERING Last administered on 03/10/17 12:34; Admin Dose 25 MG; Start 03/10/17 at 12:30 Levetiracetam (Keppra 1,000mg/ 100ml (Pmx)) 100 ml @ 400 mls/hr Q12 IVPB Last administered on 03/15/17 20:38; Admin Dose 400 MLS/HR; Start 03/10/17 at 21: 00 Acetaminophen (Tylenol Liquid) 500 mg DAILY NGT Last administered on 08:26; Admin Dose 500 MG; Start 03/11/17 at 06:00 Insulin Aspart (Novolog Insulin Pen) NOVOLOG *MILD* ALGORI... Q4 SC Last administered on 03/16/17 04:29; Admin Dose 2 UNIT; Start 03/12/17 at 01:00 Furosemide (Lasix) 20 mg DAILY@06 IV Last administered on 03/16/17 06:00; Admin Dose 20 MG; Start 03/13/17 at 06:00 Atorvastatin Calcium (Lipitor) 40 mg DAILY@21 PO Last administered on 20:37; Admin Dose 40 MG; Start 03/12/17 at 21:00 Miscellaneous Information 1 ea NOTE XX ; Start 03/12/17 at 19:00 Glucose (Glutose) 15 gm Q15M PRN PO DECREASED GLUCOSE; Start 03/12/17 at 19:00 Glucose (Glutose) 22.5 gm Q15M PRN PO DECREASED GLUCOSE; Start 03/12/17 at 19: 00 Dextrose (D50w Syringe) 25 ml Q15M PRN IV DECREASED GLUCOSE; Start 03/12/17 at 19:00 Dextrose (D50w Syringe) 50 ml Q15M PRN IV DECREASED GLUCOSE; Start 03/12/17 at 19:00 Glucagon (Glucagen) 1 mg Q15M PRN IM DECREASED GLUCOSE; Start 03/12/17 at 19: 00 Glucose (Glutose) 15 gm Q15M PRN BUCCAL DECREASED GLUCOSE; Start 03/12/17 at 19:00 Acetaminophen 650 mg 650 mg Q4H PRN NGT PAIN AND OR ELEVATED TEMP Last administered on 03/15/17 17:43; Admin Dose 650 MG; Start 03/12/17 at 22:00 Piperacillin Sod/ Tazobactam Sod (Zosyn 3.375gm/ 50 ml (Pmx)) 50 ml @ 100 mls/ hr Q8 IVPB Last administered on 03/16/17 06:00; Admin Dose 100 MLS/HR; Start 03/13/17 at 06:00 Carvedilol 12.5 mg 12.5 mg BID NGT Last administered on 03/16/17 08:26; Admin Dose 12.5 MG; Start 03/13/17 at 21:00 Fentanyl (Sublimaze) 100 ml @ 2.5 mls/hr TITRATE IV ; Start 03/14/17 at 14:00 Insulin Glargine 18 unit 18 unit DAILY@08 SC Last administered on 03/15/17 08 :16; Admin Dose 18 UNIT; Start 03/15/17 at 08:00 Propofol (Diprivan) 100 ml @ 3 mls/hr Q12H IV Last administered on 03/16/17 08:24; Admin Dose 1.2 MLS/HR; Start 03/14/17 at 19:30 Desmopressin Acetate (Ddavp) 2 mcg BID SC Last administered on 03/15/17 21:16 ; Admin Dose 2 MCG; Start 03/15/17 at 12:00 Phenytoin 100 mg 100 mg TID PO Last administered on 03/16/17 08:26; Admin Dose 100 MG; Start 03/15/17 at 21:00 Cefazolin Sodium (Ancef 1 Gm/50 ml (Pmx)) 50 ml @ 100 mls/hr Q8 IVPB Last administered on 03/16/17 05:59; Admin Dose 100 MLS/HR; Start 03/15/17 at 22: 00 Assessment/Plan Chief Complaint/Hosp Course IMPRESSION 1. Acute myocardial infarction. Status post LAD stent placement. Atrial fibrillation with rapid ventricular rate, now rate controlled. 2. Cardiopulmonary arrest. 3. Possible aspiration pneumonia with hypoxemic respiratory failure. 4. Possible anoxic brain injury. MRI pending. EEG results pending. 5. History of coronary artery disease with stent placements in the past. 6. Hypernatremia Plan 1. Status post hypothermia protocol. 2. Antibiotics for possible aspiration pneumonia. 3. Insulin drip. 4. Cardiac recommendations with Brilinta and aspirin post-stent placement. Continue rate control with amiodarone 5. DVT and GI prophylaxis. 6. Consider increasing free water. Critical care time 40 minutes. Family conference regarding goals of care. Problems: MARTA REMY MD, [facility] Mar 16, 2017 08:49
--- NOTE | 2017-03-16 09:34 | PN ---
Date/Time of Note Date/Time of Note DATE: 03/16/17 TIME: 09:18 Assessment/Plan VTE Prophylaxis VTE Prophylaxis Intervention: SCD's Lines/Catheters IV C[facility]ter Type (from [facility] Central Line Central line still needed: Yes Urinary Cath still in place: Yes Reason Cath still needed: urinary retention Assessment/Plan Chief Complaint/Hosp Course Assessment/Plan: 71 yo F presented following cardiac arrest 2/2 STEMI for which pt underwent PCI. sp hypothermia protocol without a great deal of demonstration of significant neurological recovery. 1. anoxic brain injury -likely secondary to cardiac arrest -neuro on consult. MRI brain results noted (see below). On Keppra presently, no seizures noted presently -vent weaning as per pulm 2. fevers: central v UTI v ?PNA 03.12 urine culture noted. 03.13 blood culture consistent with contaminant.respiratory culture with corynybactereum. unclear if this represents colonization v true infection. will cover regardless. Ancef started 03.15, anticipate ?7 day course? for VAP. This will cover pt's urinary pathogen as well 3. STEMI sp PCI: DAPT, -Continue BP meds, statin as per cardiology -amio as per cardiology 4. preDM: a1c 6.1, insulin SubQ, sugars in the mid 200 range presently -Monitor 5. subclinical hyperthyroid: can be addressed in outpatient setting 6. LUIS FELIPE: pt with 3.6L FW deficit, suspect 2/2 insensible losses -We will add IV fluids, monitor ins and outs, BUN/creatinine levels 7. Hypernatremia: Sodium today 152 -We will add D5W IV fluids, monitor BMP in the a.m. 8. FEN: TFs GOALS OF CARE/DISPO: brief family meeting held yesterday pt's patient's spokesperson (grandson) and 3 of her children. Reviewed that at that time pt is not showing significant evidence of neurologic recovery 2/2 the time her brain was deprived of oxygen when she had her heart attack. dw family that heart is working well and beating on its own, but she does not have a gag reflex, doesn' t respond to pain and isn't breathing much over the vent. Pt not brain , but there is virtually no likelihood of MEANINGFUL neurologic recovery. Dw family that no one needs to make any decisions right now, but this is a good time to start thinking about what patient would want patient would want if she continues to not be able to breathe on her own (trach v compassionate extubation ). Family requested MRI be done and read before decisions are made, which is reasonable. Ensured family that we will respect their wishes and facilitate care regarding their decision. Follow-up palliative consult Critical care time spent on patient care today equals 45 minutes Problems: Subjective 24 Hr Interval Summary Free Text/Dictation No acute events overnight, still intubated, on Keppra, on propofol. Exam/Review of Systems Vital Signs Vitals Vital Signs Date Time Temp Pulse Resp B/P Pulse Ox O2 Delivery O2 Flow Rate FiO2 03/16/17 09:07 63 22 99 30 03/16/17 06:00 109/56 Mechanical Ventilator 03/16/17 04:00 99.7 Intake and Output 03/15/17 03/15/17 03/16/17 15:00 23:00 07:00 Intake Total 793.66 ml 1036.4 ml 1389.6 ml Output Total 710 ml 522 ml 335 ml Balance 83.66 ml 514.4 ml 1054.6 ml Exam Intubated, not responding to pain on minimal sedation Slightly decreased breath sounds S1, S2 heard no mrg abd soft no lower extremity edema bilaterally Results Result Diagram: 03/16/17 0430 03/16/17 0430 Results 24 hrs Laboratory Tests Test 03/15/17 14:42 03/15/17 17:17 03/15/17 20:40 03/16/17 01:04 Bedside Glucose 157 174 185 214 Test 03/16/17 04:22 03/16/17 04:30 03/16/17 08:45 Bedside Glucose 207 265 H White Blood Count 6.9 Red Blood Count 3.14 L Hemoglobin 7.9 L Hematocrit 26.5 L Mean Corpuscular Volume 84.4 Mean Corpuscular Hemoglobin 25.2 L Mean Corpuscular Hemoglobin Concent 29.8 L Red Cell Distribution Width 17.6 H Platelet Count 240 Mean Platelet Volume 11.8 H Neutrophils % 69.0 Lymphocytes % 16.5 Monocytes % 9.6 Eosinophils % 3.5 Basophils % 0.4 Nucleated Red Blood Cells % 0.3 H Neutrophils # 4.8 Lymphocytes # 1.1 Monocytes # 0.7 Eosinophils # 0.2 Basophils # 0.0 Nucleated Red Blood Cells # 0.0 Sodium Level 152 H Potassium Level 3.9 Chloride Level 110 Carbon Dioxide Level 25 Anion Gap 21 H Blood Urea Nitrogen 51 H Creatinine 1.48 H Glucose Level 201 Calcium Level 9.3 Magnesium Level 2.2 Medications Medications Current Medications Ticagrelor 90 mg 90 mg BID PO Last administered on 03/16/17 08:28; Admin Dose 90 MG; Start 03/10/17 at 09:00 Midazolam HCl (Versed) 50 ml @ 1 mls/hr TITRATE IV Last administered on 07:13; Admin Dose 2 MLS/HR; Start 03/10/17 at 03:30 Aspirin (Aspirin) 81 mg DAILY PO Last administered on 03/16/17 08:26; Admin Dose 81 MG; Start 03/10/17 at 09:00 Acetaminophen (Tylenol Supp) 650 mg Q4H PRN [place] PAIN LEVEL 1-3 OR FEVER Last administered on 03/12/17 21:15; Admin Dose 650 MG; Start 03/10/17 at 04:00 Eye Lubricant (Akwa Oint) 1 applic Q6 BOTH EYES Last administered on 05:57; Admin Dose 1 APPLIC; Start 03/10/17 at 06:00 Eye Lubricant 2 drop 2 drop Q6 BOTH EYES Last administered on 03/16/17 05:57 ; Admin Dose 2 DROP; Start 03/10/17 at 06:00 Norepinephrine (Levophed) 250 ml @ 1.875 mls/ hr TITRATE IV Last administered on 03/10/17 06:59; Admin Dose 3.75 MLS/HR; Start 03/10/17 at 07:00 Famotidine (Pepcid) 20 mg DAILY PO Last administered on 03/16/17 08:26; Admin Dose 20 MG; Start 03/11/17 at 09:00 Meperidine HCl (Demerol) 12.5 mg Q4H PRN IV POST OPERATIVE SHIVERING; Start at 12:30 Meperidine HCl 25 mg 25 mg Q4H PRN IV POST OPERATIVE SHIVERING Last administered on 03/10/17 12:34; Admin Dose 25 MG; Start 03/10/17 at 12:30 Levetiracetam (Keppra 1,000mg/ 100ml (Pmx)) 100 ml @ 400 mls/hr Q12 IVPB Last administered on 03/16/17 08:37; Admin Dose 400 MLS/HR; Start 03/10/17 at 21: 00 Acetaminophen (Tylenol Liquid) 500 mg DAILY NGT Last administered on 08:26; Admin Dose 500 MG; Start 03/11/17 at 06:00 Insulin Aspart (Novolog Insulin Pen) NOVOLOG *MILD* ALGORI... Q4 SC Last administered on 03/16/17 08:50; Admin Dose 4 UNIT; Start 03/12/17 at 01:00 Furosemide (Lasix) 20 mg DAILY@06 IV Last administered on 03/16/17 06:00; Admin Dose 20 MG; Start 03/13/17 at 06:00 Atorvastatin Calcium (Lipitor) 40 mg DAILY@21 PO Last administered on 20:37; Admin Dose 40 MG; Start 03/12/17 at 21:00 Miscellaneous Information 1 ea NOTE XX ; Start 03/12/17 at 19:00 Glucose (Glutose) 15 gm Q15M PRN PO DECREASED GLUCOSE; Start 03/12/17 at 19:00 Glucose (Glutose) 22.5 gm Q15M PRN PO DECREASED GLUCOSE; Start 03/12/17 at 19: 00 Dextrose (D50w Syringe) 25 ml Q15M PRN IV DECREASED GLUCOSE; Start 03/12/17 at 19:00 Dextrose (D50w Syringe) 50 ml Q15M PRN IV DECREASED GLUCOSE; Start 03/12/17 at 19:00 Glucagon (Glucagen) 1 mg Q15M PRN IM DECREASED GLUCOSE; Start 03/12/17 at 19: 00 Glucose (Glutose) 15 gm Q15M PRN BUCCAL DECREASED GLUCOSE; Start 03/12/17 at 19:00 Acetaminophen 650 mg 650 mg Q4H PRN NGT PAIN AND OR ELEVATED TEMP Last administered on 03/15/17 17:43; Admin Dose 650 MG; Start 03/12/17 at 22:00 Piperacillin Sod/ Tazobactam Sod (Zosyn 3.375gm/ 50 ml (Pmx)) 50 ml @ 100 mls/ hr Q8 IVPB Last administered on 03/16/17 06:00; Admin Dose 100 MLS/HR; Start 03/13/17 at 06:00 Carvedilol 12.5 mg 12.5 mg BID NGT Last administered on 03/16/17 08:26; Admin Dose 12.5 MG; Start 03/13/17 at 21:00 Fentanyl (Sublimaze) 100 ml @ 2.5 mls/hr TITRATE IV ; Start 03/14/17 at 14:00 Insulin Glargine 18 unit 18 unit DAILY@08 SC Last administered on 03/16/17 08 :48; Admin Dose 18 UNIT; Start 03/15/17 at 08:00 Propofol (Diprivan) 100 ml @ 3 mls/hr Q12H IV Last administered on 03/16/17 08:24; Admin Dose 1.2 MLS/HR; Start 03/14/17 at 19:30 Desmopressin Acetate (Ddavp) 2 mcg BID SC Last administered on 03/15/17 21:16 ; Admin Dose 2 MCG; Start 03/15/17 at 12:00 Phenytoin 100 mg 100 mg TID PO Last administered on 03/16/17 08:26; Admin Dose 100 MG; Start 03/15/17 at 21:00 Cefazolin Sodium (Ancef 1 Gm/50 ml (Pmx)) 50 ml @ 100 mls/hr Q8 IVPB Last administered on 03/16/17 05:59; Admin Dose 100 MLS/HR; Start 03/15/17 at 22: 00 Procedures Procedures 1. MRI brain (03/15/17): 1. Abnormal bilateral some neck. signal intensity within the thalami, basal ganglia and caudates consistent early infarcts/edema with the history of an anoxic injury. No mass effect. 2. No intracranial hemorrhage. 3. Nonspecific white matter changes most commonly seen with small vessel disease. 3. Diffuse paranasal sinus disease. 2. EEG (03/12/17): INTERPRETATION: This is an abnormal EEG due to presence of generalized bihemispheric background slowing without any epileptiform activity. It is consistent with encephalopathy. ANGELIQUE ARAYA Mar 16, 2017 09:34
--- NOTE | 2017-03-16 10:22 | CONS ---
Date/Time of Note Date/Time of Note DATE: 03/16/17 TIME: 10:19 Assessment/Plan Assessment/Plan Chief Complaint/Hosp Course Paroxysmal afib: new onset. In and out of afib. If meaningful recovery, will consider anticoagulation. Now in sinus Anterior STEMI/CAD: s/p PCI of ulcerated 99% mid LAD lesion. EF by echo is preserved Cardiac arrest: likely due to arrhythmia related to above but unclear rhythm when paramedics arrived. Also with significant pulm edema so respiratory arrest/ PEA also possible Acute diastolic heart failure: Significant pulm edema by CXR. LVEDP 27 by cath. Improved with diuresis Acute respiratory failure: on vent due to above Acute renal failure: Cr fluctuating Anemia: no active bleeding Fevers: ?central vs infectious. Urine + E coli Anoxic brain injury: per family, pt may have been pulseless for 10 mins prior to real estate site analyst arrival. Unclear rhythm. MRI confirms anoxic brain injury Seizures vs myoclonic jerks -coreg 12.5mg BID -continue ASA, ticagrelor, lipitor -lasix 20mg IV daily to keep even to slightly negative -antibiotics per primary -prognosis and neurologic recovery remains guarded Problems: Consultation Date/Type/Reason Admit Date/Time Mar 10, 2017 at 03:25 Initial Consult Date 03/10/17 Type of Consultation: Cardiology Referring Provider: JESSICA DIAZ 24 HR Interval Summary Free Text/Dictation On low dose propofol, still unresponsive. MRI shows anoxic brain injury. Now back in sinus. Exam/Review of Systems Vital Signs Vitals Vital Signs Date Time Temp Pulse Resp B/P Pulse Ox O2 Delivery O2 Flow Rate FiO2 03/16/17 09:07 63 22 99 30 03/16/17 06:00 109/56 Mechanical Ventilator 03/16/17 04:00 99.7 Intake and Output 03/15/17 03/15/17 03/16/17 14:59 22:59 06:59 Intake Total 734.66 ml 1094.2 ml 1429.6 ml Output Total 794 ml 649 ml 388 ml Balance -59.34 ml 445.2 ml 1041.6 ml Exam Constitutional: No alert Head: atraumatic, normocephalic ENMT: intubated Neck: No jvd (difficult to examine ) Respiratory: diminished breath sounds, No clear to auscultation Cardiovascular: regular rate and rhythm, No edema, No systolic murmur Gastrointestinal: non-tender, soft, No distended Neurological: No nl mental status, No nl speech Results Result Diagram: 03/16/17 0430 03/16/17 0430 Results 24 hrs Laboratory Tests Test 03/15/17 14:42 03/15/17 17:17 03/15/17 20:40 03/16/17 01:04 Bedside Glucose 157 174 185 214 Test 03/16/17 04:22 03/16/17 04:30 03/16/17 08:45 Bedside Glucose 207 265 H White Blood Count 6.9 Red Blood Count 3.14 L Hemoglobin 7.9 L Hematocrit 26.5 L Mean Corpuscular Volume 84.4 Mean Corpuscular Hemoglobin 25.2 L Mean Corpuscular Hemoglobin Concent 29.8 L Red Cell Distribution Width 17.6 H Platelet Count 240 Mean Platelet Volume 11.8 H Neutrophils % 69.0 Lymphocytes % 16.5 Monocytes % 9.6 Eosinophils % 3.5 Basophils % 0.4 Nucleated Red Blood Cells % 0.3 H Neutrophils # 4.8 Lymphocytes # 1.1 Monocytes # 0.7 Eosinophils # 0.2 Basophils # 0.0 Nucleated Red Blood Cells # 0.0 Sodium Level 152 H Potassium Level 3.9 Chloride Level 110 Carbon Dioxide Level 25 Anion Gap 21 H Blood Urea Nitrogen 51 H Creatinine 1.48 H Glucose Level 201 Calcium Level 9.3 Magnesium Level 2.2 Medications Medications Current Medications Ticagrelor 90 mg 90 mg BID PO Last administered on 03/16/17 08:28; Admin Dose 90 MG; Start 03/10/17 at 09:00 Midazolam HCl (Versed) 50 ml @ 1 mls/hr TITRATE IV Last administered on 07:13; Admin Dose 2 MLS/HR; Start 03/10/17 at 03:30 Aspirin (Aspirin) 81 mg DAILY PO Last administered on 03/16/17 08:26; Admin Dose 81 MG; Start 03/10/17 at 09:00 Acetaminophen (Tylenol Supp) 650 mg Q4H PRN [place] PAIN LEVEL 1-3 OR FEVER Last administered on 03/12/17 21:15; Admin Dose 650 MG; Start 03/10/17 at 04:00 Eye Lubricant (Akwa Oint) 1 applic Q6 BOTH EYES Last administered on 05:57; Admin Dose 1 APPLIC; Start 03/10/17 at 06:00 Eye Lubricant (Artificial Tears Oph) 2 drop Q6 BOTH EYES Last administered on 03/16/17 05:57; Admin Dose 2 DROP; Start 03/10/17 at 06:00 Famotidine (Pepcid) 20 mg DAILY PO Last administered on 03/16/17 08:26; Admin Dose 20 MG; Start 03/11/17 at 09:00 Meperidine HCl (Demerol) 12.5 mg Q4H PRN IV POST OPERATIVE SHIVERING; Start at 12:30 Meperidine HCl 25 mg 25 mg Q4H PRN IV POST OPERATIVE SHIVERING Last administered on 03/10/17 12:34; Admin Dose 25 MG; Start 03/10/17 at 12:30 Levetiracetam (Keppra 1,000mg/ 100ml (Pmx)) 100 ml @ 400 mls/hr Q12 IVPB Last administered on 03/16/17 08:37; Admin Dose 400 MLS/HR; Start 03/10/17 at 21: 00 Acetaminophen (Tylenol Liquid) 500 mg DAILY NGT Last administered on 08:26; Admin Dose 500 MG; Start 03/11/17 at 06:00 Insulin Aspart (Novolog Insulin Pen) NOVOLOG *MILD* ALGORI... Q4 SC Last administered on 03/16/17 08:50; Admin Dose 4 UNIT; Start 03/12/17 at 01:00 Furosemide (Lasix) 20 mg DAILY@06 IV Last administered on 03/16/17 06:00; Admin Dose 20 MG; Start 03/13/17 at 06:00 Atorvastatin Calcium (Lipitor) 40 mg DAILY@21 PO Last administered on 20:37; Admin Dose 40 MG; Start 03/12/17 at 21:00 Miscellaneous Information 1 ea NOTE XX ; Start 03/12/17 at 19:00 Glucose (Glutose) 15 gm Q15M PRN PO DECREASED GLUCOSE; Start 03/12/17 at 19:00 Glucose (Glutose) 22.5 gm Q15M PRN PO DECREASED GLUCOSE; Start 03/12/17 at 19: 00 Dextrose (D50w Syringe) 25 ml Q15M PRN IV DECREASED GLUCOSE; Start 03/12/17 at 19:00 Dextrose (D50w Syringe) 50 ml Q15M PRN IV DECREASED GLUCOSE; Start 03/12/17 at 19:00 Glucagon (Glucagen) 1 mg Q15M PRN IM DECREASED GLUCOSE; Start 03/12/17 at 19: 00 Glucose (Glutose) 15 gm Q15M PRN BUCCAL DECREASED GLUCOSE; Start 03/12/17 at 19:00 Acetaminophen 650 mg 650 mg Q4H PRN NGT PAIN AND OR ELEVATED TEMP Last administered on 03/15/17 17:43; Admin Dose 650 MG; Start 03/12/17 at 22:00 Piperacillin Sod/ Tazobactam Sod (Zosyn 3.375gm/ 50 ml (Pmx)) 50 ml @ 100 mls/ hr Q8 IVPB Last administered on 03/16/17 06:00; Admin Dose 100 MLS/HR; Start 03/13/17 at 06:00; Status Future Hold Carvedilol 12.5 mg 12.5 mg BID NGT Last administered on 03/16/17 08:26; Admin Dose 12.5 MG; Start 03/13/17 at 21:00 Fentanyl (Sublimaze) 100 ml @ 2.5 mls/hr TITRATE IV ; Start 03/14/17 at 14:00 Insulin Glargine 18 unit 18 unit DAILY@08 SC Last administered on 03/16/17 08 :48; Admin Dose 18 UNIT; Start 03/15/17 at 08:00 Propofol (Diprivan) 100 ml @ 3 mls/hr Q12H IV Last administered on 03/16/17 08:24; Admin Dose 1.2 MLS/HR; Start 03/14/17 at 19:30 Desmopressin Acetate (Ddavp) 2 mcg BID SC Last administered on 03/15/17 21:16 ; Admin Dose 2 MCG; Start 03/15/17 at 12:00 Phenytoin 100 mg 100 mg TID PO Last administered on 03/16/17 08:26; Admin Dose 100 MG; Start 03/15/17 at 21:00 Cefazolin Sodium 50 ml @ 100 mls/hr Q8 IVPB Last administered on 03/16/17 05 :59; Admin Dose 100 MLS/HR; Start 03/15/17 at 22:00 Dextrose (D5W) 1,000 ml @ 75 mls/hr [id number] IV ; Start 03/16/17 at 09:30 ZACK ROSENTHAL Mar 16, 2017 10:22
[2017-03-16] MEDS: DEXTROSE 5% 1,000 ML IV SCH (11:04)
[2017-03-16] MEDS: DESMOPRESSIN 4 MCG INJ SC SCH ×2 (11:13→21:27)
--- NOTE | 2017-03-16 12:43 | CONS ---
Date/Time of Note Date/Time of Note DATE: 03/16/17 TIME: 12:40 Consult Date/Type/Reason Admit Date/Time Mar 10, 2017 at 03:25 Initial Consult Date 03/10/17 Type of Consultation: Neurology Reason for Consultation hypoxic injury Ordering Provider: JESSICA DIAZ Subjective no further seizures roving eye movements MRI confirms hypoxic injury Objective Vital Signs Date Time Temp Pulse Resp B/P Pulse Ox O2 Delivery O2 Flow Rate FiO2 03/16/17 11:03 65 18 100 30 03/16/17 11:00 104/48 Mechanical Ventilator 03/16/17 08:00 99.8 Intake and Output 03/15/17 03/15/17 03/16/17 15:00 23:00 07:00 Intake Total 793.66 ml 1036.4 ml 1389.6 ml Output Total 710 ml 522 ml 335 ml Balance 83.66 ml 514.4 ml 1054.6 ml Exam unresponsive to verbal stimuli unable to follow commands or open eyes to voice CN: sluggish pupils sluggish corneal roving eye movements Motor: absent w/d to extremities Results/Medications Result Diagram: 03/16/17 0430 03/16/17 0430 Results 24 hrs Laboratory Tests Test 03/15/17 14:42 03/15/17 17:17 03/15/17 20:40 03/16/17 01:04 Bedside Glucose 157 174 185 214 Test 03/16/17 04:22 03/16/17 04:30 03/16/17 08:45 Bedside Glucose 207 265 H White Blood Count 6.9 Red Blood Count 3.14 L Hemoglobin 7.9 L Hematocrit 26.5 L Mean Corpuscular Volume 84.4 Mean Corpuscular Hemoglobin 25.2 L Mean Corpuscular Hemoglobin Concent 29.8 L Red Cell Distribution Width 17.6 H Platelet Count 240 Mean Platelet Volume 11.8 H Neutrophils % 69.0 Lymphocytes % 16.5 Monocytes % 9.6 Eosinophils % 3.5 Basophils % 0.4 Nucleated Red Blood Cells % 0.3 H Neutrophils # 4.8 Lymphocytes # 1.1 Monocytes # 0.7 Eosinophils # 0.2 Basophils # 0.0 Nucleated Red Blood Cells # 0.0 Sodium Level 152 H Potassium Level 3.9 Chloride Level 110 Carbon Dioxide Level 25 Anion Gap 21 H Blood Urea Nitrogen 51 H Creatinine 1.48 H Glucose Level 201 Calcium Level 9.3 Magnesium Level 2.2 Medications Current Medications Ticagrelor 90 mg 90 mg BID PO Last administered on 03/16/17 08:28; Admin Dose 90 MG; Start 03/10/17 at 09:00 Midazolam HCl (Versed) 50 ml @ 1 mls/hr TITRATE IV Last administered on 07:13; Admin Dose 2 MLS/HR; Start 03/10/17 at 03:30 Aspirin (Aspirin) 81 mg DAILY PO Last administered on 03/16/17 08:26; Admin Dose 81 MG; Start 03/10/17 at 09:00 Acetaminophen (Tylenol Supp) 650 mg Q4H PRN [place] PAIN LEVEL 1-3 OR FEVER Last administered on 03/12/17 21:15; Admin Dose 650 MG; Start 03/10/17 at 04:00 Eye Lubricant (Akwa Oint) 1 applic Q6 BOTH EYES Last administered on 05:57; Admin Dose 1 APPLIC; Start 03/10/17 at 06:00 Eye Lubricant (Artificial Tears Oph) 2 drop Q6 BOTH EYES Last administered on 03/16/17 11:59; Admin Dose 2 DROP; Start 03/10/17 at 06:00 Famotidine (Pepcid) 20 mg DAILY PO Last administered on 03/16/17 08:26; Admin Dose 20 MG; Start 03/11/17 at 09:00 Meperidine HCl (Demerol) 12.5 mg Q4H PRN IV POST OPERATIVE SHIVERING; Start at 12:30 Meperidine HCl 25 mg 25 mg Q4H PRN IV POST OPERATIVE SHIVERING Last administered on 03/10/17 12:34; Admin Dose 25 MG; Start 03/10/17 at 12:30 Levetiracetam (Keppra 1,000mg/ 100ml (Pmx)) 100 ml @ 400 mls/hr Q12 IVPB Last administered on 03/16/17 08:37; Admin Dose 400 MLS/HR; Start 03/10/17 at 21: 00 Acetaminophen (Tylenol Liquid) 500 mg DAILY NGT Last administered on 08:26; Admin Dose 500 MG; Start 03/11/17 at 06:00 Insulin Aspart (Novolog Insulin Pen) NOVOLOG *MILD* ALGORI... Q4 SC Last administered on 03/16/17 08:50; Admin Dose 4 UNIT; Start 03/12/17 at 01:00 Furosemide (Lasix) 20 mg DAILY@06 IV Last administered on 03/16/17 06:00; Admin Dose 20 MG; Start 03/13/17 at 06:00 Atorvastatin Calcium (Lipitor) 40 mg DAILY@21 PO Last administered on 20:37; Admin Dose 40 MG; Start 03/12/17 at 21:00 Miscellaneous Information 1 ea NOTE XX ; Start 03/12/17 at 19:00 Glucose (Glutose) 15 gm Q15M PRN PO DECREASED GLUCOSE; Start 03/12/17 at 19:00 Glucose (Glutose) 22.5 gm Q15M PRN PO DECREASED GLUCOSE; Start 03/12/17 at 19: 00 Dextrose (D50w Syringe) 25 ml Q15M PRN IV DECREASED GLUCOSE; Start 03/12/17 at 19:00 Dextrose (D50w Syringe) 50 ml Q15M PRN IV DECREASED GLUCOSE; Start 03/12/17 at 19:00 Glucagon (Glucagen) 1 mg Q15M PRN IM DECREASED GLUCOSE; Start 03/12/17 at 19: 00 Glucose (Glutose) 15 gm Q15M PRN BUCCAL DECREASED GLUCOSE; Start 03/12/17 at 19:00 Acetaminophen 650 mg 650 mg Q4H PRN NGT PAIN AND OR ELEVATED TEMP Last administered on 03/15/17 17:43; Admin Dose 650 MG; Start 03/12/17 at 22:00 Piperacillin Sod/ Tazobactam Sod (Zosyn 3.375gm/ 50 ml (Pmx)) 50 ml @ 100 mls/ hr Q8 IVPB Last administered on 03/16/17 06:00; Admin Dose 100 MLS/HR; Start 03/13/17 at 06:00; Status Future Hold Carvedilol 12.5 mg 12.5 mg BID NGT Last administered on 03/16/17 08:26; Admin Dose 12.5 MG; Start 03/13/17 at 21:00 Fentanyl (Sublimaze) 100 ml @ 2.5 mls/hr TITRATE IV ; Start 03/14/17 at 14:00 Insulin Glargine 18 unit 18 unit DAILY@08 SC Last administered on 03/16/17 08 :48; Admin Dose 18 UNIT; Start 03/15/17 at 08:00 Propofol (Diprivan) 100 ml @ 3 mls/hr Q12H IV Last administered on 03/16/17 08:24; Admin Dose 1.2 MLS/HR; Start 03/14/17 at 19:30 Desmopressin Acetate (Ddavp) 2 mcg BID SC Last administered on 03/16/17 11:13 ; Admin Dose 2 MCG; Start 03/15/17 at 12:00 Phenytoin 100 mg 100 mg TID PO Last administered on 03/16/17 08:26; Admin Dose 100 MG; Start 03/15/17 at 21:00 Cefazolin Sodium 50 ml @ 100 mls/hr Q8 IVPB Last administered on 03/16/17 05 :59; Admin Dose 100 MLS/HR; Start 03/15/17 at 22:00 Dextrose (D5W) 1,000 ml @ 75 mls/hr [id number] IV Last administered on 11:04; Admin Dose 75 MLS/HR; Start 03/16/17 at 09:30 Assessment/Plan Chief Complaint/Hosp Course 71 yo female admitted with cardiac arrest s/p LAD stent, on hypothermia protocol suspected seizure activity. CTH no acute process. 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
[2017-03-16] MEDS: ATORVASTATIN 40 MG TAB PO SCH (21:25)
[2017-03-17] VITALS (40 sets, daily range): BP systolic 114–176; BP diastolic 66–128; PULSE 65–133; RESP 18–28
[2017-03-17] MEDS: ARTIFICIAL TEARS 15 ML OPH BOTH EYES SCH ×5 (00:24→23:04)
[2017-03-17] MEDS: DEXTROSE 5% 1,000 ML IV SCH (01:50)
[2017-03-17] MEDS: INSULIN ASPART [NOVOLOG] 3 ML PEN SC SCH ×6 (01:55→20:19)
[2017-03-17 05:18] LABS: BASOPHILS % 0.3 % (0.0-2.0); EOSINOPHILS # 0.3 10^3/ul (0.0-0.5); HEMOGLOBIN 7.8 g/dl (12.0-16.0); LYMPHOCYTES # 1.2 10^3/ul (0.8-2.9); LYMPHOCYTES % 12.6 % (15.0-51.0); MEAN CORPUSCULAR HEMOGLOBIN 25.6 pg (29.0-33.0); MEAN CORPUSCULAR HGB CONC 31.2 g/dl (32.0-37.0); MEAN PLATELET VOLUME 11.8 fl (7.4-10.4); MONOCYTE # 0.6 10^3/ul (0.3-0.9); MONOCYTES % 5.9 % (0.0-11.0); NEUTROPHIL # 7.5 10^3/ul (1.6-7.5); NEUTROPHILS % 76.5 % (39.0-77.0); NUCLEATED RED BLOOD CELLS% 0.2 /100WBC (0.0-0.0); PLATELET COUNT 233 10^3/UL (140-415); RED BLOOD COUNT 3.05 10^6/ul (4.20-5.40); RED CELL DISTRIBUTION WIDTH 17.2 % (11.5-14.5); WHITE BLOOD COUNT 9.8 10^3/ul (4.8-10.8)
[2017-03-17 05:49] LABS: CALCIUM 9.3 mg/dl (8.4-10.2); CREATININE 1.05 mg/dl (0.44-1.00); MAGNESIUM 1.9 mg/dl (1.7-2.5); PHOSPHORUS 4.4 mg/dl (2.5-4.9); POTASSIUM 3.4 mmol/L (3.5-5.1)
[2017-03-17] MEDS: FUROSEMIDE 20 MG INJ IV SCH (06:07)
[2017-03-17] MEDS: CEFAZOLIN 1 GM/50 ML (PMX) 50 ML IVPB SCH ×3 (06:07→21:35)
[2017-03-17] MEDS: OCULAR LUBRICANT 3.5 GM OPH OINT BOTH EYES SCH ×5 (06:08→23:05)
[2017-03-17] MEDS ORDERED: POTASSIUM CHLORIDE 50 ML IVPB ONE (08:30)
--- NOTE | 2017-03-17 08:34 | RADRPT ---
PROCEDURE: XR Chest 1 view. CLINICAL INDICATION: Shortness of breath. TECHNIQUE: Single views of the chest was obtained. COMPARISON: Yesterday FINDINGS: The heart is large. Calcified atherosclerosis is noted in the aorta. Endotracheal and nasogastric t ubes are stable and appear in grossly appropriate location. Central pulmonary vascular congestion an d interstitial prominence is seen in both lungs. Left perihilar and lower lung infiltrates, combined small to moderate pleural effusion have increased. Right perihilar and lower lung infiltrates, comb ined small to moderate pleural effusion have also increased. The osseous structures are unchanged. IMPRESSION: Cardiomegaly with calcified atherosclerosis in the aorta. Central pulmonary vascular congestion and interstitial prominence in both lungs. Interval increase in bilateral perihilar and lower lung infiltrates, combined with small to moderate pleural effusions. RPTAT: AA .Zheng nAderson MD, Date Time Electronically viewed and signed by .Zheng Anderson MD, on 03/17/2017 08:34 .P/
[2017-03-17] MEDS: DESMOPRESSIN 4 MCG INJ SC SCH (09:00)
[2017-03-17] MEDS: PROPOFOL 100 ML IV SCH (09:09)
[2017-03-17] MEDS ORDERED: INSULIN GLARGINE [LANtus] 3 ML PEN SC ONE (09:30)
[2017-03-17] MEDS: LEVETIRACETAM 1000 MG (PMX) 100 ML IVPB SCH ×2 (09:30→20:03)
[2017-03-17] MEDS: ACETAMINOPHEN 650MG/20.3ML CUP NGT SCH (09:31)
[2017-03-17] MEDS: SOD CHLORIDE 0.45% 1,000 ML IV SCH ×2 (09:31→21:35)
[2017-03-17] MEDS: ASPIRIN 81 MG TAB PO SCH (09:32)
[2017-03-17] MEDS: PHENYTOIN 100 MG CAP PO SCH ×3 (09:32→20:03)
[2017-03-17] MEDS: FAMOTIDINE 20 MG TAB PO SCH (09:32)
[2017-03-17] MEDS: POTASSIUM CHLORIDE 50 ML IVPB SCH ×2 (09:33→10:58)
[2017-03-17] MEDS: TICAGRELOR 90 MG TABLET PO SCH ×2 (09:38→20:07)
--- NOTE | 2017-03-17 09:43 | PN ---
Date/Time of Note Date/Time of Note DATE: 03/17/17 TIME: 09:28 Assessment/Plan VTE Prophylaxis VTE Prophylaxis Intervention: SCD's Lines/Catheters IV [facility]from [facility] Central Line Central line still needed: Yes Urinary Cath still in place: Yes Reason Cath still needed: urinary retention Assessment/Plan Chief Complaint/Hosp Course Assessment/Plan: 71 yo F presented following cardiac arrest 2/2 STEMI for which pt underwent PCI. sp hypothermia protocol without a great deal of demonstration of significant neurological recovery. 1. anoxic brain injury -likely secondary to cardiac arrest -neuro on consult. MRI brain results noted. On Keppra presently, no seizures noted presently -vent weaning as per pulm 2. fevers: central v UTI v ?PNA .16 urine culture noted. 03.13 blood culture consistent with contaminant.respiratory culture with corynybactereum. unclear if this represents colonization v true infection. - for now continue current antibiotics 3. STEMI sp PCI: DAPT -Continue BP meds, statin as per cardiology -amio as per cardiology 4. preDM: a1c 6.1, insulin SubQ, sugars in the mid 200 range presently, had been on D5W IVF's in last 24 hrs as well. -Monitor 5. subclinical hyperthyroid: can be addressed in outpatient setting 6. LUIS FELIPE: improving now, creatinine trending down close to normal range -Change IV fluids to half-normal saline, monitor ins and outs, BUN/creatinine levels 7. Hypernatremia: Resolving, sodium 152 -> 145 -Half-normal saline, monitor BMP in the a.m. 8. FEN: TFs GOALS OF CARE/DISPO: brief family meeting held 2 days ago pt's patient's spokesperson (grandson) and 3 of her children. I spoke with family this morning as well with further updates. Discussed with family that heart is working well and beating on its own, but she does not have a gag reflex, doesn' t respond to pain and isn't breathing much over the vent. Pt not brain , but less likelihood of MEANINGFUL neurologic recovery. Family is meeting with palliative care team at 11 AM today. Upon speaking with pulmonary team this morning, patient is opening eyes appears a bit more alert, but again not following commands overall, and at this time pt is not showing significant evidence of neurologic recovery 2/2 the time her brain was deprived of oxygen when she had her heart attack. Family indicated this morning at this time they do not wish to have tracheostomy or G-tube placement, again they are meeting with palliative care team later today to further discuss this. Ensured family that we will respect their wishes and facilitate care regarding their decision. Follow-up palliative consult. Critical care time spent on patient care today equals 50 minutes Problems: Subjective 24 Hr Interval Summary Free Text/Dictation Family frustrated with time of meeting with physicians in the last 24 hours, otherwise no acute events overnight for patient, still intubated. Seen by neurology and cardiology teams yesterday. Seen by pulmonary team this morning. Exam/Review of Systems Vital Signs Vitals Vital Signs Date Time Temp Pulse Resp B/P Pulse Ox O2 Delivery O2 Flow Rate FiO2 03/17/17 08:00 129 03/17/17 08:00 100.1 24 161/92 95 Mechanical Ventilator 03/17/17 05:30 30 Intake and Output 03/16/17 03/16/17 03/17/17 15:00 23:00 07:00 Intake Total 1103.6 ml 950 ml 1970 ml Output Total 535 ml 677 ml 740 ml Balance 568.6 ml 273 ml 1230 ml Exam Intubated, not responding to pain on minimal sedation Slightly decreased breath sounds S1, S2 heard no mrg abd soft no lower extremity edema bilaterally Results Result Diagram: 03/17/1739903/17/17 0400 Results 24 hrs Laboratory Tests Test 03/16/17 14:35 03/16/17 16:50 03/16/17 17:55 03/16/17 21:35 Bedside Glucose 212 241 H 231 H 237 H Test 03/17/17 01:53 03/17/17 04:00 03/17/17 05:04 Bedside Glucose 284 H 240 H White Blood Count 9.8 # Red Blood Count 3.05 L Hemoglobin 7.8 L Hematocrit 25.0 L Mean Corpuscular Volume 82.0 Mean Corpuscular Hemoglobin 25.6 L Mean Corpuscular Hemoglobin Concent 31.2 L Red Cell Distribution Width 17.2 H Platelet Count 233 Mean Platelet Volume 11.8 H Neutrophils % 76.5 Lymphocytes % 12.6 L Monocytes % 5.9 Eosinophils % 3.0 Basophils % 0.3 Nucleated Red Blood Cells % 0.2 H Neutrophils # 7.5 Lymphocytes # 1.2 Monocytes # 0.6 Eosinophils # 0.3 Basophils # 0.0 Nucleated Red Blood Cells # 0.0 Sodium Level 145 H Potassium Level 3.4 L Chloride Level 108 Carbon Dioxide Level 25 Anion Gap 15 Blood Urea Nitrogen 45 H Creatinine 1.05 H Glucose Level 231 H Calcium Level 9.3 Phosphorus Level 4.4 Magnesium Level 1.9 Medications Medications Current Medications Ticagrelor 90 mg 90 mg BID PO Last administered on 03/16/17 21:36; Admin Dose 90 MG; Start 03/10/17 at 09:00 Midazolam HCl (Versed) 50 ml @ 1 mls/hr TITRATE IV Last administered on 07:13; Admin Dose 2 MLS/HR; Start 03/10/17 at 03:30 Aspirin (Aspirin) 81 mg DAILY PO Last administered on 03/16/17 08:26; Admin Dose 81 MG; Start 03/10/17 at 09:00 Acetaminophen (Tylenol Supp) 650 mg Q4H PRN [place] PAIN LEVEL 1-3 OR FEVER Last administered on 03/12/17 21:15; Admin Dose 650 MG; Start 03/10/17 at 04:00 Eye Lubricant (Akwa Oint) 1 applic Q6 BOTH EYES Last administered on 06:08; Admin Dose 1 APPLIC; Start 03/10/17 at 06:00 Eye Lubricant (Artificial Tears Oph) 2 drop Q6 BOTH EYES Last administered on 03/17/17 06:07; Admin Dose 2 DROP; Start 03/10/17 at 06:00 Famotidine (Pepcid) 20 mg DAILY PO Last administered on 03/16/17 08:26; Admin Dose 20 MG; Start 03/11/17 at 09:00 Meperidine HCl (Demerol) 12.5 mg Q4H PRN IV POST OPERATIVE SHIVERING; Start at 12:30 Meperidine HCl 25 mg 25 mg Q4H PRN IV POST OPERATIVE SHIVERING Last administered on 03/10/17 12:34; Admin Dose 25 MG; Start 03/10/17 at 12:30 Levetiracetam (Keppra 1,000mg/ 100ml (Pmx)) 100 ml @ 400 mls/hr Q12 IVPB Last administered on 03/16/17 21:27; Admin Dose 400 MLS/HR; Start 03/10/17 at 21: 00 Acetaminophen (Tylenol Liquid) 500 mg DAILY NGT Last administered on 08:26; Admin Dose 500 MG; Start 03/11/17 at 06:00 Insulin Aspart (Novolog Insulin Pen) NOVOLOG *MILD* ALGORI... Q4 SC Last administered on 03/17/17 05:12; Admin Dose 3 UNIT; Start 03/12/17 at 01:00 Furosemide (Lasix) 20 mg DAILY@06 IV Last administered on 03/17/17 06:07; Admin Dose 20 MG; Start 03/13/17 at 06:00 Atorvastatin Calcium (Lipitor) 40 mg DAILY@21 PO Last administered on 21:25; Admin Dose 40 MG; Start 03/12/17 at 21:00 Miscellaneous Information 1 ea NOTE XX ; Start 03/12/17 at 19:00 Glucose (Glutose) 15 gm Q15M PRN PO DECREASED GLUCOSE; Start 03/12/17 at 19:00 Glucose (Glutose) 22.5 gm Q15M PRN PO DECREASED GLUCOSE; Start 03/12/17 at 19: 00 Dextrose (D50w Syringe) 25 ml Q15M PRN IV DECREASED GLUCOSE; Start 03/12/17 at 19:00 Dextrose (D50w Syringe) 50 ml Q15M PRN IV DECREASED GLUCOSE; Start 03/12/17 at 19:00 Glucagon (Glucagen) 1 mg Q15M PRN IM DECREASED GLUCOSE; Start 03/12/17 at 19: 00 Glucose (Glutose) 15 gm Q15M PRN BUCCAL DECREASED GLUCOSE; Start 03/12/17 at 19:00 Acetaminophen 650 mg 650 mg Q4H PRN NGT PAIN AND OR ELEVATED TEMP Last administered on 03/15/17 17:43; Admin Dose 650 MG; Start 03/12/17 at 22:00 Piperacillin Sod/ Tazobactam Sod (Zosyn 3.375gm/ 50 ml (Pmx)) 50 ml @ 100 mls/ hr Q8 IVPB Last administered on 03/16/17 06:00; Admin Dose 100 MLS/HR; Start 03/13/17 at 06:00; Status Future Hold Carvedilol 12.5 mg 12.5 mg BID NGT Last administered on 03/16/17 21:26; Admin Dose 12.5 MG; Start 03/13/17 at 21:00 Fentanyl 100 ml @ 2.5 mls/hr TITRATE IV ; Start 03/14/17 at 14:00 Propofol (Diprivan) 100 ml @ 3 mls/hr Q12H IV Last administered on 03/16/17 08:24; Admin Dose 1.2 MLS/HR; Start 03/14/17 at 19:30 Desmopressin Acetate (Ddavp) 2 mcg BID SC Last administered on 03/16/17 21:27 ; Admin Dose 2 MCG; Start 03/15/17 at 12:00 Phenytoin 100 mg 100 mg TID PO Last administered on 03/16/17 21:26; Admin Dose 100 MG; Start 03/15/17 at 21:00 Cefazolin Sodium 50 ml @ 100 mls/hr Q8 IVPB Last administered on 03/17/17 06 :07; Admin Dose 100 MLS/HR; Start 03/15/17 at 22:00 Potassium Chloride (KCl 10 MEQ/50 ML SW) 50 ml @ 50 mls/hr Q1H IVPB ; Start at 09:00; Stop 03/17/17 at 10:59 Insulin Glargine 26 unit 26 unit DAILY@08 SC ; Start 03/18/17 at 08:00 Sodium Chloride (1/2 NS) 1,000 ml @ 75 mls/hr [id number] IV ; Start 03/17/17 at 09:30 Insulin Glargine (Lantus) 26 unit ONCE ONCE SC ; Start 03/17/17 at 09:30; Stop 03/17/17 at 09:31 ANGELIQUE ARAYA 21, 2017 09:39
--- NOTE | 2017-03-17 11:18 | CONS ---
Date/Time of Note Date/Time of Note DATE: 03/17/17 TIME: 11:16 Consult Date/Type/Reason Admit Date/Time Mar 10, 2017 at 03:25 Initial Consult Date 03/10/17 Type of Consultation: Neurology Reason for Consultation hypoxic brain injury Ordering Provider: JESSICA DIAZ Subjective opens eyes intermittently no other improvement, cannot follow commands no seizures Objective Vital Signs Date Time Temp Pulse Resp B/P Pulse Ox O2 Delivery O2 Flow Rate FiO2 03/17/17 10:00 119 22 133/78 94 Mechanical Ventilator 03/17/17 08:00 100.1 03/17/17 05:30 30 Intake and Output 03/16/17 03/16/17 03/17/17 15:00 23:00 07:00 Intake Total 1103.6 ml 950 ml 1970 ml Output Total 535 ml 677 ml 740 ml Balance 568.6 ml 273 ml 1230 ml Exam intermittently opens eyes unable to follow commands CN: sluggish pupils sluggish corneal roving eye movements Motor: absent w/d to extremities Results/Medications Result Diagram: 03/17/17 0400 03/17/17 0400 Results 24 hrs Laboratory Tests Test 03/16/17 14:35 03/16/17 16:50 03/16/17 17:55 03/16/17 21:35 Bedside Glucose 212 241 H 231 H 237 H Test 03/17/17 01:53 03/17/17 04:00 03/17/17 05:04 03/17/17 09:25 Bedside Glucose 284 H 240 H 256 H White Blood Count 9.8 # Red Blood Count 3.05 L Hemoglobin 7.8 L Hematocrit 25.0 L Mean Corpuscular Volume 82.0 Mean Corpuscular Hemoglobin 25.6 L Mean Corpuscular Hemoglobin Concent 31.2 L Red Cell Distribution Width 17.2 H Platelet Count 233 Mean Platelet Volume 11.8 H Neutrophils % 76.5 Lymphocytes % 12.6 L Monocytes % 5.9 Eosinophils % 3.0 Basophils % 0.3 Nucleated Red Blood Cells % 0.2 H Neutrophils # 7.5 Lymphocytes # 1.2 Monocytes # 0.6 Eosinophils # 0.3 Basophils # 0.0 Nucleated Red Blood Cells # 0.0 Sodium Level 145 H Potassium Level 3.4 L Chloride Level 108 Carbon Dioxide Level 25 Anion Gap 15 Blood Urea Nitrogen 45 H Creatinine 1.05 H Glucose Level 231 H Calcium Level 9.3 Phosphorus Level 4.4 Magnesium Level 1.9 Medications Current Medications Ticagrelor 90 mg 90 mg BID PO Last administered on 03/17/17 09:38; Admin Dose 90 MG; Start 03/10/17 at 09:00 Midazolam HCl (Versed) 50 ml @ 1 mls/hr TITRATE IV Last administered on 07:13; Admin Dose 2 MLS/HR; Start 03/10/17 at 03:30 Aspirin (Aspirin) 81 mg DAILY PO Last administered on 03/17/17 09:32; Admin Dose 81 MG; Start 03/10/17 at 09:00 Acetaminophen (Tylenol Supp) 650 mg Q4H PRN [place] PAIN LEVEL 1-3 OR FEVER Last administered on 03/12/17 21:15; Admin Dose 650 MG; Start 03/10/17 at 04:00 Eye Lubricant (Akwa Oint) 1 applic Q6 BOTH EYES Last administered on 06:08; Admin Dose 1 APPLIC; Start 03/10/17 at 06:00 Eye Lubricant (Artificial Tears Oph) 2 drop Q6 BOTH EYES Last administered on 03/17/17 06:07; Admin Dose 2 DROP; Start 03/10/17 at 06:00 Famotidine (Pepcid) 20 mg DAILY PO Last administered on 03/17/17 09:32; Admin Dose 20 MG; Start 03/11/17 at 09:00 Meperidine HCl (Demerol) 12.5 mg Q4H PRN IV POST OPERATIVE SHIVERING; Start at 12:30 Meperidine HCl 25 mg 25 mg Q4H PRN IV POST OPERATIVE SHIVERING Last administered on 03/10/17 12:34; Admin Dose 25 MG; Start 03/10/17 at 12:30 Levetiracetam (Keppra 1,000mg/ 100ml (Pmx)) 100 ml @ 400 mls/hr Q12 IVPB Last administered on 03/17/17 09:30; Admin Dose 400 MLS/HR; Start 03/10/17 at 21: 00 Acetaminophen (Tylenol Liquid) 500 mg DAILY NGT Last administered on 09:31; Admin Dose 500 MG; Start 03/11/17 at 06:00 Insulin Aspart (Novolog Insulin Pen) NOVOLOG *MILD* ALGORI... Q4 SC Last administered on 03/17/17 09:35; Admin Dose 3 UNIT; Start 03/12/17 at 01:00 Atorvastatin Calcium (Lipitor) 40 mg DAILY@21 PO Last administered on 21:25; Admin Dose 40 MG; Start 03/12/17 at 21:00 Miscellaneous Information 1 ea NOTE XX ; Start 03/12/17 at 19:00 Glucose (Glutose) 15 gm Q15M PRN PO DECREASED GLUCOSE; Start 03/12/17 at 19:00 Glucose (Glutose) 22.5 gm Q15M PRN PO DECREASED GLUCOSE; Start 03/12/17 at 19: 00 Dextrose (D50w Syringe) 25 ml Q15M PRN IV DECREASED GLUCOSE; Start 03/12/17 at 19:00 Dextrose (D50w Syringe) 50 ml Q15M PRN IV DECREASED GLUCOSE; Start 03/12/17 at 19:00 Glucagon (Glucagen) 1 mg Q15M PRN IM DECREASED GLUCOSE; Start 03/12/17 at 19: 00 Glucose (Glutose) 15 gm Q15M PRN BUCCAL DECREASED GLUCOSE; Start 03/12/17 at 19:00 Acetaminophen 650 mg 650 mg Q4H PRN NGT PAIN AND OR ELEVATED TEMP Last administered on 03/15/17 17:43; Admin Dose 650 MG; Start 03/12/17 at 22:00 Piperacillin Sod/ Tazobactam Sod (Zosyn 3.375gm/ 50 ml (Pmx)) 50 ml @ 100 mls/ hr Q8 IVPB Last administered on 03/16/17 06:00; Admin Dose 100 MLS/HR; Start 03/13/17 at 06:00; Status Future Hold Carvedilol 12.5 mg 12.5 mg BID NGT Last administered on 03/17/17 09:32; Admin Dose 12.5 MG; Start 03/13/17 at 21:00 Fentanyl (Sublimaze) 100 ml @ 2.5 mls/hr TITRATE IV ; Start 03/14/17 at 14:00 Phenytoin 100 mg 100 mg TID PO Last administered on 03/17/17 09:32; Admin Dose 100 MG; Start 03/15/17 at 21:00 Cefazolin Sodium (Ancef 1 Gm/50 ml (Pmx)) 50 ml @ 100 mls/hr Q8 IVPB Last administered on 03/17/17 06:07; Admin Dose 100 MLS/HR; Start 03/15/17 at 22: 00 Insulin Glargine 26 unit 26 unit DAILY@08 SC ; Start 03/18/17 at 08:00 Sodium Chloride (1/2 NS) 1,000 ml @ 75 mls/hr [id number] IV Last administered on 03/17/17 09:31; Admin Dose 75 MLS/HR; Start 03/17/17 at 09:30 Assessment/Plan Chief Complaint/Hosp Course 71 yo female admitted with cardiac arrest s/p LAD stent, on hypothermia protocol suspected seizure activity. CTH no acute process. 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
--- NOTE | 2017-03-17 11:45 | CONS ---
Date/Time of Note Date/Time of Note DATE: 03/17/17 TIME: 11:41 Assessment/Plan Assessment/Plan Chief Complaint/Hosp Course Paroxysmal afib: new onset. In and out of afib. If meaningful recovery, will consider anticoagulation. Back in afib Anterior STEMI/CAD: s/p PCI of ulcerated 99% mid LAD lesion. EF by echo is preserved Cardiac arrest: likely due to arrhythmia related to above but unclear rhythm when paramedics arrived. Also with significant pulm edema so respiratory arrest/ PEA also possible Acute diastolic heart failure: Significant pulm edema by CXR. LVEDP 27 by cath. Improved with diuresis Acute respiratory failure: on vent due to above Acute renal failure: Cr fluctuating Anemia: no active bleeding Fevers: ?central vs infectious. Urine + E coli Anoxic brain injury: per family, pt may have been pulseless for 10 mins prior to shell grader arrival. Unclear rhythm. MRI confirms anoxic brain injury Seizures vs myoclonic jerks -lasix being held and IVF started. CXR looks worse today though so would consider stopping IVF and restarting diuresis -coreg 12.5mg BID -continue ASA, ticagrelor, lipitor -antibiotics per primary Problems: Consultation Date/Type/Reason Admit Date/Time Mar 10, 2017 at 03:25 Initial Consult Date 03/10/17 Type of Consultation: Cardiology Referring Provider: JESSICA DIAZ 24 HR Interval Summary Free Text/Dictation No o/n events. Remains unresponsive. Exam/Review of Systems Vital Signs Vitals Vital Signs Date Time Temp Pulse Resp B/P Pulse Ox O2 Delivery O2 Flow Rate FiO2 03/17/17 10:00 119 22 133/78 94 Mechanical Ventilator 03/17/17 08:00 100.1 03/17/17 05:30 30 Intake and Output 03/16/17 03/16/17 03/17/17 14:59 22:59 06:59 Intake Total 1069.8 ml 910 ml 1970 ml Output Total 639 ml 616 ml 801 ml Balance 430.8 ml 294 ml 1169 ml Exam Constitutional: No alert, No oriented Psych: nl mood/affect, no complaints ENMT: intubated Neck: No jvd (unable to assess ) Respiratory: diminished breath sounds, No clear to auscultation Cardiovascular: edema (1+), No regular rate and rhythm (IRIR), No systolic murmur Musculoskeletal: nl extremities to inspection Neurological: No nl mental status, No nl speech Results Result Diagram: 03/17/17 0400 03/17/17 0400 Results 24 hrs Laboratory Tests Test 03/16/17 14:35 03/16/17 16:50 03/16/17 17:55 03/16/17 21:35 Bedside Glucose 212 241 H 231 H 237 H Test 03/17/17 01:53 03/17/17 04:00 03/17/17 05:04 03/17/17 09:25 Bedside Glucose 284 H 240 H 256 H White Blood Count 9.8 # Red Blood Count 3.05 L Hemoglobin 7.8 L Hematocrit 25.0 L Mean Corpuscular Volume 82.0 Mean Corpuscular Hemoglobin 25.6 L Mean Corpuscular Hemoglobin Concent 31.2 L Red Cell Distribution Width 17.2 H Platelet Count 233 Mean Platelet Volume 11.8 H Neutrophils % 76.5 Lymphocytes % 12.6 L Monocytes % 5.9 Eosinophils % 3.0 Basophils % 0.3 Nucleated Red Blood Cells % 0.2 H Neutrophils # 7.5 Lymphocytes # 1.2 Monocytes # 0.6 Eosinophils # 0.3 Basophils # 0.0 Nucleated Red Blood Cells # 0.0 Sodium Level 145 H Potassium Level 3.4 L Chloride Level 108 Carbon Dioxide Level 25 Anion Gap 15 Blood Urea Nitrogen 45 H Creatinine 1.05 H Glucose Level 231 H Calcium Level 9.3 Phosphorus Level 4.4 Magnesium Level 1.9 Medications Medications Current Medications Ticagrelor 90 mg 90 mg BID PO Last administered on 03/17/17 09:38; Admin Dose 90 MG; Start 03/10/17 at 09:00 Midazolam HCl (Versed) 50 ml @ 1 mls/hr TITRATE IV Last administered on 07:13; Admin Dose 2 MLS/HR; Start 03/10/17 at 03:30 Aspirin (Aspirin) 81 mg DAILY PO Last administered on 03/17/17 09:32; Admin Dose 81 MG; Start 03/10/17 at 09:00 Acetaminophen (Tylenol Supp) 650 mg Q4H PRN [place] PAIN LEVEL 1-3 OR FEVER Last administered on 03/12/17 21:15; Admin Dose 650 MG; Start 03/10/17 at 04:00 Eye Lubricant (Akwa Oint) 1 applic Q6 BOTH EYES Last administered on 06:08; Admin Dose 1 APPLIC; Start 03/10/17 at 06:00 Eye Lubricant (Artificial Tears Oph) 2 drop Q6 BOTH EYES Last administered on 03/17/17 06:07; Admin Dose 2 DROP; Start 03/10/17 at 06:00 Famotidine (Pepcid) 20 mg DAILY PO Last administered on 03/17/17 09:32; Admin Dose 20 MG; Start 03/11/17 at 09:00 Meperidine HCl (Demerol) 12.5 mg Q4H PRN IV POST OPERATIVE SHIVERING; Start at 12:30 Meperidine HCl 25 mg 25 mg Q4H PRN IV POST OPERATIVE SHIVERING Last administered on 03/10/17 12:34; Admin Dose 25 MG; Start 03/10/17 at 12:30 Levetiracetam (Keppra 1,000mg/ 100ml (Pmx)) 100 ml @ 400 mls/hr Q12 IVPB Last administered on 03/17/17 09:30; Admin Dose 400 MLS/HR; Start 03/10/17 at 21: 00 Acetaminophen (Tylenol Liquid) 500 mg DAILY NGT Last administered on 09:31; Admin Dose 500 MG; Start 03/11/17 at 06:00 Insulin Aspart (Novolog Insulin Pen) NOVOLOG *MILD* ALGORI... Q4 SC Last administered on 03/17/17 09:35; Admin Dose 3 UNIT; Start 03/12/17 at 01:00 Atorvastatin Calcium (Lipitor) 40 mg DAILY@21 PO Last administered on 21:25; Admin Dose 40 MG; Start 03/12/17 at 21:00 Miscellaneous Information 1 ea NOTE XX ; Start 03/12/17 at 19:00 Glucose (Glutose) 15 gm Q15M PRN PO DECREASED GLUCOSE; Start 03/12/17 at 19:00 Glucose (Glutose) 22.5 gm Q15M PRN PO DECREASED GLUCOSE; Start 03/12/17 at 19: 00 Dextrose (D50w Syringe) 25 ml Q15M PRN IV DECREASED GLUCOSE; Start 03/12/17 at 19:00 Dextrose (D50w Syringe) 50 ml Q15M PRN IV DECREASED GLUCOSE; Start 03/12/17 at 19:00 Glucagon (Glucagen) 1 mg Q15M PRN IM DECREASED GLUCOSE; Start 03/12/17 at 19: 00 Glucose (Glutose) 15 gm Q15M PRN BUCCAL DECREASED GLUCOSE; Start 03/12/17 at 19:00 Acetaminophen 650 mg 650 mg Q4H PRN NGT PAIN AND OR ELEVATED TEMP Last administered on 03/15/17 17:43; Admin Dose 650 MG; Start 03/12/17 at 22:00 Piperacillin Sod/ Tazobactam Sod (Zosyn 3.375gm/ 50 ml (Pmx)) 50 ml @ 100 mls/ hr Q8 IVPB Last administered on 03/16/17 06:00; Admin Dose 100 MLS/HR; Start 03/13/17 at 06:00; Status Future Hold Carvedilol 12.5 mg 12.5 mg BID NGT Last administered on 03/17/17 09:32; Admin Dose 12.5 MG; Start 03/13/17 at 21:00 Fentanyl (Sublimaze) 100 ml @ 2.5 mls/hr TITRATE IV ; Start 03/14/17 at 14:00 Phenytoin 100 mg 100 mg TID PO Last administered on 03/17/17 09:32; Admin Dose 100 MG; Start 03/15/17 at 21:00 Cefazolin Sodium (Ancef 1 Gm/50 ml (Pmx)) 50 ml @ 100 mls/hr Q8 IVPB Last administered on 03/17/17 06:07; Admin Dose 100 MLS/HR; Start 03/15/17 at 22: 00 Insulin Glargine 26 unit 26 unit DAILY@08 SC ; Start 03/18/17 at 08:00 Sodium Chloride (1/2 NS) 1,000 ml @ 75 mls/hr [id number] IV Last administered on 03/17/17 09:31; Admin Dose 75 MLS/HR; Start 03/17/17 at 09:30 ZACK ROSENTHAL Mar 17, 2017 11:44
--- NOTE | 2017-03-17 12:16 | CONS ---
Date/Time of Note Date/Time of Note DATE: 03/17/17 TIME: 12:13 Assessment/Plan Assessment/Plan Additional Assessment/Plan Ventilator setting; AC of 18, tidal volume 500, PEEP of 5, 30% FiO2. Chest x-ray was reviewed from today which is showing mild pulmonary vascular congestion. Assessment and recommendations; 1. Patient admitted with acute NV status post stenting of LAD. 2. Status post hypothermia protocol. Patient still exhibiting poor mental status. 3. Atrial fibrillation. 4. Anemia. 5. Interval correction of hypernatremia. 6. Post anoxic seizures, currently well controlled. 7. Possibly some element of aspiration pneumonia. Radiologically improved. Continue current supportive care. Patient's family is contemplating possible terminal extubation. Prognosis remains poor. 35 minutes of critical care time was spent evaluating the patient. Consultation Date/Type/Reason Admit Date/Time Mar 10, 2017 at 03:25 Initial Consult Date 03/10/17 Type of Consultation: Pulmonary/critical care Referring Provider: JESSICA DIAZ 24 HR Interval Summary Free Text/Dictation Patient's condition remains critical. Still requiring full invasive mechanical ventilation. Patient is awake but unresponsive to any commands. Has remained hemodynamically stable. Next General exam; elderly female, orally intubated, awake but unresponsive to any commands. Currently in no distress. Exam/Review of Systems Vital Signs Vitals Vital Signs Date Time Temp Pulse Resp B/P Pulse Ox O2 Delivery O2 Flow Rate FiO2 03/17/17 12:00 99.9 109 23 135/80 96 Mechanical Ventilator 03/17/17 11:34 30 Intake and Output 03/16/17 03/16/17 03/17/17 15:00 23:00 07:00 Intake Total 1103.6 ml 950 ml 1970 ml Output Total 535 ml 677 ml 740 ml Balance 568.6 ml 273 ml 1230 ml Exam HEENT exam; supple neck, positive JVD. No lymphadenopathy. Midline trachea. No thyromegaly. Orally intubated. Patient is edentulous. Pupils are small bilaterally. Chest exam; diminished but clear breath sounds. S1-S2 audible, irregular rhythm. Abdomen exam; soft, protuberant. No organomegaly. Bowel sounds audible. Extremity exam; trace edema. [employer]ATE[employer]IST exam; patient awake but unresponsive to any commands. Results Result Diagram: 03/17/170 11/21/17 0400 Results 24 hrs Laboratory Tests Test 03/16/17 14:35 03/16/17 16:50 03/16/17 17:55 03/16/17 21:35 Bedside Glucose 212 241 H 231 H 237 H Test 03/17/17 01:53 03/17/17 04:00 03/17/17 05:04 03/17/17 09:25 Bedside Glucose 284 H 240 H 256 H White Blood Count 9.8 # Red Blood Count 3.05 L Hemoglobin 7.8 L Hematocrit 25.0 L Mean Corpuscular Volume 82.0 Mean Corpuscular Hemoglobin 25.6 L Mean Corpuscular Hemoglobin Concent 31.2 L Red Cell Distribution Width 17.2 H Platelet Count 233 Mean Platelet Volume 11.8 H Neutrophils % 76.5 Lymphocytes % 12.6 L Monocytes % 5.9 Eosinophils % 3.0 Basophils % 0.3 Nucleated Red Blood Cells % 0.2 H Neutrophils # 7.5 Lymphocytes # 1.2 Monocytes # 0.6 Eosinophils # 0.3 Basophils # 0.0 Nucleated Red Blood Cells # 0.0 Sodium Level 145 H Potassium Level 3.4 L Chloride Level 108 Carbon Dioxide Level 25 Anion Gap 15 Blood Urea Nitrogen 45 H Creatinine 1.05 H Glucose Level 231 H Calcium Level 9.3 Phosphorus Level 4.4 Magnesium Level 1.9 Medications Medications Current Medications Ticagrelor 90 mg 90 mg BID PO Last administered on 03/17/17 09:38; Admin Dose 90 MG; Start 03/10/17 at 09:00 Midazolam HCl (Versed) 50 ml @ 1 mls/hr TITRATE IV Last administered on 07:13; Admin Dose 2 MLS/HR; Start 03/10/17 at 03:30 Aspirin (Aspirin) 81 mg DAILY PO Last administered on 03/17/17 09:32; Admin Dose 81 MG; Start 03/10/17 at 09:00 Acetaminophen (Tylenol Supp) 650 mg Q4H PRN [place] PAIN LEVEL 1-3 OR FEVER Last administered on 03/12/17 21:15; Admin Dose 650 MG; Start 03/10/17 at 04:00 Eye Lubricant (Akwa Oint) 1 applic Q6 BOTH EYES Last administered on 06:08; Admin Dose 1 APPLIC; Start 03/10/17 at 06:00 Eye Lubricant (Artificial Tears Oph) 2 drop Q6 BOTH EYES Last administered on 03/17/17 06:07; Admin Dose 2 DROP; Start 03/10/17 at 06:00 Famotidine (Pepcid) 20 mg DAILY PO Last administered on 03/17/17 09:32; Admin Dose 20 MG; Start 03/11/17 at 09:00 Meperidine HCl (Demerol) 12.5 mg Q4H PRN IV POST OPERATIVE SHIVERING; Start at 12:30 Meperidine HCl 25 mg 25 mg Q4H PRN IV POST OPERATIVE SHIVERING Last administered on 03/10/17 12:34; Admin Dose 25 MG; Start 03/10/17 at 12:30 Levetiracetam (Keppra 1,000mg/ 100ml (Pmx)) 100 ml @ 400 mls/hr Q12 IVPB Last administered on 03/17/17 09:30; Admin Dose 400 MLS/HR; Start 03/10/17 at 21: 00 Acetaminophen (Tylenol Liquid) 500 mg DAILY NGT Last administered on 09:31; Admin Dose 500 MG; Start 03/11/17 at 06:00 Insulin Aspart (Novolog Insulin Pen) NOVOLOG *MILD* ALGORI... Q4 SC Last administered on 03/17/17 09:35; Admin Dose 3 UNIT; Start 03/12/17 at 01:00 Atorvastatin Calcium (Lipitor) 40 mg DAILY@21 PO Last administered on 21:25; Admin Dose 40 MG; Start 03/12/17 at 21:00 Miscellaneous Information 1 ea NOTE XX ; Start 03/12/17 at 19:00 Glucose (Glutose) 15 gm Q15M PRN PO DECREASED GLUCOSE; Start 03/12/17 at 19:00 Glucose (Glutose) 22.5 gm Q15M PRN PO DECREASED GLUCOSE; Start 03/12/17 at 19: 00 Dextrose (D50w Syringe) 25 ml Q15M PRN IV DECREASED GLUCOSE; Start 03/12/17 at 19:00 Dextrose (D50w Syringe) 50 ml Q15M PRN IV DECREASED GLUCOSE; Start 03/12/17 at 19:00 Glucagon (Glucagen) 1 mg Q15M PRN IM DECREASED GLUCOSE; Start 03/12/17 at 19: 00 Glucose (Glutose) 15 gm Q15M PRN BUCCAL DECREASED GLUCOSE; Start 03/12/17 at 19:00 Acetaminophen 650 mg 650 mg Q4H PRN NGT PAIN AND OR ELEVATED TEMP Last administered on 03/15/17 17:43; Admin Dose 650 MG; Start 03/12/17 at 22:00 Piperacillin Sod/ Tazobactam Sod (Zosyn 3.375gm/ 50 ml (Pmx)) 50 ml @ 100 mls/ hr Q8 IVPB Last administered on 03/16/17 06:00; Admin Dose 100 MLS/HR; Start 03/13/17 at 06:00; Status Future Hold Carvedilol 12.5 mg 12.5 mg BID NGT Last administered on 03/17/17 09:32; Admin Dose 12.5 MG; Start 03/13/17 at 21:00 Fentanyl (Sublimaze) 100 ml @ 2.5 mls/hr TITRATE IV ; Start 03/14/17 at 14:00 Phenytoin 100 mg 100 mg TID PO Last administered on 03/17/17 09:32; Admin Dose 100 MG; Start 03/15/17 at 21:00 Cefazolin Sodium (Ancef 1 Gm/50 ml (Pmx)) 50 ml @ 100 mls/hr Q8 IVPB Last administered on 03/17/17 06:07; Admin Dose 100 MLS/HR; Start 03/15/17 at 22: 00 Insulin Glargine 26 unit 26 unit DAILY@08 SC ; Start 03/18/17 at 08:00 Sodium Chloride (1/2 NS) 1,000 ml @ 75 mls/hr [id number] IV Last administered on 03/17/17 09:31; Admin Dose 75 MLS/HR; Start 03/17/17 at 09:30 RAMY TORRES Mar 17, 2017 12:16
[2017-03-17] MEDS ORDERED: LABETALOL HCL 20MG INJ IV PRN (18:00)
[2017-03-17] MEDS: ATORVASTATIN 40 MG TAB PO SCH (20:03)
[2017-03-17] MEDS: ACETAMINOPHEN 650MG/20.3ML CUP NGT PRN (21:35)
[2017-03-18] VITALS (40 sets, daily range): BP systolic 90–160; BP diastolic 53–116; PULSE 102–135; RESP 11–29
[2017-03-18] MEDS: INSULIN ASPART [NOVOLOG] 3 ML PEN SC SCH ×6 (00:55→20:56)
[2017-03-18] MEDS: CEFAZOLIN 1 GM/50 ML (PMX) 50 ML IVPB SCH ×3 (05:01→21:37)
[2017-03-18] MEDS: ARTIFICIAL TEARS 15 ML OPH BOTH EYES SCH ×3 (05:01→17:36)
[2017-03-18] MEDS: ACETAMINOPHEN 650MG/20.3ML CUP NGT PRN ×2 (05:02→21:37)
[2017-03-18] MEDS: OCULAR LUBRICANT 3.5 GM OPH OINT BOTH EYES SCH ×3 (05:02→17:36)
[2017-03-18] MEDS: LEVETIRACETAM 1000 MG (PMX) 100 ML IVPB SCH ×2 (08:48→20:47)
[2017-03-18] MEDS: PHENYTOIN 100 MG CAP PO SCH ×3 (08:49→20:43)
[2017-03-18] MEDS: FAMOTIDINE 20 MG TAB PO SCH (08:49)
[2017-03-18] MEDS: ASPIRIN 81 MG TAB PO SCH (08:49)
[2017-03-18] MEDS: ACETAMINOPHEN 650MG/20.3ML CUP NGT SCH (08:49)
[2017-03-18] MEDS: TICAGRELOR 90 MG TABLET PO SCH ×2 (08:50→20:45)
[2017-03-18] MEDS: INSULIN GLARGINE [LANtus] 3 ML PEN SC SCH (08:51)
--- NOTE | 2017-03-18 09:31 | CONS ---
Date/Time of Note Date/Time of Note DATE: 03/18/17 TIME: 09:29 Consult Date/Type/Reason Admit Date/Time Mar 10, 2017 at 03:25 Initial Consult Date 03/10/17 Type of Consultation: Pulmonary/critical care Ordering Provider: JESSICA DIAZ Subjective Remains unresponsive on mechanical ventilation. No sedation. Afebrile. Atrial fibrillation with rapid ventricular rate noted. Objective Vital Signs Date Time Temp Pulse Resp B/P Pulse Ox O2 Delivery O2 Flow Rate FiO2 03/18/17 08:30 127 17 142/89 98 Mechanical Ventilator 03/18/17 08:00 101.0 03/18/17 05:40 30 Intake and Output 03/17/17 03/17/17 03/18/17 15:00 23:00 07:00 Intake Total 1320 ml 1095 ml 1095 ml Output Total 3166 ml 937 ml 985 ml Balance -1846 ml 158 ml 110 ml Exam PHYSICAL EXAMINATION: GENERAL: Elderly-appearing lady, appears comfortable at rest, intubated and sedated on mechanical ventilation. VITAL SIGNS: HEENT: Pupils are sluggish. CARDIAC: S1, S2, no added sounds or murmurs. CHEST: Diminished air entry bilaterally. ABDOMEN: Soft, nontender. No guarding or rebound. EXTREMITIES: No cyanosis, clubbing or edema. NEUROLOGIC: Unable to assess. Results/Medications Result Diagram: 03/17/17 0400 03/17/17 0400 Results 24 hrs Laboratory Tests Test 03/17/17 12:49 03/17/17 17:14 03/17/17 20:10 03/18/17 00:52 Bedside Glucose 234 H 166 169 189 Test 03/18/17 05:00 03/18/17 08:48 Bedside Glucose 154 204 Medications Current Medications Ticagrelor 90 mg 90 mg BID PO Last administered on 03/18/17 08:50; Admin Dose 90 MG; Start 03/10/17 at 09:00 Midazolam HCl (Versed) 50 ml @ 1 mls/hr TITRATE IV Last administered on 07:13; Admin Dose 2 MLS/HR; Start 03/10/17 at 03:30 Aspirin (Aspirin) 81 mg DAILY PO Last administered on 03/18/17 08:49; Admin Dose 81 MG; Start 03/10/17 at 09:00 Acetaminophen (Tylenol Supp) 650 mg Q4H PRN [place] PAIN LEVEL 1-3 OR FEVER Last administered on 03/12/17 21:15; Admin Dose 650 MG; Start 03/10/17 at 04:00 Eye Lubricant (Akwa Oint) 1 applic Q6 BOTH EYES Last administered on 05:02; Admin Dose 1 APPLIC; Start 03/10/17 at 06:00 Eye Lubricant (Artificial Tears Oph) 2 drop Q6 BOTH EYES Last administered on 03/18/17 05:01; Admin Dose 2 DROP; Start 03/10/17 at 06:00 Famotidine (Pepcid) 20 mg DAILY PO Last administered on 03/18/17 08:49; Admin Dose 20 MG; Start 03/11/17 at 09:00 Meperidine HCl (Demerol) 12.5 mg Q4H PRN IV POST OPERATIVE SHIVERING; Start at 12:30 Meperidine HCl 25 mg 25 mg Q4H PRN IV POST OPERATIVE SHIVERING Last administered on 03/10/17 12:34; Admin Dose 25 MG; Start 03/10/17 at 12:30 Levetiracetam (Keppra 1,000mg/ 100ml (Pmx)) 100 ml @ 400 mls/hr Q12 IVPB Last administered on 03/18/17 08:48; Admin Dose 400 MLS/HR; Start 03/10/17 at 21: 00 Acetaminophen (Tylenol Liquid) 500 mg DAILY NGT Last administered on 08:49; Admin Dose 500 MG; Start 03/11/17 at 06:00 Insulin Aspart (Novolog Insulin Pen) NOVOLOG *MILD* ALGORI... Q4 SC Last administered on 03/18/17 08:52; Admin Dose 2 UNIT; Start 03/12/17 at 01:00 Atorvastatin Calcium (Lipitor) 40 mg DAILY@21 PO Last administered on 20:03; Admin Dose 40 MG; Start 03/12/17 at 21:00 Miscellaneous Information 1 ea NOTE XX ; Start 03/12/17 at 19:00 Glucose (Glutose) 15 gm Q15M PRN PO DECREASED GLUCOSE; Start 03/12/17 at 19:00 Glucose (Glutose) 22.5 gm Q15M PRN PO DECREASED GLUCOSE; Start 03/12/17 at 19: 00 Dextrose (D50w Syringe) 25 ml Q15M PRN IV DECREASED GLUCOSE; Start 03/12/17 at 19:00 Dextrose (D50w Syringe) 50 ml Q15M PRN IV DECREASED GLUCOSE; Start 03/12/17 at 19:00 Glucagon (Glucagen) 1 mg Q15M PRN IM DECREASED GLUCOSE; Start 03/12/17 at 19: 00 Glucose (Glutose) 15 gm Q15M PRN BUCCAL DECREASED GLUCOSE; Start 03/12/17 at 19:00 Acetaminophen 650 mg 650 mg Q4H PRN NGT PAIN AND OR ELEVATED TEMP Last administered on 03/18/17 05:02; Admin Dose 650 MG; Start 03/12/17 at 22:00 Piperacillin Sod/ Tazobactam Sod (Zosyn 3.375gm/ 50 ml (Pmx)) 50 ml @ 100 mls/ hr Q8 IVPB Last administered on 03/16/17 06:00; Admin Dose 100 MLS/HR; Start 03/13/17 at 06:00; Status Future Hold Carvedilol 12.5 mg 12.5 mg BID NGT Last administered on 03/18/17 08:49; Admin Dose 12.5 MG; Start 03/13/17 at 21:00 Fentanyl (Sublimaze) 100 ml @ 2.5 mls/hr TITRATE IV ; Start 03/14/17 at 14:00 Phenytoin 100 mg 100 mg TID PO Last administered on 03/18/17 08:49; Admin Dose 100 MG; Start 03/15/17 at 21:00 Cefazolin Sodium (Ancef 1 Gm/50 ml (Pmx)) 50 ml @ 100 mls/hr Q8 IVPB Last administered on 03/18/17 05:01; Admin Dose 100 MLS/HR; Start 03/15/17 at 22: 00 Insulin Glargine 26 unit 26 unit DAILY@08 SC Last administered on 03/18/17 08 :51; Admin Dose 26 UNIT; Start 03/18/17 at 08:00 Sodium Chloride (1/2 NS) 1,000 ml @ 75 mls/hr [id number] IV Last administered on 03/17/17 21:35; Admin Dose 75 MLS/HR; Start 03/17/17 at 09:30 Labetalol HCl (Labetalol) 10 mg Q4H PRN IV sbp>160 Last administered on t 18:56; Admin Dose 10 MG; Start 03/17/17 at 18:00 Assessment/Plan Chief Complaint/Hosp Course IMPRESSION 1. Acute myocardial infarction. Status post LAD stent placement. Atrial fibrillation with rapid ventricular rate, . 2. Cardiopulmonary arrest. 3. Possible aspiration pneumonia with hypoxemic respiratory failure. 4. probable anoxic brain injury. Neurologically unchanged off sedation 5. History of coronary artery disease with stent placements in the past. 6. Hypernatremia Plan 1. Status post hypothermia protocol. 2. Antibiotics for possible aspiration pneumonia. 3. Insulin 4. Cardiac recommendations with Brilinta and aspirin post-stent placement. Continue rate control with amiodarone 5. DVT and GI prophylaxis. 6. Neurology recommendations. Prognosis extremely poor. Consider comfort care. Critical care time 40 minutes. Family conference regarding goals of care. Problems: MARTA REMY MD, [facility] Mar 18, 2017 09:31
--- NOTE | 2017-03-18 09:51 | PN ---
Date/Time of Note Date/Time of Note DATE: 03/18/17 TIME: 09:45 Assessment/Plan VTE Prophylaxis VTE Prophylaxis Intervention: SCD's Lines/Catheters IV Catheter Type (from Nrs): Peripheral IV Urinary Cath still in place: Yes Reason Cath still needed: urinary retention Assessment/Plan Chief Complaint/Hosp Course Assessment/Plan: 71 yo F presented following cardiac arrest 2/2 STEMI for which pt underwent PCI. sp hypothermia protocol without a great deal of demonstration of significant neurological recovery. 1. anoxic brain injury -likely secondary to cardiac arrest -neuro on consult. MRI brain results noted. On Keppra and Dilantin presently, no seizures noted presently -vent weaning as per pulm 2. fevers: central v UTI v ?PNA 11.16 urine culture noted. .17 blood culture consistent with contaminant.respiratory culture with corynybactereum. unclear if this represents colonization v true infection. - for now continue current antibiotics, monitor vital signs 3. STEMI sp PCI: DAPT -Continue BP meds as well as aspirin and Brilinta, statin as per cardiology -amio as per cardiology 4. preDM: a1c 6.1, insulin SubQ, sugars improved in the last 24 hours -Monitor, ISS, Lantus 5. subclinical hyperthyroid: can be addressed in outpatient setting 6. LUIS FELIPE: improving now, creatinine trending down close to normal range since yesterday -Continue current IV fluids, monitor BUN/creatinine levels from this morning 7. Hypernatremia: Has been resolving, sodium 152 -> 145 yesterday -Follow-up BMP in the a.m. 8. FEN: TFs GOALS OF CARE/DISPO: brief family meeting held 3 days ago pt's patient's spokesperson (grandson) and 3 of her children, as well as yesterday. Myself and palliative care team spoke with family yesterday as well with further updates. Discussed with family that heart is working well and beating on its own , but she does not have a gag reflex, doesn't respond to pain and isn't breathing much over the vent, patient is opening eyes appears a bit more alert, but again not following commands overall, and at this time pt is not showing significant evidence of neurologic recovery 2/2 the time her brain was deprived of oxygen when she had her heart attack. Pt not brain , but less likelihood of MEANINGFUL neurologic recovery. Family indicated at this time they do not wish to have tracheostomy or G-tube placement, and to continue current medical treatment, ensured family that we will respect their wishes and facilitate care regarding their decision. Critical care time spent on patient care today equals 40 minutes Problems: Subjective 24 Hr Interval Summary Free Text/Dictation Family met with palliative care team yesterday, continuing same treatment at this time. Patient having some slightly rapid A. fib since yesterday heart rate in the 110-120s. Seen by pulmonary team this morning. No fevers or seizures overnight. Exam/Review of Systems Vital Signs Vitals Vital Signs Date Time Temp Pulse Resp B/P Pulse Ox O2 Delivery O2 Flow Rate FiO2 03/18/17 09:30 108 17 136/86 97 Mechanical Ventilator 03/18/17 08:00 101.0 03/18/17 05:40 30 Intake and Output 03/17/17 03/17/17 03/18/17 15:00 23:00 07:00 Intake Total 1320 ml 1095 ml 1095 ml Output Total 3166 ml 937 ml 985 ml Balance -1846 ml 158 ml 110 ml Exam Intubated, not responding to pain on minimal sedation Opens eyes occasionally Supple Slightly decreased breath sounds S1, S2 heard no mrg abd soft no lower extremity edema bilaterally Results Result Diagram: 03/17/17 0400 03/17/17 0400 Results 24 hrs Laboratory Tests Test 03/17/17 12:49 03/17/17 17:14 03/17/17 20:10 03/18/17 00:52 Bedside Glucose 234 H 166 169 189 Test 03/18/17 05:00 03/18/17 08:48 Bedside Glucose 154 204 Medications Medications Current Medications Ticagrelor 90 mg 90 mg BID PO Last administered on 03/18/17 08:50; Admin Dose 90 MG; Start 03/10/17 at 09:00 Midazolam HCl (Versed) 50 ml @ 1 mls/hr TITRATE IV Last administered on 07:13; Admin Dose 2 MLS/HR; Start 03/10/17 at 03:30 Aspirin (Aspirin) 81 mg DAILY PO Last administered on 03/18/17 08:49; Admin Dose 81 MG; Start 03/10/17 at 09:00 Acetaminophen (Tylenol Supp) 650 mg Q4H PRN [place] PAIN LEVEL 1-3 OR FEVER Last administered on 03/12/17 21:15; Admin Dose 650 MG; Start 03/10/17 at 04:00 Eye Lubricant (Akwa Oint) 1 applic Q6 BOTH EYES Last administered on 05:02; Admin Dose 1 APPLIC; Start 03/10/17 at 06:00 Eye Lubricant (Artificial Tears Oph) 2 drop Q6 BOTH EYES Last administered on 03/18/17 05:01; Admin Dose 2 DROP; Start 03/10/17 at 06:00 Famotidine (Pepcid) 20 mg DAILY PO Last administered on 03/18/17 08:49; Admin Dose 20 MG; Start 03/11/17 at 09:00 Meperidine HCl (Demerol) 12.5 mg Q4H PRN IV POST OPERATIVE SHIVERING; Start at 12:30 Meperidine HCl 25 mg 25 mg Q4H PRN IV POST OPERATIVE SHIVERING Last administered on 03/10/17 12:34; Admin Dose 25 MG; Start 03/10/17 at 12:30 Levetiracetam (Keppra 1,000mg/ 100ml (Pmx)) 100 ml @ 400 mls/hr Q12 IVPB Last administered on 03/18/17 08:48; Admin Dose 400 MLS/HR; Start 03/10/17 at 21: 00 Acetaminophen (Tylenol Liquid) 500 mg DAILY NGT Last administered on 08:49; Admin Dose 500 MG; Start 03/11/17 at 06:00 Insulin Aspart (Novolog Insulin Pen) NOVOLOG *MILD* ALGORI... Q4 SC Last administered on 03/18/17 08:52; Admin Dose 2 UNIT; Start 03/12/17 at 01:00 Atorvastatin Calcium (Lipitor) 40 mg DAILY@21 PO Last administered on 20:03; Admin Dose 40 MG; Start 03/12/17 at 21:00 Miscellaneous Information 1 ea NOTE XX ; Start 03/12/17 at 19:00 Glucose (Glutose) 15 gm Q15M PRN PO DECREASED GLUCOSE; Start 03/12/17 at 19:00 Glucose (Glutose) 22.5 gm Q15M PRN PO DECREASED GLUCOSE; Start 03/12/17 at 19: 00 Dextrose (D50w Syringe) 25 ml Q15M PRN IV DECREASED GLUCOSE; Start 03/12/17 at 19:00 Dextrose (D50w Syringe) 50 ml Q15M PRN IV DECREASED GLUCOSE; Start 03/12/17 at 19:00 Glucagon (Glucagen) 1 mg Q15M PRN IM DECREASED GLUCOSE; Start 03/12/17 at 19: 00 Glucose (Glutose) 15 gm Q15M PRN BUCCAL DECREASED GLUCOSE; Start 03/12/17 at 19:00 Acetaminophen 650 mg 650 mg Q4H PRN NGT PAIN AND OR ELEVATED TEMP Last administered on 03/18/17 05:02; Admin Dose 650 MG; Start 03/12/17 at 22:00 Piperacillin Sod/ Tazobactam Sod (Zosyn 3.375gm/ 50 ml (Pmx)) 50 ml @ 100 mls/ hr Q8 IVPB Last administered on 03/16/17 06:00; Admin Dose 100 MLS/HR; Start 03/13/17 at 06:00; Status Future Hold Carvedilol 12.5 mg 12.5 mg BID NGT Last administered on 03/18/17 08:49; Admin Dose 12.5 MG; Start 03/13/17 at 21:00 Fentanyl (Sublimaze) 100 ml @ 2.5 mls/hr TITRATE IV ; Start 03/14/17 at 14:00 Phenytoin 100 mg 100 mg TID PO Last administered on 03/18/17 08:49; Admin Dose 100 MG; Start 03/15/17 at 21:00 Cefazolin Sodium (Ancef 1 Gm/50 ml (Pmx)) 50 ml @ 100 mls/hr Q8 IVPB Last administered on 03/18/17 05:01; Admin Dose 100 MLS/HR; Start 03/15/17 at 22: 00 Insulin Glargine 26 unit 26 unit DAILY@08 SC Last administered on 03/18/17 08 :51; Admin Dose 26 UNIT; Start 03/18/17 at 08:00 Sodium Chloride (1/2 NS) 1,000 ml @ 75 mls/hr [id number] IV Last administered on 03/17/17 21:35; Admin Dose 75 MLS/HR; Start 03/17/17 at 09:30 Labetalol HCl (Labetalol) 10 mg Q4H PRN IV sbp>160 Last administered on t 18:56; Admin Dose 10 MG; Start 03/17/17 at 18:00 ANGELIQUE ARAYA Mar 18, 2017 09:51
[2017-03-18 11:16] LABS: BASOPHILS % 0.3 % (0.0-2.0); EOSINOPHILS # 0.3 10^3/ul (0.0-0.5); EOSINOPHILS % 2.3 % (0.0-7.0); HEMATOCRIT 26.4 % (37.0-47.0); HEMOGLOBIN 7.9 g/dl (12.0-16.0); LYMPHOCYTES # 1.3 10^3/ul (0.8-2.9); LYMPHOCYTES % 11.6 % (15.0-51.0); MEAN CORPUSCULAR HEMOGLOBIN 24.8 pg (29.0-33.0); MEAN CORPUSCULAR HGB CONC 29.9 g/dl (32.0-37.0); MONOCYTE # 0.7 10^3/ul (0.3-0.9); MONOCYTES % 5.8 % (0.0-11.0); NEUTROPHILS % 78.7 % (39.0-77.0); PLATELET COUNT 265 10^3/UL (140-415); RED BLOOD COUNT 3.18 10^6/ul (4.20-5.40); WHITE BLOOD COUNT 11.5 10^3/ul (4.8-10.8)
[2017-03-18 11:36] LABS: ALBUMIN 3.2 g/dl (3.3-4.9); ALBUMIN/GLOBULIN RATIO 1.06; BILIRUBIN,INDIRECT 0.1 mg/dl (0-1.1); BILIRUBIN,TOTAL 0.1 mg/dl (0.2-1.3); CALCIUM 8.7 mg/dl (8.4-10.2); CREATININE 0.89 mg/dl (0.44-1.00); POTASSIUM 3.3 mmol/L (3.5-5.1); TOTAL PROTEIN 6.2 g/dl (6.1-8.1)
[2017-03-18] MEDS ORDERED: POTASSIUM CHLORIDE 250 ML IVPB ONE (12:00)
[2017-03-18] MEDS: SOD CHLORIDE 0.45% 1,000 ML IV SCH (12:45)
--- NOTE | 2017-03-18 14:10 | CONS ---
Date/Time of Note Date/Time of Note DATE: 03/18/17 TIME: 14:08 Assessment/Plan Assessment/Plan Chief Complaint/Hosp Course Paroxysmal afib: new onset. In and out of afib. If meaningful recovery, will consider anticoagulation. Now remains in afib Anterior STEMI/CAD: s/p PCI of ulcerated 99% mid LAD lesion. EF by echo is preserved Cardiac arrest: likely due to arrhythmia related to above but unclear rhythm when paramedics arrived. Also with significant pulm edema so respiratory arrest/ PEA also possible Acute diastolic heart failure: Significant pulm edema by CXR. LVEDP 27 by cath. Improved with diuresis Acute respiratory failure: on vent due to above Acute renal failure: Cr fluctuating Anemia: no active bleeding Fevers: ?central vs infectious. Urine + E coli Anoxic brain injury: per family, pt may have been pulseless for 10 mins prior to bleach boiler puller arrival. Unclear rhythm. MRI confirms anoxic brain injury Seizures vs myoclonic jerks -switch coreg to metoprolol 50mg q8h for better rate control, uptitrate as BP tolerates -d/c IVF -continue ASA, ticagrelor, lipitor -antibiotics per primary Problems: Consultation Date/Type/Reason Admit Date/Time Mar 10, 2017 at 03:25 Initial Consult Date 03/10/17 Type of Consultation: Cardiology Referring Provider: JESSICA DIAZ 24 HR Interval Summary Free Text/Dictation Still with intermittent fevers. No neuro recovery. Exam/Review of Systems Vital Signs Vitals Vital Signs Date Time Temp Pulse Resp B/P Pulse Ox O2 Delivery O2 Flow Rate FiO2 03/18/17 12:00 99.4 110 22 138/83 98 Mechanical Ventilator 03/18/17 11:47 30 Intake and Output 03/17/17 03/17/17 03/18/17 15:00 23:00 07:00 Intake Total 1320 ml 1095 ml 1095 ml Output Total 3166 ml 937 ml 985 ml Balance -1846 ml 158 ml 110 ml Exam Constitutional: No alert Head: atraumatic, normocephalic ENMT: intubated Neck: jvd (9cm), supple Respiratory: diminished breath sounds, No clear to auscultation Cardiovascular: edema (1+), No regular rate and rhythm (IRIR, tachy), No systolic murmur Gastrointestinal: soft, No distended Neurological: No nl mental status, No nl speech Results Result Diagram: 03/18/17 1052 03/18/17 1052 Results 24 hrs Laboratory Tests Test 03/17/17 17:14 03/17/17 20:10 03/18/17 00:52 03/18/17 05:00 Bedside Glucose 166 169 189 154 Test 03/18/17 08:48 03/18/17 10:52 03/18/17 12:41 Bedside Glucose 204 192 White Blood Count 11.5 H Red Blood Count 3.18 L Hemoglobin 7.9 L Hematocrit 26.4 L Mean Corpuscular Volume 83.0 Mean Corpuscular Hemoglobin 24.8 L Mean Corpuscular Hemoglobin Concent 29.9 L Red Cell Distribution Width 17.0 H Platelet Count 265 Mean Platelet Volume 11.0 H Neutrophils % 78.7 H Lymphocytes % 11.6 L Monocytes % 5.8 Eosinophils % 2.3 Basophils % 0.3 Nucleated Red Blood Cells % 0.0 Neutrophils # 9.0 H Lymphocytes # 1.3 Monocytes # 0.7 Eosinophils # 0.3 Basophils # 0.0 Nucleated Red Blood Cells # 0.0 Sodium Level 142 Potassium Level 3.3 L Chloride Level 104 Carbon Dioxide Level 26 Anion Gap 15 Blood Urea Nitrogen 26 #H Creatinine 0.89 Glucose Level 202 Calcium Level 8.7 Total Bilirubin 0.1 L Direct Bilirubin 0.00 Indirect Bilirubin 0.1 Aspartate Amino Transf (AST/SGOT) 71 H Alanine Aminotransferase (ALT/SGPT) 61 Alkaline Phosphatase 58 Total Protein 6.2 Albumin 3.2 L Globulin 3.00 Albumin/Globulin Ratio 1.06 Medications Medications Current Medications Ticagrelor 90 mg 90 mg BID PO Last administered on 03/18/17 08:50; Admin Dose 90 MG; Start 03/10/17 at 09:00 Midazolam HCl (Versed) 50 ml @ 1 mls/hr TITRATE IV Last administered on 07:13; Admin Dose 2 MLS/HR; Start 03/10/17 at 03:30 Aspirin (Aspirin) 81 mg DAILY PO Last administered on 03/18/17 08:49; Admin Dose 81 MG; Start 03/10/17 at 09:00 Acetaminophen (Tylenol Supp) 650 mg Q4H PRN [place] PAIN LEVEL 1-3 OR FEVER Last administered on 03/12/17 21:15; Admin Dose 650 MG; Start 03/10/17 at 04:00 Eye Lubricant (Akwa Oint) 1 applic Q6 BOTH EYES Last administered on 12:42; Admin Dose 1 APPLIC; Start 03/10/17 at 06:00 Eye Lubricant (Artificial Tears Oph) 2 drop Q6 BOTH EYES Last administered on 03/18/17 12:42; Admin Dose 2 DROP; Start 03/10/17 at 06:00 Famotidine (Pepcid) 20 mg DAILY PO Last administered on 03/18/17 08:49; Admin Dose 20 MG; Start 03/11/17 at 09:00 Meperidine HCl (Demerol) 12.5 mg Q4H PRN IV POST OPERATIVE SHIVERING; Start at 12:30 Meperidine HCl 25 mg 25 mg Q4H PRN IV POST OPERATIVE SHIVERING Last administered on 03/10/17 12:34; Admin Dose 25 MG; Start 03/10/17 at 12:30 Levetiracetam (Keppra 1,000mg/ 100ml (Pmx)) 100 ml @ 400 mls/hr Q12 IVPB Last administered on 03/18/17 08:48; Admin Dose 400 MLS/HR; Start 03/10/17 at 21: 00 Acetaminophen (Tylenol Liquid) 500 mg DAILY NGT Last administered on 08:49; Admin Dose 500 MG; Start 03/11/17 at 06:00 Insulin Aspart (Novolog Insulin Pen) NOVOLOG *MILD* ALGORI... Q4 SC Last administered on 03/18/17 12:45; Admin Dose 2 UNIT; Start 03/12/17 at 01:00 Atorvastatin Calcium (Lipitor) 40 mg DAILY@21 PO Last administered on 20:03; Admin Dose 40 MG; Start 03/12/17 at 21:00 Miscellaneous Information 1 ea NOTE XX ; Start 03/12/17 at 19:00 Glucose (Glutose) 15 gm Q15M PRN PO DECREASED GLUCOSE; Start 03/12/17 at 19:00 Glucose (Glutose) 22.5 gm Q15M PRN PO DECREASED GLUCOSE; Start 03/12/17 at 19: 00 Dextrose (D50w Syringe) 25 ml Q15M PRN IV DECREASED GLUCOSE; Start 03/12/17 at 19:00 Dextrose (D50w Syringe) 50 ml Q15M PRN IV DECREASED GLUCOSE; Start 03/12/17 at 19:00 Glucagon (Glucagen) 1 mg Q15M PRN IM DECREASED GLUCOSE; Start 03/12/17 at 19: 00 Glucose (Glutose) 15 gm Q15M PRN BUCCAL DECREASED GLUCOSE; Start 03/12/17 at 19:00 Acetaminophen 650 mg 650 mg Q4H PRN NGT PAIN AND OR ELEVATED TEMP Last administered on 03/18/17 05:02; Admin Dose 650 MG; Start 03/12/17 at 22:00 Piperacillin Sod/ Tazobactam Sod 50 ml @ 100 mls/hr Q8 IVPB Last administered on 03/16/17 06:00; Admin Dose 100 MLS/HR; Start 03/13/17 at 06:00; Status Future Hold Fentanyl (Sublimaze) 100 ml @ 2.5 mls/hr TITRATE IV ; Start 03/14/17 at 14:00 Phenytoin 100 mg 100 mg TID PO Last administered on 03/18/17 12:42; Admin Dose 100 MG; Start 03/15/17 at 21:00 Cefazolin Sodium (Ancef 1 Gm/50 ml (Pmx)) 50 ml @ 100 mls/hr Q8 IVPB Last administered on 03/18/17 14:03; Admin Dose 100 MLS/HR; Start 03/15/17 at 22: 00 Insulin Glargine (Lantus) 26 unit DAILY@08 SC Last administered on 03/18/17 08:51; Admin Dose 26 UNIT; Start 03/18/17 at 08:00 Labetalol HCl 10 mg 10 mg Q4H PRN IV sbp>160 Last administered on 03/17/17 18 :56; Admin Dose 10 MG; Start 03/17/17 at 18:00 Potassium Chloride (KCl 40 MEQ/250 ML NS) 250 ml @ 62.5 mls/hr ONCE ONCE IVPB Last administered on 03/18/17 14:03; Admin Dose 62.5 MLS/HR; Start at 12:00; Stop 03/18/17 at 15:59 Metoprolol Tartrate (Lopressor) 50 mg Q8H PO ; Start 03/18/17 at 14:30; Status ZACK GARCIA Mar 18, 2017 14:10
[2017-03-18] MEDS: METOPROLOL 50 MG TAB PO SCH ×2 (14:50→21:38)
[2017-03-18] MEDS: ATORVASTATIN 40 MG TAB PO SCH (20:43)
[2017-03-19] VITALS (31 sets, daily range): BP systolic 107–151; BP diastolic 70–107; PULSE 103–136; RESP 18–30
[2017-03-19] MEDS: OCULAR LUBRICANT 3.5 GM OPH OINT BOTH EYES SCH ×5 (00:22→23:17)
[2017-03-19] MEDS: ARTIFICIAL TEARS 15 ML OPH BOTH EYES SCH ×5 (00:22→23:17)
[2017-03-19] MEDS: INSULIN ASPART [NOVOLOG] 3 ML PEN SC SCH ×6 (00:27→21:03)
[2017-03-19] MEDS: CEFAZOLIN 1 GM/50 ML (PMX) 50 ML IVPB SCH (05:34)
[2017-03-19] MEDS: METOPROLOL 50 MG TAB PO SCH ×3 (05:35→21:24)
[2017-03-19 05:56] LABS: BASOPHILS % 0.1 % (0.0-2.0); EOSINOPHILS # 0.3 10^3/ul (0.0-0.5); EOSINOPHILS % 1.9 % (0.0-7.0); HEMOGLOBIN 8.2 g/dl (12.0-16.0); LYMPHOCYTES # 1.3 10^3/ul (0.8-2.9); LYMPHOCYTES % 8.6 % (15.0-51.0); MEAN CORPUSCULAR HEMOGLOBIN 24.8 pg (29.0-33.0); MEAN CORPUSCULAR HGB CONC 30.4 g/dl (32.0-37.0); MEAN CORPUSCULAR VOLUME 81.6 fl (82.0-101.0); MEAN PLATELET VOLUME 11.5 fl (7.4-10.4); MONOCYTE # 0.7 10^3/ul (0.3-0.9); MONOCYTES % 4.6 % (0.0-11.0); NEUTROPHIL # 12.6 10^3/ul (1.6-7.5); NEUTROPHILS % 83.9 % (39.0-77.0); PLATELET COUNT 277 10^3/UL (140-415); RED BLOOD COUNT 3.31 10^6/ul (4.20-5.40); RED CELL DISTRIBUTION WIDTH 17.2 % (11.5-14.5)
[2017-03-19 06:28] LABS: CALCIUM 8.9 mg/dl (8.4-10.2); CREATININE 0.79 mg/dl (0.44-1.00); POTASSIUM 3.8 mmol/L (3.5-5.1)
--- NOTE | 2017-03-19 06:39 | CONS ---
Date/Time of Note Date/Time of Note DATE: 03/19/17 TIME: 06:37 Consultation Date/Type/Reason Admit Date/Time Mar 10, 2017 at 03:25 Type of Consultation: Palliative care Hx of Present Illness This is a postdated progress note patient will status post cardiac arrest in the field. Brought to the [facility] begin on hypothermia protocol admitted to intensive care unit [facility]. After reviewing patient's medical records and examining her have asked family members to meet the once again that eating has been scheduled for 0700 hrs. on 03/19/2017 full palliative care note will be completed at that time Social History Alcohol Use: none Smoking Status: Never smoker Drug Use: none Exam/Review of Systems Vital Signs Vitals Vital Signs Date Time Temp Pulse Resp B/P Pulse Ox O2 Delivery O2 Flow Rate FiO2 03/19/17 06:00 126 30 132/78 96 Mechanical Ventilator 03/19/17 05:02 30 03/19/17 04:00 100.5 Intake and Output 03/18/17 03/18/17 03/19/17 14:59 22:59 06:59 Intake Total 970 ml 890.0 ml 570 ml Output Total 621 ml 393 ml 730 ml Balance 349 ml 497.0 ml -160 ml Results Result Diagram: 03/19/17 0536 03/18/17 1052 Results 24 hrs Laboratory Tests Test 03/18/17 08:48 03/18/17 10:52 03/18/17 12:41 03/18/17 17:36 Bedside Glucose 204 192 142 White Blood Count 11.5 H Red Blood Count 3.18 L Hemoglobin 7.9 L Hematocrit 26.4 L Mean Corpuscular Volume 83.0 Mean Corpuscular Hemoglobin 24.8 L Mean Corpuscular Hemoglobin Concent 29.9 L Red Cell Distribution Width 17.0 H Platelet Count 265 Mean Platelet Volume 11.0 H Neutrophils % 78.7 H Lymphocytes % 11.6 L Monocytes % 5.8 Eosinophils % 2.3 Basophils % 0.3 Nucleated Red Blood Cells % 0.0 Neutrophils # 9.0 H Lymphocytes # 1.3 Monocytes # 0.7 Eosinophils # 0.3 Basophils # 0.0 Nucleated Red Blood Cells # 0.0 Sodium Level 142 Potassium Level 3.3 L Chloride Level 104 Carbon Dioxide Level 26 Anion Gap 15 Blood Urea Nitrogen 26 #H Creatinine 0.89 Glucose Level 202 Calcium Level 8.7 Total Bilirubin 0.1 L Direct Bilirubin 0.00 Indirect Bilirubin 0.1 Aspartate Amino Transf (AST/SGOT) 71 H Alanine Aminotransferase (ALT/SGPT) 61 Alkaline Phosphatase 58 Total Protein 6.2 Albumin 3.2 L Globulin 3.00 Albumin/Globulin Ratio 1.06 Test 03/18/17 20:41 03/19/17 05:34 03/19/17 05:36 Bedside Glucose 141 181 White Blood Count 15.0 #H Red Blood Count 3.31 L Hemoglobin 8.2 L Hematocrit 27.0 L Mean Corpuscular Volume 81.6 L Mean Corpuscular Hemoglobin 24.8 L Mean Corpuscular Hemoglobin Concent 30.4 L Red Cell Distribution Width 17.2 H Platelet Count 277 Mean Platelet Volume 11.5 H Neutrophils % 83.9 H Lymphocytes % 8.6 L Monocytes % 4.6 Eosinophils % 1.9 Basophils % 0.1 Nucleated Red Blood Cells % 0.0 Neutrophils # 12.6 H Lymphocytes # 1.3 Monocytes # 0.7 Eosinophils # 0.3 Basophils # 0.0 Nucleated Red Blood Cells # 0.0 Medications Medications Current Medications Ticagrelor 90 mg 90 mg BID PO Last administered on 03/18/17 20:45; Admin Dose 90 MG; Start 03/10/17 at 09:00 Midazolam HCl (Versed) 50 ml @ 1 mls/hr TITRATE IV Last administered on 07:13; Admin Dose 2 MLS/HR; Start 03/10/17 at 03:30 Aspirin (Aspirin) 81 mg DAILY PO Last administered on 03/18/17 08:49; Admin Dose 81 MG; Start 03/10/17 at 09:00 Acetaminophen (Tylenol Supp) 650 mg Q4H PRN [place] PAIN LEVEL 1-3 OR FEVER Last administered on 03/12/17 21:15; Admin Dose 650 MG; Start 03/10/17 at 04:00 Eye Lubricant (Akwa Oint) 1 applic Q6 BOTH EYES Last administered on 05:36; Admin Dose 1 APPLIC; Start 03/10/17 at 06:00 Eye Lubricant (Artificial Tears Oph) 2 drop Q6 BOTH EYES Last administered on 03/19/17 05:36; Admin Dose 2 DROP; Start 03/10/17 at 06:00 Famotidine (Pepcid) 20 mg DAILY PO Last administered on 03/18/17 08:49; Admin Dose 20 MG; Start 03/11/17 at 09:00 Meperidine HCl (Demerol) 12.5 mg Q4H PRN IV POST OPERATIVE SHIVERING; Start at 12:30 Meperidine HCl 25 mg 25 mg Q4H PRN IV POST OPERATIVE SHIVERING Last administered on 03/10/17 12:34; Admin Dose 25 MG; Start 03/10/17 at 12:30 Levetiracetam (Keppra 1,000mg/ 100ml (Pmx)) 100 ml @ 400 mls/hr Q12 IVPB Last administered on 03/18/17 20:47; Admin Dose 400 MLS/HR; Start 03/10/17 at 21: 00 Acetaminophen (Tylenol Liquid) 500 mg DAILY NGT Last administered on 08:49; Admin Dose 500 MG; Start 03/11/17 at 06:00 Insulin Aspart (Novolog Insulin Pen) NOVOLOG *MILD* ALGORI... Q4 SC Last administered on 03/19/17 05:43; Admin Dose 2 UNIT; Start 03/12/17 at 01:00 Atorvastatin Calcium (Lipitor) 40 mg DAILY@21 PO Last administered on 20:43; Admin Dose 40 MG; Start 03/12/17 at 21:00 Miscellaneous Information 1 ea NOTE XX ; Start 03/12/17 at 19:00 Glucose (Glutose) 15 gm Q15M PRN PO DECREASED GLUCOSE; Start 03/12/17 at 19:00 Glucose (Glutose) 22.5 gm Q15M PRN PO DECREASED GLUCOSE; Start 03/12/17 at 19: 00 Dextrose (D50w Syringe) 25 ml Q15M PRN IV DECREASED GLUCOSE; Start 03/12/17 at 19:00 Dextrose (D50w Syringe) 50 ml Q15M PRN IV DECREASED GLUCOSE; Start 03/12/17 at 19:00 Glucagon (Glucagen) 1 mg Q15M PRN IM DECREASED GLUCOSE; Start 03/12/17 at 19: 00 Glucose (Glutose) 15 gm Q15M PRN BUCCAL DECREASED GLUCOSE; Start 03/12/17 at 19:00 Acetaminophen 650 mg 650 mg Q4H PRN NGT PAIN AND OR ELEVATED TEMP Last administered on 03/18/17 21:37; Admin Dose 650 MG; Start 03/12/17 at 22:00 Piperacillin Sod/ Tazobactam Sod 50 ml @ 100 mls/hr Q8 IVPB Last administered on 03/16/17 06:00; Admin Dose 100 MLS/HR; Start 03/13/17 at 06:00; Status Future Hold Fentanyl (Sublimaze) 100 ml @ 2.5 mls/hr TITRATE IV ; Start 03/14/17 at 14:00 Phenytoin 100 mg 100 mg TID PO Last administered on 03/18/17 20:43; Admin Dose 100 MG; Start 03/15/17 at 21:00 Cefazolin Sodium (Ancef 1 Gm/50 ml (Pmx)) 50 ml @ 100 mls/hr Q8 IVPB Last administered on 03/19/17 05:34; Admin Dose 100 MLS/HR; Start 03/15/17 at 22: 00 Insulin Glargine (Lantus) 26 unit DAILY@08 SC Last administered on 03/18/17 08:51; Admin Dose 26 UNIT; Start 03/18/17 at 08:00 Labetalol HCl (Labetalol) 10 mg Q4H PRN IV sbp>160 Last administered on 18:56; Admin Dose 10 MG; Start 03/17/17 at 18:00 Metoprolol Tartrate (Lopressor) 50 mg Q8H PO Last administered on 03/19/17 05 :35; Admin Dose 50 MG; Start 03/18/17 at 14:30 SUZIE CMCARTY Mar 19, 2017 06:39
[2017-03-19] MEDS: INSULIN GLARGINE [LANtus] 3 ML PEN SC SCH (08:23)
--- NOTE | 2017-03-19 09:31 | RADRPT ---
PROCEDURE: Chest radiograph CLINICAL INDICATION: Pneumonia and heart failure. COMPARISON: Radiograph from 03/17/2017 . TECHNIQUE: Single frontal chest radiograph. FINDINGS: The tracheal tube terminates about 3.5 cm above the wilfredo. The enteric tube courses below the diaphragm. Cardiomegaly with moderate left and large right pleural effusions. Right upper and mid lung opacity which may represent effusion, atelectasis, and/or pneumonia. No suspicious bone lesion. IMPRESSION: Overall, no interval change. 1. Cardiomegaly with bilateral pleural effusions, right larger than left. 2. Right upper and mid lung opacity which may represent superimposed pneumonia and/or atelectasis. 3. All support lines and tubes in appropriate position. RPTAT: PP Physician Josep Date Time Electronically viewed and signed by Physician Josep on 03/19/2017 09:30 /
--- NOTE | 2017-03-19 09:49 | CONS ---
Date/Time of Note Date/Time of Note DATE: 03/19/17 TIME: 09:46 Consult Date/Type/Reason Admit Date/Time Mar 10, 2017 at 03:25 Initial Consult Date 03/10/17 Type of Consultation: Pulmonary Ordering Provider: JESSICA DIAZ Subjective Patient remains unresponsive on mechanical ventilation. Objective Vital Signs Date Time Temp Pulse Resp B/P Pulse Ox O2 Delivery O2 Flow Rate FiO2 03/19/17 08:00 101.8 119 23 139/82 92 Mechanical Ventilator 03/19/17 05:02 30 Intake and Output 03/18/17 03/18/17 03/19/17 15:00 23:00 07:00 Intake Total 1082.5 ml 777.5 ml 570 ml Output Total 558 ml 358 ml 733 ml Balance 524.5 ml 419.5 ml -163 ml Exam PHYSICAL EXAMINATION: GENERAL: Elderly-appearing lady, appears comfortable at rest, intubated and sedated on mechanical ventilation. VITAL SIGNS: HEENT: Pupils are sluggish. CARDIAC: S1, S2, no added sounds or murmurs. CHEST: Diminished air entry bilaterally. ABDOMEN: Soft, nontender. No guarding or rebound. EXTREMITIES: No cyanosis, clubbing or edema. NEUROLOGIC: Unable to assess. Results/Medications Result Diagram: 03/19/17 0536 03/19/17 0536 Results 24 hrs Chest x-ray Extensive bilateral infiltrates right greater than left possible underlying pleural effusion consistent with ARDS. Laboratory Tests Test 03/18/17 10:52 03/18/17 12:41 03/18/17 17:36 03/18/17 20:41 White Blood Count 11.5 H Red Blood Count 3.18 L Hemoglobin 7.9 L Hematocrit 26.4 L Mean Corpuscular Volume 83.0 Mean Corpuscular Hemoglobin 24.8 L Mean Corpuscular Hemoglobin Concent 29.9 L Red Cell Distribution Width 17.0 H Platelet Count 265 Mean Platelet Volume 11.0 H Neutrophils % 78.7 H Lymphocytes % 11.6 L Monocytes % 5.8 Eosinophils % 2.3 Basophils % 0.3 Nucleated Red Blood Cells % 0.0 Neutrophils # 9.0 H Lymphocytes # 1.3 Monocytes # 0.7 Eosinophils # 0.3 Basophils # 0.0 Nucleated Red Blood Cells # 0.0 Sodium Level 142 Potassium Level 3.3 L Chloride Level 104 Carbon Dioxide Level 26 Anion Gap 15 Blood Urea Nitrogen 26 #H Creatinine 0.89 Glucose Level 202 Calcium Level 8.7 Total Bilirubin 0.1 L Direct Bilirubin 0.00 Indirect Bilirubin 0.1 Aspartate Amino Transf (AST/SGOT) 71 H Alanine Aminotransferase (ALT/SGPT) 61 Alkaline Phosphatase 58 Total Protein 6.2 Albumin 3.2 L Globulin 3.00 Albumin/Globulin Ratio 1.06 Bedside Glucose 192 142 141 Test 03/19/17 05:34 03/19/17 05:36 03/19/17 08:20 Bedside Glucose 181 203 White Blood Count 15.0 #H Red Blood Count 3.31 L Hemoglobin 8.2 L Hematocrit 27.0 L Mean Corpuscular Volume 81.6 L Mean Corpuscular Hemoglobin 24.8 L Mean Corpuscular Hemoglobin Concent 30.4 L Red Cell Distribution Width 17.2 H Platelet Count 277 Mean Platelet Volume 11.5 H Neutrophils % 83.9 H Lymphocytes % 8.6 L Monocytes % 4.6 Eosinophils % 1.9 Basophils % 0.1 Nucleated Red Blood Cells % 0.0 Neutrophils # 12.6 H Lymphocytes # 1.3 Monocytes # 0.7 Eosinophils # 0.3 Basophils # 0.0 Nucleated Red Blood Cells # 0.0 Sodium Level 144 Potassium Level 3.8 Chloride Level 108 Carbon Dioxide Level 27 Anion Gap 13 Blood Urea Nitrogen 26 H Creatinine 0.79 Glucose Level 179 Calcium Level 8.9 Medications Current Medications Ticagrelor 90 mg 90 mg BID PO Last administered on 03/18/17 20:45; Admin Dose 90 MG; Start 03/10/17 at 09:00 Midazolam HCl (Versed) 50 ml @ 1 mls/hr TITRATE IV Last administered on 07:13; Admin Dose 2 MLS/HR; Start 03/10/17 at 03:30 Aspirin (Aspirin) 81 mg DAILY PO Last administered on 03/18/17 08:49; Admin Dose 81 MG; Start 03/10/17 at 09:00 Acetaminophen (Tylenol Supp) 650 mg Q4H PRN [place] PAIN LEVEL 1-3 OR FEVER Last administered on 03/12/17 21:15; Admin Dose 650 MG; Start 03/10/17 at 04:00 Eye Lubricant (Akwa Oint) 1 applic Q6 BOTH EYES Last administered on 11/23/ 17at 05:36; Admin Dose 1 APPLIC; Start 03/10/17 at 06:00 Eye Lubricant (Artificial Tears Oph) 2 drop Q6 BOTH EYES Last administered on 03/19/17 05:36; Admin Dose 2 DROP; Start 03/10/17 at 06:00 Famotidine (Pepcid) 20 mg DAILY PO Last administered on 03/18/17 08:49; Admin Dose 20 MG; Start 03/11/17 at 09:00 Meperidine HCl (Demerol) 12.5 mg Q4H PRN IV POST OPERATIVE SHIVERING; Start at 12:30 Meperidine HCl 25 mg 25 mg Q4H PRN IV POST OPERATIVE SHIVERING Last administered on 03/10/17 12:34; Admin Dose 25 MG; Start 03/10/17 at 12:30 Levetiracetam (Keppra 1,000mg/ 100ml (Pmx)) 100 ml @ 400 mls/hr Q12 IVPB Last administered on 03/18/17 20:47; Admin Dose 400 MLS/HR; Start 03/10/17 at 21: 00 Acetaminophen (Tylenol Liquid) 500 mg DAILY NGT Last administered on 08:49; Admin Dose 500 MG; Start 03/11/17 at 06:00 Insulin Aspart (Novolog Insulin Pen) NOVOLOG *MILD* ALGORI... Q4 SC Last administered on 03/19/17 08:22; Admin Dose 2 UNIT; Start 03/12/17 at 01:00 Atorvastatin Calcium (Lipitor) 40 mg DAILY@21 PO Last administered on 20:43; Admin Dose 40 MG; Start 03/12/17 at 21:00 Miscellaneous Information 1 ea NOTE XX ; Start 03/12/17 at 19:00 Glucose (Glutose) 15 gm Q15M PRN PO DECREASED GLUCOSE; Start 03/12/17 at 19:00 Glucose (Glutose) 22.5 gm Q15M PRN PO DECREASED GLUCOSE; Start 03/12/17 at 19: 00 Dextrose (D50w Syringe) 25 ml Q15M PRN IV DECREASED GLUCOSE; Start 03/12/17 at 19:00 Dextrose (D50w Syringe) 50 ml Q15M PRN IV DECREASED GLUCOSE; Start 03/12/17 at 19:00 Glucagon (Glucagen) 1 mg Q15M PRN IM DECREASED GLUCOSE; Start 03/12/17 at 19: 00 Glucose (Glutose) 15 gm Q15M PRN BUCCAL DECREASED GLUCOSE; Start 03/12/17 at 19:00 Acetaminophen 650 mg 650 mg Q4H PRN NGT PAIN AND OR ELEVATED TEMP Last administered on 03/18/17 21:37; Admin Dose 650 MG; Start 03/12/17 at 22:00 Piperacillin Sod/ Tazobactam Sod 50 ml @ 100 mls/hr Q8 IVPB Last administered on 03/16/17 06:00; Admin Dose 100 MLS/HR; Start 03/13/17 at 06:00; Status Future Hold Fentanyl (Sublimaze) 100 ml @ 2.5 mls/hr TITRATE IV ; Start 03/14/17 at 14:00 Phenytoin 100 mg 100 mg TID PO Last administered on 03/18/17 20:43; Admin Dose 100 MG; Start 03/15/17 at 21:00 Cefazolin Sodium (Ancef 1 Gm/50 ml (Pmx)) 50 ml @ 100 mls/hr Q8 IVPB Last administered on 03/19/17 05:34; Admin Dose 100 MLS/HR; Start 03/15/17 at 22: 00 Insulin Glargine (Lantus) 26 unit DAILY@08 SC Last administered on 03/19/17 08:23; Admin Dose 26 UNIT; Start 03/18/17 at 08:00 Labetalol HCl (Labetalol) 10 mg Q4H PRN IV sbp>160 Last administered on 18:56; Admin Dose 10 MG; Start 03/17/17 at 18:00 Metoprolol Tartrate (Lopressor) 50 mg Q8H PO Last administered on 03/19/17 05 :35; Admin Dose 50 MG; Start 03/18/17 at 14:30 Assessment/Plan Chief Complaint/Hosp Course IMPRESSION 1. Acute myocardial infarction. Status post LAD stent placement. Atrial fibrillation with rapid ventricular rate, . 2. Cardiopulmonary arrest. 3. Possible aspiration pneumonia with hypoxemic respiratory failure. Radiographic appearance consistent with ARDS. 4. probable anoxic brain injury. Neurologically unchanged off sedation 5. History of coronary artery disease with stent placements in the past. 6. Hypernatremia Plan 1. Status post hypothermia protocol. 2. Antibiotics for possible aspiration pneumonia. 3. Insulin 4. Cardiac recommendations with Brilinta and aspirin post-stent placement. Continue rate control with amiodarone 5. DVT and GI prophylaxis. 6. Neurology recommendations. Prognosis extremely poor. Consider comfort care. Critical care time 40 minutes. Family conference regarding goals of care. Problems: MARTA REMY MD, [facility] Mar 19, 2017 09:48
[2017-03-19] MEDS: LEVETIRACETAM 1000 MG (PMX) 100 ML IVPB SCH ×2 (10:40→20:54)
[2017-03-19] MEDS: ACETAMINOPHEN 650MG/20.3ML CUP NGT SCH (10:41)
[2017-03-19] MEDS: TICAGRELOR 90 MG TABLET PO SCH ×2 (10:42→21:05)
[2017-03-19] MEDS: ASPIRIN 81 MG TAB PO SCH (10:42)
[2017-03-19] MEDS: FAMOTIDINE 20 MG TAB PO SCH (10:42)
[2017-03-19] MEDS: PHENYTOIN 100 MG CAP PO SCH ×3 (10:43→20:54)
--- NOTE | 2017-03-19 11:15 | PN ---
Date/Time of Note Date/Time of Note DATE: 03/19/17 TIME: 11:13 Assessment/Plan VTE Prophylaxis VTE Prophylaxis Intervention: SCD's Lines/Catheters IV Catheter Type (from Nrs): Peripheral IV Urinary Cath still in place: Yes Reason Cath still needed: urinary retention Assessment/Plan Chief Complaint/Hosp Course Assessment/Plan: 71 yo F presented following cardiac arrest 2/2 STEMI for which pt underwent PCI. sp hypothermia protocol without a great deal of demonstration of significant neurological recovery. 1. anoxic brain injury -likely secondary to cardiac arrest -neuro on consult. MRI brain results noted. On Keppra and Dilantin presently, no seizures noted presently -vent weaning as per pulm 2. fevers: central v UTI v ?PNA - 03.12 urine culture noted. 03.13 blood culture consistent with contaminant.respiratory culture with corynybactereum. unclear if this represents colonization v true infection. Numerous tests x-ray also shows signs of early ARDS and possible pneumonia. - for now will change antibiotics to cefepime and vancomycin, monitor vital sign -Check another UA 3. STEMI sp PCI: DAPT -Continue BP meds as well as aspirin and Brilinta, statin as per cardiology -amio as per cardiology 4. preDM: a1c 6.1, insulin SubQ, sugars improved in the last 24 hours -Monitor, ISS, Lantus 5. subclinical hyperthyroid: can be addressed in outpatient setting 6. LUIS FELIPE: improving now, creatinine trending down close to normal range since yesterday -Continue current IV fluids, monitor BUN/creatinine levels from this morning 7. Hypernatremia: Has been resolving now -Monitor 8. FEN: TFs GOALS OF CARE/DISPO: brief family meeting held 4 days ago pt's patient's spokesperson (grandson) and 3 of her children, as well as yesterday. Myself and palliative care team spoke with family 2 days ago as well with further updates. Discussed with family that heart is working well and beating on its own , but she does not have a gag reflex, doesn't respond to pain and isn't breathing much over the vent, patient is opening eyes appears a bit more alert, but again not following commands overall, and at this time pt is not showing significant evidence of neurologic recovery 2/2 the time her brain was deprived of oxygen when she had her heart attack. Pt not brain , but less likelihood of MEANINGFUL neurologic recovery. Family indicated at this time they do not wish to have tracheostomy or G-tube placement, and to continue current medical treatment, ensured family that we will respect their wishes and facilitate care regarding their decision. Critical care time spent on patient care today equals 40 minutes Problems: Subjective 24 Hr Interval Summary Free Text/Dictation Patient with fevers more in frequency in the last 24 hours, seen by pulmonary team this morning. Still some tachycardia present. Exam/Review of Systems Vital Signs Vitals Vital Signs Date Time Temp Pulse Resp B/P Pulse Ox O2 Delivery O2 Flow Rate FiO2 03/19/17 09:00 126 23 93 30 03/19/17 08:00 101.8 139/82 Mechanical Ventilator Intake and Output 03/18/17 03/18/17 03/19/17 15:00 23:00 07:00 Intake Total 1082.5 ml 777.5 ml 570 ml Output Total 558 ml 358 ml 733 ml Balance 524.5 ml 419.5 ml -163 ml Exam Intubated, not responding to pain on minimal sedation Opens eyes occasionally Supple Slightly decreased breath sounds S1, S2 heard no mrg abd soft no lower extremity edema bilaterally Results Result Diagram: 03/19/17 0536 03/19/17 0536 Results 24 hrs Laboratory Tests Test 03/18/17 12:41 03/18/17 17:36 03/18/17 20:41 03/19/17 05:34 Bedside Glucose 192 142 141 181 Test 03/19/17 05:36 03/19/17 08:20 White Blood Count 15.0 #H Red Blood Count 3.31 L Hemoglobin 8.2 L Hematocrit 27.0 L Mean Corpuscular Volume 81.6 L Mean Corpuscular Hemoglobin 24.8 L Mean Corpuscular Hemoglobin Concent 30.4 L Red Cell Distribution Width 17.2 H Platelet Count 277 Mean Platelet Volume 11.5 H Neutrophils % 83.9 H Lymphocytes % 8.6 L Monocytes % 4.6 Eosinophils % 1.9 Basophils % 0.1 Nucleated Red Blood Cells % 0.0 Neutrophils # 12.6 H Lymphocytes # 1.3 Monocytes # 0.7 Eosinophils # 0.3 Basophils # 0.0 Nucleated Red Blood Cells # 0.0 Sodium Level 144 Potassium Level 3.8 Chloride Level 108 Carbon Dioxide Level 27 Anion Gap 13 Blood Urea Nitrogen 26 H Creatinine 0.79 Glucose Level 179 Calcium Level 8.9 Bedside Glucose 203 Medications Medications Current Medications Ticagrelor 90 mg 90 mg BID PO Last administered on 03/19/17 10:42; Admin Dose 90 MG; Start 03/10/17 at 09:00 Midazolam HCl (Versed) 50 ml @ 1 mls/hr TITRATE IV Last administered on 07:13; Admin Dose 2 MLS/HR; Start 03/10/17 at 03:30 Aspirin (Aspirin) 81 mg DAILY PO Last administered on 03/19/17 10:42; Admin Dose 81 MG; Start 03/10/17 at 09:00 Acetaminophen (Tylenol Supp) 650 mg Q4H PRN [place] PAIN LEVEL 1-3 OR FEVER Last administered on 03/12/17 21:15; Admin Dose 650 MG; Start 03/10/17 at 04:00 Eye Lubricant (Akwa Oint) 1 applic Q6 BOTH EYES Last administered on 05:36; Admin Dose 1 APPLIC; Start 03/10/17 at 06:00 Eye Lubricant (Artificial Tears Oph) 2 drop Q6 BOTH EYES Last administered on 03/19/17 05:36; Admin Dose 2 DROP; Start 03/10/17 at 06:00 Famotidine (Pepcid) 20 mg DAILY PO Last administered on 03/19/17 10:42; Admin Dose 20 MG; Start 03/11/17 at 09:00 Meperidine HCl (Demerol) 12.5 mg Q4H PRN IV POST OPERATIVE SHIVERING; Start at 12:30 Meperidine HCl 25 mg 25 mg Q4H PRN IV POST OPERATIVE SHIVERING Last administered on 03/10/17 12:34; Admin Dose 25 MG; Start 03/10/17 at 12:30 Levetiracetam (Keppra 1,000mg/ 100ml (Pmx)) 100 ml @ 400 mls/hr Q12 IVPB Last administered on 03/19/17 10:40; Admin Dose 400 MLS/HR; Start 03/10/17 at 21: 00 Acetaminophen (Tylenol Liquid) 500 mg DAILY NGT Last administered on 10:41; Admin Dose 500 MG; Start 03/11/17 at 06:00 Insulin Aspart (Novolog Insulin Pen) NOVOLOG *MILD* ALGORI... Q4 SC Last administered on 03/19/17 08:22; Admin Dose 2 UNIT; Start 03/12/17 at 01:00 Atorvastatin Calcium (Lipitor) 40 mg DAILY@21 PO Last administered on 20:43; Admin Dose 40 MG; Start 03/12/17 at 21:00 Miscellaneous Information 1 ea NOTE XX ; Start 03/12/17 at 19:00 Glucose (Glutose) 15 gm Q15M PRN PO DECREASED GLUCOSE; Start 03/12/17 at 19:00 Glucose (Glutose) 22.5 gm Q15M PRN PO DECREASED GLUCOSE; Start 03/12/17 at 19: 00 Dextrose (D50w Syringe) 25 ml Q15M PRN IV DECREASED GLUCOSE; Start 03/12/17 at 19:00 Dextrose (D50w Syringe) 50 ml Q15M PRN IV DECREASED GLUCOSE; Start 03/12/17 at 19:00 Glucagon (Glucagen) 1 mg Q15M PRN IM DECREASED GLUCOSE; Start 03/12/17 at 19: 00 Glucose (Glutose) 15 gm Q15M PRN BUCCAL DECREASED GLUCOSE; Start 03/12/17 at 19:00 Acetaminophen 650 mg 650 mg Q4H PRN NGT PAIN AND OR ELEVATED TEMP Last administered on 03/18/17 21:37; Admin Dose 650 MG; Start 03/12/17 at 22:00 Piperacillin Sod/ Tazobactam Sod 50 ml @ 100 mls/hr Q8 IVPB Last administered on 03/16/17 06:00; Admin Dose 100 MLS/HR; Start 03/13/17 at 06:00; Status Future Hold Fentanyl (Sublimaze) 100 ml @ 2.5 mls/hr TITRATE IV ; Start 03/14/17 at 14:00 Phenytoin (Dilantin) 100 mg TID PO Last administered on 03/19/17 10:43; Admin Dose 100 MG; Start 03/15/17 at 21:00 Insulin Glargine (Lantus) 26 unit DAILY@08 SC Last administered on 03/19/17 08:23; Admin Dose 26 UNIT; Start 03/18/17 at 08:00 Labetalol HCl (Labetalol) 10 mg Q4H PRN IV sbp>160 Last administered on 18:56; Admin Dose 10 MG; Start 03/17/17 at 18:00 Metoprolol Tartrate 50 mg 50 mg Q8H PO Last administered on 03/19/17 05:35; Admin Dose 50 MG; Start 03/18/17 at 14:30 Cefepime HCl (Maxipime 2gm/50 ml (Pmx)) 50 ml @ 100 mls/hr Q12 IVPB ; Start at 11:30; Status ANGELIQUE RETANA Mar 19, 2017 11:15
[2017-03-19] MEDS ORDERED: VANCOMYCIN IV PER PHARMACY XX SCH (11:30)
--- NOTE | 2017-03-19 11:55 | CONS ---
Date/Time of Note Date/Time of Note DATE: 03/19/17 TIME: 11:52 Assessment/Plan Assessment/Plan Chief Complaint/Hosp Course Paroxysmal afib: new onset. In and out of afib. If meaningful recovery, will consider anticoagulation. Now remains in afib with uncontrolled rates partially due to fevers Anterior STEMI/CAD: s/p PCI of ulcerated 99% mid LAD lesion. EF by echo is preserved Cardiac arrest: likely due to arrhythmia related to above but unclear rhythm when paramedics arrived. Also with significant pulm edema so respiratory arrest/ PEA also possible Acute diastolic heart failure: Significant pulm edema by CXR. LVEDP 27 by cath. CXR now worse Acute respiratory failure: on vent due to above Acute renal failure: resolved Anemia: no active bleeding Fevers: ?central vs infectious. Urine + E coli Anoxic brain injury: per family, pt may have been pulseless for 10 mins prior to rda arrival. Unclear rhythm. MRI confirms anoxic brain injury Seizures vs myoclonic jerks -increase to metoprolol 100 mg q8h -start lasix 40mgf IV BID -continue ASA, ticagrelor, lipitor Problems: Consultation Date/Type/Reason Admit Date/Time Mar 10, 2017 at 03:25 Initial Consult Date 03/10/17 Type of Consultation: Cardiology Referring Provider: JESSICA DIAZ 24 HR Interval Summary Free Text/Dictation Persistent fevers. HR uncontrolled. CXR much worse. Exam/Review of Systems Vital Signs Vitals Vital Signs Date Time Temp Pulse Resp B/P Pulse Ox O2 Delivery O2 Flow Rate FiO2 03/19/17 11:00 115 22 144/100 93 Mechanical Ventilator 03/19/17 09:00 30 03/19/17 08:00 101.8 Intake and Output 03/18/17 03/18/17 03/19/17 15:00 23:00 07:00 Intake Total 1082.5 ml 777.5 ml 570 ml Output Total 558 ml 358 ml 733 ml Balance 524.5 ml 419.5 ml -163 ml Exam Constitutional: No alert Head: atraumatic, normocephalic ENMT: intubated Neck: jvd (9cm) Respiratory: diminished breath sounds, No clear to auscultation Cardiovascular: edema (1+), No regular rate and rhythm (tachy, irregular ) Gastrointestinal: soft, No distended Neurological: No nl mental status, No nl speech Results Result Diagram: 03/19/17 0536 03/19/17 0536 Results 24 hrs Laboratory Tests Test 03/18/17 12:41 03/18/17 17:36 03/18/17 20:41 03/19/17 05:34 Bedside Glucose 192 142 141 181 Test 03/19/17 05:36 03/19/17 08:20 White Blood Count 15.0 #H Red Blood Count 3.31 L Hemoglobin 8.2 L Hematocrit 27.0 L Mean Corpuscular Volume 81.6 L Mean Corpuscular Hemoglobin 24.8 L Mean Corpuscular Hemoglobin Concent 30.4 L Red Cell Distribution Width 17.2 H Platelet Count 277 Mean Platelet Volume 11.5 H Neutrophils % 83.9 H Lymphocytes % 8.6 L Monocytes % 4.6 Eosinophils % 1.9 Basophils % 0.1 Nucleated Red Blood Cells % 0.0 Neutrophils # 12.6 H Lymphocytes # 1.3 Monocytes # 0.7 Eosinophils # 0.3 Basophils # 0.0 Nucleated Red Blood Cells # 0.0 Sodium Level 144 Potassium Level 3.8 Chloride Level 108 Carbon Dioxide Level 27 Anion Gap 13 Blood Urea Nitrogen 26 H Creatinine 0.79 Glucose Level 179 Calcium Level 8.9 Bedside Glucose 203 Medications Medications Current Medications Ticagrelor 90 mg 90 mg BID PO Last administered on 03/19/17 10:42; Admin Dose 90 MG; Start 03/10/17 at 09:00 Midazolam HCl (Versed) 50 ml @ 1 mls/hr TITRATE IV Last administered on 07:13; Admin Dose 2 MLS/HR; Start 03/10/17 at 03:30 Aspirin (Aspirin) 81 mg DAILY PO Last administered on 03/19/17 10:42; Admin Dose 81 MG; Start 03/10/17 at 09:00 Acetaminophen (Tylenol Supp) 650 mg Q4H PRN [place] PAIN LEVEL 1-3 OR FEVER Last administered on 03/12/17 21:15; Admin Dose 650 MG; Start 03/10/17 at 04:00 Eye Lubricant (Akwa Oint) 1 applic Q6 BOTH EYES Last administered on 05:36; Admin Dose 1 APPLIC; Start 03/10/17 at 06:00 Eye Lubricant (Artificial Tears Oph) 2 drop Q6 BOTH EYES Last administered on 03/19/17 05:36; Admin Dose 2 DROP; Start 03/10/17 at 06:00 Famotidine (Pepcid) 20 mg DAILY PO Last administered on 03/19/17 10:42; Admin Dose 20 MG; Start 03/11/17 at 09:00 Meperidine HCl (Demerol) 12.5 mg Q4H PRN IV POST OPERATIVE SHIVERING; Start at 12:30 Meperidine HCl 25 mg 25 mg Q4H PRN IV POST OPERATIVE SHIVERING Last administered on 03/10/17 12:34; Admin Dose 25 MG; Start 03/10/17 at 12:30 Levetiracetam (Keppra 1,000mg/ 100ml (Pmx)) 100 ml @ 400 mls/hr Q12 IVPB Last administered on 03/19/17 10:40; Admin Dose 400 MLS/HR; Start 03/10/17 at 21: 00 Acetaminophen (Tylenol Liquid) 500 mg DAILY NGT Last administered on 10:41; Admin Dose 500 MG; Start 03/11/17 at 06:00 Insulin Aspart (Novolog Insulin Pen) NOVOLOG *MILD* ALGORI... Q4 SC Last administered on 03/19/17 08:22; Admin Dose 2 UNIT; Start 03/12/17 at 01:00 Atorvastatin Calcium (Lipitor) 40 mg DAILY@21 PO Last administered on 20:43; Admin Dose 40 MG; Start 03/12/17 at 21:00 Miscellaneous Information 1 ea NOTE XX ; Start 03/12/17 at 19:00 Glucose (Glutose) 15 gm Q15M PRN PO DECREASED GLUCOSE; Start 03/12/17 at 19:00 Glucose (Glutose) 22.5 gm Q15M PRN PO DECREASED GLUCOSE; Start 03/12/17 at 19: 00 Dextrose (D50w Syringe) 25 ml Q15M PRN IV DECREASED GLUCOSE; Start 03/12/17 at 19:00 Dextrose (D50w Syringe) 50 ml Q15M PRN IV DECREASED GLUCOSE; Start 03/12/17 at 19:00 Glucagon (Glucagen) 1 mg Q15M PRN IM DECREASED GLUCOSE; Start 03/12/17 at 19: 00 Glucose (Glutose) 15 gm Q15M PRN BUCCAL DECREASED GLUCOSE; Start 03/12/17 at 19:00 Acetaminophen 650 mg 650 mg Q4H PRN NGT PAIN AND OR ELEVATED TEMP Last administered on 03/18/17 21:37; Admin Dose 650 MG; Start 03/12/17 at 22:00 Piperacillin Sod/ Tazobactam Sod 50 ml @ 100 mls/hr Q8 IVPB Last administered on 03/16/17 06:00; Admin Dose 100 MLS/HR; Start 03/13/17 at 06:00; Status Future Hold Fentanyl (Sublimaze) 100 ml @ 2.5 mls/hr TITRATE IV ; Start 03/14/17 at 14:00 Phenytoin (Dilantin) 100 mg TID PO Last administered on 03/19/17 10:43; Admin Dose 100 MG; Start 03/15/17 at 21:00 Insulin Glargine (Lantus) 26 unit DAILY@08 SC Last administered on 03/19/17 08:23; Admin Dose 26 UNIT; Start 03/18/17 at 08:00 Labetalol HCl (Labetalol) 10 mg Q4H PRN IV sbp>160 Last administered on 18:56; Admin Dose 10 MG; Start 03/17/17 at 18:00 Metoprolol Tartrate 50 mg 50 mg Q8H PO Last administered on 03/19/17 05:35; Admin Dose 50 MG; Start 03/18/17 at 14:30 Cefepime HCl (Maxipime 2gm/50 ml (Pmx)) 50 ml @ 100 mls/hr Q12 IVPB ; Start at 11:30 ZACK ROSENTHAL Mar 19, 2017 11:55
[2017-03-19] MEDS ORDERED: VANCOMYCIN 1.5 GM in SOD CHLORIDE 0.9% 250 ML IVPB ONE (12:30)
[2017-03-19] MEDS: CEFEPIME 2GM/50 ML (PMX) 50 ML IVPB SCH ×2 (12:54→20:54)
[2017-03-19] MEDS: FUROSEMIDE 40 MG INJ IV SCH ×2 (12:54→18:00)
[2017-03-19 18:00] LABS: ADD UMIC YES; UR ASCORBIC ACID NEGATIVE (NEGATIVE); UR BILIRUBIN (Dip) NEGATIVE (NEGATIVE); UR BLOOD (Dip) 3+ mg/dL (NEGATIVE); UR CLARITY SLIGHTLY CLOUDY (CLEAR); UR COLOR STRAW (YELLOW); UR GLUCOSE (Dip) NEGATIVE (NEGATIVE); UR KETONES (Dip) NEGATIVE (NEGATIVE); UR LEUKOCYTE ESTERASE (Dip) TRACE Leu/ul (NEGATIVE); UR MUCUS FEW /HPF (NONE SEEN); UR NITRITE (Dip) NEGATIVE (NEGATIVE); UR RBC 122 /HPF (0-5); UR SPECIFIC GRAVITY (Dip) 1.006 (1.003-1.030); UR TOTAL PROTEIN (Dip) NEGATIVE (NEGATIVE); UR UROBILINOGEN (Dip) NEGATIVE (NEGATIVE)
[2017-03-19] MEDS: ATORVASTATIN 40 MG TAB PO SCH (20:54)
[2017-03-20] VITALS (29 sets, daily range): BP systolic 78–130; BP diastolic 52–93; PULSE 101–137; RESP 18–29
[2017-03-20] MEDS: INSULIN ASPART [NOVOLOG] 3 ML PEN SC SCH ×6 (00:35→21:34)
[2017-03-20] MEDS: ARTIFICIAL TEARS 15 ML OPH BOTH EYES SCH ×3 (05:21→17:40)
[2017-03-20] MEDS: OCULAR LUBRICANT 3.5 GM OPH OINT BOTH EYES SCH ×3 (05:21→17:40)
[2017-03-20] MEDS: FUROSEMIDE 40 MG INJ IV SCH ×2 (05:21→17:38)
[2017-03-20 05:25] LABS: BASOPHIL # 0.1 10^3/ul (0.0-0.1); BASOPHILS % 0.3 % (0.0-2.0); EOSINOPHILS # 0.3 10^3/ul (0.0-0.5); EOSINOPHILS % 2.2 % (0.0-7.0); HEMATOCRIT 26.6 % (37.0-47.0); LYMPHOCYTES # 1.5 10^3/ul (0.8-2.9); LYMPHOCYTES % 10.1 % (15.0-51.0); MEAN CORPUSCULAR HEMOGLOBIN 24.8 pg (29.0-33.0); MEAN CORPUSCULAR HGB CONC 30.1 g/dl (32.0-37.0); MEAN CORPUSCULAR VOLUME 82.6 fl (82.0-101.0); MEAN PLATELET VOLUME 11.3 fl (7.4-10.4); MONOCYTE # 0.7 10^3/ul (0.3-0.9); MONOCYTES % 4.6 % (0.0-11.0); NEUTROPHIL # 12.4 10^3/ul (1.6-7.5); NEUTROPHILS % 82.1 % (39.0-77.0); PLATELET COUNT 332 10^3/UL (140-415); RED BLOOD COUNT 3.22 10^6/ul (4.20-5.40); RED CELL DISTRIBUTION WIDTH 17.2 % (11.5-14.5); WHITE BLOOD COUNT 15.1 10^3/ul (4.8-10.8)
[2017-03-20] MEDS: METOPROLOL 50 MG TAB PO SCH ×3 (05:27→22:30)
[2017-03-20 05:54] LABS: CALCIUM 8.5 mg/dl (8.4-10.2); CREATININE 0.94 mg/dl (0.44-1.00); POTASSIUM 3.4 mmol/L (3.5-5.1)
[2017-03-20] MEDS: INSULIN GLARGINE [LANtus] 3 ML PEN SC SCH (08:31)
[2017-03-20] MEDS: ACETAMINOPHEN 650MG/20.3ML CUP NGT SCH (08:33)
[2017-03-20] MEDS: FAMOTIDINE 20 MG TAB PO SCH (08:33)
[2017-03-20] MEDS: ASPIRIN 81 MG TAB PO SCH (08:34)
[2017-03-20] MEDS: CEFEPIME 2GM/50 ML (PMX) 50 ML IVPB SCH ×2 (08:35→21:03)
[2017-03-20] MEDS: LEVETIRACETAM 1000 MG (PMX) 100 ML IVPB SCH ×2 (08:36→20:46)
[2017-03-20] MEDS: PHENYTOIN 100 MG CAP PO SCH (08:40)
[2017-03-20] MEDS: TICAGRELOR 90 MG TABLET PO SCH ×2 (08:41→21:18)
--- NOTE | 2017-03-20 08:51 | CONS ---
Date/Time of Note Date/Time of Note DATE: 03/20/17 TIME: 08:49 Consult Date/Type/Reason Admit Date/Time Mar 10, 2017 at 03:25 Initial Consult Date 03/10/17 Type of Consultation: Pulmonary Ordering Provider: JESSICA DIAZ Subjective Remains unresponsive on mechanical ventilation. No sedation. Continues to feeding. Febrile this morning. Objective Vital Signs Date Time Temp Pulse Resp B/P Pulse Ox O2 Delivery O2 Flow Rate FiO2 03/20/17 06:00 113 18 100/62 98 Mechanical Ventilator 03/20/17 05:01 30 03/20/17 04:00 101.5 Intake and Output 03/19/17 03/19/17 03/20/17 15:00 23:00 07:00 Intake Total 752.5 ml 767.500 ml 480 ml Output Total 1679 ml 1829 ml 697 ml Balance -926.5 ml -1061.500 ml -217 ml Exam PHYSICAL EXAMINATION: GENERAL: Elderly-appearing lady, appears comfortable at rest, intubated on mechanical ventilation. VITAL SIGNS: HEENT: Pupils are sluggish. CARDIAC: S1, S2, no added sounds or murmurs. CHEST: Diminished air entry bilaterally. ABDOMEN: Soft, nontender. No guarding or rebound. EXTREMITIES: No cyanosis, clubbing or edema. NEUROLOGIC: Unable to assess. Results/Medications Result Diagram: 03/20/17 0512 03/20/17 0400 Results 24 hrs Laboratory Tests Test 03/19/17 12:52 03/19/17 13:12 03/19/17 17:58 03/19/17 20:52 Urine Color STRAW Urine Clarity SLIGHTLY CLOUDY A Urine pH 7.0 Urine Specific [place] 1.006 Urine Ketones NEGATIVE Urine Nitrite NEGATIVE Urine Bilirubin NEGATIVE Urine Urobilinogen NEGATIVE Urine Leukocyte Esterase TRACE A Urine Microscopic RBC 122 H Urine Microscopic WBC 17 H Urine Mucus FEW A Urine Hemoglobin 3+ H Urine Glucose NEGATIVE Urine Total Protein NEGATIVE Bedside Glucose 228 H 241 H 245 H Test 03/20/17 00:26 03/20/17 04:00 03/20/17 04:45 03/20/17 05:12 Bedside Glucose 222 H 200 Sodium Level 144 Potassium Level 3.4 L Chloride Level 105 Carbon Dioxide Level 30 Anion Gap 12 Blood Urea Nitrogen 31 H Creatinine 0.94 Glucose Level 191 Calcium Level 8.5 White Blood Count 15.1 H Red Blood Count 3.22 L Hemoglobin 8.0 L Hematocrit 26.6 L Mean Corpuscular Volume 82.6 Mean Corpuscular Hemoglobin 24.8 L Mean Corpuscular Hemoglobin Concent 30.1 L Red Cell Distribution Width 17.2 H Platelet Count 332 Mean Platelet Volume 11.3 H Neutrophils % 82.1 H Lymphocytes % 10.1 L Monocytes % 4.6 Eosinophils % 2.2 Basophils % 0.3 Nucleated Red Blood Cells % 0.0 Neutrophils # 12.4 H Lymphocytes # 1.5 Monocytes # 0.7 Eosinophils # 0.3 Basophils # 0.1 Nucleated Red Blood Cells # 0.0 Test 03/20/17 08:37 Bedside Glucose 248 H Medications Current Medications Ticagrelor 90 mg 90 mg BID PO Last administered on 03/20/17 08:41; Admin Dose 90 MG; Start 03/10/17 at 09:00 Midazolam HCl (Versed) 50 ml @ 1 mls/hr TITRATE IV Last administered on 07:13; Admin Dose 2 MLS/HR; Start 03/10/17 at 03:30 Aspirin (Aspirin) 81 mg DAILY PO Last administered on 03/20/17 08:34; Admin Dose 81 MG; Start 03/10/17 at 09:00 Acetaminophen (Tylenol Supp) 650 mg Q4H PRN [place] PAIN LEVEL 1-3 OR FEVER Last administered on 03/12/17 21:15; Admin Dose 650 MG; Start 03/10/17 at 04:00 Eye Lubricant (Akwa Oint) 1 applic Q6 BOTH EYES Last administered on 05:21; Admin Dose 1 APPLIC; Start 03/10/17 at 06:00 Eye Lubricant (Artificial Tears Oph) 2 drop Q6 BOTH EYES Last administered on 03/20/17 05:21; Admin Dose 2 DROP; Start 03/10/17 at 06:00 Famotidine (Pepcid) 20 mg DAILY PO Last administered on 03/20/17 08:33; Admin Dose 20 MG; Start 03/11/17 at 09:00 Meperidine HCl (Demerol) 12.5 mg Q4H PRN IV POST OPERATIVE SHIVERING; Start at 12:30 Meperidine HCl 25 mg 25 mg Q4H PRN IV POST OPERATIVE SHIVERING Last administered on 03/10/17 12:34; Admin Dose 25 MG; Start 03/10/17 at 12:30 Levetiracetam (Keppra 1,000mg/ 100ml (Pmx)) 100 ml @ 400 mls/hr Q12 IVPB Last administered on 03/20/17 08:36; Admin Dose 400 MLS/HR; Start 03/10/17 at 21: 00 Acetaminophen (Tylenol Liquid) 500 mg DAILY NGT Last administered on 08:33; Admin Dose 500 MG; Start 03/11/17 at 06:00 Insulin Aspart (Novolog Insulin Pen) NOVOLOG *MILD* ALGORI... Q4 SC Last administered on 03/20/17 04:51; Admin Dose 2 UNIT; Start 03/12/17 at 01:00 Atorvastatin Calcium (Lipitor) 40 mg DAILY@21 PO Last administered on 20:54; Admin Dose 40 MG; Start 03/12/17 at 21:00 Miscellaneous Information 1 ea NOTE XX ; Start 03/12/17 at 19:00 Glucose (Glutose) 15 gm Q15M PRN PO DECREASED GLUCOSE; Start 03/12/17 at 19:00 Glucose (Glutose) 22.5 gm Q15M PRN PO DECREASED GLUCOSE; Start 03/12/17 at 19: 00 Dextrose (D50w Syringe) 25 ml Q15M PRN IV DECREASED GLUCOSE; Start 03/12/17 at 19:00 Dextrose (D50w Syringe) 50 ml Q15M PRN IV DECREASED GLUCOSE; Start 03/12/17 at 19:00 Glucagon (Glucagen) 1 mg Q15M PRN IM DECREASED GLUCOSE; Start 03/12/17 at 19: 00 Glucose (Glutose) 15 gm Q15M PRN BUCCAL DECREASED GLUCOSE; Start 03/12/17 at 19:00 Acetaminophen 650 mg 650 mg Q4H PRN NGT PAIN AND OR ELEVATED TEMP Last administered on 03/18/17 21:37; Admin Dose 650 MG; Start 03/12/17 at 22:00 Piperacillin Sod/ Tazobactam Sod 50 ml @ 100 mls/hr Q8 IVPB Last administered on 03/16/17 06:00; Admin Dose 100 MLS/HR; Start 03/13/17 at 06:00; Status Future Hold Fentanyl (Sublimaze) 100 ml @ 2.5 mls/hr TITRATE IV ; Start 03/14/17 at 14:00 Phenytoin (Dilantin) 100 mg TID PO Last administered on 03/20/17 08:40; Admin Dose 100 MG; Start 03/15/17 at 21:00 Insulin Glargine (Lantus) 26 unit DAILY@08 SC Last administered on 03/20/17 08:31; Admin Dose 26 UNIT; Start 03/18/17 at 08:00 Labetalol HCl 10 mg 10 mg Q4H PRN IV sbp>160 Last administered on 03/17/17 18 :56; Admin Dose 10 MG; Start 03/17/17 at 18:00 Cefepime HCl (Maxipime 2gm/50 ml (Pmx)) 50 ml @ 100 mls/hr Q12 IVPB Last administered on 03/20/17 08:35; Admin Dose 100 MLS/HR; Start 03/19/17 at 11: 30 Metoprolol Tartrate 100 mg 100 mg Q8H PO Last administered on 03/20/17 05:27 ; Admin Dose 100 MG; Start 03/19/17 at 14:30 Vancomycin HCl/ Sodium Chloride (Vancocin/NS) 250 ml @ 83.333 mls/ hr Q24H IVPB ; Start 03/20/17 at 14:00 Assessment/Plan Chief Complaint/Hosp Course IMPRESSION 1. Acute myocardial infarction. Status post LAD stent placement. Atrial fibrillation with rapid ventricular rate, . 2. Cardiopulmonary arrest. 3. Possible aspiration pneumonia with hypoxemic respiratory failure. Radiographic appearance consistent with ARDS. Extensive right effusion. 4. probable anoxic brain injury. Neurologically unchanged off sedation 5. History of coronary artery disease with stent placements in the past. 6. Hypernatremia Plan 1. Continue mechanical ventilation not weanable. 2. Antibiotics for possible aspiration pneumonia. 3. Insulin 4. Cardiac recommendations, 5. DVT and GI prophylaxis. 6. Neurology recommendations. Prognosis extremely poor. Family considering options including comfort care. Critical care time 40 minutes. Family conference regarding goals of care. Problems: MARTA REMY MD, [facility] Mar 20, 2017 08:51
--- NOTE | 2017-03-20 09:12 | PN ---
Date/Time of Note Date/Time of Note DATE: 03/20/17 TIME: 09:10 Assessment/Plan VTE Prophylaxis VTE Prophylaxis Intervention: SCD's Lines/Catheters IV Catheter Type (from Nrs): Peripheral IV Urinary Cath still in place: Yes Reason Cath still needed: urinary retention Assessment/Plan Chief Complaint/Hosp Course Assessment/Plan: 71 yo F presented following cardiac arrest 2/2 STEMI for which pt underwent PCI. sp hypothermia protocol without a great deal of demonstration of significant neurological recovery. 1. anoxic brain injury -likely secondary to cardiac arrest -neuro on consult. MRI brain results noted. On Keppra and Dilantin presently, no seizures noted presently -vent weaning as per pulm 2. fevers: central v UTI v ?PNA - 03.12 urine culture noted. 03.13 blood culture consistent with contaminant.respiratory culture with corynybactereum. unclear if this represents colonization v true infection. Numerous tests x-ray also shows signs of early ARDS and possible pneumonia. -Continue cefepime and vancomycin, monitor vital sign 3. STEMI sp PCI: DAPT -Continue BP meds as well as aspirin and Brilinta, statin as per cardiology -amio as per cardiology 4. preDM: a1c 6.1, insulin SubQ, sugars somewhat higher in the last 24 hours -Monitor, change to moderate ISS, increased dose of Lantus 5. subclinical hyperthyroid: can be addressed in outpatient setting 6. LUIS FELIPE: improving now, creatinine trending down close to normal range -Continue current IV fluids, monitor BUN/creatinine levels from this morning 7. Hypernatremia: Has been resolving now -Monitor 8. FEN: TFs GOALS OF CARE/DISPO: brief family meeting held 5 days ago pt's patient's spokesperson (grandson) and 3 of her children, as well as yesterday. Myself and palliative care team spoke with family 3 days ago as well with further updates. Discussed with family that heart is working well and beating on its own , but she does not have a gag reflex, doesn't respond to pain and isn't breathing much over the vent, patient is opening eyes appears a bit more alert, but again not following commands overall, and at this time pt is not showing significant evidence of neurologic recovery 2/2 the time her brain was deprived of oxygen when she had her heart attack. Pt not brain , but less likelihood of MEANINGFUL neurologic recovery. Family indicated at this time they do not wish to have tracheostomy or G-tube placement, and to continue current medical treatment, ensured family that we will respect their wishes and facilitate care regarding their decision. Critical care time spent on patient care today equals 40 minutes Problems: Subjective 24 Hr Interval Summary Free Text/Dictation Patient still intubated, also with fevers. Exam/Review of Systems Vital Signs Vitals Vital Signs Date Time Temp Pulse Resp B/P Pulse Ox O2 Delivery O2 Flow Rate FiO2 03/20/17 06:00 113 18 100/62 98 Mechanical Ventilator 03/20/17 05:01 30 03/20/17 04:00 101.5 Intake and Output 03/19/17 03/19/17 03/20/17 14:59 22:59 06:59 Intake Total 690 ml 830.000 ml 520 ml Output Total 1297 ml 2167 ml 784 ml Balance -607 ml -1337.000 ml -264 ml Exam Intubated, not responding to pain on minimal sedation Opens eyes occasionally Supple Slightly decreased breath sounds S1, S2 heard no mrg abd soft no lower extremity edema bilaterally Results Result Diagram: 03/20/17 0512 03/20/17 0400 Results 24 hrs Laboratory Tests Test 03/19/17 12:52 03/19/17 13:12 03/19/17 17:58 03/19/17 20:52 Urine Color STRAW Urine Clarity SLIGHTLY CLOUDY A Urine pH 7.0 Urine Specific [place] 1.006 Urine Ketones NEGATIVE Urine Nitrite NEGATIVE Urine Bilirubin NEGATIVE Urine Urobilinogen NEGATIVE Urine Leukocyte Esterase TRACE A Urine Microscopic RBC 122 H Urine Microscopic WBC 17 H Urine Mucus FEW A Urine Hemoglobin 3+ H Urine Glucose NEGATIVE Urine Total Protein NEGATIVE Bedside Glucose 228 H 241 H 245 H Test 03/20/17 00:26 03/20/17 04:00 03/20/17 04:45 03/20/17 05:12 Bedside Glucose 222 H 200 Sodium Level 144 Potassium Level 3.4 L Chloride Level 105 Carbon Dioxide Level 30 Anion Gap 12 Blood Urea Nitrogen 31 H Creatinine 0.94 Glucose Level 191 Calcium Level 8.5 White Blood Count 15.1 H Red Blood Count 3.22 L Hemoglobin 8.0 L Hematocrit 26.6 L Mean Corpuscular Volume 82.6 Mean Corpuscular Hemoglobin 24.8 L Mean Corpuscular Hemoglobin Concent 30.1 L Red Cell Distribution Width 17.2 H Platelet Count 332 Mean Platelet Volume 11.3 H Neutrophils % 82.1 H Lymphocytes % 10.1 L Monocytes % 4.6 Eosinophils % 2.2 Basophils % 0.3 Nucleated Red Blood Cells % 0.0 Neutrophils # 12.4 H Lymphocytes # 1.5 Monocytes # 0.7 Eosinophils # 0.3 Basophils # 0.1 Nucleated Red Blood Cells # 0.0 Test 03/20/17 08:37 Bedside Glucose 248 H Medications Medications Current Medications Ticagrelor 90 mg 90 mg BID PO Last administered on 03/20/17 08:41; Admin Dose 90 MG; Start 03/10/17 at 09:00 Midazolam HCl (Versed) 50 ml @ 1 mls/hr TITRATE IV Last administered on 07:13; Admin Dose 2 MLS/HR; Start 03/10/17 at 03:30 Aspirin (Aspirin) 81 mg DAILY PO Last administered on 03/20/17 08:34; Admin Dose 81 MG; Start 03/10/17 at 09:00 Acetaminophen (Tylenol Supp) 650 mg Q4H PRN [place] PAIN LEVEL 1-3 OR FEVER Last administered on 03/12/17 21:15; Admin Dose 650 MG; Start 03/10/17 at 04:00 Eye Lubricant (Akwa Oint) 1 applic Q6 BOTH EYES Last administered on 05:21; Admin Dose 1 APPLIC; Start 03/10/17 at 06:00 Eye Lubricant (Artificial Tears Oph) 2 drop Q6 BOTH EYES Last administered on 03/20/17 05:21; Admin Dose 2 DROP; Start 03/10/17 at 06:00 Famotidine (Pepcid) 20 mg DAILY PO Last administered on 03/20/17 08:33; Admin Dose 20 MG; Start 03/11/17 at 09:00 Meperidine HCl (Demerol) 12.5 mg Q4H PRN IV POST OPERATIVE SHIVERING; Start at 12:30 Meperidine HCl 25 mg 25 mg Q4H PRN IV POST OPERATIVE SHIVERING Last administered on 03/10/17 12:34; Admin Dose 25 MG; Start 03/10/17 at 12:30 Levetiracetam (Keppra 1,000mg/ 100ml (Pmx)) 100 ml @ 400 mls/hr Q12 IVPB Last administered on 03/20/17 08:36; Admin Dose 400 MLS/HR; Start 03/10/17 at 21: 00 Acetaminophen (Tylenol Liquid) 500 mg DAILY NGT Last administered on 08:33; Admin Dose 500 MG; Start 03/11/17 at 06:00 Atorvastatin Calcium (Lipitor) 40 mg DAILY@21 PO Last administered on 20:54; Admin Dose 40 MG; Start 03/12/17 at 21:00 Miscellaneous Information 1 ea NOTE XX ; Start 03/12/17 at 19:00 Glucose (Glutose) 15 gm Q15M PRN PO DECREASED GLUCOSE; Start 03/12/17 at 19:00 Glucose (Glutose) 22.5 gm Q15M PRN PO DECREASED GLUCOSE; Start 03/12/17 at 19: 00 Dextrose (D50w Syringe) 25 ml Q15M PRN IV DECREASED GLUCOSE; Start 03/12/17 at 19:00 Dextrose (D50w Syringe) 50 ml Q15M PRN IV DECREASED GLUCOSE; Start 03/12/17 at 19:00 Glucagon (Glucagen) 1 mg Q15M PRN IM DECREASED GLUCOSE; Start 03/12/17 at 19: 00 Glucose (Glutose) 15 gm Q15M PRN BUCCAL DECREASED GLUCOSE; Start 03/12/17 at 19:00 Acetaminophen 650 mg 650 mg Q4H PRN NGT PAIN AND OR ELEVATED TEMP Last administered on 03/18/17 21:37; Admin Dose 650 MG; Start 03/12/17 at 22:00 Piperacillin Sod/ Tazobactam Sod 50 ml @ 100 mls/hr Q8 IVPB Last administered on 03/16/17 06:00; Admin Dose 100 MLS/HR; Start 03/13/17 at 06:00; Status Future Hold Fentanyl (Sublimaze) 100 ml @ 2.5 mls/hr TITRATE IV ; Start 03/14/17 at 14:00 Phenytoin (Dilantin) 100 mg TID PO Last administered on 03/20/17 08:40; Admin Dose 100 MG; Start 03/15/17 at 21:00 Labetalol HCl 10 mg 10 mg Q4H PRN IV sbp>160 Last administered on 03/17/17 18 :56; Admin Dose 10 MG; Start 03/17/17 at 18:00 Cefepime HCl (Maxipime 2gm/50 ml (Pmx)) 50 ml @ 100 mls/hr Q12 IVPB Last administered on 03/20/17 08:35; Admin Dose 100 MLS/HR; Start 03/19/17 at 11: 30 Metoprolol Tartrate 100 mg 100 mg Q8H PO Last administered on 03/20/17 05:27 ; Admin Dose 100 MG; Start 03/19/17 at 14:30 Vancomycin HCl/ Sodium Chloride (Vancocin/NS) 250 ml @ 83.333 mls/ hr Q24H IVPB ; Start 03/20/17 at 14:00 Insulin Glargine (Lantus) 30 unit DAILY@08 SC ; Start 03/21/17 at 08:00; Status UNV Miscellaneous Information (* Miscellaneous Pharmacy Order) Discontinue current oral sulfonylur... ONCE ONCE XX ; Start 03/20/17 at 09:30; Stop 03/20/17 at 09:31; Status UNV Diagnostic Test (Pha) (Accu-Chek) 1 XX ; Start 03/21/17 at 02:00; Status UNV Miscellaneous Information (* Miscellaneous Pharmacy Order) HYPOGLYCEMIA PROTOCOL w... ONCE ONCE XX ; Start 03/20/17 at 09:30; Stop 03/20/17 at 09:31 ; Status UNV Miscellaneous Information (* Miscellaneous Pharmacy Order) Discontinue all previ... ONCE ONCE XX ; Start 03/20/17 at 09:30; Stop 03/20/17 at 09:31; Status UNV ANGELIQUE ARAYA Mar 20, 2017 09:12
--- NOTE | 2017-03-20 11:31 | CONS ---
Date/Time of Note Date/Time of Note DATE: 03/20/17 TIME: 11:29 Assessment/Plan Assessment/Plan Chief Complaint/Hosp Course Paroxysmal afib: new onset. In and out of afib.Now remains in afib with uncontrolled rates partially due to fevers Anterior STEMI/CAD: s/p PCI of ulcerated 99% mid LAD lesion. EF by echo is preserved Cardiac arrest: likely due to arrhythmia related to above but unclear rhythm when paramedics arrived. Also with significant pulm edema so respiratory arrest/ PEA also possible Acute diastolic heart failure: Significant pulm edema by CXR. LVEDP 27 by cath. CXR now worse Acute respiratory failure: on vent due to above Acute renal failure: resolved Anemia: no active bleeding Fevers: ?central vs infectious. Urine + E coli Anoxic brain injury: per family, pt may have been pulseless for 10 mins prior to dermatopathologist arrival. Unclear rhythm. MRI confirms anoxic brain injury. Family would like comfort care Seizures vs myoclonic jerks -likely comfort care starting tomorrow -metoprolol 100 mg q8h -lasix 20mgf IV BID -continue ASA, ticagrelor, lipitor -can d/c all if terminally extubated and comfort care Problems: Consultation Date/Type/Reason Admit Date/Time Mar 10, 2017 at 03:25 Initial Consult Date 03/10/17 Type of Consultation: Cardiology Referring Provider: JESSICA DIAZ 24 HR Interval Summary Free Text/Dictation No o/n events. Remains in afib. Per RN, family has decided for comfort care possibly tomorrow Exam/Review of Systems Vital Signs Vitals Vital Signs Date Time Temp Pulse Resp B/P Pulse Ox O2 Delivery O2 Flow Rate FiO2 03/20/17 11:00 133 19 120/80 100 Mechanical Ventilator 03/20/17 09:00 30 03/20/17 08:00 102.1 Intake and Output 03/19/17 03/19/17 03/20/17 14:59 22:59 06:59 Intake Total 690 ml 830.000 ml 520 ml Output Total 1297 ml 2167 ml 784 ml Balance -607 ml -1337.000 ml -264 ml Exam Constitutional: No alert Head: atraumatic, normocephalic ENMT: intubated Neck: supple, No jvd Respiratory: diminished breath sounds, No clear to auscultation Cardiovascular: No edema, No regular rate and rhythm, No systolic murmur Gastrointestinal: soft, No distended Neurological: No nl mental status, No nl speech Results Result Diagram: 03/20/17 0512 03/20/17 0400 Results 24 hrs Laboratory Tests Test 03/19/17 12:52 03/19/17 13:12 03/19/17 17:58 03/19/17 20:52 Urine Color STRAW Urine Clarity SLIGHTLY CLOUDY A Urine pH 7.0 Urine Specific [place] 1.006 Urine Ketones NEGATIVE Urine Nitrite NEGATIVE Urine Bilirubin NEGATIVE Urine Urobilinogen NEGATIVE Urine Leukocyte Esterase TRACE A Urine Microscopic RBC 122 H Urine Microscopic WBC 17 H Urine Mucus FEW A Urine Hemoglobin 3+ H Urine Glucose NEGATIVE Urine Total Protein NEGATIVE Bedside Glucose 228 H 241 H 245 H Test 03/20/17 00:26 03/20/17 04:00 03/20/17 04:45 03/20/17 05:12 Bedside Glucose 222 H 200 Sodium Level 144 Potassium Level 3.4 L Chloride Level 105 Carbon Dioxide Level 30 Anion Gap 12 Blood Urea Nitrogen 31 H Creatinine 0.94 Glucose Level 191 Calcium Level 8.5 White Blood Count 15.1 H Red Blood Count 3.22 L Hemoglobin 8.0 L Hematocrit 26.6 L Mean Corpuscular Volume 82.6 Mean Corpuscular Hemoglobin 24.8 L Mean Corpuscular Hemoglobin Concent 30.1 L Red Cell Distribution Width 17.2 H Platelet Count 332 Mean Platelet Volume 11.3 H Neutrophils % 82.1 H Lymphocytes % 10.1 L Monocytes % 4.6 Eosinophils % 2.2 Basophils % 0.3 Nucleated Red Blood Cells % 0.0 Neutrophils # 12.4 H Lymphocytes # 1.5 Monocytes # 0.7 Eosinophils # 0.3 Basophils # 0.1 Nucleated Red Blood Cells # 0.0 Test 03/20/17 08:37 Bedside Glucose 248 H Medications Medications Current Medications Ticagrelor 90 mg 90 mg BID PO Last administered on 03/20/17 08:41; Admin Dose 90 MG; Start 03/10/17 at 09:00 Midazolam HCl (Versed) 50 ml @ 1 mls/hr TITRATE IV Last administered on 07:13; Admin Dose 2 MLS/HR; Start 03/10/17 at 03:30 Aspirin (Aspirin) 81 mg DAILY PO Last administered on 03/20/17 08:34; Admin Dose 81 MG; Start 03/10/17 at 09:00 Acetaminophen (Tylenol Supp) 650 mg Q4H PRN [place] PAIN LEVEL 1-3 OR FEVER Last administered on 03/12/17 21:15; Admin Dose 650 MG; Start 03/10/17 at 04:00 Eye Lubricant (Akwa Oint) 1 applic Q6 BOTH EYES Last administered on 05:21; Admin Dose 1 APPLIC; Start 03/10/17 at 06:00 Eye Lubricant (Artificial Tears Oph) 2 drop Q6 BOTH EYES Last administered on 03/20/17 05:21; Admin Dose 2 DROP; Start 03/10/17 at 06:00 Famotidine (Pepcid) 20 mg DAILY PO Last administered on 03/20/17 08:33; Admin Dose 20 MG; Start 03/11/17 at 09:00 Meperidine HCl (Demerol) 12.5 mg Q4H PRN IV POST OPERATIVE SHIVERING; Start at 12:30 Meperidine HCl 25 mg 25 mg Q4H PRN IV POST OPERATIVE SHIVERING Last administered on 03/10/17 12:34; Admin Dose 25 MG; Start 03/10/17 at 12:30 Levetiracetam (Keppra 1,000mg/ 100ml (Pmx)) 100 ml @ 400 mls/hr Q12 IVPB Last administered on 03/20/17 08:36; Admin Dose 400 MLS/HR; Start 03/10/17 at 21: 00 Acetaminophen (Tylenol Liquid) 500 mg DAILY NGT Last administered on 08:33; Admin Dose 500 MG; Start 03/11/17 at 06:00 Atorvastatin Calcium (Lipitor) 40 mg DAILY@21 PO Last administered on 20:54; Admin Dose 40 MG; Start 03/12/17 at 21:00 Miscellaneous Information 1 ea NOTE XX ; Start 03/12/17 at 19:00 Glucose (Glutose) 15 gm Q15M PRN PO DECREASED GLUCOSE; Start 03/12/17 at 19:00 Glucose (Glutose) 22.5 gm Q15M PRN PO DECREASED GLUCOSE; Start 03/12/17 at 19: 00 Dextrose (D50w Syringe) 25 ml Q15M PRN IV DECREASED GLUCOSE; Start 03/12/17 at 19:00 Dextrose (D50w Syringe) 50 ml Q15M PRN IV DECREASED GLUCOSE; Start 03/12/17 at 19:00 Glucagon (Glucagen) 1 mg Q15M PRN IM DECREASED GLUCOSE; Start 03/12/17 at 19: 00 Glucose (Glutose) 15 gm Q15M PRN BUCCAL DECREASED GLUCOSE; Start 03/12/17 at 19:00 Acetaminophen 650 mg 650 mg Q4H PRN NGT PAIN AND OR ELEVATED TEMP Last administered on 03/18/17 21:37; Admin Dose 650 MG; Start 03/12/17 at 22:00 Piperacillin Sod/ Tazobactam Sod 50 ml @ 100 mls/hr Q8 IVPB Last administered on 03/16/17 06:00; Admin Dose 100 MLS/HR; Start 03/13/17 at 06:00; Status Future Hold Fentanyl (Sublimaze) 100 ml @ 2.5 mls/hr TITRATE IV ; Start 03/14/17 at 14:00 Phenytoin (Dilantin) 100 mg TID PO Last administered on 03/20/17 08:40; Admin Dose 100 MG; Start 03/15/17 at 21:00 Labetalol HCl 10 mg 10 mg Q4H PRN IV sbp>160 Last administered on 03/17/17 18 :56; Admin Dose 10 MG; Start 03/17/17 at 18:00 Cefepime HCl (Maxipime 2gm/50 ml (Pmx)) 50 ml @ 100 mls/hr Q12 IVPB Last administered on 03/20/17 08:35; Admin Dose 100 MLS/HR; Start 03/19/17 at 11: 30 Metoprolol Tartrate 100 mg 100 mg Q8H PO Last administered on 03/20/17 05:27 ; Admin Dose 100 MG; Start 03/19/17 at 14:30 Vancomycin HCl/ Sodium Chloride (Vancocin/NS) 250 ml @ 83.333 mls/ hr Q24H IVPB ; Start 03/20/17 at 14:00 Insulin Glargine (Lantus) 30 unit DAILY@08 SC ; Start 03/21/17 at 08:00 Diagnostic Test (Pha) (Accu-Chek) 1 ea 02 XX ; Start 03/21/17 at 02:00 ZACK ROSENTHAL Mar 20, 2017 11:31
[2017-03-20] MEDS: PHENYTOIN (100 MG/4 ML) CUP NGT SCH ×2 (13:40→21:03)
[2017-03-20] MEDS: VANCOMYCIN 1.25 GM in SOD CHLORIDE 0.9% 250 ML IVPB SCH (13:42)
[2017-03-20] MEDS ORDERED: POTASSIUM CHLORIDE 250 ML IVPB ONE (16:00)
[2017-03-20] MEDS: ATORVASTATIN 40 MG TAB PO SCH (21:03)
[2017-03-21] VITALS (26 sets, daily range): BP systolic 87–128; BP diastolic 55–114; PULSE 95–129; RESP 15–29
[2017-03-21] MEDS: ARTIFICIAL TEARS 15 ML OPH BOTH EYES SCH ×6 (00:46→23:35)
[2017-03-21] MEDS: OCULAR LUBRICANT 3.5 GM OPH OINT BOTH EYES SCH ×3 (00:46→12:00)
[2017-03-21] MEDS: INSULIN ASPART [NOVOLOG] 3 ML PEN SC SCH ×4 (00:52→13:00)
[2017-03-21] MEDS ORDERED: ACCU-CHEK XX SCH (02:00)
[2017-03-21] MEDS: FUROSEMIDE 40 MG INJ IV SCH (06:01)
[2017-03-21] MEDS: METOPROLOL 50 MG TAB PO SCH ×2 (06:01→14:30)
[2017-03-21 06:40] LABS: BASOPHIL # 0.1 10^3/ul (0.0-0.1); BASOPHILS % 0.4 % (0.0-2.0); EOSINOPHILS # 0.4 10^3/ul (0.0-0.5); EOSINOPHILS % 2.8 % (0.0-7.0); HEMATOCRIT 27.5 % (37.0-47.0); HEMOGLOBIN 8.3 g/dl (12.0-16.0); LYMPHOCYTES # 1.5 10^3/ul (0.8-2.9); LYMPHOCYTES % 10.9 % (15.0-51.0); MEAN CORPUSCULAR HEMOGLOBIN 25.2 pg (29.0-33.0); MEAN CORPUSCULAR HGB CONC 30.2 g/dl (32.0-37.0); MEAN CORPUSCULAR VOLUME 83.6 fl (82.0-101.0); MEAN PLATELET VOLUME 11.8 fl (7.4-10.4); MONOCYTES % 7.4 % (0.0-11.0); NEUTROPHIL # 10.7 10^3/ul (1.6-7.5); NEUTROPHILS % 77.8 % (39.0-77.0); PLATELET COUNT 306 10^3/UL (140-415); RED BLOOD COUNT 3.29 10^6/ul (4.20-5.40); RED CELL DISTRIBUTION WIDTH 17.4 % (11.5-14.5); WHITE BLOOD COUNT 13.7 10^3/ul (4.8-10.8)
[2017-03-21 07:14] LABS: CALCIUM 8.7 mg/dl (8.4-10.2); CREATININE 0.91 mg/dl (0.44-1.00); POTASSIUM 3.4 mmol/L (3.5-5.1)
[2017-03-21] MEDS ORDERED: INSULIN GLARGINE [LANtus] 3 ML PEN SC SCH (08:00)
[2017-03-21] MEDS: LEVETIRACETAM 1000 MG (PMX) 100 ML IVPB SCH (08:32)
[2017-03-21] MEDS ORDERED: INSULIN GLARGINE [LANtus] 3 ML PEN SC ONE (09:00)
--- NOTE | 2017-03-21 09:01 | PN ---
Date/Time of Note Date/Time of Note DATE: 03/21/17 TIME: 09:01 Assessment/Plan VTE Prophylaxis VTE Prophylaxis Intervention: SCD's Lines/Catheters IV Catheter Type (from Nrs): Peripheral IV Urinary Cath still in place: Yes Reason Cath still needed: urinary retention Assessment/Plan Chief Complaint/Hosp Course S: Patient still intubated, had repletion of potassium yesterday, less fevers now, still tachycardic. Seen by cardiology and pulmonary teams yesterday. O: VS: See below PE: Intubated, not responding to pain on minimal sedation Opens eyes occasionally Supple Slightly decreased breath sounds S1, S2 heard no mrg abd soft no lower extremity edema bilaterally Assessment/Plan: 71 yo F presented following cardiac arrest 2/2 STEMI for which pt underwent PCI. sp hypothermia protocol without a great deal of demonstration of significant neurological recovery. 1. anoxic brain injury -likely secondary to cardiac arrest -neuro on consult. MRI brain results noted. On Keppra and Dilantin presently, no seizures noted presently -vent weaning as per pulm 2. fevers: central v UTI v ?PNA - .16 urine culture noted. .17 blood culture consistent with contaminant.respiratory culture with corynybactereum. unclear if this represents colonization v true infection. Numerous tests x-ray also shows signs of early ARDS and possible pneumonia. -Continue cefepime and vancomycin, monitor vital sign 3. STEMI sp PCI: DAPT -Continue BP meds as well as aspirin and Brilinta, statin as per cardiology -amio as per cardiology 4. preDM: a1c 6.1, insulin SubQ, sugar slightly improved in the last 24 hours although still little bit high -Monitor, continue moderate ISS, increased dose of Lantus slightly again today 5. subclinical hyperthyroid: can be addressed in outpatient setting 6. LUIS FELIPE: improving now, creatinine trending down close to normal range -Continue current IV fluids, monitor BUN/creatinine levels from this morning 7. Hypernatremia: Has been resolving now -Monitor 8. FEN: TFs GOALS OF CARE/DISPO: brief family meeting held 6 days ago pt's patient's spokesperson (grandson) and 3 of her children, as well as yesterday. Myself and palliative care team spoke with family 4 days ago as well with further updates. Discussed with family that heart is working well and beating on its own , but she does not have a gag reflex, doesn't respond to pain and isn't breathing much over the vent, patient is opening eyes appears a bit more alert, but again not following commands overall, and at this time pt is not showing significant evidence of neurologic recovery 2/2 the time her brain was deprived of oxygen when she had her heart attack. Pt not brain , but less likelihood of MEANINGFUL neurologic recovery. Family indicated at this time they do not wish to have tracheostomy or G-tube placement. Family will meet with palliative care team again today this morning, to decide about possible terminal extubation versus continuing current care. Critical care time spent on patient care today equals 40 minutes Problems: Exam/Review of Systems Vital Signs Vitals Vital Signs Date Time Temp Pulse Resp B/P Pulse Ox O2 Delivery O2 Flow Rate FiO2 03/21/17 08:00 108 03/21/17 06:00 18 99/64 100 Mechanical Ventilator 03/21/17 05:05 30 03/21/17 04:00 98.9 Intake and Output 03/20/17 03/20/17 03/21/17 14:59 22:59 06:59 Intake Total 770 ml 945.0 ml 520 ml Output Total 716 ml 586 ml 483 ml Balance 54 ml 359.0 ml 37 ml Results Result Diagram: 03/21/17 0552 03/21/17 0552 Results 24 hrs Laboratory Tests Test 03/20/17 11:33 03/20/17 17:34 03/20/17 21:14 03/21/17 00:48 Bedside Glucose 251 H 249 H 183 167 Test 03/21/17 05:51 03/21/17 05:52 03/21/17 08:23 Bedside Glucose 185 156 White Blood Count 13.7 H Red Blood Count 3.29 L Hemoglobin 8.3 L Hematocrit 27.5 L Mean Corpuscular Volume 83.6 Mean Corpuscular Hemoglobin 25.2 L Mean Corpuscular Hemoglobin Concent 30.2 L Red Cell Distribution Width 17.4 H Platelet Count 306 Mean Platelet Volume 11.8 H Neutrophils % 77.8 H Lymphocytes % 10.9 L Monocytes % 7.4 Eosinophils % 2.8 Basophils % 0.4 Nucleated Red Blood Cells % 0.0 Neutrophils # 10.7 H Lymphocytes # 1.5 Monocytes # 1.0 H Eosinophils # 0.4 Basophils # 0.1 Nucleated Red Blood Cells # 0.0 Sodium Level 145 H Potassium Level 3.4 L Chloride Level 107 Carbon Dioxide Level 28 Anion Gap 13 Blood Urea Nitrogen 38 H Creatinine 0.91 Glucose Level 172 Calcium Level 8.7 Medications Medications Current Medications Ticagrelor 90 mg 90 mg BID PO Last administered on 03/20/17 21:18; Admin Dose 90 MG; Start 03/10/17 at 09:00 Midazolam HCl (Versed) 50 ml @ 1 mls/hr TITRATE IV Last administered on 07:13; Admin Dose 2 MLS/HR; Start 03/10/17 at 03:30 Aspirin (Aspirin) 81 mg DAILY PO Last administered on 03/20/17 08:34; Admin Dose 81 MG; Start 03/10/17 at 09:00 Acetaminophen (Tylenol Supp) 650 mg Q4H PRN [place] PAIN LEVEL 1-3 OR FEVER Last administered on 03/12/17 21:15; Admin Dose 650 MG; Start 03/10/17 at 04:00 Eye Lubricant (Akwa Oint) 1 applic Q6 BOTH EYES Last administered on 06:00; Admin Dose 1 APPLIC; Start 03/10/17 at 06:00 Eye Lubricant (Artificial Tears Oph) 2 drop Q6 BOTH EYES Last administered on 03/21/17 06:00; Admin Dose 2 DROP; Start 03/10/17 at 06:00 Famotidine (Pepcid) 20 mg DAILY PO Last administered on 03/20/17 08:33; Admin Dose 20 MG; Start 03/11/17 at 09:00 Meperidine HCl (Demerol) 12.5 mg Q4H PRN IV POST OPERATIVE SHIVERING; Start at 12:30 Meperidine HCl 25 mg 25 mg Q4H PRN IV POST OPERATIVE SHIVERING Last administered on 03/10/17 12:34; Admin Dose 25 MG; Start 03/10/17 at 12:30 Levetiracetam (Keppra 1,000mg/ 100ml (Pmx)) 100 ml @ 400 mls/hr Q12 IVPB Last administered on 03/21/17 08:32; Admin Dose 400 MLS/HR; Start 03/10/17 at 21: 00 Acetaminophen (Tylenol Liquid) 500 mg DAILY NGT Last administered on 08:33; Admin Dose 500 MG; Start 03/11/17 at 06:00 Atorvastatin Calcium (Lipitor) 40 mg DAILY@21 PO Last administered on 21:03; Admin Dose 40 MG; Start 03/12/17 at 21:00 Miscellaneous Information 1 ea NOTE XX ; Start 03/12/17 at 19:00 Glucose (Glutose) 15 gm Q15M PRN PO DECREASED GLUCOSE; Start 03/12/17 at 19:00 Glucose (Glutose) 22.5 gm Q15M PRN PO DECREASED GLUCOSE; Start 03/12/17 at 19: 00 Dextrose (D50w Syringe) 25 ml Q15M PRN IV DECREASED GLUCOSE; Start 03/12/17 at 19:00 Dextrose (D50w Syringe) 50 ml Q15M PRN IV DECREASED GLUCOSE; Start 03/12/17 at 19:00 Glucagon (Glucagen) 1 mg Q15M PRN IM DECREASED GLUCOSE; Start 03/12/17 at 19: 00 Glucose (Glutose) 15 gm Q15M PRN BUCCAL DECREASED GLUCOSE; Start 03/12/17 at 19:00 Acetaminophen 650 mg 650 mg Q4H PRN NGT PAIN AND OR ELEVATED TEMP Last administered on 03/18/17 21:37; Admin Dose 650 MG; Start 03/12/17 at 22:00 Piperacillin Sod/ Tazobactam Sod 50 ml @ 100 mls/hr Q8 IVPB Last administered on 03/16/17 06:00; Admin Dose 100 MLS/HR; Start 03/13/17 at 06:00; Status Future Hold Fentanyl (Sublimaze) 100 ml @ 2.5 mls/hr TITRATE IV ; Start 03/14/17 at 14:00 Labetalol HCl 10 mg 10 mg Q4H PRN IV sbp>160 Last administered on 03/17/17 18 :56; Admin Dose 10 MG; Start 03/17/17 at 18:00 Cefepime HCl (Maxipime 2gm/50 ml (Pmx)) 50 ml @ 100 mls/hr Q12 IVPB Last administered on 03/20/17 21:03; Admin Dose 100 MLS/HR; Start 03/19/17 at 11: 30 Metoprolol Tartrate 100 mg 100 mg Q8H PO Last administered on 03/21/17 06:01 ; Admin Dose 100 MG; Start 03/19/17 at 14:30 Vancomycin HCl/ Sodium Chloride (Vancocin/NS) 250 ml @ 83.333 mls/ hr Q24H IVPB Last administered on 03/20/17 13:42; Admin Dose 83.333 MLS/HR; Start at 14:00 Insulin Glargine (Lantus) 30 unit DAILY@08 SC Last administered on 03/21/17 08:28; Admin Dose 30 UNIT; Start 03/21/17 at 08:00 Phenytoin (Dilantin Susp Cup) 100 mg TID NGT Last administered on 03/20/17 21 :03; Admin Dose 100 MG; Start 03/20/17 at 13:00 Insulin Aspart NOVOLOG *MODERATE* ALGORI... Q4 SC Last administered on 06:06; Admin Dose 4 UNIT; Start 03/20/17 at 21:30 Potassium Chloride (KCl 40 MEQ/250 ML NS) 250 ml @ 62.5 mls/hr Q4H IVPB ; Start 03/21/17 at 09:00; Stop 03/21/17 at 16:59; Status ANGELIQUE RETANA Mar 21, 2017 09:01
--- NOTE | 2017-03-21 09:24 | CONS ---
Date/Time of Note Date/Time of Note DATE: 03/21/17 TIME: 09:23 Consult Date/Type/Reason Admit Date/Time Mar 10, 2017 at 03:25 Initial Consult Date 03/10/17 Type of Consultation: Pulmonary Ordering Provider: JESSICA DIAZ Subjective Patient remains unresponsive on mechanical ventilation. Objective Vital Signs Date Time Temp Pulse Resp B/P Pulse Ox O2 Delivery O2 Flow Rate FiO2 03/21/17 08:00 108 03/21/17 06:00 18 99/64 100 Mechanical Ventilator 03/21/17 05:05 30 03/21/17 04:00 98.9 Intake and Output 03/20/17 03/20/17 03/21/17 15:00 23:00 07:00 Intake Total 770 ml 945.0 ml 480 ml Output Total 511 ml 610 ml 422 ml Balance 259 ml 335.0 ml 58 ml Exam PHYSICAL EXAMINATION: GENERAL: Elderly-appearing lady, appears comfortable at rest, intubated on mechanical ventilation. VITAL SIGNS: HEENT: Pupils are sluggish. CARDIAC: S1, S2, no added sounds or murmurs. CHEST: Diminished air entry bilaterally. ABDOMEN: Soft, nontender. No guarding or rebound. EXTREMITIES: No cyanosis, clubbing or edema. NEUROLOGIC: Unable to assess. Results/Medications Result Diagram: 03/21/17 0552 03/21/17 0552 Results 24 hrs Laboratory Tests Test 03/20/17 11:33 03/20/17 17:34 03/20/17 21:14 03/21/17 00:48 Bedside Glucose 251 H 249 H 183 167 Test 03/21/17 05:51 03/21/17 05:52 03/21/17 08:23 Bedside Glucose 185 156 White Blood Count 13.7 H Red Blood Count 3.29 L Hemoglobin 8.3 L Hematocrit 27.5 L Mean Corpuscular Volume 83.6 Mean Corpuscular Hemoglobin 25.2 L Mean Corpuscular Hemoglobin Concent 30.2 L Red Cell Distribution Width 17.4 H Platelet Count 306 Mean Platelet Volume 11.8 H Neutrophils % 77.8 H Lymphocytes % 10.9 L Monocytes % 7.4 Eosinophils % 2.8 Basophils % 0.4 Nucleated Red Blood Cells % 0.0 Neutrophils # 10.7 H Lymphocytes # 1.5 Monocytes # 1.0 H Eosinophils # 0.4 Basophils # 0.1 Nucleated Red Blood Cells # 0.0 Sodium Level 145 H Potassium Level 3.4 L Chloride Level 107 Carbon Dioxide Level 28 Anion Gap 13 Blood Urea Nitrogen 38 H Creatinine 0.91 Glucose Level 172 Calcium Level 8.7 Medications Current Medications Ticagrelor 90 mg 90 mg BID PO Last administered on 03/20/17 21:18; Admin Dose 90 MG; Start 03/10/17 at 09:00 Midazolam HCl (Versed) 50 ml @ 1 mls/hr TITRATE IV Last administered on 07:13; Admin Dose 2 MLS/HR; Start 03/10/17 at 03:30 Aspirin (Aspirin) 81 mg DAILY PO Last administered on 03/20/17 08:34; Admin Dose 81 MG; Start 03/10/17 at 09:00 Acetaminophen (Tylenol Supp) 650 mg Q4H PRN [place] PAIN LEVEL 1-3 OR FEVER Last administered on 03/12/17 21:15; Admin Dose 650 MG; Start 03/10/17 at 04:00 Eye Lubricant (Akwa Oint) 1 applic Q6 BOTH EYES Last administered on 06:00; Admin Dose 1 APPLIC; Start 03/10/17 at 06:00 Eye Lubricant (Artificial Tears Oph) 2 drop Q6 BOTH EYES Last administered on 03/21/17 06:00; Admin Dose 2 DROP; Start 03/10/17 at 06:00 Famotidine (Pepcid) 20 mg DAILY PO Last administered on 03/20/17 08:33; Admin Dose 20 MG; Start 03/11/17 at 09:00 Meperidine HCl (Demerol) 12.5 mg Q4H PRN IV POST OPERATIVE SHIVERING; Start at 12:30 Meperidine HCl 25 mg 25 mg Q4H PRN IV POST OPERATIVE SHIVERING Last administered on 03/10/17 12:34; Admin Dose 25 MG; Start 03/10/17 at 12:30 Levetiracetam (Keppra 1,000mg/ 100ml (Pmx)) 100 ml @ 400 mls/hr Q12 IVPB Last administered on 03/21/17 08:32; Admin Dose 400 MLS/HR; Start 03/10/17 at 21: 00 Acetaminophen (Tylenol Liquid) 500 mg DAILY NGT Last administered on 08:33; Admin Dose 500 MG; Start 03/11/17 at 06:00 Atorvastatin Calcium (Lipitor) 40 mg DAILY@21 PO Last administered on 21:03; Admin Dose 40 MG; Start 03/12/17 at 21:00 Miscellaneous Information 1 ea NOTE XX ; Start 03/12/17 at 19:00 Glucose (Glutose) 15 gm Q15M PRN PO DECREASED GLUCOSE; Start 03/12/17 at 19:00 Glucose (Glutose) 22.5 gm Q15M PRN PO DECREASED GLUCOSE; Start 03/12/17 at 19: 00 Dextrose (D50w Syringe) 25 ml Q15M PRN IV DECREASED GLUCOSE; Start 03/12/17 at 19:00 Dextrose (D50w Syringe) 50 ml Q15M PRN IV DECREASED GLUCOSE; Start 03/12/17 at 19:00 Glucagon (Glucagen) 1 mg Q15M PRN IM DECREASED GLUCOSE; Start 03/12/17 at 19: 00 Glucose (Glutose) 15 gm Q15M PRN BUCCAL DECREASED GLUCOSE; Start 03/12/17 at 19:00 Acetaminophen 650 mg 650 mg Q4H PRN NGT PAIN AND OR ELEVATED TEMP Last administered on 03/18/17 21:37; Admin Dose 650 MG; Start 03/12/17 at 22:00 Piperacillin Sod/ Tazobactam Sod 50 ml @ 100 mls/hr Q8 IVPB Last administered on 03/16/17 06:00; Admin Dose 100 MLS/HR; Start 03/13/17 at 06:00; Status Future Hold Fentanyl (Sublimaze) 100 ml @ 2.5 mls/hr TITRATE IV ; Start 03/14/17 at 14:00 Labetalol HCl 10 mg 10 mg Q4H PRN IV sbp>160 Last administered on 03/17/17 18 :56; Admin Dose 10 MG; Start 03/17/17 at 18:00 Cefepime HCl (Maxipime 2gm/50 ml (Pmx)) 50 ml @ 100 mls/hr Q12 IVPB Last administered on 03/20/17 21:03; Admin Dose 100 MLS/HR; Start 03/19/17 at 11: 30 Metoprolol Tartrate 100 mg 100 mg Q8H PO Last administered on 03/21/17 06:01 ; Admin Dose 100 MG; Start 03/19/17 at 14:30 Vancomycin HCl/ Sodium Chloride (Vancocin/NS) 250 ml @ 83.333 mls/ hr Q24H IVPB Last administered on 03/20/17 13:42; Admin Dose 83.333 MLS/HR; Start at 14:00 Phenytoin (Dilantin Susp Cup) 100 mg TID NGT Last administered on 03/20/17 21 :03; Admin Dose 100 MG; Start 03/20/17 at 13:00 Insulin Aspart NOVOLOG *MODERATE* ALGORI... Q4 SC Last administered on 06:06; Admin Dose 4 UNIT; Start 03/20/17 at 21:30 Potassium Chloride (KCl 40 MEQ/250 ML NS) 250 ml @ 62.5 mls/hr Q4H IVPB ; Start 03/21/17 at 09:00; Stop 03/21/17 at 16:59 Insulin Glargine (Lantus) 38 unit DAILY@08 SC ; Start 03/22/17 at 08:00 Assessment/Plan Chief Complaint/Hosp Course IMPRESSION 1. Acute myocardial infarction. Status post LAD stent placement. Atrial fibrillation with rapid ventricular rate, . 2. Cardiopulmonary arrest. 3. Possible aspiration pneumonia with hypoxemic respiratory failure. Radiographic appearance consistent with ARDS. Extensive right effusion. 4. probable anoxic brain injury. Neurologically unchanged off sedation 5. History of coronary artery disease with stent placements in the past. 6. Hypernatremia Plan 1. Continue mechanical ventilation not weanable. 2. Antibiotics for possible aspiration pneumonia. 3. Insulin 4. Cardiac recommendations, 5. DVT and GI prophylaxis. 6. Neurology recommendations. Prognosis extremely poor. Discussed with family at bedside. Likely terminal extubation today. Problems: MARTA REMY MD, [facility] Mar 21, 2017 09:24
[2017-03-21] MEDS: ACETAMINOPHEN 650MG/20.3ML CUP NGT SCH (09:29)
[2017-03-21] MEDS: PHENYTOIN (100 MG/4 ML) CUP NGT SCH ×2 (09:29→13:00)
[2017-03-21] MEDS: ASPIRIN 81 MG TAB PO SCH (09:30)
[2017-03-21] MEDS: TICAGRELOR 90 MG TABLET PO SCH (09:31)
[2017-03-21] MEDS: CEFEPIME 2GM/50 ML (PMX) 50 ML IVPB SCH (09:31)
[2017-03-21] MEDS: FAMOTIDINE 20 MG TAB PO SCH (09:31)
--- NOTE | 2017-03-21 09:32 | CONS ---
Date/Time of Note Date/Time of Note DATE: 03/21/17 TIME: 09:30 Assessment/Plan Assessment/Plan Chief Complaint/Hosp Course This is a postdated progress note patient will status post cardiac arrest in the field. Brought to the [facility] begin on hypothermia protocol admitted to intensive care unit [facility] [place]. After reviewing patient's medical records and examining her have asked family members to meet the once again that eating has been scheduled for 0700 hrs. on 03/19/2017 full palliative care note will be completed at that time Problems: Additional Assessment/Plan Family conference done with all patients children. 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 I have had multiple conversations with family members the last was 2 days ago March 19. Family at that time wanted me to explain how he would compassionately extubate patient . Today family members are available and will like to proceed with compassionate extubation. I had a conversation with family yesterday by phone. Consultation Date/Type/Reason Admit Date/Time Mar 10, 2017 at 03:25 Initial Consult Date 03/10/17 Type of Consultation: Pulmonary Referring Provider: JESSICA DIAZ Exam/Review of Systems Vital Signs Vitals Vital Signs Date Time Temp Pulse Resp B/P Pulse Ox O2 Delivery O2 Flow Rate FiO2 03/21/17 08:00 108 03/21/17 06:00 18 99/64 100 Mechanical Ventilator 03/21/17 05:05 30 03/21/17 04:00 98.9 Intake and Output 03/20/17 03/20/17 03/21/17 15:00 23:00 07:00 Intake Total 770 ml 945.0 ml 480 ml Output Total 511 ml 610 ml 422 ml Balance 259 ml 335.0 ml 58 ml Results Result Diagram: 03/21/17 0552 03/21/17 0552 Results 24 hrs Laboratory Tests Test 03/20/17 11:33 03/20/17 17:34 03/20/17 21:14 03/21/17 00:48 Bedside Glucose 251 H 249 H 183 167 Test 03/21/17 05:51 03/21/17 05:52 03/21/17 08:23 Bedside Glucose 185 156 White Blood Count 13.7 H Red Blood Count 3.29 L Hemoglobin 8.3 L Hematocrit 27.5 L Mean Corpuscular Volume 83.6 Mean Corpuscular Hemoglobin 25.2 L Mean Corpuscular Hemoglobin Concent 30.2 L Red Cell Distribution Width 17.4 H Platelet Count 306 Mean Platelet Volume 11.8 H Neutrophils % 77.8 H Lymphocytes % 10.9 L Monocytes % 7.4 Eosinophils % 2.8 Basophils % 0.4 Nucleated Red Blood Cells % 0.0 Neutrophils # 10.7 H Lymphocytes # 1.5 Monocytes # 1.0 H Eosinophils # 0.4 Basophils # 0.1 Nucleated Red Blood Cells # 0.0 Sodium Level 145 H Potassium Level 3.4 L Chloride Level 107 Carbon Dioxide Level 28 Anion Gap 13 Blood Urea Nitrogen 38 H Creatinine 0.91 Glucose Level 172 Calcium Level 8.7 Medications Medications Current Medications Ticagrelor 90 mg 90 mg BID PO Last administered on 03/20/17 21:18; Admin Dose 90 MG; Start 03/10/17 at 09:00 Midazolam HCl (Versed) 50 ml @ 1 mls/hr TITRATE IV Last administered on 07:13; Admin Dose 2 MLS/HR; Start 03/10/17 at 03:30 Aspirin (Aspirin) 81 mg DAILY PO Last administered on 03/20/17 08:34; Admin Dose 81 MG; Start 03/10/17 at 09:00 Acetaminophen (Tylenol Supp) 650 mg Q4H PRN [place] PAIN LEVEL 1-3 OR FEVER Last administered on 03/12/17 21:15; Admin Dose 650 MG; Start 03/10/17 at 04:00 Eye Lubricant (Akwa Oint) 1 applic Q6 BOTH EYES Last administered on 06:00; Admin Dose 1 APPLIC; Start 03/10/17 at 06:00 Eye Lubricant (Artificial Tears Oph) 2 drop Q6 BOTH EYES Last administered on 03/21/17 06:00; Admin Dose 2 DROP; Start 03/10/17 at 06:00 Famotidine (Pepcid) 20 mg DAILY PO Last administered on 03/20/17 08:33; Admin Dose 20 MG; Start 03/11/17 at 09:00 Meperidine HCl (Demerol) 12.5 mg Q4H PRN IV POST OPERATIVE SHIVERING; Start at 12:30 Meperidine HCl 25 mg 25 mg Q4H PRN IV POST OPERATIVE SHIVERING Last administered on 03/10/17 12:34; Admin Dose 25 MG; Start 03/10/17 at 12:30 Levetiracetam (Keppra 1,000mg/ 100ml (Pmx)) 100 ml @ 400 mls/hr Q12 IVPB Last administered on 03/21/17 08:32; Admin Dose 400 MLS/HR; Start 03/10/17 at 21: 00 Acetaminophen (Tylenol Liquid) 500 mg DAILY NGT Last administered on 08:33; Admin Dose 500 MG; Start 03/11/17 at 06:00 Atorvastatin Calcium (Lipitor) 40 mg DAILY@21 PO Last administered on 21:03; Admin Dose 40 MG; Start 03/12/17 at 21:00 Miscellaneous Information 1 ea NOTE XX ; Start 03/12/17 at 19:00 Glucose (Glutose) 15 gm Q15M PRN PO DECREASED GLUCOSE; Start 03/12/17 at 19:00 Glucose (Glutose) 22.5 gm Q15M PRN PO DECREASED GLUCOSE; Start 03/12/17 at 19: 00 Dextrose (D50w Syringe) 25 ml Q15M PRN IV DECREASED GLUCOSE; Start 03/12/17 at 19:00 Dextrose (D50w Syringe) 50 ml Q15M PRN IV DECREASED GLUCOSE; Start 03/12/17 at 19:00 Glucagon (Glucagen) 1 mg Q15M PRN IM DECREASED GLUCOSE; Start 03/12/17 at 19: 00 Glucose (Glutose) 15 gm Q15M PRN BUCCAL DECREASED GLUCOSE; Start 03/12/17 at 19:00 Acetaminophen 650 mg 650 mg Q4H PRN NGT PAIN AND OR ELEVATED TEMP Last administered on 03/18/17 21:37; Admin Dose 650 MG; Start 03/12/17 at 22:00 Piperacillin Sod/ Tazobactam Sod 50 ml @ 100 mls/hr Q8 IVPB Last administered on 03/16/17 06:00; Admin Dose 100 MLS/HR; Start 03/13/17 at 06:00; Status Future Hold Fentanyl (Sublimaze) 100 ml @ 2.5 mls/hr TITRATE IV ; Start 03/14/17 at 14:00 Labetalol HCl 10 mg 10 mg Q4H PRN IV sbp>160 Last administered on 03/17/17 18 :56; Admin Dose 10 MG; Start 03/17/17 at 18:00 Cefepime HCl (Maxipime 2gm/50 ml (Pmx)) 50 ml @ 100 mls/hr Q12 IVPB Last administered on 03/20/17 21:03; Admin Dose 100 MLS/HR; Start 03/19/17 at 11: 30 Metoprolol Tartrate 100 mg 100 mg Q8H PO Last administered on 03/21/17 06:01 ; Admin Dose 100 MG; Start 03/19/17 at 14:30 Vancomycin HCl/ Sodium Chloride (Vancocin/NS) 250 ml @ 83.333 mls/ hr Q24H IVPB Last administered on 03/20/17 13:42; Admin Dose 83.333 MLS/HR; Start at 14:00 Phenytoin (Dilantin Susp Cup) 100 mg TID NGT Last administered on 03/20/17 21 :03; Admin Dose 100 MG; Start 03/20/17 at 13:00 Insulin Aspart NOVOLOG *MODERATE* ALGORI... Q4 SC Last administered on 06:06; Admin Dose 4 UNIT; Start 03/20/17 at 21:30 Potassium Chloride (KCl 40 MEQ/250 ML NS) 250 ml @ 62.5 mls/hr Q4H IVPB ; Start 03/21/17 at 09:00; Stop 03/21/17 at 16:59 Insulin Glargine (Lantus) 38 unit DAILY@08 SC ; Start 03/22/17 at 08:00 SUZIE MCCARTY Mar 21, 2017 09:32
[2017-03-21] MEDS: POTASSIUM CHLORIDE 250 ML IVPB SCH ×2 (10:00→13:00)
[2017-03-21] MEDS: morphine (DRIP) 100 MG/100 ML 100 ML IV SCH ×2 (10:19→21:22)
[2017-03-21] MEDS: VANCOMYCIN 1.25 GM in SOD CHLORIDE 0.9% 250 ML IVPB SCH (14:00)
[2017-03-22 02:00] VITALS: BP 81/62; PULSE 123; RESP 14
[2017-03-22] MEDS: ARTIFICIAL TEARS 15 ML OPH BOTH EYES SCH ×3 (06:04→18:00)
[2017-03-22 08:00] VITALS: BP 110/64; PULSE 118; RESP 20
[2017-03-22] MEDS ORDERED: INSULIN GLARGINE [LANtus] 3 ML PEN SC SCH (08:00)
[2017-03-22] MEDS: morphine (DRIP) 100 MG/100 ML 100 ML IV SCH ×2 (08:51→20:39)
--- NOTE | 2017-03-22 11:23 | PN ---
Date/Time of Note Date/Time of Note DATE: 03/22/17 TIME: : Assessment/Plan VTE Prophylaxis VTE Prophylaxis Intervention: SCD's Lines/Catheters IV Catheter Type (from Nrsg): Peripheral IV Urinary Cath still in place: Yes Reason Cath still needed: urinary retention Assessment/Plan Chief Complaint/Hosp Course S: Patient terminally extubated yesterday, presently on comfort care measures which is morphine drip presently. No acute events overnight. O: VS: See below PE: Lying in bed Supple Slightly decreased breath sounds S1, S2 heard no mrg abd soft no lower extremity edema bilaterally Assessment/Plan: 71 yo F presented following cardiac arrest 2/2 STEMI for which pt underwent PCI. sp hypothermia protocol without a great deal of demonstration of significant neurological recovery, now terminally extubated on comfort care measures. 1. anoxic brain injury -status post terminal extubation, on comfort care measures -Continue to keep patient comfortable including morphine drip, titrate as needed agitation Problems: Exam/Review of Systems Vital Signs Vitals Vital Signs Date Time Temp Pulse Resp B/P Pulse Ox O2 Delivery O2 Flow Rate FiO2 03/22/17 08:00 100.0 118 20 110/64 81 Nasal Cannula 3.0 03/21/17 12:00 30 Intake and Output 03/21/17 03/21/17 03/22/17 15:00 23:00 07:00 Intake Total 405 ml 28.8 ml 61.9 ml Output Total 577 ml 60 ml 500 ml Balance -172 ml -31.2 ml -438.1 ml Results Result Diagram: 03/21/17 0552 03/21/17 0552 Medications Medications Current Medications Eye Lubricant (Artificial Tears Oph) 2 drop Q6 BOTH EYES Last administered on 03/22/17 06:04; Admin Dose 2 DROP; Start 03/10/17 at 06:00 Acetaminophen 650 mg 650 mg Q4H PRN NGT PAIN AND OR ELEVATED TEMP Last administered on 03/18/17 21:37; Admin Dose 650 MG; Start 03/12/17 at 22:00; Status Future Hold Morphine Sulfate/ Sodium Chloride (morphine) 100 ml @ 1 mls/hr TITRATE IV Last administered on 03/22/17 08:51; Admin Dose 8 MLS/HR; Start 03/21/17 at 09:30 ANGELIQUE ARAYA Mar 22, 2017 11:23
[2017-03-22 20:00] VITALS: BP 109/53; PULSE 142; RESP 28
--- NOTE | 2017-03-23 11:40 | DES ---
Date/Time of Note Date/Time of Note DATE: 03/23/17 TIME: Discharge/ Summary Admission/Discharge Info Admit Date/Time Mar 10, 2017 at 03:25 Discharge Date/Time Mar 23, 2017 at 02:00 Final Diagnosis 1. anoxic brain injury -likely secondary to cardiac arrest 2. fevers: central v UTI v ?PNA - 16 urine culture noted. 03.13 blood culture consistent with contaminant.respiratory culture with corynybactereum. unclear if this represents colonization v true infection. Numerous tests x-ray also shows signs of early ARDS and possible pneumonia. 3. STEMI sp PCI: DAPT 4. preDM: a1c 6.1 5. subclinical hyperthyroid 6. LUIS FELIPE 7. Hypernatremia Preliminary Cause of 1. Res distress (hours) 2. cardiac arrest (days) 3. anoxic brain injury (days) Hospital Course 71-year-old female brought in by ambulance status post cardiac arrest with ROSC. Patient son stated on admission that the mother called him at approximately 12:55 AM stating that she did not feel well and had chest pain. The patient was told her to the hospital which took him about 5 minutes and when he got there he saw his mother was nonresponsive. He quickly called 911. Within approximately 5 minutes the EMS arrived and started CPR. Please see ACLS report for further details. It is unclear how long the patient was down however it appears to be at least between 7-10 minutes. Patient was brought to the emergency department where an EKG was concerning for STEMI. She was taken emergently to the [facility] she had cardiac stenting. Of note during the catheterization the patient was displaying myoclonic jerks. Patient was given Versed and Ativan however at her apparent seizure activity did not seize. Patient was started on Versed drip and taken for a stat CAT scan. A central line was also placed in the ED prior to the cardiac catheterization. Pt was intubated, transferred to ICU, on hypothermia protocol, seen by Neuro, CV, palliative care, pulm teams during this hospital stay. She was unfortunately found with noxic brain injury -likely secondary to cardiac arrest, as this was demonstrated as well on the MRI brain and EEG findings (consistent with encephalopathy). Pt's family met with homemaking rehabilitation consultant teams, primary hospitalists, and palliative team. Pt was medically managed for a few days afterward in the ICU by medical teams, but unfortunately was without a great deal of demonstration of significant neurological recovery. Family finally decided for terminal extubation, and about 24 hours after this was performed, pt at 00:19 on 03/23/2017. S: Patient terminally extubated yesterday, presently on comfort care measures which is morphine drip presently. No acute events overnight. O: VS: See below PE: Lying in bed Supple Slightly decreased breath sounds S1, S2 heard no mrg abd soft no lower extremity edema bilaterally Assessment/Plan: 71 yo F presented following cardiac arrest 2/2 STEMI for which pt underwent PCI. sp hypothermia protocol without a great deal of demonstration of significant neurological recovery, now terminally extubated on comfort care measures. 1. anoxic brain injury -status post terminal extubation, on comfort care measures -Continue to keep patient comfortable including morphine drip, titrate as needed agitation ANGELIQUE ARAYA Mar 23, 2017 11:40
== END 2017-03-23 02:00 | disposition expired | DRG 246 ==
LOC: E/R 01:34 → ICU 03:25 → MS2 03-21 17:55
PROVIDERS: ADMIT Family Medicine; ATTEND Family Medicine
PROC: 5A1955Z Respiratory Ventilation, Greater than 96 Consecutive Hours (ICD-10-PCS; 2017-03-10)
PROC: B2161ZZ Fluoroscopy of Right and Left Heart using Low Osmolar Contrast (ICD-10-PCS; 2017-03-10)
PROC: B2111ZZ Fluoroscopy of Multiple Coronary Arteries using Low Osmolar Contrast (ICD-10-PCS; 2017-03-10)
PROC: 4A023N7 Measurement of Cardiac Sampling and Pressure, Left Heart, Percutaneous Approach (ICD-10-PCS; principal; 2017-03-10 02:15)
PROC: 027034Z Dilation of Coronary Artery, One Artery with Drug-eluting Intraluminal Device, Percutaneous Approach (ICD-10-PCS; 2017-03-10 02:15)
DX: I21.09 ST elevation (STEMI) myocardial infarction involving other coronary artery of anterior wall (principal); J96.01 Acute respiratory failure with hypoxia; I46.2 Cardiac arrest due to underlying cardiac condition; J69.0 Pneumonitis due to inhalation of food and vomit; G93.1 Anoxic brain damage, not elsewhere classified; I50.31 Acute diastolic (congestive) heart failure; N17.9 Acute kidney failure, unspecified; N39.0 Urinary tract infection, site not specified; I48.0 Paroxysmal atrial fibrillation; Z95.5 Presence of coronary angioplasty implant and graft; R56.9 Unspecified convulsions; R50.9 Fever, unspecified; Z66 Do not resuscitate
CPT/HCPCS: 36415; 36600; 70450; 70551; 71010; 74000; 80048; 80053; 80061; 81001; 82150; 82310; 82550; 82553; 82803; 82962; 83036; 83605; 83690; 83735; 83880; 84100; 84439; 84443; 84484; 85014; 85018; 85025; 85384; 85610; 85730; 86850; 86900; 86901; 86920; 87040; 87070; 87081; 87086; 89220; 93005; 93306; 93458; 94002; 94003; 94770; 95819; J1940; C1725; C1874; C1887; C9113; C9460; C9600; J0282; J0583; J0690; J0692; J1644; J1815; J1953; J2060; J2175; J2250; J2270; J2543; J3010; J3370; J3475; J3480; J7030; J7040; J7042; J7050; J7060; J7070; P9047; Q2009